=== PATIENT | male | born 1940 | race Caucasian/White ===

== ENCOUNTER → 2018-02-28 10:24 | Outpatient (CLI) | payer OTHER, SELFPAY ==
[2018-02-28 10:46] LABS: Hematocrit 47.1 % (41-53); Hemoglobin 16.2 g/dL (13.5-17.5); Mean Corpuscular HGB Conc 34.5 % (30-36); Mean Corpuscular Hemoglobin 32.3 PG (26-34); Mean Corpuscular Volume 93.7 fL (80-100); Platelet Count 173 X10^3/uL (150-400); Red Blood Cell Count 5.03 X10^6/uL (4.5-5.9); Red Cell Distribution Width 13.3 % (11.6-14.8); White Blood Cell Count 19.8 X10^3/uL (4.5-11.0)
[2018-02-28 10:47] LABS: Add Manual Diff / Slide Review YES
[2018-02-28 11:16] LABS: Alanine Aminotransferase 38 IU/L (21-72); Albumin 4.2 g/dL (3.5-5.0); Albumin Globulin Ratio 1.6 (1.0-2.8); Alkaline Phosphatase 82 U/L (38-126); Aspartate Aminotransferase 54 IU/L (17-59); Bilirubin Total 1.3 mg/dL (0.2-1.3); Blood Urea Nitrogen 16 mg/dL (9-20); Calcium 10.9 mg/dL (8.4-10.2); Carbon Dioxide 24 mmol/L (22-32); Chloride 107 mmol/L (98-107); Estimated Glomerular Filt Rate > 60.0 mL/min (>60); Globulin 2.6 g/dL (1.7-4.1); Glucose 91 mg/dL (80-110); HEMOLYSIS 22 (0-50); Lactate Dehydrogenase 577 U/L (313-618); Neutrophils Absolute Manual 5940 /uL (3000-5900); Potassium 4.3 mmol/L (3.4-5.1); RBC Morphology Normal Morphology; Smudge Cells 2+; Sodium 142 mmol/L (137-145); Total Cells Counted 100; Total Protein 6.8 g/dL (6.3-8.2)
[2018-02-28 11:17] LABS: Reactive Lymphocytes 3+
[2018-03-02 12:05] LABS: Immunoglobulin G, Quantitative 866 mg/dL (694-1618)
== END ==
PROVIDERS: Internal Medicine Hematology & Oncology; Family Provider Family Medicine; PCP Family Medicine
DX: C91.90 Lymphoid leukemia, unspecified not having achieved remission (principal)
CPT/HCPCS: 36415; 80053; 82784; 83615; 85025

== ENCOUNTER 2018-03-21 11:50 | Day surgery (SDC) | payer OTHER, SELFPAY ==
[2018-03-21] VITALS (11 sets, daily range): BP systolic 90–138; BP diastolic 62–85; PULSE 57–76; RESP 16; TEMP 36.3; O2SAT 93–99; BMI 27.2
[2018-03-21] MEDS: PROPARACAINE 0.5% OPHTH SOL 2 DROPS EYE-OP (12:18)
[2018-03-21] MEDS: CATARACT EYE COMPOUND (10 DROPS/SYRINGE) 3 DROPS EYE-OP (12:23)
--- NOTE | 2018-03-21 12:40 | PM.PREOP ---
Pre-operative Note Interval Note Pre-op Check: Yes History & Physical Reviewed by Physician Changes: No
[2018-03-21] MEDS: TETRACAINE 0.5% OPHTH DROPS 15 ML 2 DROPS EYE-LEFT (13:11)
[2018-03-21] MEDS: LIDOCAINE JELLY 2% 5 ML 1 APPLIC TOP (13:12)
[2018-03-21] MEDS: MOXIFLOXACIN OPHTH DROPS 3 ML BOTTLE 2 DROPS INJ (13:13)
[2018-03-21] MEDS: BALANCED SALT IRRIG SOLN NO.2 500 ML, EPINEPHrine 1 MG IRR (13:14)
--- NOTE | 2018-03-21 13:37 | PM.OP.1 ---
Procedure & Clinicians Procedure: Cataract extraction with intraocular lens implant, left eye Same procedure as scheduled: Yes Indications: Visually significant cataract Surgeon: Rolando Templeton Anesthesia Type: MAC +/- Operative Notes Findings: The patient was brought to the operating suite. Tetracaine drops were placed in the left eye. The patient was prepped and draped in the typical sterile manner. A lid speculum was placed in the eye. A paracentesis port was created with a side-port blade. 0.1 mL of 1% preservative free lidocaine was injected into the anterior chamber. Viscoelastic was injected into the anterior chamber. A 2.6mm keratome was used to create a clear corneal temporal incision. Cystotome and Utrata forceps were used to create a continuous curvilinear capsulorrhexis. Balanced salt solution was used to hydrodissect the nucleus. Phacoemulsification was used to remove the lens. The capsular bag was inflated with viscoelastic. A Johns ZCBOO 18.0D lens was inserted into the bag. Viscoelastic was removed and the wound hydrated. The wound was found to be leak free and the eye was assessed to be at normal physiologic pressure. 0.1mL Vigamox was injected into the anterior chamber. The lid speculum was removed and the patient left the operating room in excellent condition. Complications: none Condition: stable Disposition: same day surgery
[2018-03-21] MEDS: LACTATED RINGERS 1,000 ML 1000 ML IV (14:40)
--- NOTE | 2018-03-21 17:55 | SUR.PHASEII ---
1330 Pt found sitting up in wheelchair, spouse at bedside. Pt's head slowly fell back and pt did not open eyes to voice. Skin diaphoretic. Face pale, purple. Pt weakly intermittently responded to voice commands. Radial pulse unpalpable and respirations very shallow. Help and an MD was called for, crash cart requested. Multiple doctors and nurses arrived, crash cart arrived. Pt connected to monitor, hr in the 30s at 1333. 6lNC applied, O2 sat 100%. BP 76/57, Dr. Shahid gave 20mg Ephedrine. Pt was assisted to a stretcher. BP increased to 100/65, HR increased slowly to the 60s. 500ml LR bolus given, then LR slowed. EKG done, Dr. Shahid reviewed EKG, no new orders. RN at bedside, pt continued to be monitored by qc manager. 1000ml IV bag infused per Dr. Shahid. VS Stable. Pt ambulated to the bathroom and back, sba, gait steady.
== END 2018-03-21 14:58 | disposition home or self-care (01) ==
LOC: OR 11:51
PROVIDERS: Family Provider Family Medicine; PCP Family Medicine; Visit Provider Ophthalmology
DX: H25.22 Age-related cataract, morgagnian type, left eye (principal); F41.9 Anxiety disorder, unspecified; I10 Essential (primary) hypertension
CPT/HCPCS: 93005; J0171; J2250; J3010

== ENCOUNTER 2018-10-10 11:28 | Day surgery (SDC) | payer OTHER, SELFPAY ==
[2018-10-10] VITALS (10 sets, daily range): BP systolic 73–108; BP diastolic 53–72; PULSE 65–96; RESP 12–16; TEMP 36.4–36.8; O2SAT 94–98; BMI 26.5
[2018-10-10] MEDS: PROPARACAINE 0.5% OPHTH SOL 2 DROPS EYE-OP (12:08)
[2018-10-10] MEDS: CATARACT EYE COMPOUND (10 DROPS/SYRINGE) 3 DROPS EYE-OP (12:10)
--- NOTE | 2018-10-10 12:35 | PM.PREOP ---
Pre-operative Note Interval Note History & Physical reviewed/Exam performed by Physician: Yes Changes to H&P: No
[2018-10-10] MEDS: MOXIFLOXACIN OPHTH DROPS 3 ML BOTTLE 2 DROPS INJ (13:04)
[2018-10-10] MEDS: CHONDROIDTIN/SOD HYALURONATE 1.05 ML SYRINGE INTRAOCULA (13:04)
[2018-10-10] MEDS: PHENYLEPHRINE/LIDOCAINE VIAL (OR) 0.2 ML EYE-OP (13:05)
[2018-10-10] MEDS: BALANCED SALT IRRIG SOLN NO.2 500 ML, EPINEPHrine 1 MG IRR (13:06)
[2018-10-10] MEDS: LIDOCAINE 2% INJ SDV 0.5 ML TOP (13:08)
[2018-10-10] MEDS: TETRACAINE 0.5% OPHTH DROPS 4 ML 2 DROPS EYE-RIGHT (13:09)
--- NOTE | 2018-10-10 13:30 | PM.OP.1 ---
Procedure & Clinicians Procedure: Cataract extraction with intraocular lens implant, right Same procedure as scheduled: Yes Indications: Visually significant nuclear sclerosis cataract, right Surgeon: Rolando Templeton Anesthesia Type: MAC +/- Operative Notes Procedure in detail: The patient was brought to the operating suite. The correct patient, surgical site and lens were confirmed. 0.5 % tetracaine drops were placed in the right eye. The patient was prepped and draped in the typical sterile manner. A lid speculum was placed in the eye. 2% lidocaine was placed on the eye. A paracentesis port was created with a side-port blade. 0.1 mL of 1% preservative free lidocaine was injected into the anterior chamber. Viscoelastic was injected into the anterior chamber. A 2.6mm keratome was used to create a clear corneal temporal incision. Cystotome and Utrata forceps were used to create a continuous curvilinear capsulorrhexis. Balanced salt solution was used to hydrodissect the nucleus. Phacoemulsification was used to remove the lens. The capsular bag was inflated with viscoelastic. A Johns ZBOO +17.5D lens was inserted into the capsule. Viscoelastic was removed and the wound hydrated. The wound was found to be leak free and the eye was assessed to be at normal physiologic pressure. 0.1mL Vigamox was injected into the anterior chamber. The lid speculum was removed and the patient left the operating room in excellent condition. Complications: none Condition: stable Disposition: same day surgery
--- NOTE | 2018-10-10 14:04 | SUR.PHASEII ---
pt's blood pressure dropped to the 80systolically pt states she feels fine . Gave pt lots of fluids po and gave him a sandwich to eat will recheck blood pressure encourage fluids and pt is eating a sandwich. States he feels fine.
--- NOTE | 2018-10-10 14:55 | SUR.PHASEII ---
informed Dr. Cardenas of patients blood pressure at 1430 and gave report to Tiffanie Rush RN . pt remains awake and alert. Denies any complaints but is sitting wth drinking fluids and talking. Denies dizziness or any funny feeling.
--- NOTE | 2018-10-10 15:59 | SUR.PHASEII ---
1430: Assumed care of pt. Pt's blood pressure remains low (89/61), aware. Gave pt cup of black coffee and sat pt up on the edge of his bed. Re-checked pt's BP at 1515 and it was 86/57. Gave pt apple juice x3 and cranberry juice x2 and reevaluated BP at 1530, it was 73/53. I contacted Dr. Cardenas who said to place IV and give 1L NS blus. I had the pt sit back in bed, placed IV and started bolus. Will re-evaluate once bolus is in.
[2018-10-10] MEDS: SODIUM CHLORIDE 0.9% 1,000 ML 100 ML IV (16:16)
== END 2018-10-10 16:25 | disposition home or self-care (01) ==
LOC: OR 11:31
PROVIDERS: Family Provider Family Medicine; PCP Family Medicine; Visit Provider Ophthalmology
PROC: (CPT 66984; principal; 2018-10-10 12:30)
DX: H25.11 Age-related nuclear cataract, right eye (principal); F41.9 Anxiety disorder, unspecified; I10 Essential (primary) hypertension
CPT/HCPCS: 66984; J0171; J2250; J3010

== ENCOUNTER → 2018-10-11 10:20 | Outpatient (CLI) | payer OTHER, SELFPAY ==
--- NOTE | 2018-10-11 10:21 | DI.US.S_ITS ---
PROCEDURE: US THYROID INDICATIONS: HYPERPARATHYROIDISM TECHNIQUE: Real-time scanning was performed of the thyroid gland, with image documentation. COMPARISON: None. FINDINGS: Right: Thyroid lobe measures 4.3 x 1.9 x 1.4 cm, and is homogeneous in echotexture. There are 3 cystic nodules in the right thyroid lobe and isthmus, the largest in the right lobe measures 1.3 cm. It is immediately adjacent to a cystic nodule measuring 1.2 cm with a single coarse internal calcification. Left: Thyroid lobe measures 4.5 x 1.3 x 1.3 cm, and is homogenous in echotexture. There 2 hypoechoic small nodules in the left thyroid lobe, one measuring 6 mm and the other measuring 5 mm. Isthmus: 9 mm thick secondary to a cystic ovoid nodule measuring 2.4 x 0.9 x 2.0 cm. The immediately caudal to the left thyroid lobe there is an ovoid nodule measuring 1.1 cm with increased vascularity. Additionally, there are multiple hypoechoic, rounded and ovoid nodules in the cervical chains bilaterally. IMPRESSION: Multiple bilateral extrathyroidal nodules, lymph nodes and/ or parathyroid adenoma. Correlation with contrast enhanced CT scan and nuclear medicine sestamibi scan is recommended. Cystic and subcentimeter bilateral and isthmus thyroid nodules with only mildly suspicious features. Dictated by: Lorelei Knight M.D. on 10/11/2018 at 12:46 Approved by: Lorelei Knight M.D. on 10/11/2018 at 12:55
== END ==
PROVIDERS: Family Provider Family Medicine; PCP Family Medicine; Visit Provider Internal Medicine Hematology & Oncology
DX: E21.3 Hyperparathyroidism, unspecified (principal); C91.90 Lymphoid leukemia, unspecified not having achieved remission; E04.2 Nontoxic multinodular goiter
CPT/HCPCS: 76536

== ENCOUNTER → 2018-11-06 11:04 | Outpatient (CLI) | payer OTHER, SELFPAY ==
[2018-11-06 12:43] LABS: Alanine Aminotransferase 46 IU/L (21-72); Albumin 4.2 g/dL (3.5-5.0); Albumin Globulin Ratio 1.6 (1.0-2.8); Alkaline Phosphatase 69 U/L (38-126); Aspartate Aminotransferase 40 IU/L (17-59); Bilirubin Total 0.9 mg/dL (0.2-1.3); Blood Urea Nitrogen 24 mg/dL (9-20); Calcium 11.1 mg/dL (8.4-10.2); Carbon Dioxide 29 mmol/L (22-32); Chloride 101 mmol/L (98-107); Estimated Glomerular Filt Rate > 60.0 mL/min (>60); Globulin 2.7 g/dL (1.7-4.1); Glucose 94 mg/dL (80-110); HEMOLYSIS 23 (0-50); Potassium 4.3 mmol/L (3.4-5.1); Sodium 136 mmol/L (137-145); Total Protein 6.9 g/dL (6.3-8.2)
--- NOTE | 2018-11-06 12:52 | DI.CT.S_ITS ---
PROCEDURE: CT SOFT TISSUE NECK W CON INDICATIONS: POSSIBLE PARTHYROIDISM? TECHNIQUE: After the administration of intravenous contrast, 3.0 mm axial sections acquired from the sella to the aortic arch. Additional oblique axial 3.0 mm sections acquired through the pharynx. 3 mm thick coronal and sagittal reformats were generated. For radiation dose reduction, the following was used: automated exposure control. COMPARISON: [facility], , US THYROID, 10/11/2018, 10:49. FINDINGS: Image quality: Excellent. Lymph nodes: No enlarged lymph nodes seen throughout the neck. Numerous subcentimeter lymph nodes can be seen throughout the neck, including adjacent to the thyroid. Vessels: Visualized vasculature appears patent. Neck spaces: The oropharynx, nasopharynx, and pharynx demonstrate no mucosal lesions. The vocal cords, false vocal cords, pyriform sinuses, epiglottis, vallecula, and tongue base all appear normal. Extramucosal spaces appear unremarkable. Glands: The parotid and submandibular glands appear normal. The thyroid gland demonstrates several internal nodules, with the largest seen within the left isthmus measuring 2 cm. Surrounding the thyroid, there are numerous ovoid subcentimeter lesions seen, which are attributed to lymph nodes. Miscellaneous: Visualized brain and orbits appear normal. Lung apices appear clear. Superficial soft tissues appear normal. Bones: No suspicious bony lesions. Visualized sinuses and mastoids appear unremarkable. Age-appropriate bony degenerative changes are seen. IMPRESSION: The previously seen nodules adjacent to the thyroid are most consistent with benign ovoid lymph nodes. Numerous simple appearing lymph nodes can be seen elsewhere within the neck. Thyroid nodules are again seen, as previously demonstrated by ultrasound. Dictated by: Julio Cesar Mohr M.D. on 11/06/2018 at 14:41 Approved by: Julio Cesar Mohr M.D. on 11/06/2018 at 14:43
== END ==
PROVIDERS: Family Provider Family Medicine; PCP Family Medicine; Visit Provider Internal Medicine Hematology & Oncology
DX: C91.90 Lymphoid leukemia, unspecified not having achieved remission (principal); E83.52 Hypercalcemia
CPT/HCPCS: 36415; 70491; 80053; Q9967

== ENCOUNTER 2018-12-20 14:18 | Emergency (ER) | payer OTHER, SELFPAY ==
[2018-12-20 14:17] VITALS: BP 132/83; PULSE 72; RESP 12; TEMP 36.8; O2SAT 97
--- NOTE | 2018-12-20 14:25 | DI.RAD.S_ITS ---
PROCEDURE: XR CHEST 1V INDICATIONS: Possible stroke TECHNIQUE: One view of the chest was acquired. COMPARISON: [facility], , CHEST 2 VIEW, 12/28/2009, 12:49. FINDINGS: Surgical changes and devices: None. Lungs and pleura: Lungs are clear. No pleural effusions or pneumothorax. Mediastinum: Mediastinal contours appear normal. Heart size is normal. There is mild aortic atherosclerosis. Bones and chest wall: No suspicious bony lesions. Overlying soft tissues appear unremarkable. IMPRESSION: No acute cardiopulmonary process is evident. Dictated by: Bob Robledo M.D. on 12/20/2018 at 13:49 Approved by: Bob Robledo M.D. on 12/20/2018 at 13:50
--- NOTE | 2018-12-20 14:29 | DI.CT.S_ITS ---
PROCEDURE: CT HEAD/BRAIN WO CON INDICATIONS: transient left facial droop, slurred speech and hallucinatio TECHNIQUE: Noncontrast 4.5 mm thick angled axial sections acquired from the foramen magnum to the vertex, with coronal and sagittal reformats. For radiation dose reduction, the following was used: automated exposure control, adjustment of mA and/or kV according to patient size. COMPARISON: [facility], , MRI HEAD W/O CONTRAST, 10/13/2005, 10:48. FINDINGS: Image quality: Diagnostic. CSF spaces: Basal cisterns are patent. No extra-axial fluid collections. Ventricles are only prominent with corresponding parenchymal volume loss. Brain: No midline shift. No intracranial masses or hemorrhage. [place]-white matter interface is normal. Skull and face: Calvarium and visualized facial bones are intact, without suspicious lesions. Sinuses: Visualized sinuses and mastoids are clear. IMPRESSION: 1. No acute intracranial hemorrhage. 2. Mild parenchymal volume loss. Dictated by: Bob Robledo M.D. on 12/20/2018 at 13:48 Approved by: Bob Robledo M.D. on 12/20/2018 at 13:49
--- NOTE | 2018-12-20 14:40 | ED.NEUROSD ---
HPI - Neuro Symptoms/Deficit General Chief Complaint: Neuro Symptoms/Deficit Stated Complaint: auditory hallucinations Time Seen by Provider: 12/20/18 14:38 Source: patient and EMS Mode of arrival: EMS Limitations: no limitations History of Present Illness HPI Narrative: 78-year-old male comes to the emergency department with complaint of auditory hallucinations while swimming and possibly some facial droop reported by a bystander. Patient states he was swimming at full dog a pool he heard grunting sounds and what sounded like people talking which he states he should be able to here under the water. He states that he swims regularly. He swam to the edge of the pool was able to get out on his own without he states that he was able to walk to the locker room without issue. There was a slow instructor present who stated that he had some left facial droop. Patient did not appreciate this. He did not appreciate any speech issues. No headache, no vision changes, no weakness or numbness, does have shortness of breath no other GI or urinary said he does. Does have a history significant for CLL, he takes medications for hypertension takes a daily baby aspirin. States he has had cataract surgery on 1 eye, he does drink 1 alcoholic drinks daily. He sees Dr. Jacobson for his primary care in lives 6 months in [place]. On Anticoagulants: Yes (ASA 81mg) Related Data Home Medications Medication Instructions Recorded Confirmed aspirin 81 mg PO DAILY 10/18/17 12/20/18 acetaminophen [Tylenol Extra 500 mg PO Q4H PRN 03/21/18 12/20/18 Strength] lutein-zeaxanthin [Ocuvite Lutein 1 cap PO DAILY 10/29/18 12/20/18 25] lisinopril-hydrochlorothiazide 1 tab PO DAILY 12/20/18 12/20/18 Previous Rx's Medication Instructions Recorded bupropion HCl SR 150 mg tablet,12 150 mg PO BID #180 tab 10/07/18 hr sustained-release Allergies Allergy/AdvReac Type Severity Reaction Status Date / Time No Known Drug Allergies Allergy Verified 10/07/18 11:01 Review of Systems Review of Systems ROS Unobtainable: All systems reviewed & are unremarkable except as noted in HPI and below Constitutional Denies chills, Denies fever(s), Denies lethargy and Denies weakness ENT Ears, Nose, Mouth, and Throat: Denies disequilibrium and Denies other (facial droop.) Cardiovascular Denies chest pain, Denies chest pain at rest, Denies chest pain with activity, Denies syncope, Denies edema, Denies lightheadedness, Denies radiating jaw, neck or arm pain, Denies dyspnea and Denies dyspnea on exertion Respiratory Denies cough, Denies dyspnea, Denies dyspnea on exertion and Denies wheezing Gastrointestinal Gastrointestinal: Denies abdominal pain, Denies change in bowel habits, Denies diarrhea, Denies nausea and Denies vomiting Musculoskeletal Denies abnormal gait Neurologic Reports as per HPI, Denies abnormal movements, Denies abnormal speech, Denies abnormal gait, Denies syncope, Denies focal weakness, Denies sensory deficit, Denies disequilibrium and Denies weakness Psychiatric Reports hallucinations (heard people talking while in water, grunting sounds that were unnatural.) Allergic/Immunologic Denies wheezing [facility] Medical History Depressive disorder, atypical (Chronic) Anxiety disorder (Chronic) Hyperlipidemia (Chronic 12/07/10) Benign prostatic hyperplasia (Chronic 02/16/15) Essential hypertension (Chronic 11/10/15) 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 Sister No problems noted. Father No problems noted. Mother Pancreatic cancer Social History household members: spouse Smoking Status: Never smoker Family History Brother No problems noted. Sister No problems noted. Father No problems noted. Mother Pancreatic cancer Social History (Updated 12/20/18 @ 14:57 by Martita Salazar DO) household members: spouse Smoking Status: Never smoker alcohol intake: current substance use type: does not use Exam Narrative Exam Narrative: GEN: well nourished, thin, well appearing elderly male, alert and oriented x 3, patient appears to be in no acute distress. HEENT: Atraumatic, pupils are equal round reactive to light, extraocular movements are intact, nares are clear, TMs are clear with no fluid, there is no conjunctival pallor. Throat is clear without any exudates, erythema, tonsillar enlargement or uvular deviation HEART: Regular rate and rhythm without murmur, clicks, rubs. No carotid bruits, pulses are equal in upper and lower extremities LUNGS:Lungs clear to auscultation, no wheezes, rales, crackles, chest moves symmetrically ABD:bowel sounds normal, soft, non-tender, no guarding, rebound, rigidity, no masses noted, no hepatosplenomegaly :No CVA tenderness. MSCL: Non-tender, no muscle atrophy, muscles strength 5/5 upper and lower extremities, full range of motion, gait not tested. NEURO:CN 2-12 intact, sensation normal, reflexes 2/4 upper and lower extremities. finger nose finger test normal, heel mares test normal PSYCH: History of depression, no suicidal ideation or intent. Initial Vital Signs Initial Vital Signs: Vital Signs Temperature 98.2 F 12/20/18 14:17 Pulse Rate 72 12/20/18 14:17 Respiratory Rate 12 12/20/18 14:17 Blood Pressure 132/83 12/20/18 14:17 Pulse Oximetry 97 12/20/18 14:17 Scores NIH Stroke Scale Level of Conciousness: Alert, keenly responsive Ask month/age: Answers both questions correctly. Open/close eyes, close hand: Performs both tasks correctly Best gaze horizontal: Normal Visual ybarra: No visual loss Facial palsy: Normal symetrical movement Left arm drift: No drift for full 10 sec Right arm drift: No drift for full 10 sec Left leg drift: No drift for full 10 sec Right leg drift: No drift for full 10 sec Limb ataxia: Absent Sensory on face/arms/legs: Normal, no sensory loss Best language: No aphasia, normal Dysarthria: Normal Extinction or inattention: No abnormality Total NIH Stroke scale score: 0 Course Orders Ordered: ED Orders 12/20/18 14:25 XR chest 1V Stat Complete Blood Count AUTO DIFF Stat Comprehensive Metabolic Panel Stat Partial Thromboplastin Time Stat Prothrombin Time INR Stat Troponin & CK Cardiac Panel Stat EKG-12 Lead Stat 12/20/18 14:29 CT head/brain wo con Stat 12/20/18 16:10 Urine Microscopic Stat Discontinued Medications Aspirin (Aspirin Chew) 324 mg PO NOW ONE Stop: 12/20/18 16:35 Last Admin: 12/20/18 16:50 Dose: 324 mg Vital Signs - 8 hr 12/20/18 14:17 12/20/18 16:51 Temperature 98.2 F Pulse Rate 72 64 Respiratory Rate 12 18 Blood Pressure 132/83 102/85 Pulse Oximetry 97 100 MDM - Neuro Symptoms/Deficit Lab Data Attestation: I reviewed the patient's lab results. Result diagrams: 12/20/18 14:25 12/20/18 14:25 Lab Results 12/20/18 12/20/18 12/20/18 Range/Units 14:25 14:25 14:25 WBC 18.5 H (4.5-11.0) X10^3/uL RBC 5.00 (4.5-5.9) X10^6/uL Hgb 16.1 (13.5-17.5) g/dL Hct 47.6 (41-53) % MCV 95.1 (80-100) fL MCH 32.3 (26-34) PG MCHC 33.9 (30-36) % RDW 13.2 (11.6-14.8) % Plt Count 202 (150-400) X10^3/uL Neut % (Auto) Not Reportable Lymph % (Auto) Not Reportable [place] % (Auto) Not Reportable Eos % (Auto) Not Reportable Baso % (Auto) Not Reportable Lymph # (Auto) Not Reportable [place] # (Auto) Not Reportable Baso # (Auto) Not Reportable Total Counted 100 Seg Neutrophils % 24.0 L (38-70) % Lymphocytes % (Manual) 43.0 (25-45) % Atypical Lymphs % 28.0 H ( - 0) % Monocytes % (Manual) 2.0 (2-11) % Eosinophils % (Manual) 3.0 (2-4) % Neutrophils # (Manual) 4440 (7526-7076) /uL RBC Morphology Normal morphology PT 10.7 (10.1-12.7) SECONDS INR 0.9 (0.9-1.3) APTT 40 H (26.4-36.2) SECONDS Sodium 138 (137-145) mmol/L Potassium 4.2 (3.4-5.1) mmol/L Chloride 102 (98-107) mmol/L Carbon Dioxide 29 (22-32) mmol/L BUN 22 H (9-20) mg/dL Creatinine 1.20 (0.66-1.25) mg/dL Estimated GFR 58.3 L (>60) mL/min BUN/Creatinine Ratio 18.3 (6-22) Glucose 104 (80-110) mg/dL Calcium 11.1 H (8.4-10.2) mg/dL Total Bilirubin 1.1 (0.2-1.3) mg/dL AST 51 (17-59) IU/L ALT 35 (21-72) IU/L Alkaline Phosphatase 72 (38-126) U/L Total Creatine Kinase 235 H (55-170) U/L CK-MB (CK-2) 5.42 H (<2.37) ng/mL CK-MB (CK-2) Rel Index 2.3 (1.5-5.0) % Troponin I < 0.012 (0.01-0.034) ng/mL Total Protein 7.2 (6.3-8.2) g/dL Albumin 4.3 (3.5-5.0) g/dL Globulin 2.9 (1.7-4.1) g/dL Albumin/Globulin Ratio 1.5 (1.0-2.8) Urine RBC (0-5/HPF) Urine WBC (0-5/HPF) Urine Bacteria (None) Ur Culture Indicated? 12/20/18 Range/Units 16:10 WBC (4.5-11.0) X10^3/uL RBC (4.5-5.9) X10^6/uL Hgb (13.5-17.5) g/dL Hct (41-53) % MCV (80-100) fL MCH (26-34) PG MCHC (30-36) % RDW (11.6-14.8) % Plt Count (150-400) X10^3/uL Neut % (Auto) Lymph % (Auto) [place] % (Auto) Eos % (Auto) Baso % (Auto) Lymph # (Auto) [place] # (Auto) Baso # (Auto) Total Counted Seg Neutrophils % (38-70) % Lymphocytes % (Manual) (25-45) % Atypical Lymphs % ( - 0) % Monocytes % (Manual) (2-11) % Eosinophils % (Manual) (2-4) % Neutrophils # (Manual) (0809-4304) /uL RBC Morphology PT (10.1-12.7) SECONDS INR (0.9-1.3) APTT (26.4-36.2) SECONDS Sodium (137-145) mmol/L Potassium (3.4-5.1) mmol/L Chloride (98-107) mmol/L Carbon Dioxide (22-32) mmol/L BUN (9-20) mg/dL Creatinine (0.66-1.25) mg/dL Estimated GFR (>60) mL/min BUN/Creatinine Ratio (6-22) Glucose (80-110) mg/dL Calcium (8.4-10.2) mg/dL Total Bilirubin (0.2-1.3) mg/dL AST (17-59) IU/L ALT (21-72) IU/L Alkaline Phosphatase (38-126) U/L Total Creatine Kinase (55-170) U/L CK-MB (CK-2) (<2.37) ng/mL CK-MB (CK-2) Rel Index (1.5-5.0) % Troponin I (0.01-0.034) ng/mL Total Protein (6.3-8.2) g/dL Albumin (3.5-5.0) g/dL Globulin (1.7-4.1) g/dL Albumin/Globulin Ratio (1.0-2.8) Urine RBC 0-1/hpf (0-5/HPF) Urine WBC None seen (0-5/HPF) Urine Bacteria None seen (None) Ur Culture Indicated? Cult not indicated Urine Dip Bedside Urine Glucose Negative Bedside Urine Bilirubin - Negative Bedside Urine Ketone - Negative Urine Specific [place] 1.015 Bedside Urine Occult Blood +/- Bedside Urine pH 7.0 Bedside Urine Protein - Negative Bedside Urine Urobilinogen +/- 1mg Bedside Urine Nitrite - Negative Bedside Urine Leukocytes - Negative Esterase Imaging Data CT scan - head: Radiologist's impression: [address] [address] [address] Scan Report Signed Patient: Artis Veloz EMR#: [id number] : 9Acct:[id number] Age/Sex: 78 / MDate of Service: 12/20/18 Loc: ED Accession Number: [id number] Procedure: CT head/brain wo con Ordering Provider: Martita Salazar D.O. PROCEDURE: CT HEAD/BRAIN WO CON INDICATIONS: transient left facial droop, slurred speech and hallucinatio TECHNIQUE: Noncontrast 4.5 mm thick angled axial sections acquired from the foramen magnum to the vertex, with coronal and sagittal reformats. For radiation dose reduction, the following was used: automated exposure control, adjustment of mA and/or kV according to patient size. COMPARISON: [facility] , MRI HEAD W/O CONTRAST, 10/13/2005, 10:48. FINDINGS: Image quality: Diagnostic. CSF spaces: Basal cisterns are patent. No extra-axial fluid collections. Ventricles are only prominent with corresponding parenchymal volume loss. Brain: No midline shift. No intracranial masses or hemorrhage. [place]-white matter interface is normal. Skull and face: Calvarium and visualized facial bones are intact, without suspicious lesions. Sinuses: Visualized sinuses and mastoids are clear. IMPRESSION: 1. No acute intracranial hemorrhage. 2. Mild parenchymal volume loss. Dictated by: Bob Robledo M.D. on 12/20/2018 at 13:48 Approved by: Bob Robledo M.D. on 12/20/2018 at 13:49 Chest x-ray: Radiologist's impression: [address] [address] XRay Report Signed Patient: Artis Veloz EMR#: [id number] : 9Acct:[id number] Age/Sex: 78 / MDate of Service: 12/20/18 Loc: ED Accession Number: [id number] Procedure: XR chest 1V Ordering Provider: Martita Salazar D.O. PROCEDURE: XR CHEST 1V INDICATIONS: Possible stroke TECHNIQUE: One view of the chest was acquired. [facility] 12[facility]. FINDINGS: Surgical changes and devices: None. Lungs and pleura: Lungs are clear. No pleural effusions or pneumothorax. Mediastinum: Mediastinal contours appear normal. Heart size is normal. There is mild aortic atherosclerosis. Bones and chest wall: No suspicious bony lesions. Overlying soft tissues appear unremarkable. IMPRESSION: No acute cardiopulmonary process is evident. Dictated by: Bob Robledo M.D. on 12/20/2018 at 13:49 Approved by: Bob Robledo M.D. on 12/20/2018 at 13:50 ECG Data Attestation: I personally reviewed and interpreted this ECG as follows: Interpretation: Sinus rhythm rate of 68 LA is 184 QRS of 93 QTC of 384. No ST elevation or depression. MDM Narrative Medical decision making narrative: Patient's history is suggestive of possible TIA all with the auditory hallucinations that he describes perhaps less likely. We discussed that there could be other causes involved. NIH is 0. Patient's head CT is negative, his lab work does not show any major abnormalities other than his elevated white count which is typical with CLL EKG does not show any acute findings. Patient would like to return home he was offered observation. I spoke with Dr. Desai who is covering for his primary care, we discussed that I had him increase his aspirin although he will not be fully anticoagulated any should discussed with Dr. Jacobson about being put on no wax or warfarin if he has an appropriate candidate. Patient did not wish to make that decision today. We also discussed that if any recurrent symptoms he needs to return. Risks vs. benefits have been discussed with patient and family at bedside. Discharge Plan Departure Patient Disposition: Home Clinical Impression: TIA (transient ischemic attack) Discharge Date/Time: 12/20/18 16:52 Interventions: ED Discharge Assessment Last Done: 12/20/18 16:51 Instructions: DI for Transient Ischemic Attack Activity Restrictions/Additional Instructions: You may have had a TIA, it is unclear if this is case. Call Sunday morning to set up an appointment for follow-up with Dr. Jacobson for the rest of your evaluation and workup as you have elected not to spend the night in the hospital. Continue home medications as prescribed. Take an aspirin 324 mg daily discussed with Dr. Jacobson regarding taking stronger anticoagulant to protect to from possible strokes. Return to the emergency department for fevers greater than 100.4, new headaches, vision changes, difficulties with speech is, weakness with your extremities, numbness, new chest pain shortness of breath or syncope or other new or concerning symptoms. Prescriptions: No Action bupropion HCl [Wellbutrin SR] 150 mg tablet sustained-release 12 hr 150 mg PO BID Qty: 180 RF: 3 aspirin 81 mg Tablet,Delayed Release (Dr/Ec) 81 mg PO DAILY RF: 0 acetaminophen [Tylenol Extra Strength] 500 mg Tablet 500 mg PO Q4H PRN (Reason: Pain (Scale Score 1-3)) RF: 0 lisinopril-hydrochlorothiazide 20-25 mg tablet 1 tab PO DAILY RF: 0 lutein-zeaxanthin [Ocuvite Lutein 25] 25-5 mg Capsule 1 cap PO DAILY RF: 0 Referrals: Johnny Jacobson MD [Primary Care Provider] -
[2018-12-20 14:42] LABS: Hematocrit 47.6 % (41-53); Hemoglobin 16.1 g/dL (13.5-17.5); INR 0.9 (0.9-1.3); Mean Corpuscular HGB Conc 33.9 % (30-36); Mean Corpuscular Hemoglobin 32.3 PG (26-34); Mean Corpuscular Volume 95.1 fL (80-100); Platelet Count 202 X10^3/uL (150-400); Prothrombin Time 10.7 SECONDS (10.1-12.7); Red Cell Distribution Width 13.2 % (11.6-14.8); White Blood Cell Count 18.5 X10^3/uL (4.5-11.0)
[2018-12-20 14:43] LABS: Add Manual Diff / Slide Review YES
[2018-12-20 14:45] LABS: PTT Partial Thromboplastin Tim 40 SECONDS (26.4-36.2)
[2018-12-20 14:53] LABS: Alanine Aminotransferase 35 IU/L (21-72); Albumin 4.3 g/dL (3.5-5.0); Albumin Globulin Ratio 1.5 (1.0-2.8); Alkaline Phosphatase 72 U/L (38-126); Aspartate Aminotransferase 51 IU/L (17-59); BUN Creatinine Ratio 18.3 (6-22); Bilirubin Total 1.1 mg/dL (0.2-1.3); Blood Urea Nitrogen 22 mg/dL (9-20); Calcium 11.1 mg/dL (8.4-10.2); Carbon Dioxide 29 mmol/L (22-32); Chloride 102 mmol/L (98-107); Creatine Kinase 235 U/L (55-170); Estimated Glomerular Filt Rate 58.3 mL/min (>60); Globulin 2.9 g/dL (1.7-4.1); Glucose 104 mg/dL (80-110); HEMOLYSIS 31 (0-50); Potassium 4.2 mmol/L (3.4-5.1); Sodium 138 mmol/L (137-145); Total Protein 7.2 g/dL (6.3-8.2)
[2018-12-20 14:59] LABS: Neutrophils Absolute Manual 4440 /uL (3000-5900); Total Cells Counted 100
[2018-12-20 15:00] LABS: RBC Morphology Normal Morphology
--- NOTE | 2018-12-20 15:00 | ED_ITS ---
HPI - Neuro Symptoms/Deficit General Chief Complaint: Neuro Symptoms/Deficit Stated Complaint: auditory hallucinations Time Seen by Provider: 12/20/18 14:38 Source: patient and EMS Mode of arrival: EMS Limitations: no limitations History of Present Illness HPI Narrative: 78-year-old male comes to the emergency department with complaint of auditory hallucinations while swimming and possibly some facial droop report ed by a bystander. Patient states he was swimming at full dog a pool he heard grunting sounds and what sounded like people talking which he states he should be able to here under the water. He states that he swims regularly. He swam to the edge of the pool was able to get out on his own without he states that he was able to walk to the locker room without issue. There was a slow instructor present who stated that he had some left facial droop. Patient did not appreciate this. He did not appreciate any speech issues. No headache, no vision changes, no weakness or numbness, does have shortness of breath no other GI or urinary said he does. Does have a history significant for CLL, he takes medications for hypertension takes a daily baby aspirin. States he has had cataract surgery on 1 eye, he does drink 1 alcoholic drinks daily. He sees Dr. Jacobson for his primary care in lives 6 months in [place]. On Anticoagulants: Yes (ASA 81mg) Related Data Home Medications Medication Instructions Recorded Confirmed aspirin 81 mg PO DAILY 10/18/17 12/20/18 acetaminophen [Tylenol Extra 500 mg PO Q4H PRN 03/21/18 12/20/18 Strength] lutein-zeaxanthin [Ocuvite Lutein 1 cap PO DAILY 10/29/18 12/20/18 25] lisinopril-hydrochlorothiazide 1 tab PO DAILY 12/20/18 12/20/18 Previous Rx's Medication Instructions Recorded bupropion HCl SR 150 mg tablet,12 150 mg PO BID #180 tab 10/07/18 hr sustained-release Allergies Allergy/AdvReac Type Severity Reaction Status Date / Time No Known Drug Allergies Allergy Verified 10/07/18 11:01 Review of Systems Review of Systems ROS Unobtainable: All systems reviewed & are unremarkable except as noted in HPI and below Constitutional Denies chills, Denies fever(s), Denies lethargy and Denies weakness ENT Ears, Nose, Mouth, and Throat: Denies disequilibrium and Denies other (facial droop.) Cardiovascular Denies chest pain, Denies chest pain at rest, Denies chest pain with activity, Denies syncope, Denies edema, Denies lightheadedness, Denies radiating jaw, neck or arm pain, Denies dyspnea and Denies dyspnea on exertion Respiratory Denies cough, Denies dyspnea, Denies dyspnea on exertion and Denies wheezing Gastrointestinal Gastrointestinal: Denies abdominal pain, Denies change in bowel habits, Denies diarrhea, Denies nausea and Denies vomiting Musculoskeletal Denies abnormal gait Neurologic Reports as per HPI, Denies abnormal movements, Denies abnormal speech, Denies abnormal gait, Denies syncope, Denies focal weakness, Denies sensory deficit, Denies disequilibrium and Denies weakness Psychiatric Reports hallucinations (heard people talking while in water, grunting sounds that were unnatural.) Allergic/Immunologic Denies wheezing [facility] Medical History Depressive disorder, atypical (Chronic) Anxiety disorder (Chronic) Hyperlipidemia (Chronic 12/07/10) Benign prostatic hyperplasia (Chronic 02/16/15) Essential hypertension (Chronic 11/10/15) 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 Sister No problems noted. Father No problems noted. Mother Pancreatic cancer Social History household members: spouse Smoking Status: Never smoker Family History Brother No problems noted. Sister No problems noted. Father No problems noted. Mother Pancreatic cancer Social History (Updated 12/20/18 @ 14:57 by Martita Salazar DO) household members: spouse Smoking Status: Never smoker alcohol intake: current substance use type: does not use Exam Narrative Exam Narrative: GEN: well nourished, thin, well appearing elderly male, alert and oriented x 3, patient appears to be in no acute distress. HEENT: Atraumatic, pupils are equal round reactive to light, extraocular movements are intact, nares are clear, TMs are clear with no fluid, there is no conjunctival pallor. Throat is clear without any exudates, erythema, tonsillar enlargement or uvular deviation HEART: Regular rate and rhythm without murmur, clicks, rubs. No carotid bruits, pulses are equal in upper and lower extremities LUNGS:Lungs clear to auscultation, no wheezes, rales, crackles, chest moves symmetrically ABD:bowel sounds normal, soft, non-tender, no guarding, rebound, rigidity, no masses noted, no hepatosplenomegaly :No CVA tenderness. MSCL: Non-tender, no muscle atrophy, muscles strength 5/5 upper and lower extremities, full range of motion, gait not tested. NEURO:CN 2-12 intact, sensation normal, reflexes 2/4 upper and lower extremities. finger nose finger test normal, heel mares test normal PSYCH: History of depression, no suicidal ideation or intent. Initial Vital Signs Initial Vital Signs: Vital Signs Temperature 98.2 F 12/20/18 14:17 Pulse Rate 72 12/20/18 14:17 Respiratory Rate 12 12/20/18 14:17 Blood Pressure 132/83 12/20/18 14:17 Pulse Oximetry 97 12/20/18 14:17 Scores NIH Stroke Scale Level of Conciousness: Alert, keenly responsive Ask month/age: Answers both questions correctly. Open/close eyes, close hand: Performs both tasks correctly Best gaze horizontal: Normal Visual ybarra: No visual loss Facial palsy: Normal symetrical movement Left arm drift: No drift for full 10 sec Right arm drift: No drift for full 10 sec Left leg drift: No drift for full 10 sec Right leg drift: No drift for full 10 sec Limb ataxia: Absent Sensory on face/arms/legs: Normal, no sensory loss Best language: No aphasia, normal Dysarthria: Normal Extinction or inattention: No abnormality Total NIH Stroke scale score: 0 Course Orders Ordered: ED Orders 12/20/18 14:25 XR chest 1V Stat Complete Blood Count AUTO DIFF Stat Comprehensive Metabolic Panel Stat Partial Thromboplastin Time Stat Prothrombin Time INR Stat Troponin & CK Cardiac Panel Stat EKG-12 Lead Stat 12/20/18 14:29 CT head/brain wo con Stat 12/20/18 16:10 Urine Microscopic Stat Discontinued Medications Aspirin (Aspirin Chew) 324 mg PO NOW ONE Stop: 12/20/18 16:35 Last Admin: 12/20/18 16:50 Dose: 324 mg Vital Signs - 8 hr 12/20/18 14:17 12/20/18 16:51 Temperature 98.2 F Pulse Rate 72 64 Respiratory Rate 12 18 Blood Pressure 132/83 102/85 Pulse Oximetry 97 100 MDM - Neuro Symptoms/Deficit Lab Data Attestation: I reviewed the patient's lab results. Result diagrams: 12/20/18 14:25 12/20/18 14:25 Lab Results 12/20/18 12/20/18 12/20/18 Range/Units 14:25 14:25 14:25 WBC 18.5 H (4.5-11.0) X10^3/uL RBC 5.00 (4.5-5.9) X10^6/uL Hgb 16.1 (13.5-17.5) g/dL Hct 47.6 (41-53) % MCV 95.1 (80-100) fL MCH 32.3 (26-34) PG MCHC 33.9 (30-36) % RDW 13.2 (11.6-14.8) % Plt Count 202 (150-400) X10^3/uL Neut % (Auto) Not Reportable Lymph % (Auto) Not Reportable [place] % (Auto) Not Reportable Eos % (Auto) Not Reportable Baso % (Auto) Not Reportable Lymph # (Auto) Not Reportable [place] # (Auto) Not Reportable Baso # (Auto) Not Reportable Total Counted 100 Seg Neutrophils % 24.0 L (38-70) % Lymphocytes % (Manual) 43.0 (25-45) % Atypical Lymphs % 28.0 H ( - 0) % Monocytes % (Manual) 2.0 (2-11) % Eosinophils % (Manual) 3.0 (2-4) % Neutrophils # (Manual) 4440 (1263-5797) /uL RBC Morphology Normal morphology PT 10.7 (10.1-12.7) SECONDS INR 0.9 (0.9-1.3) APTT 40 H (26.4-36.2) SECONDS Sodium 138 (137-145) mmol/L Potassium 4.2 (3.4-5.1) mmol/L Chloride 102 (98-107) mmol/L Carbon Dioxide 29 (22-32) mmol/L BUN 22 H (9-20) mg/dL Creatinine 1.20 (0.66-1.25) mg/dL Estimated GFR 58.3 L (>60) mL/min BUN/Creatinine Ratio 18.3 (6-22) Glucose 104 (80-110) mg/dL Calcium 11.1 H (8.4-10.2) mg/dL Total Bilirubin 1.1 (0.2-1.3) mg/dL AST 51 (17-59) IU/L ALT 35 (21-72) IU/L Alkaline Phosphatase 72 (38-126) U/L Total Creatine Kinase 235 H (55-170) U/L CK-MB (CK-2) 5.42 H (<2.37) ng/mL CK-MB (CK-2) Rel Index 2.3 (1.5-5.0) % Troponin I < 0.012 (0.01-0.034) ng/mL Total Protein 7.2 (6.3-8.2) g/dL Albumin 4.3 (3.5-5.0) g/dL Globulin 2.9 (1.7-4.1) g/dL Albumin/Globulin Ratio 1.5 (1.0-2.8) Urine RBC (0-5/HPF) Urine WBC (0-5/HPF) Urine Bacteria (None) Ur Culture Indicated? 12/20/18 Range/Units 16:10 WBC (4.5-11.0) X10^3/uL RBC (4.5-5.9) X10^6/uL Hgb (13.5-17.5) g/dL Hct (41-53) % MCV (80-100) fL MCH (26-34) PG MCHC (30-36) % RDW (11.6-14.8) % Plt Count (150-400) X10^3/uL Neut % (Auto) Lymph % (Auto) [place] % (Auto) Eos % (Auto) Baso % (Auto) Lymph # (Auto) [place] # (Auto) Baso # (Auto) Total Counted Seg Neutrophils % (38-70) % Lymphocytes % (Manual) (25-45) % Atypical Lymphs % ( - 0) % Monocytes % (Manual) (2-11) % Eosinophils % (Manual) (2-4) % Neutrophils # (Manual) (3048-5297) /uL RBC Morphology PT (10.1-12.7) SECONDS INR (0.9-1.3) APTT (26.4-36.2) SECONDS Sodium (137-145) mmol/L Potassium (3.4-5.1) mmol/L Chloride (98-107) mmol/L Carbon Dioxide (22-32) mmol/L BUN (9-20) mg/dL Creatinine (0.66-1.25) mg/dL Estimated GFR (>60) mL/min BUN/Creatinine Ratio (6-22) Glucose (80-110) mg/dL Calcium (8.4-10.2) mg/dL Total Bilirubin (0.2-1.3) mg/dL AST (17-59) IU/L ALT (21-72) IU/L Alkaline Phosphatase (38-126) U/L Total Creatine Kinase (55-170) U/L CK-MB (CK-2) (<2.37) ng/mL CK-MB (CK-2) Rel Index (1.5-5.0) % Troponin I (0.01-0.034) ng/mL Total Protein (6.3-8.2) g/dL Albumin (3.5-5.0) g/dL Globulin (1.7-4.1) g/dL Albumin/Globulin Ratio (1.0-2.8) Urine RBC 0-1/hpf (0-5/HPF) Urine WBC None seen (0-5/HPF) Urine Bacteria None seen (None) Ur Culture Indicated? Cult not indicated Urine Dip Bedside Urine Glucose Negative Bedside Urine Bilirubin - Negative Bedside Urine Ketone - Negative Urine Specific [place] 1.015 Bedside Urine Occult Blood +/- Bedside Urine pH 7.0 Bedside Urine Protein - Negative Bedside Urine Urobilinogen +/- 1mg Bedside Urine Nitrite - Negative Bedside Urine Leukocytes - Negative Esterase Imaging Data CT scan - head: Radiologist's impression: [address] [address] [address] Scan Report Signed Patient: Artis Veloz EMR#: [id number] : 1941Acct:[id number] Age/Sex: 78 / MDate of Service: 12/20/18 Loc: ED Accession Number: [id number] Procedure: CT head/brain wo con Ordering Provider: Martita Salazar D.O. PROCEDURE: CT HEAD/BRAIN WO CON INDICATIONS: transient left facial droop, slurred speech and hallucinatio TECHNIQUE: Noncontrast 4.5 mm thick angled axial sections acquired from the foramen magnum to the vertex, with coronal and sagittal reformats. For radiation dose reduction, the following was used: automated exposure control, adjustment of mA and/or kV according to patient size. COMPARISON: [facility] , MRI HEAD W/O CONTRAST, 10/13/2005, 10:48. FINDINGS: Image quality: Diagnostic. CSF spaces: Basal cisterns are patent. No extra-axial fluid collections. Ventricles are only prominent with corresponding parenchymal volume loss. Brain: No midline shift. No intracranial masses or hemorrhage. [place]-white matter interface is normal. Skull and face: Calvarium and visualized facial bones are intact, without suspicious lesions. Sinuses: Visualized sinuses and mastoids are clear. IMPRESSION: 1. No acute intracranial hemorrhage. 2. Mild parenchymal volume loss. Dictated by: Bob Robledo M.D. on 12/20/2018 at 13:48 Approved by: Bob Robledo M.D. on 12/20/2018 at 13:49 Chest x-ray: Radiologist's impression: [address] [address] XRay Report Signed Patient: Artis Veloz EMR#: [id number] : 9Acct:[id number] Age/Sex: 78 / MDate of Service: 12/20/18 Loc: ED Accession Number: [id number] Procedure: XR chest 1V Ordering Provider: Martita Salazar D.O. PROCEDURE: XR CHEST 1V INDICATIONS: Possible stroke TECHNIQUE: One view of the chest was acquired. COMPARISON: [facility] , CHEST 2 VIEW, 12/28/2009, 12:49. FINDINGS: Surgical changes and devices: None. Lungs and pleura: Lungs are clear. No pleural effusions or pneumothorax. Mediastinum: Mediastinal contours appear normal. Heart size is normal. There is mild aortic atherosclerosis. Bones and chest wall: No suspicious bony lesions. Overlying soft tissues appear unremarkable. IMPRESSION: No acute cardiopulmonary process is evident. Dictated by: Bob Robledo M.D. on 12/20/2018 at 13:49 Approved by: Bob Robledo M.D. on 12/20/2018 at 13:50 ECG Data Attestation: I personally reviewed and interpreted this ECG as follows: Interpretation: Sinus rhythm rate of 68 AK is 184 QRS of 93 QTC of 384. No ST elevation or depression. MDM Narrative Medical decision making narrative: Patient's history is suggestive of possible TIA all with the auditory hallucinations that he describes perhaps less likely. We discussed that there could be other causes involved. NIH is 0. Patient's head CT is negative, his lab work does not show any major abnormalities other than his elevated white count which is typical with CLL EKG does not show any acute findings. Patient would like to return home he was offered observation. I spoke with Dr. Desai who is covering for his primary care, we discussed that I had him increase his aspirin although he will not be fully anticoagulated any should discussed with Dr. Jacobson about being put on no wax or warfarin if he has an appropriate candidate. Patient did not wish to make that decision today. We also discussed that if any recurrent symptoms he needs to return. Risks vs. benefits have been discussed with patient and family at bedside. Discharge Plan Departure Patient Disposition: Home Clinical Impression: TIA (transient ischemic attack) Discharge Date/Time: 12/20/18 16:52 Interventions: ED Discharge Assessment Last Done: 12/20/18 16:51 Instructions: DI for Transient Ischemic Attack Activity Restrictions/Additional Instructions: You may have had a TIA, it is unclear if this is case. Call Sunday morning to set up an appointment for follow-up with Dr. Jacobson for the rest of your evaluation and workup as you have elected not to spend the night in the hospital. Continue home medications as prescribed. Take an aspirin 324 mg daily discussed with Dr. Jacobson regarding taking stronger anticoagulant to protect to from possible strokes. Return to the emergency department for fevers greater than 100.4, new headaches, vision changes, difficulties with speech is, weakness with your extremities, numbness, new chest pain shortness of breath or syncope or other new or concerning symptoms. Prescriptions: No Action bupropion HCl [Wellbutrin SR] 150 mg tablet sustained-release 12 hr 150 mg PO BID Qty: 180 RF: 3 aspirin 81 mg Tablet,Delayed Release (Dr/Ec) 81 mg PO DAILY RF: 0 acetaminophen [Tylenol Extra Strength] 500 mg Tablet 500 mg PO Q4H PRN (Reason: Pain (Scale Score 1-3)) RF: 0 lisinopril-hydrochlorothiazide 20-25 mg tablet 1 tab PO DAILY RF: 0 lutein-zeaxanthin [Ocuvite Lutein 25] 25-5 mg Capsule 1 cap PO DAILY RF: 0 Referrals: Johnny Jacobson MD [Primary Care Provider] -
[2018-12-20 15:05] LABS: Troponin I < 0.012 ng/mL (0.01-0.034)
[2018-12-20 15:08] LABS: CKMB % Relative Index 2.3 % (1.5-5.0); Creatine Kinase MB 5.42 ng/mL (<2.37)
[2018-12-20 16:13] LABS: Bacteria Urine None Seen; WBC Urine None Seen (0-5/HPF)
[2018-12-20 16:32] LABS: Culture Indicated Urine Cult Not Indicated; RBC Urine 0-1/HPF (0-5/HPF)
[2018-12-20] MEDS: ASPIRIN 81 MG TAB 324 MG PO (16:50)
[2018-12-20 16:51] VITALS: BP 102/85; PULSE 64; RESP 18; O2SAT 100
== END 2018-12-20 16:52 | disposition home or self-care (01) ==
PROVIDERS: Emergency Provider Emergency Medicine; Family Provider Family Medicine; PCP Family Medicine
DX: G45.9 Transient cerebral ischemic attack, unspecified (principal); Z79.82 Long term (current) use of aspirin
CPT/HCPCS: 70450; 71045; 80053; 81003; 81015; 82550; 82553; 84484; 85025; 85610; 85730; 93005; 99283; 99285

== ENCOUNTER → 2019-01-02 09:17 | Outpatient (CLI) | payer OTHER, SELFPAY ==
--- NOTE | 2019-01-24 16:19 | PM.CARDMON.1 ---
Photovoltaic Panel Installer Report Referral & Results Date Patient Seen: 01/02/19 Requesting provider: Johnny Jacobson Indication: TIA Duration of monitoring (days): 14 Diary information: There were no patient diary events or patient triggered events Data: Minimum heart rate identified was 44 beats per minute at 03:27 on 01/04/2019 Maximum sinus heart rate was 126 beats per minute at 09:40 on 01/13/2019 Maximum overall heart rate was 200 beats per minute at 14:50 on 01/04/2019 during a 4 beat run of ventricular tachycardia Occasional PACs are identified approximately 1.4% of identified beats were PACs Rare PVCs were identified Patient did have 2 runs of what appeared to be ventricular tachycardia the longest and fastest being 4 beats as above. There were 120 supraventricular source runs of tachycardia. The fastest was 4 beats at a rate of 180 for the longest lasted 14.2 seconds at 104 beats per minute the suggesting more likely an atrial tachycardia versus other. Impression: This 14 day environmental field technician shows rare ventricular tachycardia as above and somewhat less frequent supraventricular tachycardic events. There were modestly frequent PACs as well. No etiology for neurologic vascular event identified on this study
--- NOTE | 2019-01-24 16:22 | P.HOLT.S_ITS ---
Ornament Setter Report Referral & Results Date Patient Seen: 01/02/19 Requesting provider: Johnny Jacobson Indication: TIA Duration of monitoring (days): 14 Diary information: There were no patient diary events or patient triggered events Data: Minimum heart rate identified was 44 beats per minute at 03:27 on 01/04/2019 Maximum sinus heart rate was 126 beats per minute at 09:40 on 01/13/2019 Maximum overall heart rate was 200 beats per minute at 14:50 on 01/04/2019 during a 4 beat run of ventricular tachycardia Occasional PACs are identified approximately 1.4% of identified beats were PACs Rare PVCs were identified Patient did have 2 runs of what appeared to be ventricular tachycardia the longest and fastest being 4 beats as above. There were 120 supraventricular source runs of tachycardia. The fastest was 4 beats at a rate of 180 for the longest lasted 14.2 seconds at 104 beats per minute the suggesting more likely an atrial tachycardia versus other. Impression: This 14 day director market research shows rare ventricular tachycardia as above and somewhat less frequent supraventricular tachycardic events. There were modestly frequent PACs as well. No etiology for neurologic vascular event identified on this study
== END ==
PROVIDERS: Family Provider Family Medicine; PCP Family Medicine; Visit Provider Family Medicine
DX: G45.9 Transient cerebral ischemic attack, unspecified (principal)
CPT/HCPCS: 0296T; 0298T

== ENCOUNTER → 2020-03-18 07:28 | Outpatient (CLI) | payer OTHER, SELFPAY ==
[2020-03-18 08:07] LABS: Hemoglobin 15.3 g/dL (13.5-17.5); Mean Corpuscular HGB Conc 33.3 % (30-36); Mean Corpuscular Hemoglobin 32.1 PG (26-34); Mean Corpuscular Volume 96.6 fL (80-100); Platelet Count 218 X10^3/uL (150-400); Red Blood Cell Count 4.76 X10^6/uL (4.5-5.9); Red Cell Distribution Width 13.1 % (11.6-14.8); White Blood Cell Count 18.6 X10^3/uL (4.5-11.0)
[2020-03-18 08:10] LABS: Add Manual Diff / Slide Review YES
[2020-03-18 08:25] LABS: BUN Creatinine Ratio 22.3 (6-22); Blood Urea Nitrogen 27 mg/dL (9-20); Calcium 11.3 mg/dL (8.4-10.2); Carbon Dioxide 33 mmol/L (22-32); Chloride 103 mmol/L (98-107); Estimated Glomerular Filt Rate 57.6 mL/min (>60); Glucose 97 mg/dL (80-110); HEMOLYSIS < 15 (0-50); Potassium 4.1 mmol/L (3.4-5.1); Sodium 139 mmol/L (137-145)
[2020-03-18 08:47] LABS: Neutrophils Absolute Manual 3162 /uL (3000-5900); RBC Morphology Normal Morphology; Smudge Cells 2+; Total Cells Counted 100
[2020-03-18 08:55] LABS: TSH w/ Reflex to FT4 1.39 uIU/mL (0.47-4.68)
[2020-03-19 15:46] LABS: Calcium 11.5 mg/dL (8.6-10.2); Parathyroid Hormone, Intact 74 pg/mL (15-65)
== END ==
PROVIDERS: Family Provider Family Medicine; Referring Provider Family Medicine; Visit Provider Family Medicine
DX: C91.90 Lymphoid leukemia, unspecified not having achieved remission (principal); E21.0 Primary hyperparathyroidism
CPT/HCPCS: 80048; 82310; 83970; 84443; 85025

== ENCOUNTER 2020-04-18 10:52 | Emergency (ER) | payer OTHER, SELFPAY ==
[2020-04-18 11:20] VITALS: BP 160/84; PULSE 78; RESP 18; TEMP 36.5; O2SAT 97
[2020-04-18 11:23] VITALS: O2SAT 91
[2020-04-18 11:24] VITALS: BP 160/84; PULSE 71; O2SAT 99
[2020-04-18 11:30] VITALS: PULSE 70; O2SAT 99
[2020-04-18 11:31] VITALS: BP 118/78; PULSE 70; O2SAT 99
[2020-04-18 12:00] VITALS: BP 137/95; PULSE 70; O2SAT 98
--- NOTE | 2020-04-18 12:01 | DI.RAD.S_ITS ---
PROCEDURE: XR HIP W PEL IF DONE LT 2V INDICATIONS: pain no injury TECHNIQUE: AP pelvis with lateral view(s) of the left hip(s). COMPARISON: None. FINDINGS: Bones: No fractures or dislocations. Pelvic ring appears intact. No suspicious bony lesions. Soft tissues: The visualized bowel gas pattern is normal. No suspicious soft tissue calcifications. IMPRESSION: No acute fracture. No osseous lesion. If symptoms and/or clinical suspicion for pathology persist, further assessment with repeat, or advanced imaging (e.g., CT, MRI, or bone scan) may be helpful for further assessment. Dictated by: Warren Gray M.D. on 04/18/2020 at 11:38 Approved by: Warren Gray M.D. on 04/18/2020 at 11:39
--- NOTE | 2020-04-18 12:04 | ED.EXTPRO ---
HPI - Extremity Problem General Chief complaint: Extremity Problem,Nontraumatic Stated complaint: diff walking/standing/ pain lt hip/leg 5xdays Time Seen by Provider: 04/18/20 11:40 Source: patient Mode of arrival: Wheelchair Limitations: no limitations History of Present Illness HPI Narrative: Patient is an 79-year-old male who presents with left hip and leg pain ongoing for the last 5 days. He states that he leaves a very active lifestyle walking head daily. She is unsure what happened but he is having medial thigh pain. He is afraid of falling every time he ambulates. He has been taking Aleve which does seem to help with his pain. He denies numbness tingling or back pain. He denies any lower extremity swelling no fevers or chills. He has no changes in bowel or bladder habits MD Complaint: extremity pain Onset (ago): day(s) (5) Pain Consistency: constant Related Data Home Medications Medication Instructions Recorded Confirmed aspirin 325 mg tablet 325 mg PO DAILY 03/23/20 03/23/20 Previous Rx's Medication Instructions Recorded bupropion HCl 150 mg tablet,12 hr 150 mg PO BID #180 tab 01/09/20 sustained-release lisinopril 20 1 tab PO DAILY #90 tab 01/09/20 mg-hydrochlorothiazide 25 mg tablet Allergies Allergy/AdvReac Type Severity Reaction Status Date / Time No Known Drug Allergies Allergy Verified 03/23/20 10:20 Review of Systems Review of Systems Narrative: GENERAL: Denies chills,fever HEENT: Denies throat pain RESPIRATORY: Denies dyspnea, cough, wheezing CARDIOVASCULAR: Denies chest pain, palpitations GASTROINTESTINAL: Denies nausea, vomiting MUSCULOSKELETAL: See HPI SKIN: No rash, no laceration, no pruritus NEUROLOGIC: Denies weakness, dizziness, headache, numbness 8 point review of systems is negative except for those stated above and HPI Patient History Medical History Anxiety (Chronic) Anxiety disorder (Chronic) Benign prostatic hyperplasia (Chronic 02/16/15) BPH (benign prostatic hyperplasia) (Chronic) Chronic lymphocytic leukemia (Chronic 10/12/16) Depression (Chronic) Essential hypertension (Chronic 11/10/15) Hearing loss (Chronic) Hematuria (Chronic) Hyperlipidemia (Chronic 12/07/10) Primary hyperparathyroidism (Acute) Sleep apnea (Chronic) Supraventricular tachycardia (Acute) Surgical History Anesthesia (Resolved) Status post transurethral resection of prostate (Resolved 09/2014) Family History Brother No problems noted. Sister No problems noted. Father No problems noted. Mother Pancreatic cancer Social History household members: spouse Smoking Status: Never smoker alcohol intake: current substance use type: does not use Smoking Status: Never smoker Substance Use Type: does not use Exam Initial Vital Signs Initial Vital Signs: Vital Signs Temperature 97.7 F 04/18/20 11:20 Pulse Rate 78 04/18/20 11:20 Respiratory Rate 18 04/18/20 11:20 Blood Pressure 160/84 H 04/18/20 11:20 Pulse Oximetry 97 04/18/20 11:20 GENERAL: Well-appearing, well-nourished and in no acute distress. CARDIOVASCULAR: peripheral pulses in tact, cap refill <2 sec RESPIRATORY: No respiratory distress, speaks in full sentences without difficulty EXTREMITIES: Normal range of motion, no clubbing or edema. Neurovascularly intact. Pelvis stable good hip flexion extension and internal external rotation. No erythema neurovascularly intact NEUROLOGICAL: Cranial nerves II through XII grossly intact. Normal gait and speech. SKIN: Warm, dry, no petechiae, no rashes or lesions. Course Orders Ordered: ED Orders 04/18/20 12:01 XR hip w pel if done LT 2V Stat Discontinued Medications Ketorolac Tromethamine (Toradol) 30 mg IM NOW ONE Stop: 04/18/20 12:02 Last Admin: 04/18/20 12:49 Dose: 30 mg Documented by: CLOTILDE Vital Signs Vital signs: Vital Signs - 8 hr 04/18/20 11:20 04/18/20 11:23 04/18/20 11:24 Temperature 97.7 F Pulse Rate 78 71 Respiratory Rate 18 Blood Pressure 160/84 H 160/84 H Pulse Oximetry 97 91 99 04/18/20 11:30 04/18/20 11:31 04/18/20 12:00 Temperature Pulse Rate 70 70 70 Respiratory Rate Blood Pressure 118/78 137/95 H Pulse Oximetry 99 99 98 MDM - Extremity (Nontraumatic) Imaging Data Extremity x-ray #1: Radiologist's Impression: PROCEDURE: XR HIP W PEL IF DONE LT 2V INDICATIONS: pain no injury TECHNIQUE: AP pelvis with lateral view(s) of the left hip(s). COMPARISON: None. FINDINGS: Bones: No fractures or dislocations. Pelvic ring appears intact. No suspicious bony lesions. Soft tissues: The visualized bowel gas pattern is normal. No suspicious soft tissue calcifications. IMPRESSION: No acute fracture. No osseous lesion. If symptoms and/or clinical suspicion for pathology persist, further assessment with repeat, or advanced imaging (e.g., CT, MRI, or bone scan) may be helpful for further assessment. Dictated by: Warren Gray M.D. on 04/18/2020 at 11:38 MDM Narrative Medical decision making narrative: Patient is feeling better after Toradol. He is ambulatory in the ED without any assistance. I do recommend that he use a cane or a walker if needed. The pain seems to be musculoskeletal possibly sciatic. Although he does not have a back pain. He has no signs of cauda equina and no injury or red flank symptoms Discharge Plan Departure Patient Disposition: Home Clinical Impression: Sciatic pain Qualifiers: Laterality: left Qualified Code(s): M54.32 - Sciatica, left side Discharge Date/Time: 04/18/20 13:34 Instructions: DI for Sciatica Activity Restrictions/Additional Instructions: *You have been diagnosed with sciatic pain *What to do: Your pain seems to be musculoskeletal. Increase activity as tolerated. Please use walking assistance device such as a cane, walking pole or walker fill that you do not *Continue to take medications as directed Aleve 500 mg every 12 hours *Follow up with your primary care provider in 2-3 days *Return to ER if you should have increasing pain numbness tingling or weakness or any new, worsening or concerning symptoms Prescriptions: No Action aspirin 325 mg tablet 325 mg PO DAILY RF: 0 bupropion HCl [Wellbutrin SR] 150 mg tablet sustained-release 12 hr 150 mg PO BID Qty: 180 RF: 1 lisinopril-hydrochlorothiazide 20-25 mg tablet 1 tab PO DAILY Qty: 90 RF: 1 Referrals: Johnny Jacobson MD [Primary Care Provider] -
[2020-04-18] MEDS: KETOROLAC 60 MG/2 ML VIAL 30 MG IM (12:49)
== END 2020-04-18 13:34 | disposition home or self-care (01) ==
PROVIDERS: Emergency Provider Emergency Medicine; Family Provider Family Medicine; PCP Family Medicine
DX: M54.32 Sciatica, left side (principal)
CPT/HCPCS: 73502; 96372; 99283; J1885

== ENCOUNTER → 2020-05-17 15:34 | Outpatient (CLI) | payer OTHER, SELFPAY ==
[2020-05-17 16:21] LABS: COVID19 -Nasal RAPID Negative (Negative)
== END ==
PROVIDERS: Family Provider Family Medicine; PCP Family Medicine; Visit Provider Physician Assistant
DX: Z11.59 Encounter for screening for other viral diseases (principal)
CPT/HCPCS: 87635; C9803

== ENCOUNTER → 2020-10-05 08:00 | Outpatient (CLI) | payer OTHER, SELFPAY ==
[2020-10-05 09:12] LABS: Estimated Glomerular Filt Rate 59.1 mL/min (>60)
[2020-10-05 09:55] LABS: Calcium 24 Hour Urine 212 mg/day (100-300); Collection Time Urine 24 Hours; Creatinine 24 Hour Urine 1502 mg/day (1000-2000); Creatinine Urine Random 63.9 mg/dL; Total Volume Urine 2350 mL
[2020-10-06 08:41] LABS: Parathyroid Hormone Int 97 pg/mL (15-65)
== END ==
PROVIDERS: Family Provider Family Medicine; PCP Family Medicine; Referring Provider Internal Medicine; Visit Provider Internal Medicine
DX: E21.3 Hyperparathyroidism, unspecified (principal)
CPT/HCPCS: 82310; 82340; 82565; 82570; 83970

== ENCOUNTER → 2020-10-12 09:46 | Outpatient (CLI) | payer OTHER, SELFPAY ==
[2020-10-12 10:19] LABS: Hematocrit 46.9 % (41-53); Mean Corpuscular HGB Conc 34.1 % (30-36); Mean Corpuscular Hemoglobin 32.4 PG (26-34); Platelet Count 165 X10^3/uL (150-400); Red Blood Cell Count 4.93 X10^6/uL (4.5-5.9); Red Cell Distribution Width 13.8 % (11.6-14.8); White Blood Cell Count 17.2 X10^3/uL (4.5-11.0)
[2020-10-12 10:45] LABS: Neutrophils Absolute Manual 3784 /uL (3000-5900); RBC Morphology Normal Morphology; Total Cells Counted 100
== END ==
PROVIDERS: Family Provider Family Medicine; PCP Family Medicine; Referring Provider Family Medicine; Visit Provider Family Medicine
DX: C91.90 Lymphoid leukemia, unspecified not having achieved remission (principal)
CPT/HCPCS: 36415; 85025

== ENCOUNTER → 2020-10-28 10:56 | Outpatient (CLI) | payer OTHER, SELFPAY ==
[2020-10-28 12:58] LABS: Phosphorous 2.6 mg/dL (2.3-3.7)
[2020-10-28 15:48] LABS: Vitamin D 25 Hydroxy (D3) 41.4 ng/mL (30.0-100.0)
== END ==
PROVIDERS: Family Provider Family Medicine; PCP Family Medicine; Referring Provider Internal Medicine; Visit Provider Internal Medicine
DX: E21.0 Primary hyperparathyroidism (principal); M81.8 Other osteoporosis without current pathological fracture
CPT/HCPCS: 36415; 82306; 84100

== ENCOUNTER 2021-01-10 10:52 | Observation (INO) | payer OTHER, SELFPAY ==
[2021-01-10] VITALS (14 sets, daily range): BP systolic 113–158; BP diastolic 68–98; PULSE 48–63; RESP 14–18; TEMP 36.4–36.9; O2SAT 95–99; BMI 24.3
--- NOTE | 2021-01-10 11:27 | DI.CT.S_ITS ---
PROCEDURE: CT HEAD/BRAIN WO CON INDICATIONS: Confusion TECHNIQUE: Noncontrast 4.5 mm thick angled axial sections acquired from the foramen magnum to the vertex, with coronal and sagittal reformats. For radiation dose reduction, the following was used: automated exposure control, adjustment of mA and/or kV according to patient size. COMPARISON: [facility], CT, CT HEAD/BRAIN WO CON, 12/20/2018, 13:57. FINDINGS: Cerebrum, Cerebellum and Brainstem: Moderate cerebral and cerebellar volume loss as well as minimal multifocal hypoattenuation in the deep and subcortical white matter present. No acute hemorrhage or mass effect. Worthington-white distinction is preserved throughout the exam. Basal cisterns and foramen magnum are clear. Ventricles: Appropriate in size and position given the amount of cerebral atrophy. No evidence of hydrocephalus. Skull Base: The bony sella, pituitary gland and infundibulum are unremarkable. Clivus and craniovertebral relationships are appropriate. Visualized portions of external auditory canals and tympanic cavities are within normal limits. Calvarium and Scalp: No scalp soft tissue swelling. The underlying calvarium is intact without skull fracture or lytic lesion. Paranasal Sinuses: Unremarkable as visualized. No mucosal thickening or retention cyst noted. Mastoids: Unremarkable as visualized. No mastoid effusion present. Other: Atherosclerotic calcification in the cavernous portions of the distal internal carotid arteries are noted. IMPRESSION: Atrophy and chronic ischemic change without acute intracranial hemorrhage or mass effect. Approved by: Douglas Rivera M.D. on 01/10/2021 at 10:55
--- NOTE | 2021-01-10 11:48 | ED_ITS ---
HPI - Neuro Symptoms/Deficit General Chief Complaint: Neuro Symptoms/Deficit Stated Complaint: CONFUSED, LOW BP, NOT FEELING RIGHT Time Seen by Provider: 01/10/21 11:26 Source: patient Mode of arrival: Wheelchair Limitations: no limitations History of Present Illness HPI Narrative: Patient is an 80-year-old male who is here for evaluation of confusion in vision changes. He states that he had a very exhausting day yesterday and did not sleep very well overnight because of muscle aches. When he woke up this morning at 7 he has had what he describes as ?confusion? he states he was having problems defecating through his e-mail. He also has had some vision changes. No headache. No chest pain. No shortness of breath. No belly pain. No nausea vomiting. His symptoms have been somewhat consistent since 7. He did have some difficulty driving this morning because he did not know where he should return to get to where he was going. He has never had symptoms like this in the past. On Anticoagulants: No Related Data Home Medications Medication Instructions Recorded Confirmed aspirin 81 mg tablet 81 mg PO DAILY 10/25/20 10/25/20 Previous Rx's Medication Instructions Recorded lisinopril 20 mg tablet 20 mg PO DAILY #90 tab 04/20/20 bupropion HCl 150 mg tablet,12 hr 150 mg PO BID #180 tab 07/12/20 sustained-release (Wellbutrin SR) Allergies Allergy/AdvReac Type Severity Reaction Status Date / Time No Known Drug Allergies Allergy Verified 10/12/20 09:12 Review of Systems Constitutional Constitutional: Denies fever(s) and Denies headache(s) Eyes Eyes: Reports as per HPI ENT Ears, Nose, Mouth, and Throat: Reports system reviewed and no additional com plaints, except as documented and Denies headache(s) Cardiovascular Cardiovascular: Reports as per HPI and Reports system reviewed and no additional complaints, except as documented Respiratory Respiratory: Reports as per HPI and Reports system reviewed and no additional complaints, except as documented Gastrointestinal Gastrointestinal: Reports as per HPI and Denies abdominal pain Musculoskeletal Musculoskeletal: Reports system reviewed and no additional complaints, except as documented Integumentary/Breasts Skin/Breast: Reports system reviewed and no additional complaints, except as documented Neurologic Neurologic: Denies headache(s) Psychiatric Psychiatric: Reports system reviewed and no additional complaints, except as documented Hematologic/Lymphatic On Anticoagulants: No Allergic/Immunologic Allergic/Immunologic: Reports system reviewed and no additional complaints, except as documented Patient History Medical History Anxiety Anxiety disorder Benign prostatic hyperplasia (02/16/15) BPH (benign prostatic hyperplasia) Chronic lymphocytic leukemia (10/12/16) Depression Essential hypertension (11/10/15) Hearing loss Hematuria Hyperlipidemia (12/07/10) Primary hyperparathyroidism Sleep apnea Supraventricular tachycardia Surgical History Anesthesia Status post transurethral resection of prostate (09/2014) Family History Brother No problems noted. Sister No problems noted. Father No problems noted. Mother Pancreatic cancer Social History household members: spouse Smoking Status: Never smoker alcohol intake: current substance use type: does not use Smoking Status: Never smoker Substance Use Type: does not use Exam Initial Vital Signs Initial Vital Signs: Vital Signs Temperature 98.2 F 01/10/21 11:09 Pulse Rate 63 01/10/21 11:09 Respiratory Rate 16 01/10/21 11:09 Blood Pressure 151/82 H 01/10/21 11:09 Pulse Oximetry 98 01/10/21 11:09 Const General: cooperative and healthy appearing HENMT Head: normal to inspection and normocephalic Eyes General: appearance normal, both eyes and all related structures Pupils: PERRL EOM: EOM intact bilaterally Chest Chest: No tenderness Resp Effort & Inspection: normal respiratory effort Auscultation: clear to auscultation bilaterally Cardio Rate: regular rate Rhythm: regular rhythm GI Inspection: normal to inspection Palpation: soft and No tender Back/Spine/Pelvis Back: normal to inspection Skin General: no rashes or lesions noted Neuro General: patient alert, patient awake, patient oriented x3 and moves all extremities Extrem General: normal to inspection and capillary refill normal Psych Appearance: grossly normal and well kempt Scores GCS Susana coma scale eye opening: Spontaneous Susana coma scale verbal response: Orientated [place] coma scale motor response: Obey commands Susana coma scale total score: 15 NIH Stroke Scale Level of Conciousness: Alert, keenly responsive Ask month/age: Answers both questions correctly. Open/close eyes, close hand: Performs both tasks correctly Best gaze horizontal: Normal Visual ybarra: Partial hemianopia Facial palsy: Normal symetrical movement Left arm drift: No drift for full 10 sec Right arm drift: No drift for full 10 sec Left leg drift: No drift for full 5 sec Right leg drift: No drift for full 5 sec Limb ataxia: Absent Sensory on face/arms/legs: Normal, no sensory loss Best language: No aphasia, normal Dysarthria: Normal Extinction or inattention: No abnormality Total NIH Stroke scale score: 1 Course Orders Ordered: ED Orders 01/10/21 11:27 CT head/brain wo con Stat 01/10/21 11:28 EKG-12 Lead Stat 01/10/21 12:00 Complete Blood Count AUTO DIFF Stat Comprehensive Metabolic Panel Stat Ethanol (ETOH) Stat Lipase Stat Troponin & CK Cardiac Panel Stat 01/10/21 12:06 CT angio head and neck Stat 01/10/21 12:48 COVID19 - 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) Stat Acetaminophen (Acetaminophen 325 Mg Tablet) 650 mg PO Q6HR PRN PRN Reason: Fever/Mild Pain (1-3) Aspirin (Aspirin Ec 325 Mg Tablet) 325 mg PO DAILY SKYLAR Bupropion HCl (Bupropion Sr 150 Mg Tab) 150 mg PO BID SKYLAR Enoxaparin Sodium (Enoxaparin 40 Mg/0.4 Ml Syringe) 40 mg SUBCUT DAILY SKYLAR Lisinopril (Lisinopril 20 Mg Tablet) 20 mg PO DAILY SKYLAR Naloxone HCl (Naloxone 0.4 Mg/Ml Vial) 0.2 mg IV Q2MIN PRN PRN Reason: Opiate Reversal Discontinued Medications Aspirin (Aspirin 81 Mg Chew Tab) 324 mg PO NOW ONE Stop: 01/10/21 11:57 Last Admin: 01/10/21 12:23 Dose: 324 mg Documented by: JANNA Vital Signs Vital signs: Vital Signs - 8 hr 01/10/21 11:09 01/10/21 11:30 01/10/21 12:00 Temperature 98.2 F Pulse Rate 63 56 L 54 L Respiratory Rate 16 16 18 Blood Pressure 151/82 H 142/81 H 158/98 H Pulse Oximetry 98 98 97 01/10/21 12:30 01/10/21 13:00 01/10/21 13:27 Temperature Pulse Rate 54 L 50 L 49 L Respiratory Rate 16 16 17 Blood Pressure 140/86 113/98 H Pulse Oximetry 98 98 98 01/10/21 13:30 01/10/21 14:00 01/10/21 14:01 Temperature Pulse Rate 52 L 48 L 49 L Respiratory Rate 14 Blood Pressure 148/82 H 127/68 Pulse Oximetry 99 99 98 MDM - Neuro Symptoms/Deficit Lab Data Attestation: I reviewed the patient's lab results. Result diagrams: 01/10/21 12:00 01/10/21 12:00 Labs: Lab Results 01/10/21 01/10/21 01/10/21 Range/Units 12:00 12:00 12:48 WBC 17.0 H (4.5-11.0) X10^3/uL RBC 4.81 (4.5-5.9) X10^6/uL Hgb 15.5 (13.5-17.5) g/dL Hct 45.9 (41-53) % MCV 95.6 (80-100) fL MCH 32.2 (26-34) PG MCHC 33.7 (30-36) % RDW 13.4 (11.6-14.8) % Plt Count 154 (150-400) X10^3/uL Neut % (Auto) 19.3 L (50-75) % Lymph % (Auto) 76.8 H (25-40) % [place] % (Auto) 2.6 L (3-14) % Eos % (Auto) 0.7 L (2-4) % Baso % (Auto) 0.6 (0-2) % Neut # (Auto) 3300 (1753-5498) /uL Lymph # (Auto) 25587 H (0762-9133) /uL [place] # (Auto) 400 (0-900) /uL Eos # (Auto) 100 (0-450) /uL Baso # (Auto) 100 (0-100) /uL Sodium 138 (137-145) mmol/L Potassium 4.5 (3.4-5.1) mmol/L Chloride 109 H (98-107) mmol/L Carbon Dioxide 24 (22-32) mmol/L BUN 17 (9-20) mg/dL Creatinine 1.04 (0.66-1.25) mg/dL Estimated GFR > 60.0 (>60) mL/min BUN/Creatinine Ratio 16.3 (6-22) Glucose 87 (80-110) mg/dL Calcium 11.0 H (8.4-10.2) mg/dL Total Bilirubin 0.9 (0.2-1.3) mg/dL AST 31 (17-59) IU/L ALT 23 (<50) IU/L Alkaline Phosphatase 67 (38-126) U/L Total Creatine Kinase 107 (55-170) U/L CK-MB (CK-2) 2.26 (<2.37) ng/mL CK-MB (CK-2) Rel Index 2.1 (1.5-5.0) % Troponin I < 0.012 (0.01-0.034) ng/mL Total Protein 6.5 (6.3-8.2) g/dL Albumin 3.8 (3.5-5.0) g/dL Globulin 2.7 (1.7-4.1) g/dL Albumin/Globulin Ratio 1.4 (1.0-2.8) Lipase 181 (23-300) U/L Ethyl Alcohol < 10 ( - 10) mg/dL SARS-CoV-2 (PCR) Negative (Negative) Imaging Data CT scan - head: Radiologist's Impression: [address] [id number] Scan ReportSigned Patient: Artis Veloz EMR#: [id number]: [id number]:[id number]/Sex: 80 / MDate of Service: 01/10/21Loc: EDAccession Number: [id number] Procedure: CT head/brain wo con Ordering Provider: Devin Forrester D.O. PROCEDURE: CT HEAD/BRAIN WO CON INDICATIONS: Confusion TECHNIQUE: Noncontrast 4.5 mm thick angled axial sections acquired from the foramen magnum to the vertex, with coronal and sagittal reformats. For radiation dose reduction, the following was used: automated exposure control, adjustment of mA and/or kV according to patient size. COMPARISON: [facility], CT, CT HEAD/BRAIN WO CON, 12/20/2018, 13:57. FINDINGS: Cerebrum, Cerebellum and Brainstem: Moderate cerebral and cerebellar volume loss as well as minimal multifocal hypoattenuation in the deep and subcortical white matter present. No acute hemorrhage or mass effect. Worthington-white distinction is preserved throughout the exam. Basal cisterns and foramen magnum are clear. Ventricles: Appropriate in size and position given the amount of cerebral atrophy. No evidence of hydrocephalus. Skull Base: The bony sella, pituitary gland and infundibulum are unremarkable. Clivus and craniovertebral relationships are appropriate. Visualized portions of external auditory canals and tympanic cavities are within normal limits. Calvarium and Scalp: No scalp soft tissue swelling. The underlying calvarium is intact without skull fracture or lytic lesion. Paranasal Sinuses: Unremarkable as visualized. No mucosal thickening or retention cyst noted. Mastoids: Unremarkable as visualized. No mastoid effusion present. Other: Atherosclerotic calcification in the cavernous portions of the distal internal carotid arteries are noted. IMPRESSION: Atrophy and chronic ischemic change without acute intracranial hemorrhage or mass effect. Approved by: Douglas Rivera M.D. on 01/10/2021 at 10:55 CTA - brain/neck: Radiologist's Impression: [address] [id number] Scan ReportSigned Patient: Artis Veloz EMR#: [id number]: [id number]:[id number]/Sex: 80 / MDate of Service: 01/10/21Loc: EDAccession Number: [id number] Procedure: CT angio head and neck Ordering Provider: Devin Forrester D.O. PROCEDURE: CT ANGIO HEAD AND NECK INDICATIONS: eval for stroke TECHNIQUE: After the administration of intravenous contrast, 1 mm thick sections acquired from the aortic arch through the [place]. Post-contrast 4.5 mm thick sections then re-acquired from the foramen magnum to the vertex. 3-dimensional vkptkhr-yvqggwatb-jpwjskplwb (MIP) and/or volume rendering reformats were acquired of the central intracranial vasculature and neck separately. COMPARISON: [facility], US, US THYROID, 10/11/2018, 10:49. [facility], CT, CT HEAD/BRAIN WO CON, 01/10/2021, 11:36. FINDINGS: Image quality: Excellent. BRAIN: CSF spaces: Ventricles are normal in size and shape. Basal cisterns are patent. No extra-axial fluid collections. Brain: No midline shift. No intracranial bleeds or masses. Worthington-white matter interface appears intact. Age-related volume loss and small vessel ischemic change. Skull and face: Calvarium and facial bones appear intact, without suspicious lesions. Orbits appear normal. Sinuses: Sinuses and mastoids are clear. HEAD CT ANGIOGRAPHY: Anterior circulation: Intracranial internal carotid arteries are normal in size and flow. The flow within the paired anterior cerebral arteries is normal and symmetric. The flow within the middle cerebral arteries is normal and symmetric. The anterior communicating artery is seen. No aneurysms are seen. Posterior circulation: Visualized portions of the vertebral arteries demonstrate normal caliber, and join to form a normal appearing basilar artery. Flow within the posterior cerebral arteries is normal and symmetric. No aneurysms are seen. NECK CT ANGIOGRAPHY: Carotid system: The great vessels demonstrate a conventional anatomy as they arise from the aortic arch. The origins of the common carotid arteries appear patent. The common carotid arteries demonstrate normal caliber and courses. Carotid bifurcation atherosclerotic calcifications bilaterally. Bilateral mild, less than 50% proximal internal carotid artery stenoses. Posterior circulation: The origins of the vertebral arteries both appear widely patent. The more superior extracranial portions of both vertebral arteries also demonstrate normal courses and calibers. They join to form a normal appearing basilar artery. Soft tissues: Visualized neck soft tissues demonstrate no suspicious abnormalities. Again noted is a cystic nodule of the isthmus, unchanged in size compared to the ultrasound. Bones: No suspicious bony lesions. Visualized cervical spine appears normally aligned. IMPRESSION: 1. No evidence acute stroke, hemorrhage, or mass. 2. Unremarkable CTA head. No stenosis, aneurysm, occlusion, or focal filling defect. 3. Mild bilateral proximal internal carotid artery stenosis, less than 50%. Comment: Findings were discussed with Dr. Forrester at the time of study dictation on 01/10/2021 at 1325 hours. Any quantitative measurements of stenosis were performed using NASCET criteria. Dictated by: Leonid Cifuentes M.D. on 01/10/2021 at 13:21 Approved by: Leonid Cifuentes M.D. on 01/10/2021 at 13:29 ECG Data Attestation: I personally reviewed and interpreted this ECG as follows: Interpretation: Sinus bradycardia Ventricular rate of 53 Occasional PAC Normal axis Normal QRS Normal QTC No ST T wave changes MDM Narrative Medical decision making narrative: Patient's symptoms started with waking up this morning at 0700 hours. He is greater than 4.5 hours since the onset of his symptoms. There is also some indication that his symptoms may be waxing and waning. He describes his ?confusion ?as difficulty with navigating the computer and his e-mail but then also states that he was having some confusion about where he was to turn when he was driving earlier today. He was also describing some vision changes. This does appear to be in his right visual field. His NIH score [address] and CTA of the head neck are all unremarkable for acute pathology. He was given an aspirin. Discussed the case with Dr. Jacobson who is the patient's primary doctor. Will admit for further evaluation and treatment for concern of TIA versus CVA. I did discuss this with the patient. He expressed understanding and agreement. Stroke Core Measures Exclusion Criteria TPA in CVA: Symptom Onset >3 or 4.5 Hours Discharge Plan Departure Patient Disposition: Admitted as Observation Clinical Impression: CVA (cerebral vascular accident) Admit Date/Time: 01/10/21 14:01 Admit Provider: Johnny Jacobson
--- NOTE | 2021-01-10 12:06 | DI.CT.S_ITS ---
PROCEDURE: CT ANGIO HEAD AND NECK INDICATIONS: eval for stroke TECHNIQUE: After the administration of intravenous contrast, 1 mm thick sections acquired from the aortic arch through the [place]. Post-contrast 4.5 mm thick sections then re-acquired from the foramen magnum to the vertex. 3-dimensional coaokjh-rjfhrlfrh-xmjfjlfehi (MIP) and/or volume rendering reformats were acquired of the central intracranial vasculature and neck separately. COMPARISON: [facility], US, US THYROID, 10/11/2018, 10:49. [facility], CT, CT HEAD/BRAIN WO CON, 01/10/2021, 11:36. FINDINGS: Image quality: Excellent. BRAIN: CSF spaces: Ventricles are normal in size and shape. Basal cisterns are patent. No extra-axial fluid collections. Brain: No midline shift. No intracranial bleeds or masses. [place]-white matter interface appears intact. Age-related volume loss and small vessel ischemic change. Skull and face: Calvarium and facial bones appear intact, without suspicious lesions. Orbits appear normal. Sinuses: Sinuses and mastoids are clear. HEAD CT ANGIOGRAPHY: Anterior circulation: Intracranial internal carotid arteries are normal in size and flow. The flow within the paired anterior cerebral arteries is normal and symmetric. The flow within the middle cerebral arteries is normal and symmetric. The anterior communicating artery is seen. No aneurysms are seen. Posterior circulation: Visualized portions of the vertebral arteries demonstrate normal caliber, and join to form a normal appearing basilar artery. Flow within the posterior cerebral arteries is normal and symmetric. No aneurysms are seen. NECK CT ANGIOGRAPHY: Carotid system: The great vessels demonstrate a conventional anatomy as they arise from the aortic arch. The origins of the common carotid arteries appear patent. The common carotid arteries demonstrate normal caliber and courses. Carotid bifurcation atherosclerotic calcifications bilaterally. Bilateral mild, less than 50% proximal internal carotid artery stenoses. Posterior circulation: The origins of the vertebral arteries both appear widely patent. The more superior extracranial portions of both vertebral arteries also demonstrate normal courses and calibers. They join to form a normal appearing basilar artery. Soft tissues: Visualized neck soft tissues demonstrate no suspicious abnormalities. Again noted is a cystic nodule of the isthmus, unchanged in size compared to the ultrasound. Bones: No suspicious bony lesions. Visualized cervical spine appears normally aligned. IMPRESSION: 1. No evidence acute stroke, hemorrhage, or mass. 2. Unremarkable CTA head. No stenosis, aneurysm, occlusion, or focal filling defect. 3. Mild bilateral proximal internal carotid artery stenosis, less than 50%. Comment: Findings were discussed with Dr. Forrester at the time of study dictation on 01/10/2021 at 1325 hours. Any quantitative measurements of stenosis were performed using NASCET criteria. Dictated by: Leonid Cifuentes M.D. on 01/10/2021 at 13:21 Approved by: Leonid Cifuentes M.D. on 01/10/2021 at 13:29
[2021-01-10 12:14] LABS: Add Manual Diff / Slide Review NO; Basophils Absolute Auto 100 /uL (0-100); Basophils Percent Auto 0.6 % (0-2); Eosinophils Absolute Auto 100 /uL (0-450); Eosinophils Percent Auto 0.7 % (2-4); Hematocrit 45.9 % (41-53); Hemoglobin 15.5 g/dL (13.5-17.5); Lymphocytes Absolute Auto 13100 /uL (1100-4500); Lymphocytes Percent Auto 76.8 % (25-40); Mean Corpuscular HGB Conc 33.7 % (30-36); Mean Corpuscular Hemoglobin 32.2 PG (26-34); Mean Corpuscular Volume 95.6 fL (80-100); Monocytes Absolute Auto 400 /uL (0-900); Monocytes Percent Auto 2.6 % (3-14); Neutrophils Absolute Auto 3300 /uL (1500-7000); Neutrophils Percent Auto 19.3 % (50-75); Platelet Count 154 X10^3/uL (150-400); Red Blood Cell Count 4.81 X10^6/uL (4.5-5.9); Red Cell Distribution Width 13.4 % (11.6-14.8)
[2021-01-10 12:21] LABS: Alanine Aminotransferase 23 IU/L (<50); Albumin 3.8 g/dL (3.5-5.0); Albumin Globulin Ratio 1.4 (1.0-2.8); Alkaline Phosphatase 67 U/L (38-126); Aspartate Aminotransferase 31 IU/L (17-59); BUN Creatinine Ratio 16.3 (6-22); Bilirubin Total 0.9 mg/dL (0.2-1.3); Blood Urea Nitrogen 17 mg/dL (9-20); Carbon Dioxide 24 mmol/L (22-32); Chloride 109 mmol/L (98-107); Creatine Kinase 107 U/L (55-170); Estimated Glomerular Filt Rate > 60.0 mL/min (>60); Ethanol (ETOH) < 10 mg/dL; Globulin 2.7 g/dL (1.7-4.1); Glucose 87 mg/dL (80-110); HEMOLYSIS 19 (0-50); Lipase 181 U/L (23-300); Potassium 4.5 mmol/L (3.4-5.1); Sodium 138 mmol/L (137-145); Total Protein 6.5 g/dL (6.3-8.2)
[2021-01-10] MEDS: ASPIRIN 81 MG CHEW TAB 324 MG PO (12:23)
[2021-01-10 12:31] LABS: Troponin I < 0.012 ng/mL (0.01-0.034)
[2021-01-10 12:36] LABS: CKMB % Relative Index 2.1 % (1.5-5.0); Creatine Kinase MB 2.26 ng/mL (<2.37)
[2021-01-10 13:43] LABS: COVID19 - ADMIT (NP swab/PCR) Negative (Negative)
--- NOTE | 2021-01-10 14:27 | DI.MRI.S_ITS ---
PROCEDURE: MR STROKE Pre- and post-contrast brain MRI, non-contrast brain MR angiogram, pre- and postcontrast neck MR angiogram INDICATIONS: confusion visual changes TECHNIQUE: Brain: Noncontrast axial T1 spin echo, axial T2 fast spin echo, sagittal and axial FLAIR, coronal T2 fast spin echo, axial gradient echo, axial diffusion and ADC through the brain. After the administration of contrast, axial 3D VIBE of the cranial vasculature and brain. Brain MRA: Non-contrast 3-D time of flight MR angiogram, with multiple zuzwjae-scplqqpsl-vjhbflaiwk (MIP) reformats performed. Neck MRA: Axial and sagittal TruFISP through the neck. Coronal dynamic MR angiogram during administration of contrast in the arterial and venous phases, with 3-dimenstional fitjkut-ddyvkvyzm-bzawlyojvr (MIP) reformats constructed from subtraction images. COMPARISON: [facility], CT, CT ANGIO HEAD AND NECK, 01/10/2021, 13:00. FINDINGS: Image quality: Excellent. BRAIN: CSF spaces: Ventricles are normal in size and shape. Basal cisterns are patent. No extra-axial fluid collections. Brain: No intracranial bleeds or mass effects. [place]-white matter interface is normal. 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 No mass effect. No hemorrhage. No other areas of acute infarction.. Brainstem appears normal. Normal intravascular flow voids are present. No abnormal intracranial enhancement. Skull and face: Calvarial marrow signal is normal. Orbits appear normal. Sinuses: Sinuses and mastoids are clear. BRAIN MR ANGIOGRAM: Anterior circulation: Intracranial internal carotid arteries are normal in size and enhancement. The flow within the paired anterior cerebral arteries is normal and symmetric. The flow within the middle cerebral arteries is normal and symmetric. The anterior communicating artery is seen. No stenoses, occlusions, or aneurysms. Posterior circulation: The visualized portions of the vertebral arteries demonstrate normal caliber, and join to form a normal appearing basilar artery. There is a peripheral right posterior cerebral artery occlusion. The left posterior cerebral artery is unremarkable. No aneurysms. NECK MR ANGIOGRAM: Carotids: Great vessels demonstrate a conventional anatomy as they arise from the aortic arch. The origins of the common carotid arteries appear patent. The calibers and courses of both common carotid arteries are normal. Bilateral mild, less than 50% proximal internal carotid artery stenosis. Posterior circulation: The origins of the vertebral arteries appear patent. More superior portions of both vertebral arteries demonstrate normal course and caliber, and join to form a normal appearing basilar artery. Miscellaneous: Subclavian arteries appear patent. Pre-contrast images through the neck show no soft tissue abnormalities. 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 BRAIN MR ANGIOGRAM: There is occlusion of the peripheral aspect of the right posterior cerebral artery. No more proximal stenosis or occlusions or filling defects in other vessels. NECK MR ANGIOGRAM: Bilateral less than 50% proximal internal carotid artery stenosis. Dictated by: Leonid Cifuentes M.D. on 01/10/2021 at 16:12 Approved by: Leonid Cifuentes M.D. on 01/10/2021 at 16:21
--- NOTE | 2021-01-10 15:37 | PM.HP.1 ---
History of Present Illness History of Present Illness Date Patient Seen: 01/10/21 Time Patient Seen: 17:03 Chief complaint: CONFUSED, LOW BP, NOT FEELING RIGHT Narrative: 80-year-old male who was out working on [employer]. Very busy day yesterday with walking heavy lifting. [place] a little bit worn out in woozy. Slept longer than he does add normally this morning. He woke up in he was a little bit confused his described him as spacey. He had breakfast he walked the dog. But he felt like he just was not right he was not thinking properly. She noticed this as well. He also noticed in addition to the spacey or confusion he maybe had some difficulty with his vision. Although not enough to prevent him from driving his into the hospital this morning for mammogram he elected to be evaluated in the emergency department at the same time. In the emergency department he is alert oriented. He is a good historian with me today. He says he does not feel spacey any more confused. Although he does admit this morning he had a hard time moving his mouse on his computer he also had a difficult time with typing and was a little bit confused by that. He also noticed when he was in the emergency room and they were having him do the stroke scale that he had a hard time with the seen maybe out of his right eye. He says he feels like that is all resolved he has been doing crossword puzzles since he got up on the floor of the hospital he says he is doing that fine. He does not feel spacey any more. His says he is back to his baseline but 3 hours ago she would not of said that. He has not had problems with his balance her gait he has not fallen over he has no weakness or clumsiness in his hands or feet he has had no difficulty with his speech. He has had no difficulty with movement of the muscles of his face. He has a history of TIA. He does not have a known history of atrial fibrillation or valvular heart disease. Patient History Medical History Anxiety Anxiety disorder Benign prostatic hyperplasia (02/16/15) BPH (benign prostatic hyperplasia) Chronic lymphocytic leukemia (10/12/16) Depression Essential hypertension (11/10/15) Hearing loss Hematuria Hyperlipidemia (12/07/10) Primary hyperparathyroidism Sleep apnea Supraventricular tachycardia Surgical History Anesthesia Status post transurethral resection of prostate (09/2014) Family & Social History Family History Brother No problems noted. Sister No problems noted. Father No problems noted. Mother Pancreatic cancer Social History: household members spouse Safety & Behavioral: Feels Safe in Current Yes Environment Been Physically Hurt or No Threatened By a Person Tobacco & Substance use: Smoking Status Never smoker alcohol intake current Substance Use Type does not use Meds Home Medications and Allergies Home Medications Medication Instructions Recorded Confirmed Type lisinopril 20 mg tablet 20 mg PO DAILY #90 tab 04/20/20 10/25/20 Rx bupropion HCl 150 mg tablet,12 hr 150 mg PO BID #180 tab 07/12/20 10/25/20 Rx sustained-release (Wellbutrin SR) aspirin 81 mg tablet 81 mg PO DAILY 10/25/20 10/25/20 History Allergies Allergy/AdvReac Type Severity Reaction Status Date / Time No Known Drug Allergies Allergy Verified 10/12/20 09:12 Exam Vital Signs (past 8 hours): - 01/10/21 11:09 01/10/21 11:30 01/10/21 12:00 Temperature 98.2 F Pulse Rate 63 56 L 54 L Respiratory Rate 16 16 18 Blood Pressure 151/82 H 142/81 H 158/98 H Pulse Oximetry 98 98 97 01/10/21 12:30 01/10/21 13:00 01/10/21 13:27 Temperature Pulse Rate 54 L 50 L 49 L Respiratory Rate 16 16 17 Blood Pressure 140/86 113/98 H Pulse Oximetry 98 98 98 01/10/21 13:30 01/10/21 14:00 01/10/21 14:01 Temperature Pulse Rate 52 L 48 L 49 L Respiratory Rate 14 Blood Pressure 148/82 H 127/68 Pulse Oximetry 99 99 98 01/10/21 14:30 Temperature Pulse Rate Respiratory Rate Blood Pressure Pulse Oximetry 97 Oxygen Delivery Method Room Air Narrative Exam Narrative: Gen.: Alert good historian HEENT: Pupils equal round and reactive ocular muscles are intact oral mucosa is moist Cardio: Regular rate and rhythm no murmurs Respiratory: Lungs are clear no wheezes or crackles Abdomen: Soft nontender Extremities: Full range of motion reflexes are normal good strength gait and station [id number] is normal. Speech is clear. Strength is equal bilateral in upper and lower extremities. Neurologic: Cranial nerves are intact visual ybarra are done with the patient and appeared to be normal Objective Labs Result Diagrams: 01/10/21 12:00 01/10/21 12:00 Labs: Laboratory Results - last 24 hr 01/10/21 01/10/21 01/10/21 12:00 12:00 12:48 WBC 17.0 H RBC 4.81 Hgb 15.5 Hct 45.9 MCV 95.6 MCH 32.2 MCHC 33.7 RDW 13.4 Plt Count 154 Neut % (Auto) 19.3 L Lymph % (Auto) 76.8 H [place] % (Auto) 2.6 L Eos % (Auto) 0.7 L Baso % (Auto) 0.6 Neut # (Auto) 3300 Lymph # (Auto) 22496 H [place] # (Auto) 400 Eos # (Auto) 100 Baso # (Auto) 100 Sodium 138 Potassium 4.5 Chloride 109 H Carbon Dioxide 24 BUN 17 Creatinine 1.04 Estimated GFR > 60.0 BUN/Creatinine Ratio 16.3 Glucose 87 Calcium 11.0 H Total Bilirubin 0.9 AST 31 ALT 23 Alkaline Phosphatase 67 Total Creatine Kinase 107 CK-MB (CK-2) 2.26 CK-MB (CK-2) Rel Index 2.1 Troponin I < 0.012 Total Protein 6.5 Albumin 3.8 Globulin 2.7 Albumin/Globulin Ratio 1.4 Lipase 181 Ethyl Alcohol < 10 SARS-CoV-2 (PCR) Negative Assessment & Plan Assessment & Plan narrative: Confusion with visual field defects 80-year-old male with a confusion and visual field defects is he has been to the hospital for further evaluation and workup. Has a history of TIA and bradycardia. No history of atrial fibrillation valvular heart disease. He had a CT and CT angiogram in the emergency department which was normal. Patient had an MRI this afternoon and results are pending. He will be placed on telemetry monitoring and have an echocardiogram for further workup and evaluation. Patient was given aspirin. Of note he is a little bit bradycardic he says that is is normal. Patient has a normal neurological exam at this point and him having a difficult time evaluating visual field defects but they appear to be normal. Will continue with an aspirin blood pressure management obtain a lipid profile for the morning. Will have telemetry monitoring will monitor for further evolution of potential stroke. Current essential hypertension. Patient is on lisinopril this will be continued. Chronic lymphocytic leukemia white blood cell counts elevated this is normal for him Hyperlipidemia patient has no history of high cholesterol. Past he has refused statin will recheck his cholesterol DVT prophylaxis with Lovenox and SCDs Disposition and plan he will be admitted as an observation anticipate discharge within 24 hours unless an acute stroke is visualized.
[2021-01-10] MEDS: lisinopriL 20 MG TABLET PO (18:57)
[2021-01-10] MEDS: buPROPion SR 150 MG TAB PO (20:46)
--- NOTE | 2021-01-10 22:41 | PC.ADMIT ---
[id number] Admission Note: Patient admitted to floor at 16:00 from ER. He is alert and oriented x 4, able to make his needs known. 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 Patient agrees to consult with PCP regarding his depression. Bed alarm on, call light within reach/ resident shown how to use call light, and brakes on bed are locked. The patient,Artis Veloz,80 y/o, was given written information regarding hospital policies, unit procedures and contact persons. Patient's smoking status: Never smoker. Vital Signs - 8 hr 01/10/21 16:00 01/10/21 18:57 01/10/21 19:33 Temperature 98.4 F Pulse Rate 52 L 62 Respiratory Rate 17 Blood Pressure 116/76 146/74 H Pulse Oximetry 97 98
[2021-01-11] VITALS: O2SAT 95
[2021-01-11 04:40] VITALS: BP 97/60; PULSE 51; RESP 18; TEMP 37; O2SAT 98
[2021-01-11 05:37] LABS: Hematocrit 46.4 % (41-53); Hemoglobin 15.2 g/dL (13.5-17.5); Mean Corpuscular HGB Conc 32.8 % (30-36); Mean Corpuscular Hemoglobin 31.5 PG (26-34); Mean Corpuscular Volume 96.2 fL (80-100); Platelet Count 151 X10^3/uL (150-400); Red Blood Cell Count 4.82 X10^6/uL (4.5-5.9); Red Cell Distribution Width 13.2 % (11.6-14.8); White Blood Cell Count 14.7 X10^3/uL (4.5-11.0)
[2021-01-11 05:39] LABS: Alanine Aminotransferase 22 IU/L (<50); Albumin 3.4 g/dL (3.5-5.0); Albumin Globulin Ratio 1.3 (1.0-2.8); Alkaline Phosphatase 64 U/L (38-126); Aspartate Aminotransferase 29 IU/L (17-59); BUN Creatinine Ratio 13.4 (6-22); Bilirubin Total 0.8 mg/dL (0.2-1.3); Blood Urea Nitrogen 15 mg/dL (9-20); Carbon Dioxide 27 mmol/L (22-32); Chloride 108 mmol/L (98-107); Cholesterol 160 mg/dL (140-199); Estimated Glomerular Filt Rate > 60.0 mL/min (>60); Globulin 2.6 g/dL (1.7-4.1); Glucose 89 mg/dL (80-110); HDL Cholesterol 45 mg/dL (40-60); HEMOLYSIS 19 (0-50); LDL Cholesterol Calculated 86 mg/dL (<100); Potassium 4.5 mmol/L (3.4-5.1); Sodium 139 mmol/L (137-145); Triglycerides 147 mg/dL (35-150)
[2021-01-11 05:42] LABS: Add Manual Diff / Slide Review YES
[2021-01-11 06:05] LABS: Neutrophils Absolute Manual 3969 /uL (3000-5900); Total Cells Counted 100
[2021-01-11 06:06] LABS: RBC Morphology Normal Morphology
[2021-01-11 06:07] LABS: Smudge Cells 1+
--- NOTE | 2021-01-11 07:23 | DI.ECHO.S_ITS ---
[facility]---------+ [facility] +---------+ : : [address] [place] : : : : [id number] : : : : Phone: [phone]+ Echocardiogram Report + + :Name: GREG MADRID Study Date: 01/11/2021 Height: 70 in : :[facility] ReadingLocation: Weight: 169 lb : : Gender: Male BSA: 1.9 m2 : :: 1940 Age: 80 yrs BP: 146/74 mmHg: :Reason For Study: CEREBROVASCULAR ACCIDENT : :Ordering Physician: RONALD, : :YAO Performed By: Tiny Shah : :Referring: YAO CARDENAS : + + Interpretation Summary The left ventricle is normal in size and wall thickness. The ejection fraction is estimated to be 50-55%. There is a severe hypokinesis of mid to distal anterior wall extending into the mid to distal anterolateral wall. LV dyssynchrony also seen during PACs and PVCs. There is no obvious LV thrombus. The right ventricle is normal in size and function. There is mild mitral valve prolapse. There is prolapse of the posterior mitral valve leaflet(s). There is moderate mitral regurgitation. There is mild to moderate pulmonic regurgitation. The IVC is of normal diameter and collapses greater than 50% with a sniff. This suggests a low right atrial pressure of 3 mm Hg. Procedure: A two-dimensional transthoracic echocardiogram with color flow and Doppler was performed. The study quality was technically adequate. There is no prior echocardiogram noted for this patient. The patient was in normal sinus rhythm during the exam. The patient had frequent PACs during the exam. The patient had occasional PVCs during the exam. Left Ventricle: The left ventricle is normal in size and wall thickness. There is no thrombus. The ejection fraction is estimated to be 50-55%. There is a severe hypokinesis of mid to distal anterior wall extending into the mid to distal anterolateral wall. LV dyssynchrony also seen during PACs and PVCs. Diastolic parameters suggest a relaxation abnormality of the left ventricle, consistent with probable normal filling pressures. Right Ventricle: The right ventricle is normal in size and function. Atria: The left atrium is moderately dilated. Right atrial size is normal. There is no Doppler evidence for an interatrial shunt. Mitral Valve: The mitral valve leaflets appear mildly thickened, but open well. There is mild mitral annular calcification. There is mild mitral valve prolapse. There is prolapse of the posterior mitral valve leaflet(s). There is moderate mitral regurgitation. Aortic Valve: The aortic valve is trileaflet. There is mild aortic valve sclerosis. There is no aortic valve stenosis. There is mild aortic regurgitation. Tricuspid Valve: The tricuspid valve is normal. The right ventricular systolic pressure is estimated to be at least 23 mmHg based on an estimated right atrial pressure of 3 mm Hg. There is trace tricuspid regurgitation. Pulmonic Valve: The pulmonic valve is not well visualized. There is mild to moderate pulmonic regurgitation. Great Vessels: The aortic root is normal size. The aortic arch could not be visualized. The IVC is of normal diameter and collapses greater than 50% with a sniff. This suggests a low right atrial pressure of 3 mm Hg. Pericardium/ Pleura There is no pericardial effusion. There is no pleural effusion. MMode/2D Measurements & Calculations LVIDd: 4.8 cm LVOT diam: 2.2 cm LVIDs: 3.1 cm Ao root diam: 3.9 cm FS: 34.7 % Ao Arch Diam (Prox Trans): 3.5 cm IVSd: 0.89 cm LVPWd: 1.0 cm LV devine. diameter/BSA (cm/m^2): 2.5 LV sys. diameter/BSA (cm/m^2): 1.6 LA A2 area: 27.3 cm2 RA long axis: 6.4 cm LA A4 area: 21.7 cm2 RA area: 20.5 cm2 LA length (vol): 5.8 cm RA vol: 56.2 ml LA vol: 87.8 ml RA : 28.9 ml/m2 LA vol index: 45.2 ml/m2 IVC diam: 1.6 cm RVD1 (basal): 3.7 cm TAPSE: 2.5 cm Doppler Measurements & Calculations Ao V2 max: 170.9 cm/sec LVOT Max Jose: 118.7 cm/sec Ao V2 mean: 126.2 cm/sec LV V1 max P.6 mmHg Ao max P.7 mmHg LV V1 VTI: 20.8 cm Ao mean P.9 mmHg JACKY(I,D): 2.5 cm2 Ao V2 VTI: 32.7 cm JACKY(V,D): 2.7 cm2 sev ratio: 0.64 JACKY indexed to BSA (cm^2/m^2): 1.3 MV E max jose: 56.0 cm/sec TR max jose: 224.8 cm/sec MV A max jose: 91.4 cm/sec TR max P.2 mmHg MV E/A: 0.61 PA pr(Accel): 34.5 mmHg Med Peak E' Jose: 4.6 cm/sec E/E' med: 12.2 Lat Peak E' Jose: 5.7 cm/sec E/E' lat: 9.8 E/e' average: 11.0 MV dec time: 0.36 sec SV(LVOT): 82.3 ml Reading Physician:01:38 PM
--- NOTE | 2021-01-11 07:24 | PM.DS.1 ---
History of Present Illness History of Present Illness Chief complaint: CONFUSED, LOW BP, NOT FEELING RIGHT Narrative: 80-year-old male who was out working on [employer]. Very busy day yesterday with walking heavy lifting. [place] a little bit worn out in woozy. Slept longer than he does add normally this morning. He woke up in he was a little bit confused his described him as spacey. He had breakfast he walked the dog. But he felt like he just was not right he was not thinking properly. She noticed this as well. He also noticed in addition to the spacey or confusion he maybe had some difficulty with his vision. Although not enough to prevent him from driving his into the hospital this morning for mammogram he elected to be evaluated in the emergency department at the same time. In the emergency department he is alert oriented. He is a good historian with me today. He says he does not feel spacey any more confused. Although he does admit this morning he had a hard time moving his mouse on his computer he also had a difficult time with typing and was a little bit confused by that. He also noticed when he was in the emergency room and they were having him do the stroke scale that he had a hard time with the seen maybe out of his right eye. He says he feels like that is all resolved he has been doing crossword puzzles since he got up on the floor of the hospital he says he is doing that fine. He does not feel spacey any more. His says he is back to his baseline but 3 hours ago she would not of said that. He has not had problems with his balance her gait he has not fallen over he has no weakness or clumsiness in his hands or feet he has had no difficulty with his speech. He has had no difficulty with movement of the muscles of his face. He has a history of TIA. He does not have a known history of atrial fibrillation or valvular heart disease. Discharge Providers Provider Date of admission: 01/10/21 14:01 Discharge Date: 01/17/21 Primary care physician: Johnny Shay MD Consults: 01/10/21 14:26 Consult to Discharge Planning Routine Comment: Consult to Occupational Therapy Evaluate & Treat Comment: Physician Instructions: Evaluate and treat Consult to Physical Therapy Evaluate & Treat Comment: Physician Instructions: Evaluate and Treat 01/10/21 14:27 Consult to Discharge Planning Routine Comment: Consult to Occupational Therapy Evaluate & Treat Comment: Physician Instructions: Evaluate and treat Consult to Physical Therapy Evaluate & Treat Comment: Physician Instructions: Evaluate and Treat Consult to Speech Therapy Evaluate & Treat Comment: Physician Instructions: Evaluate and treat Discharge provider: Johnny Shay MD Summary Hospital Course Discharge Diagnosis: 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 Patient during the hospital stay was started on an at aspirin 325 mg a day. Patient had telemetry monitoring which showed bradycardia without significant pauses or significant irregular heart rhythms. Patient had a CT of the head and CT angiogram which was reportedly normal. Patient had an MRI stroke protocol which showed acute left posterior cerebral artery distribution occipital infarct. During the hospital stay patient was ambulating. His mental status has returned back to baseline. He has been eating well. Independent with toileting getting dressed. His laboratory tests showed his chronic white blood cell elevation due to his CLL. His blood pressure was well controlled and at times mildly hypotensive his cholesterol levels were drawn and his LDL cholesterol was 86 and total cholesterol was 160. Time of discharge was feeling well. We have asked him to proceed with an ophthalmology early eye evaluation for further delineation of his vision and visual field did effects. Will proceed with an echocardiogram and an outpatient neurology referral. Patient will be discharged home on aspirin and a low-dose statin Exam Vital Signs (past 8 hours): - 01/10/21 23:55 01/11/21 00:00 01/11/21 04:40 Temperature 97.5 F L 98.6 F Pulse Rate 51 L 51 L Respiratory Rate 18 18 Blood Pressure 120/70 97/60 Pulse Oximetry 95 95 98 Oxygen Delivery Method Room Air Oxygen Flow Rate 0 Objective Labs Result Diagrams: 01/11/21 05:11 01/11/21 05:11 Labs: Laboratory Results - last 24 hr 01/10/21 01/10/21 01/10/21 12:00 12:00 12:48 WBC 17.0 H RBC 4.81 Hgb 15.5 Hct 45.9 MCV 95.6 MCH 32.2 MCHC 33.7 RDW 13.4 Plt Count 154 Neut % (Auto) 19.3 L Lymph % (Auto) 76.8 H Hinds % (Auto) 2.6 L Eos % (Auto) 0.7 L Baso % (Auto) 0.6 Neut # (Auto) 3300 Lymph # (Auto) 81488 H Hinds # (Auto) 400 Eos # (Auto) 100 Baso # (Auto) 100 Total Counted Seg Neutrophils % Lymphocytes % (Manual) Atypical Lymphs % Monocytes % (Manual) Neutrophils # (Manual) Smudge Cells RBC Morphology Sodium 138 Potassium 4.5 Chloride 109 H Carbon Dioxide 24 BUN 17 Creatinine 1.04 Estimated GFR > 60.0 BUN/Creatinine Ratio 16.3 Glucose 87 Calcium 11.0 H Total Bilirubin 0.9 AST 31 ALT 23 Alkaline Phosphatase 67 Total Creatine Kinase 107 CK-MB (CK-2) 2.26 CK-MB (CK-2) Rel Index 2.1 Troponin I < 0.012 Total Protein 6.5 Albumin 3.8 Globulin 2.7 Albumin/Globulin Ratio 1.4 Triglycerides Cholesterol LDL Cholesterol, Calc HDL Cholesterol Lipase 181 Ethyl Alcohol < 10 SARS-CoV-2 (PCR) Negative 01/11/21 01/11/21 05:11 05:11 WBC 14.7 H RBC 4.82 Hgb 15.2 Hct 46.4 MCV 96.2 MCH 31.5 MCHC 32.8 RDW 13.2 Plt Count 151 Neut % (Auto) Not Reportable Lymph % (Auto) Not Reportable Hinds % (Auto) Not Reportable Eos % (Auto) Not Reportable Baso % (Auto) Not Reportable Neut # (Auto) Lymph # (Auto) Not Reportable Hinds # (Auto) Not Reportable Eos # (Auto) Baso # (Auto) Not Reportable Total Counted 100 Seg Neutrophils % 27.0 L Lymphocytes % (Manual) 41.0 Atypical Lymphs % 30.0 H Monocytes % (Manual) 2.0 Neutrophils # (Manual) 3969 Smudge Cells 1+ H RBC Morphology Normal morphology Sodium 139 Potassium 4.5 Chloride 108 H Carbon Dioxide 27 BUN 15 Creatinine 1.12 Estimated GFR > 60.0 BUN/Creatinine Ratio 13.4 Glucose 89 Calcium 11.0 H Total Bilirubin 0.8 AST 29 ALT 22 Alkaline Phosphatase 64 Total Creatine Kinase CK-MB (CK-2) CK-MB (CK-2) Rel Index Troponin I Total Protein 6.0 L Albumin 3.4 L Globulin 2.6 Albumin/Globulin Ratio 1.3 Triglycerides 147 Cholesterol 160 LDL Cholesterol, Calc 86 HDL Cholesterol 45 Lipase Ethyl Alcohol SARS-CoV-2 (PCR) [facility] Medical History Anxiety Anxiety disorder Benign prostatic hyperplasia (02/16/15) BPH (benign prostatic hyperplasia) Chronic lymphocytic leukemia (10/12/16) Depression Essential hypertension (11/10/15) Hearing loss Hematuria Hyperlipidemia (12/07/10) Primary hyperparathyroidism Sleep apnea Supraventricular tachycardia Surgical History Anesthesia Status post transurethral resection of prostate (09/2014) Family History Brother No problems noted. Sister No problems noted. Father No problems noted. Mother Pancreatic cancer Social History household members: spouse Smoking Status: Never smoker alcohol intake: current substance use type: does not use Discharge Plan Discharge Plan Patient Disposition: Home Provider Discharge Comment: Follow-up with Dr. Shay in 7-10 days. I will arrange for neurology follow-up and evaluation Discharge orders & Medications Prescriptions: New aspirin 325 mg Tablet,Delayed Release (Dr/Ec) 325 mg PO DAILY Qty: 90 RF: 0 Continued lisinopril 20 mg tablet 20 mg PO DAILY Qty: 90 RF: 3 bupropion HCl [Wellbutrin SR] 150 mg tablet sustained-release 12 hr 150 mg PO BID Qty: 180 RF: 3 Discontinued aspirin 81 mg Tablet 81 mg PO DAILY RF: 0 No Action atorvastatin [Lipitor] 10 mg tablet 10 mg PO BEDTIME Qty: 30 RF: 0 clopidogrel [Plavix] 75 mg tablet 75 mg PO DAILY Qty: 30 RF: 0 clopidogrel [Plavix] 75 mg tablet 75 mg PO DAILY Qty: 90 RF: 3 aspirin [Adult Low Dose Aspirin] 81 mg tablet,delayed release (DR/EC) 81 mg PO DAILY Qty: 90 RF: 3 Medication counseling provided by Pharmacist: Yes Follow up/Referrals: Johnny Shay MD [Primary Care Provider] - 01/18/21 11:15 am (appt:01/18 @ 11:[address] shay please arrive 15 minutes prior to scheduled appointment time) Visit Report/Discharge Packet Instructions: Transient Ischemic Attack, DI for Transient Ischemic Attack, How to Prevent Falls Visit Report Forms: Patient Portal/API, Stroke Signs & Symptoms Discharge Data Primary Care Provider: Johnny Shay Attending Provider: Johnny Shay Admit Date/Time: 01/10/21 14:01 Discharges patient from system. Discharge Date/Time: 01/11/21 13:37 Quality VTE Deep Vein Thrombosis/Pulmonary Embolism Present on Admission: No
[2021-01-11 07:30] VITALS: BP 123/74; PULSE 57; RESP 18; TEMP 36.9; O2SAT 97
[2021-01-11 08:18] VITALS: O2SAT 95
[2021-01-11] MEDS: ASPIRIN EC 325 MG TABLET PO (08:57)
[2021-01-11] MEDS: lisinopriL 20 MG TABLET PO (08:57)
[2021-01-11] MEDS: ENOXAPARIN 40 MG/0.4 ML SYRINGE SUBCUT (08:58)
[2021-01-11] MEDS: buPROPion SR 150 MG TAB PO (09:01)
[2021-01-11] MEDS: SODIUM CHLORIDE 0.9% FLUSH 10 ML IV (09:01)
--- NOTE | 2021-01-11 09:24 | CM.DANOTE ---
DCP: Case received, EMR reviewed and met with patient. , Chloé, was also present in room. Introduced self and role. Was able to obtain some information regarding patient's baseline activity status prior to hospitalization. DCP assessment completed with information currently available. Patient is an 80 year old male who admitted yesterday afternoon to the care of the hospitalist team. PCP: Dr. Jacobson. Payer: confirmed: [facility]. Patient came to the hospital via private vehicle secondary to weakness, as well as some confusion with memory. He is here for CVA work up. He has history of TIA. MRI noted some chronic ischemia. He is to be working with the therapy team today. Met with patient and . He is pleasant, it took him some time to answer certain questions, such as using DME supplies. He uses a cane at times, does drive. Him and his both reside here in [place]. He is independent at his baseline. P: Patient does have discharge orders for today, he will be working with the therapy team prior to discharge. Kaya Dubois RN/Toe Closing Machine Tender
--- NOTE | 2021-01-11 10:18 | OT.IP.EVAL ---
Past Medical History (Last Reviewed 01/10/21 @ 15:37 by Johnny Jacobson MD) Anxiety Anxiety disorder Benign prostatic hyperplasia (02/16/15) BPH (benign prostatic hyperplasia) Chronic lymphocytic leukemia (10/12/16) Depression Essential hypertension (11/10/15) Hearing loss Hematuria Hyperlipidemia (12/07/10) Primary hyperparathyroidism Sleep apnea Supraventricular tachycardia Surgical History (Last Reviewed 04/18/20 @ 12:05 by Shayla Steel DO) Anesthesia Status post transurethral resection of prostate (09/2014) Occupational Therapy Inpatient Evaluation/Re-Eval M1 PT/OT-IP Prior Functional Status Start: 01/11/21 12:19 Freq: NEEDED Status: Active Protocol: Document 01/11/21 12:19 [facility] (Rec: 01/11/21 12:47 [facility] [id number]) Medical Review Prior Functional Status Communication Independent. Mobility and Gait Pt states does not use any devices to walk with. Activities of Daily Living and IADL's Pt states was completely independent with all ADl's, IADl's, and driving. Social History Household Members spouse Living Arrangements House Number of Floors (Floors) Two Floors Number of Stairs To Enter/Railing? 15 wide steps to the front door, 5-6 steps with right railing going to the main living area-including the bedroom. Home Environment Standard Height Toilet,Walk in Shower,Tub/Shower M2 OT-IP Current Condition Start: 01/11/21 12:19 Freq: Status: Active Protocol: Document 01/11/21 12:19 [facility] (Rec: 01/11/21 12:47 [facility] [id number]) Occupational Therapy Current Condition Current Condition Evaluation Date 01/11/21 Treatment Diagnosis CVA-acute left posterior cerebral artery distribution on occipital infarct Diagnosis Onset Date 01/10/21 M3 OT- IP Subjective and Pain Start: 01/11/21 12:19 Freq: Status: Active Protocol: Document 01/11/21 12:19 [facility] (Rec: 01/11/21 12:47 [facility] [id number]) OT- Subjective Occupational Therapy Visit Type Type Initial Evaluation Visit Start Time 09:36 Visit Stop Time 10:18 Total Visit Minutes 42 Occupational Therapy Visit Comments Patient Comments Pt's in the room during Ot eval. Patient/Caregiver Goals TO go home. OT Pain Assessment Pain When Pain Assessed At Rest Pain Present Pain Present Pain Reported Location Head Intensity 2 Scale Used Numeric (0 - 10) M4 OT- IP ADL's Start: 01/11/21 12:19 Freq: Status: Active Protocol: Document 01/11/21 12:19 [facility] (Rec: 01/11/21 12:47 [facility] [id number]) OT [id number] Comments OT Self-Feeding Comments NOt at meal time. OT ADL-Grooming General Evaluation Grooming Ability Standby Assistance Comments OT Grooming Comments SBA at the sink and able to do grooming needs with increased time. OT ADL-Oral Care General Eval Oral Care Ability Standby Assistance OT ADL-Dressing General Eval Lower Body Dressing Ability Standby Assistance Areas Needing Assistance Socks OT ADL-Toileting General Evaluation Toileting Ability Independent OT ADL-Bathing Comments OT Bathing Comments Pt did not wanting to shower. Suggested at this time would be best to have a shower chair due to his decreased dynamic balance at this time. M5 OT- IP IADL's Start: 01/11/21 12:19 Freq: Status: Active Protocol: Document 01/11/21 12:19 [facility] (Rec: 01/11/21 12:47 [facility] [id number]) OT-Instrumental Activities of Daily Living Home Safety Awareness Awareness of Need for Assistance at Home Good Awareness Ability to Problem Solve Emergency Able to Problem Solve Situations Medication Management Medication Management No Deficits Identified Money Management Money Management No Deficits Identified Meal Preparation Meal Preparation Comments Pt's to assist as needed. Manager Coding Manager Coding Comments Pt's to assist as needed. Driving Driving Concerns Identified Regarding Safety Driving Comments Due to pt's difficulty with right peripheral vision, best to see rigging supervisor as suggested by physician here. M6 OT- IP Functional Cognition Start: 01/11/21 12:19 Freq: Status: Active Protocol: Document 01/11/21 12:19 [facility] (Rec: 01/11/21 12:47 [facility] [id number]) Cognitive Factors Limiting Selfcare Function Cognitive Ability Level of Alertness Alert Patient Orientation Name,Age,Birthday,Month,Date, Year,Day of Week,Place, Situation Attention Span Ability Capable of Focused Attention, Capable of Sustained Attention Ability to Follow Commands Able to Follow Multi-Step Commands Memory Description No Deficits Noted Safety Awareness No Deficits Noted Problem Solving Ability No deficits Noted Cognitive Tests SLUMS Pt scored 29/30 which implies normal cognition. Pt only missed recalling one object after time passed. Cognitive Comments Cognitive Assessment Comments Pt scored 96 seconds on [place] making Part B which is 80% for pt's age but implies mild impairments for pt's visual attention, speed of processing , executive functioning, mental flexibility, and task switching needs. OT- Vision and Hearing OT- Hearing Assessment OT- Hearing Assessment WFL OT- Vision Assessment Visual Acuity Glasses All The Time Visual Attentiveness WFL Occular Pursuits WFL Visual Spacial Neglect Right Vision Assessment Comments Pt mild decrease in peripheral vision to the right for right eye/also neglect Educated to have pt slightly turn his head to the right and be sure to look all the way over to his right when reading, walking, and moving around. M7 OT- IP Mobility and Balance Start: 01/11/21 12:19 Freq: Status: Active Protocol: Document 01/11/21 12:19 [facility] (Rec: 01/11/21 12:47 [facility] [id number]) OT- Bed Mobility Assessment Rolling Level of Assistance Standby Assistance Supine to Sit Supine to Sit Assist Standby Assistance Sit to Supine Sit to Supine Assist Standby Assistance Scooting Scooting to Edge of Bed Standby Assistance OT-Transfer Assessment Sit to and From Stand Sit to and from Stand Standby Assistance Transfers Transfer Ability Standby Assistance Technique Transfer Destination Bed Transfer Technique Stand Step Pivot Devices Transfer Assistive Devices None Comments Mobility Comments SBA while in the room. OT- Balance Assessment Sitting Balance and Reactions Static Sitting Balance Ability Normal Dynamic Sitting Balance Ability Normal Standing Balance and Reactions Static Standing Balance Ability Good Dynamic Standing Balance Ability Fair M8 OT- IP Objective Assessments Start: 01/11/21 12:19 Freq: Status: Active Protocol: Document 01/11/21 12:19 [facility] (Rec: 01/11/21 12:47 [facility] [id number]) OT Gross Range of Motion Upper Extremity Range of Motion Assessment Within Functional Limits OT Strength Comments Strength Comments RUE 4-/5 and LUE 4/5 OT- Coordination Assessment Upper Extremity Finger to Nose Test Within Functional Limits Finger Tapping Test Within Functional Limits Comments Coordination Comments Right hand for 9 hole peg test at 75th percentile for age and left hand 90th percentile. OT Sensation Assessment Comments Summary Comments Intact for light touch. Edema Edema Absent M9 OT- IP Assessment and Plan Start: 01/11/21 12:19 Freq: Status: Active Protocol: Document 01/11/21 12:19 [facility] (Rec: 01/11/21 12:47 [facility] [id number]) OT Summary Assessment and Plan Potential Rehabilitation Potential Excellent Analytic Complexity at Evaluation Moderate Summary OT Impairments Balance,Coordination, Functional Mobility,Bathing, Activity Tolerance Progress Towards Goals Progressing Toward Goals Assessment Summary Pt MOD complexity and here due to CVA with noted right neglect and decreased for right peripheral field for right eye. Pt also noted slight decrease in speed for coordination of right hand versus left. Pt to look into seeing an rigging supervisor and states will not be driving at this time. Pt looking to go home when medically stable. Goals Grooming Goal Independent Dressing Goal Independent Toileting Goal Independent Bathing Goal Independent Toilet Transfer Goal Independent Shower Transfer Goal Independent Days to Meet Goals 1 Frequency of Treatment Frequency Of Treatment Once a Day Treatment Plan OT Treatment Plan ADL Training,Functional Mobility,Vision Retraining, Patient/Family Education, Discharge Planning Other Treatment Recommendations and Next Pt to incorporate vision Treatment Focus strategies for safety when moving around in his environment for ADl's and functional mobility needs. Discharge Recommendations OT Discharge Recommendations Home with Assistance Home Equipment Needs Shower chair Transportation Needs at Discharge Private Vehicle
--- NOTE | 2021-01-11 10:30 | PT.IIE ---
Surgical History (Last Reviewed 04/18/20 @ 12:05 by Shayla Steel DO) Anesthesia Status post transurethral resection of prostate (09/2014) Medical History (Last Reviewed 01/10/21 @ 15:37 by Johnny Jacobson MD) Anxiety Anxiety disorder Benign prostatic hyperplasia (02/16/15) BPH (benign prostatic hyperplasia) Chronic lymphocytic leukemia (10/12/16) Depression Essential hypertension (11/10/15) Hearing loss Hematuria Hyperlipidemia (12/07/10) Primary hyperparathyroidism Sleep apnea Supraventricular tachycardia Physical Therapy Inpatient Evaluation/Re-Eval M1 PT/OT-IP Prior Functional Status Start: 01/11/21 12:19 Freq: NEEDED Status: Active Protocol: Document 01/11/21 12:19 [facility] (Rec: 01/11/21 12:47 [facility] [id number]) Medical Review Prior Functional Status Communication Independent. Mobility and Gait Pt states does not use any devices to walk with. Activities of Daily Living and IADL's Pt states was completely independent with all ADl's, IADl's, and driving. Social History Household Members spouse Living Arrangements House Number of Floors (Floors) Two Floors Number of Stairs To Enter/Railing? 15 wide steps to the front door, 5-6 steps with right railing going to the main living area-including the bedrooom. Home Environment Standard Height Toilet,Walk in Shower,Tub/Shower M2 PT-IP Current Condition Start: 01/11/21 12:37 Freq: NEEDED Status: Active Protocol: Document 01/11/21 10:30 AB (Rec: 01/11/21 12:53 AB [email or web address]) Physical Therapy Current Condition Current Condition Evaluation Date 01/11/21 Treatment Diagnosis CVA; L occipital infarct; difficulty in walking Onset Date 01/10/21 Precautions Other Precautions falls M3 PT-IP Subjective Start: 01/11/21 12:37 Freq: NEEDED Status: Active Protocol: Document 01/11/21 10:30 AB (Rec: 01/11/21 12:53 AB [email or web address]) Subjective Physical Therapy Visit Type Type Initial Evaluation Visit Start Time 10:30 Visit Stop Time 11:00 Total Visit Minutes 30 Number of PRECISION ASSEMBLY INSPECTOR Visits 0 Physical Therapy Visit Comments Patient Comments pt is agreeable to do PT Therapy Pain Assessment Pain Present Pain Present Denied Pain M4 PT-IP Mobility and Gait Start: 01/11/21 12:37 Freq: NEEDED Status: Active Protocol: Document 01/11/21 10:30 AB (Rec: 01/11/21 12:53 AB [email or web address]) PT-Bed Mobility Assessment Supine to Sit Supine to Sit Independent Sit to Supine Sit to Supine Independent PT-Transfer Assessment Sit to and From Stand Sit to and from Stand Independent Equipment Transfer Assistive Device None,Gait Belt Orthotic/Prosthetic Devices or Brace: No Comments Mobility Comments pt completed supine to sit independent. BP supine: 117/ 73. completed sit to stand independent. ambulated out in the hallway without AD SBA to occasional CGA ~250 ft. presents with antalgic gait. increase lateral trunk lean to the R . has (+) LOB with RLE crossing over midline requiring CGA for recovery. pt stated that he has that problem from before and has LOB but no falls. pt stated that R eye vision is decrease and he tends to just move his head over to the R to see. pt completed up/down steps using R rail SBA step through pattern. completed up/down platform step without AD CGA for safety. pt ambulated back to his room without AD SBA to CGA. went back to bed sit to supine independent. call light and table placed within reach. informed pt regarding mobility, decrease balance with LOB with ambulation and recommendation of outpt PT for balance and ambulation training. pt and spouse understand. Gait Assessment Gait Gait Assistance Required: Standby Assistance,Contact Guard Assist Distance (Feet) 250 Able to Maintain Weight Bearing Status Yes During Gait Assistive Devices Assistive Device None,Gait Belt Orthotic/Prosthetic Devices or Brace: No Gait Deviations General Gait Pattern Antalgic,Decreased Stride Length,Decreased Feet Clearance Factors Limiting Gait Function Factors Limiting Gait Function Decreased Activity Tolerance, Decreased Strength,Poor Balance Comments Gait Comments pls refer to mobility section for details Stair Climbing Assessment Evaluation Level of Assist On Stairs Standby Assistance,Contact Guard Assistance Devices Stair Climbing Assistive Devices None,Right Railing Technique/Endurance Stair Climbing Direction Ascend and Descend Stair Climbing Technique Step Over Step,Step to Step Number of Steps Climbed 3 Query Text: Stair Climbing Set # Repetitions (reps) 1 Comments Stair Climbing Comments pls refer to mobility section for details PT-Balance Assessment Sitting Balance and Reactions Static Sitting Balance Ability Good Dynamic Sitting Balance Ability Good Standing Balance and Reactions Static Standing Balance Ability Good Dynamic Standing Balance Ability Fair Device Used without AD M5 PT-IP Objective Assessments Start: 01/11/21 12:37 Freq: NEEDED Status: Active Protocol: Document 01/11/21 10:30 AB (Rec: 01/11/21 12:53 AB [email or web address]) Orientation Orientation/Cognition Level of Alertness Alert Orientation Name,Age,Birthday,Month,Date, Year,Day of Week,Place, Situation Language Function Ability No Deficits Noted Safety Awareness Decreased Safety Awareness Memory Description No Deficits Noted Gross Range of Motion Lower Extremity ROM Assessment Within Functional Limits Strength Lower Extremity Strength Assessment Within Functional Limits Coordination Assessment Gross Coordination Gross Coordination WNL Sensation Assessment Sensation Gross Sensation WNL Muscle Tone Muscle Tone WNL Yes M6 PT-IP Treatment Start: 01/11/21 12:37 Freq: NEEDED Status: Active Protocol: Document 01/11/21 10:30 AB (Rec: 01/11/21 12:53 AB [email or web address]) Physical Therapy Treatment Education Education Provided Safety M7 PT-IP Assessment and Plan Start: 01/11/21 12:37 Freq: NEEDED Status: Active Protocol: Document 01/11/21 10:30 AB (Rec: 01/11/21 12:53 AB [email or web address]) PT Summary Assessment and Plan Potential Rehabilitation Potential Good Status of Condition at Evaluation Stable Summary Impairments Pain,ROM,Strength,Balance,Bed Mobility,Transfers,Gait, Activity Tolerance Assessment Summary pt requiring SBA to CGA with ambulation without AD with (+) LOB requiring CGA for steadiness. pt plans to go home with spouse to assist him . pt will benefit from outpt PT for balance and ambulation training. Goals Transfer Goal Independent Gait Goal Independent Gait Distance 300 Other Goals up/down 8 steps R rail independent up/down 6 steps without AD independent Days to Meet Goals 5 Frequency of Treatment Frequency Of Treatment Once a Day Treatment Plan Physical Therapy Treatment Plan Bed Mobility Training,Transfer Training,Gait Training, Therapeutic Exercise,Balance Retraining,Discharge Planning, Neuromuscular Re-ed, Coordination Retraining Recommendations To Nursing Amount of Assist Needed 1 Person Assist Discharge Recommendations PT Discharge Recommendations Home with Assistance, Outpatient PT Transportation Needs at Discharge Private Vehicle
[2021-01-11 11:15] VITALS: BP 116/72; PULSE 63; RESP 18; TEMP 36.7; O2SAT 97
--- NOTE | 2021-01-11 13:35 | PC.NURSE ---
Day shift: Pt left unit at approx 1335. Paperwork signed and all questions answered. Pt has all personal belongings. MD scripts sent to Pt's on-line pharmacy by electronically. Taken to car in by SRINIVASA Hendricks. Pt's spouse is driving him home.
== END 2021-01-11 13:37 | disposition home or self-care (01) ==
LOC: ED 13:34 → AC 14:02
PROVIDERS: Admitting Provider Family Medicine; Emergency Provider Emergency Medicine; Family Provider Family Medicine; PCP Family Medicine; Referring Provider Emergency Medicine; Visit Provider Family Medicine
DX: I63.532 Cerebral infarction due to unspecified occlusion or stenosis of left posterior cerebral artery (principal); R29.701 NIHSS score 1; H53.9 Unspecified visual disturbance; R41.0 Disorientation, unspecified; C91.10 Chronic lymphocytic leukemia of B-cell type not having achieved remission; I10 Essential (primary) hypertension; G47.30 Sleep apnea, unspecified; E78.5 Hyperlipidemia, unspecified; F32.9 Major depressive disorder, single episode, unspecified; F41.9 Anxiety disorder, unspecified; E21.3 Hyperparathyroidism, unspecified; Z20.822 Contact with and (suspected) exposure to COVID-19
CPT/HCPCS: 36415; 70450; 70496; 70498; 70548; 70553; 80053; 80061; 80320; 81003; 82550; 82553; 83690; 84484; 85007; 85025; 87635; 93005; 93306; 96372; 97161; 97166; 97530; 99284; C9803; G0378; J1650; Q9967

== ENCOUNTER → 2021-02-28 09:59 | Outpatient (CLI) | payer OTHER, SELFPAY ==
[2021-01-10 14:20] VITALS: BMI 24.3
[2021-02-28 11:29] LABS: COVID19 -Nasal RAPID Negative (Negative)
== END ==
PROVIDERS: Family Provider Family Medicine; PCP Family Medicine; Visit Provider Nurse Practitioner Family
DX: Z20.822 Contact with and (suspected) exposure to COVID-19 (principal); Z01.812 Encounter for preprocedural laboratory examination
CPT/HCPCS: 87635

== ENCOUNTER → 2021-03-02 11:11 | Outpatient (CLI) | payer OTHER, SELFPAY ==
[2021-01-10 14:20] VITALS: BMI 24.3
--- NOTE | 2021-03-02 | DI.NM.S_ITS ---
PROCEDURE: NM LILLIAN PERF SPECT REST & STR Rest and exercise myocardial perfusion SPECT with gated imaging and ejection fraction RADIOPHARMACEUTICAL: 24.1 mCi Tc-99m sestamibi IV at rest and 25.3 mCi Tc-99m sestamibi IV at peak exercise. A [id number] was performed. INDICATIONS: Abnormal findings on diagnostic imaging of heart TECHNIQUE: Radiopharmaceutical was injected at peak stress test, and also at rest. SPECT images were obtained. SPECT myocardial perfusion images were displayed in short axis, horizontal long axis, and vertical long axis views. Gated images were reviewed using Blueleaf software. COMPARISON: None. CARDIAC STRESS: A standard Kapil treadmill exercise tolerance test was performed by the patient under the supervision of an attending staff. The patient exercised for 6 minutes and 0 seconds; functional aerobic impairment (SVETA) is -23%; 7.0 METS. Hemodynamic data: There is normal blood pressure and heart rate response to exercise stress. Patient achieved 94% of maximum predicted heart rate at peak exercise. Symptoms: Patient denied chest pain during exercise. EKG: No diagnostic EKG changes of ischemia; occasional PACs, rare PVCs. FINDINGS: Raw data: There is good myocardial labeling by radiotracer. No significant motion artifacts. Rgmw-iy-vmxxz ratio is 0.19 (normal is less than 0.38 for sestamibi tracer, and less than 0.50 for thallium tracer). Left ventricle function: Gated images demonstrate normal left ventricle wall thickening. No segmental wall motion abnormality. No transient ischemic dilation; TID is 0.9 (normal less than 1.3). The left ventricle resting end-diastolic volume is 108 mL. Left ventricle stress ejection fraction is 62%; normal values are above 45%. Myocardial perfusion: There is normal distribution of activity in the left and right ventricular myocardium. No fixed or reversible perfusion defects. IMPRESSION: 1. No evidence of exercise-induced ischemia on ECG or perfusion imaging. 2. Fair exercise capacity. 3. Normal blood pressure response to exercise. Dictated by: Tierra Perez D.O. on 03/03/2021 at 17:36 Approved by: Tierra Perez M.D. on 03/03/2021 at 17:44
== END ==
PROVIDERS: Family Provider Family Medicine; PCP Family Medicine; Referring Provider Hospitalist; Visit Provider Hospitalist
DX: R93.1 Abnormal findings on diagnostic imaging of heart and coronary circulation (principal)
CPT/HCPCS: 78452; 93017; A9502

== ENCOUNTER → 2021-03-03 12:09 | Outpatient (CLI) | payer OTHER, SELFPAY ==
[2021-01-10 14:20] VITALS: BMI 24.3
[2021-03-03 13:13] LABS: Calcium 11.4 mg/dL (8.4-10.2); Estimated Glomerular Filt Rate > 60.0 mL/min (>60)
== END ==
PROVIDERS: Family Provider Family Medicine; PCP Family Medicine; Referring Provider Internal Medicine; Visit Provider Internal Medicine
DX: E21.0 Primary hyperparathyroidism (principal)
CPT/HCPCS: 36415; 82310; 82565

== ENCOUNTER → 2021-03-25 09:16 | Outpatient (CLI) | payer OTHER, SELFPAY ==
[2021-01-10 14:20] VITALS: BMI 24.3
[2021-03-27 11:17] LABS: COVID19 Sendout Positive (Not Detect)
== END ==
PROVIDERS: Family Provider Family Medicine; PCP Family Medicine; Visit Provider Nurse Practitioner
DX: U07.1 COVID-19 (principal); Z20.822 Contact with and (suspected) exposure to COVID-19
CPT/HCPCS: 87635

== ENCOUNTER → 2021-03-26 09:51 | Outpatient (CLI) | payer OTHER, SELFPAY ==
[2021-01-10 14:20] VITALS: BMI 24.3
[2021-03-26 11:17] LABS: Estimated Glomerular Filt Rate > 60.0 mL/min (>60)
[2021-03-26 11:34] LABS: Vitamin D 25 Hydroxy (D3) 56.7 ng/mL (30.0-100.0)
[2021-03-27 09:36] LABS: Calcium 10.5 mg/dL (8.6-10.2); Parathyroid Hormone, Intact 74 pg/mL (15-65)
== END ==
PROVIDERS: Family Provider Family Medicine; PCP Family Medicine; Referring Provider Internal Medicine; Visit Provider Internal Medicine
DX: E21.0 Primary hyperparathyroidism (principal)
CPT/HCPCS: 36415; 82306; 82310; 82565; 83970

== ENCOUNTER → 2021-10-14 08:08 | Outpatient (CLI) | payer OTHER, SELFPAY ==
[2021-01-10 14:20] VITALS: BMI 24.3
--- NOTE | 2021-10-14 08:11 | DI.RAD.S_ITS ---
PROCEDURE: XR SHOULDER RT MIN 2V INDICATIONS: shoulder pain, right TECHNIQUE: 3views of the shoulder were acquired. COMPARISON: None. FINDINGS: Bones: No fractures or dislocations. No suspicious bony lesions. Visualized ribs appear intact. Moderate acromioclavicular joint osteoarthritis. Mild glenohumeral joint osteoarthritis. Soft tissues: No suspicious soft tissue calcifications. IMPRESSION: No fracture. No acute osseous lesion. If symptoms and/or clinical suspicion for pathology persists, further assessment with repeat radiographs (7-10 days) or advanced imaging (e.g. CT, MRI or bone scan) should be considered. Moderate acromioclavicular joint and mild glenohumeral joint osteoarthritis. Dictated by: Bonnie Arndt MD, PhD on 10/14/2021 at 14:24 Approved by: Bonnie Arndt MD, PhD on 10/14/2021 at 14:25
== END ==
PROVIDERS: Family Provider Family Medicine; PCP Family Medicine; Referring Provider Family Medicine; Visit Provider Family Medicine
DX: M25.511 Pain in right shoulder (principal); M19.011 Primary osteoarthritis, right shoulder
CPT/HCPCS: 73030

== ENCOUNTER → 2021-12-23 11:41 | Outpatient (CLI) | payer OTHER, SELFPAY ==
[2021-01-10 14:20] VITALS: BMI 24.3
[2021-12-23 14:45] LABS: COVID19 -Nasal RAPID Negative (Negative)
== END ==
PROVIDERS: Family Provider Family Medicine; PCP Family Medicine; Visit Provider Student in an Organized Health Care Education/Training Program
DX: Z20.822 Contact with and (suspected) exposure to COVID-19 (principal)
CPT/HCPCS: 87635

== ENCOUNTER → 2022-09-26 06:43 | Outpatient (CLI) | payer OTHER, SELFPAY ==
[2021-01-10 14:20] VITALS: BMI 24.3
--- NOTE | 2022-09-26 | DI.US.S_ITS ---
PROCEDURE: US ABDOMEN LIMITED INDICATIONS: RIGHT UPPER QUADRANT PAIN TECHNIQUE: Real-time scanning was performed of the abdominal and retroperitoneal organs, with image documentation. COMPARISON: None. FINDINGS: Liver: Liver is normal in size and homogeneous in echotexture. Gallbladder: There is a 2.3 x 1.5 cm mobile gallstone. A 1.8 x 1.0 x 0.8 cm masslike structure is seen in the posterior wall of the gallbladder fundus. Gallbladder wall measures 1 mm. No pericholecystic fluid collection or sonographic Fay sign. Biliary ducts: Intrahepatic bile ducts are non-dilated. Extrahepatic bile duct caliber measures 2.7 mm. Normal is 6-7 mm or less in diameter, or 10 mm or less post-cholecystectomy. Pancreas: Visualized portions of the pancreas demonstrate normal echotexture. Pancreatic duct is dilated measuring 3.2 mm. Pancreatic tail is obscured by overlying bowel gas. Right Kidneys: There are multiple right renal cysts the largest cyst measures 4.0 x 3.2 x 2.7 cm with internal septa. No solid masses. Miscellaneous: No free abdominal fluid. IMPRESSION: 1. Cholelithiasis. 2. There is a 1.8 x 1.0 x 0.8 cm nonmobile masslike structure in the posterior wall of the gallbladder fundus. Differential diagnoses are a nonmobile stone versus a mass. Recommend contrast-enhanced CT or MRI for follow-up evaluation. 3. Mildly dilated pancreatic duct. MRCP suggested for further evaluation. 4. No common bile duct dilation. 5. Multiple right renal cysts. The largest cyst measures 4.0 x 3.2 x 2.7 cm and demonstrates internal septa. Dictated by: José Miguel Romero M.D. on 09/26/2022 at 8:55 Approved by: José Miguel Romero M.D. on 09/26/2022 at 9:01
== END ==
PROVIDERS: Family Provider Family Medicine; PCP Family Medicine; Referring Provider Student in an Organized Health Care Education/Training Program; Visit Provider Student in an Organized Health Care Education/Training Program
DX: N28.1 Cyst of kidney, acquired (principal); K80.20 Calculus of gallbladder without cholecystitis without obstruction; K82.9 Disease of gallbladder, unspecified; K83.8 Other specified diseases of biliary tract; R10.11 Right upper quadrant pain
CPT/HCPCS: 76705

== ENCOUNTER → 2022-10-02 11:07 | Outpatient (CLI) | payer OTHER, SELFPAY ==
[2021-01-10 14:20] VITALS: BMI 24.3
[2022-10-02 12:26] LABS: Prothrombin Time 11.4 SECONDS (10.1-12.7)
[2022-10-02 12:38] LABS: Hemoglobin 15.8 g/dL (13.5-17.5); Mean Corpuscular HGB Conc 33.6 % (30-36); Mean Corpuscular Hemoglobin 32.2 PG (26-34); Mean Corpuscular Volume 95.7 fL (80-100); Platelet Count 165 X10^3/uL (150-400); Red Blood Cell Count 4.91 X10^6/uL (4.5-5.9); Red Cell Distribution Width 13.6 % (11.6-14.8); White Blood Cell Count 19.9 X10^3/uL (4.5-11.0)
[2022-10-02 12:41] LABS: Alanine Aminotransferase 30 IU/L (<50); Albumin 4.2 g/dL (3.5-5.0); Albumin Globulin Ratio 1.6 (1.0-2.8); Alkaline Phosphatase 76 U/L (38-126); Aspartate Aminotransferase 32 IU/L (17-59); Bilirubin Total 1.3 mg/dL (0.2-1.3); Blood Urea Nitrogen 18 mg/dL (9-20); Calcium 10.7 mg/dL (8.4-10.2); Carbon Dioxide 23 mmol/L (22-32); Chloride 106 mmol/L (98-107); Cholesterol 156 mg/dL (140-199); Estimated Glomerular Filt Rate > 60 mL/min (>60); Globulin 2.7 g/dL (1.7-4.1); Glucose 73 mg/dL (80-110); HDL Cholesterol 55 mg/dL (40-60); HEMOLYSIS 17 (0-50); LDL Cholesterol Calculated 77 mg/dL (<100); Potassium 4.5 mmol/L (3.4-5.1); Sodium 137 mmol/L (137-145); Total Protein 6.9 g/dL (6.3-8.2); Triglycerides 120 mg/dL (35-150)
[2022-10-02 12:42] LABS: Add Manual Diff / Slide Review YES
[2022-10-02 13:20] LABS: Neutrophils Absolute Manual 4776 /uL (3000-5900); Total Cells Counted 100
[2022-10-02 13:21] LABS: Smudge Cells 2+
[2022-10-02 13:22] LABS: RBC Morphology Normal Morphology
[2022-10-02 13:57] LABS: TSH w/ Reflex to FT4 1.45 uIU/mL (0.47-4.68)
== END ==
PROVIDERS: Family Provider Family Medicine; PCP Family Medicine; Referring Provider Family Medicine; Visit Provider Family Medicine
DX: C91.90 Lymphoid leukemia, unspecified not having achieved remission (principal); I47.1 Supraventricular tachycardia; I10 Essential (primary) hypertension; E21.0 Primary hyperparathyroidism; E78.2 Mixed hyperlipidemia; I63.9 Cerebral infarction, unspecified; Z79.01 Long term (current) use of anticoagulants
CPT/HCPCS: 36415; 80053; 80061; 84443; 85007; 85025; 85610

== ENCOUNTER → 2022-10-09 10:36 | Outpatient (CLI) | payer OTHER, SELFPAY ==
[2021-01-10 14:20] VITALS: BMI 24.3
--- NOTE | 2022-10-09 | DI.MRI.S_ITS ---
PROCEDURE: MR ABDOMEN WO/W CON INDICATIONS: Pancreatic duct dilation; gallbladder mass TECHNIQUE: Coronal HASTE, axial 2D FLASH in- and [id number]-cf-qpfyj; axial breath-hold T2 FSE with fat saturation from the hepatic dome to the iliac crests. Oblique coronal thin-slice and radial thick slab HASTE through the biliary system. Dynamic axial VIBE during administration of contrast. Post-contrast coronal VIBE or 2D FLASH with fat saturation from the hepatic dome to the iliac crests. Optional diffusion weighted imaging and ADC may be performed. COMPARISON: None. FINDINGS: Image quality: Suboptimal due to motion artifact. Pancreas and biliary system: There is a nonenhancing gallstone present. The previously described gallbladder mass is not visualized on this exam. No pancreatic or biliary dilation. No pancreatic divisum. Solid organs: Liver is normal in size and enhancement. Spleen is normal in size and enhancement. No adrenal nodules. Kidneys are normal in size and enhancement, without hydronephrosis. No complex renal cystic lesions which require follow-up. Nodes and vessels: No retroperitoneal or mesenteric adenopathy by size criteria. Aorta and inferior vena cava are normal in size. Bowel and peritoneum: Unenhanced bowel loops are normal in caliber throughout. No free fluid. Colonic diverticulosis without evidence of diverticulitis. Lung bases: No basal pleural effusions. Heart size is normal. Bones and soft tissues: No ventral hernias. Bone marrow is normal in overall signal. Convex right scoliosis centered at L2. IMPRESSION: Suboptimal evaluation due to motion artifact. No enhancing gallbladder mass. Differential includes lack of visualization due to motion artifact versus pseudomass from bile sludge. Recommend follow-up with ultrasound in 6 months for re-evaluation. Dictated by: Sohail Nielson M.D. on 10/09/2022 at 12:49 Approved by: Sohail Nielson M.D. on 10/09/2022 at 12:54
--- NOTE | 2022-10-09 11:34 | DI.RAD.S_ITS ---
PROCEDURE: XR LUMBAR SPINE MIN 4V INDICATIONS: rt leg weekness TECHNIQUE: 5 views of the lumbar spine were acquired, including bilateral oblique views. COMPARISON: None. FINDINGS: Bones: There are 5 lcv-ofp-ibictkb lumbar vertebral bodies. There is 40? right convex scoliosis. Severe degenerative changes are present throughout the lumbar spine including intervertebral disc space narrowing, endplate sclerosis, osteophytosis and facet sclerosis. Soft tissues: Overlying bowel gas pattern is normal. No suspicious soft tissue calcifications. Oblique images: Given the extensive degenerative change and scoliosis, the pars interarticularis are difficult to characterize. IMPRESSION: 1. Severe right convex scoliosis and degenerative change as above. 2. Poor characterization of the pars interarticularis bilaterally given limited visualization. If further characterization is warranted, CT or MRI of the lumbar spine is recommended. Dictated by: Rose Corey M.D. on 10/09/2022 at 16:06 Approved by: Rose Corey M.D. on 10/09/2022 at 16:07
== END ==
PROVIDERS: Family Provider Family Medicine; PCP Family Medicine; Referring Provider Family Medicine; Visit Provider Family Medicine
DX: K86.89 Other specified diseases of pancreas (principal); R10.11 Right upper quadrant pain; K82.8 Other specified diseases of gallbladder; M47.816 Spondylosis without myelopathy or radiculopathy, lumbar region; M41.9 Scoliosis, unspecified; R29.898 Other symptoms and signs involving the musculoskeletal system
CPT/HCPCS: 72110; 74183; A9579

== ENCOUNTER 2022-11-14 08:29 | Day surgery (SDC) | payer OTHER, SELFPAY ==
[2021-01-10 14:20] VITALS: BMI 24.3
[2022-11-01 15:09] VITALS: BMI 25.8
[2022-11-14] VITALS (10 sets, daily range): BP systolic 101–136; BP diastolic 60–83; PULSE 60–70; RESP 12–20; TEMP 36.1–36.6; O2SAT 91–98; BMI 25.8
--- NOTE | 2022-11-14 | DI.RAD.S_ITS ---
PROCEDURE: XR CHOLANGIOGRAM OPERATIVE INDICATIONS: INTRAOPERATIVE CHOLANGIOGRAM COMPARISON: None. FINDINGS: Biliary ducts: The surgeon injected contrast into the biliary ducts after cannulation of the cystic duct stump. Visualized intra- and extrahepatic bile ducts are normal in caliber, without strictures. No intraluminal filling defects to suggest retained ductal stones or sludge. No evidence for iatrogenic ductal injury. Duodenum: Contrast flows promptly through the sphincter of Oddi into the duodenum, which appears normal in caliber. IMPRESSION: Normal intraoperative cholangiogram. Dictated by: Bonnie Arndt MD, PhD on 11/14/2022 at 14:28 Approved by: Bonnie Arndt MD, PhD on 11/14/2022 at 14:28
--- NOTE | 2022-11-14 | PATH_ITS ---
[facility] Accession Number: [id number] No. of containers..01 Tissue . 01 Material submitted: . gallbladder - GALLBLADDER . 01 Diagnosis: Gallbladder, Cholecystectomy: Chronic cholecystitis and cholelithiasis. Negative for dysplasia and neoplasia. MRV 11/17/2022 1354 Local . 01 Electronically signed: . Peace Sánchez MD, Pathologist NPI- [id number] . 01 Gross description: . The specimen is received in formalin labeled with the patient's name, , and gallbladder, and consists of a disrupted gallbladder measuring 7.3 x 2.5 x 1.4 cm. A full thickness defect measuring 0.2 cm in greatest dimension is identified. The cystic duct is received closed with a clamp, is inked blue, and no pericystic lymph node is identified. The lumen contains green-brown, thickened bile and a brown roughened calculus measuring 1.9 cm in greatest dimension is grossly obstructing the cystic duct. The mucosa is green and velvety with a denuded area adjacent to the calculus and no discoloration, polyps, or lesions identified. The little average 0.2 cm thick and wine sales representative sections to include the cystic duct margin and full thickness sections are submitted in cassette A1. ([id number]) /LESLIE 11/15/2022 1034 Local . 01 Pathologist provided ICD-10: K81.1 . 01 CPT . 197133 Performed at: 01 [facility] [address] [place] [address] [id number] MD Abner Hoskins MD Phone: [phone]
[2022-11-14] MEDS: LACTATED RINGERS 1,000 ML 42 ML IV (09:22)
--- NOTE | 2022-11-14 09:25 | PM.PREOP ---
Pre-operative Note COVID-19 COVID-19 status: Not tested Interval Note History & Physical reviewed/Exam performed by Physician: Yes Changes to H&P: No ASA Class (for procedural sedation): III
[2022-11-14] MEDS: CEFAZOLIN 2 GM/100 ML PREMIX 100 ML IV (10:20)
--- NOTE | 2022-11-14 10:51 | SUR.OPER ---
Supine on padded OR bed, head on pillow, arms secured on padded arm boards at <90 degrees abduction, legs uncrossed, safety belt at thigh, tape over blanket over lower legs.
[2022-11-14] MEDS: BUPIVACAINE 0.5% (PF) 30 ML, EPINEPHrine 0.15 MG INJ (10:58)
[2022-11-14] MEDS: IOPAMIDOL 30 ML VIAL INJ (10:59)
--- NOTE | 2022-11-14 11:41 | PM.OP.1 ---
Operative Date/Time/Diagnoses Date of procedure: 11/14/22 Time of procedure: 11:41 Pre-op diagnosis: Cholelithiasis Post-op diagnosis: same Procedure & Clinicians Procedure: Laparoscopic cholecystectomy with intraoperative cholangiogram Same procedure as scheduled: Yes Surgeon: Donis Magdaleno Professional Security Officer: Fransico Alamo Anesthesia Type: General Operative Notes Procedure in detail: The patient was given preoperative antibiotic. The patient was brought to the operating room, placed on the table in the supine position. General endotracheal anesthesia was induced. The abdomen was prepped and draped. A time-out was performed. We made a 1 cm infraumbilical incision. We dissected down to the base of the umbilical stalk using cautery. We grasped the umbilical stalk with a Kenna clamp to elevate the abdominal wall. We scored the fascia in the midline with cautery 1 cm. We pierced the peritoneum with a Peon clamp. The Luz port was placed and the abdomen was insufflated to 15 mmHg. A 5 mm 30 degree laparoscopic was inserted. There was no evidence of any injury from the entry. Next, we placed 5 mm ports in the subxiphoid position and right upper quadrant at the midclavicular line and anterior axillary line. The patient was then positioned in reverse Trendelenburg and the table was tilted to the left. The gallbladder was grasped at the dome and retracted cephalad. There were some adhesions of mesenteric tissue to gallbladder which were carefully dissected with cautery to allow full retraction of the gallbladder. We then dissected the cystic structures with a combination of hook cautery and blunt dissection. We obtained a critical view. Next, a cholangiogram was performed using the 6 Yi ureteral catheter. There was good flow of contrast into the duodenum and liver with no obvious filling defects. The cystic duct-common duct junction was well visualized. We then placed hemoclips on the cystic duct and artery and divided the cystic duct and artery sharply between the clips. The gallbladder was then dissected off the liver and placed in a specimen retrieval bag. We irrigated the right upper quadrant and all the aspirate returned clear. We then removed the 5 mm ports under direct vision we removed the Luz port. We then injected some local into the fascia and closed the fascia with 2 interrupted 0 Vicryl sutures. The skin incisions were closed with 4 Monocryl and Steri-Strips were applied. Band-Aids were applied over the Steri-Strips. EBL: 30 mL Specimen: Gallbladder Post-operative Condition: stable Disposition: PACU
[2022-11-14] MEDS: HYDROMORPHONE 2 MG INJ IV ×3 (12:08→12:22)
[2022-11-14] MEDS: KETOROLAC 30 MG/ML VIAL 15 MG IV (12:32)
[2022-11-14] MEDS: ACETAMINOPHEN IV 1,000 MG/100 ML VIAL 400 MG IV (12:34)
== END 2022-11-14 14:14 | disposition home or self-care (01) ==
PROVIDERS: Family Provider Family Medicine; PCP Family Medicine; Referring Provider Surgery; Visit Provider Surgery
PROC: 0FT44ZZ Resection of Gallbladder, Percutaneous Endoscopic Approach (ICD-10-PCS; CPT 47562; principal; 2022-11-14 09:45)
DX: K80.10 Calculus of gallbladder with chronic cholecystitis without obstruction (principal); C91.10 Chronic lymphocytic leukemia of B-cell type not having achieved remission; I10 Essential (primary) hypertension
CPT/HCPCS: 47563; 74300; 76000; J0131; J0171; J0690; J1100; J1170; J1885; J2405; J2704; J3010; J3490; Q9967

== ENCOUNTER 2022-11-15 19:28 | Emergency (ER) | payer OTHER, SELFPAY ==
[2021-01-10 14:20] VITALS: BMI 24.3
[2022-11-15 19:33] VITALS: BP 105/55; PULSE 81; RESP 18; TEMP 37.1; O2SAT 96; BMI 25.8
[2022-11-15 20:09] LABS: Hematocrit 41.3 % (41-53); Hemoglobin 13.9 g/dL (13.5-17.5); Mean Corpuscular HGB Conc 33.7 % (30-36); Mean Corpuscular Hemoglobin 32.1 PG (26-34); Mean Corpuscular Volume 95.2 fL (80-100); Platelet Count 149 X10^3/uL (150-400); Red Blood Cell Count 4.34 X10^6/uL (4.5-5.9); Red Cell Distribution Width 13.3 % (11.6-14.8); White Blood Cell Count 22.9 X10^3/uL (4.5-11.0)
[2022-11-15 20:11] LABS: Add Manual Diff / Slide Review YES
[2022-11-15 20:14] VITALS: PULSE 69; O2SAT 94
[2022-11-15 20:18] VITALS: BP 103/55; PULSE 68; RESP 21; O2SAT 93
[2022-11-15 20:28] LABS: Alanine Aminotransferase 164 IU/L (<50); Albumin 3.5 g/dL (3.5-5.0); Albumin Globulin Ratio 1.3 (1.0-2.8); Alkaline Phosphatase 112 U/L (38-126); Aspartate Aminotransferase 104 IU/L (17-59); BUN Creatinine Ratio 16.5 (6-22); Bilirubin Total 2.2 mg/dL (0.2-1.3); Blood Urea Nitrogen 21 mg/dL (9-20); Calcium 10.2 mg/dL (8.4-10.2); Carbon Dioxide 25 mmol/L (22-32); Chloride 102 mmol/L (98-107); Estimated Glomerular Filt Rate 56 mL/min (>60); Globulin 2.8 g/dL (1.7-4.1); Glucose 110 mg/dL (80-110); HEMOLYSIS 18 (0-50); Lipase 135 U/L (23-300); Potassium 4.2 mmol/L (3.4-5.1); Sodium 132 mmol/L (137-145); Total Protein 6.3 g/dL (6.3-8.2)
[2022-11-15 20:30] VITALS: BP 101/55; PULSE 68; RESP 23; O2SAT 93
--- NOTE | 2022-11-15 20:40 | ED.GENADULT ---
HPI - General Adult General Chief complaint: Fever Stated complaint: POST SURGERY T-1/TEMP/FALLING/DISCOMFORT Time Seen by Provider: 11/15/22 19:41 Source: patient Mode of arrival: Ambulatory History of Present Illness HPI narrative: Patient is an 82-year-old male. He is 1 day status post elective laparoscopic cholecystectomy. He is brought into the emergency department by his for evaluation of an episode that occurred this afternoon. He states that he was feeling pretty well. His pain was controlled. He took a pain pill and then shortly afterwards got lightheaded. He states he was not having any chest pain or shortness of breath for palpitations or lightheadedness prior to the event. At the time my evaluation he states he feels completely back to normal except for what he describes as expected abdominal discomfort. Does have a history of CLL. Related Data Previous Rx's Medication Instructions Recorded clopidogrel 75 mg tablet (Plavix) 75 mg PO DAILY #90 tabs 04/05/22 bupropion HCl 150 mg tablet,12 hr See Rx Instructions .Route 04/11/22 sustained-release .COMPLEX #180 tabs atorvastatin 10 mg tablet See Rx Instructions .Route 04/12/22 .COMPLEX #90 tabs lisinopril 20 mg tablet See Rx Instructions .Route 10/26/22 .COMPLEX #90 tabs hydrocodone 5 mg-acetaminophen 325 1 tab PO Q8H PRN pain #7 tabs 11/14/22 mg tablet Allergies Allergy/AdvReac Type Severity Reaction Status Date / Time No Known Drug Allergies Allergy Verified 11/15/22 19:38 Review of Systems Review of Systems ROS Unobtainable: All systems reviewed & are unremarkable except as noted in HPI and below Patient History Medical History Anesthesia complication Anxiety Anxiety disorder BPH (benign prostatic hyperplasia) Chronic lymphocytic 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 Sister No problems noted. Father No problems noted. Mother Pancreatic cancer Social History household members: spouse Smoking Status: Never smoker alcohol intake: current substance use type: does not use Smoking Status: Never smoker alcohol intake frequency: 0-2 drinks per day Substance Use Type: does not use Exam Initial Vital Signs Initial Vital Signs: Vital Signs Temperature 98.8 F 11/15/22 19:33 Pulse Rate 81 11/15/22 19:33 Respiratory Rate 18 11/15/22 19:33 Blood Pressure 105/55 L 11/15/22 19:33 Pulse Oximetry 96 11/15/22 19:33 Oxygen Delivery Method Room Air 11/15/22 19:33 HENMT Head: normal to inspection and normocephalic Resp Effort & Inspection: normal respiratory effort Auscultation: clear to auscultation bilaterally Cardio Rate: regular rate Rhythm: regular rhythm GI Palpation: soft and tender (Slightly tender) Skin Other: Surgical bandage is in place Neuro General: patient alert, patient awake and moves all extremities Extrem General: capillary refill normal Course Orders Ordered: ED Orders 11/15/22 19:42 EKG-12 Lead Stat 11/15/22 19:45 Complete Blood Count AUTO DIFF Stat Comprehensive Metabolic Panel Stat Lipase Stat Vital Signs Vital signs: Vital Signs - 8 hr 11/15/22 19:33 Temperature 98.8 F Pulse Rate 81 Respiratory Rate 18 Blood Pressure 105/55 L Pulse Oximetry 96 Oxygen Delivery Method Room Air Medical Decision Making Medical Records Medical records reviewed: Yes I reviewed the patient's medical records. Lab Data Lab results reviewed: Yes I reviewed the patient's lab results. 11/15/22 19:45 11/15/22 19:45 Labs: Lab Results 11/15/22 11/15/22 Range/Units 19:45 19:45 WBC 22.9 H (4.5-11.0) X10^3/uL RBC 4.34 L (4.5-5.9) X10^6/uL Hgb 13.9 (13.5-17.5) g/dL Hct 41.3 (41-53) % MCV 95.2 (80-100) fL MCH 32.1 (26-34) PG MCHC 33.7 (30-36) % RDW 13.3 (11.6-14.8) % Plt Count 149 L (150-400) X10^3/uL Neut % (Auto) Not Reportable Lymph % (Auto) Not Reportable [place] % (Auto) Not Reportable Eos % (Auto) Not Reportable Baso % (Auto) Not Reportable Lymph # (Auto) Not Reportable [place] # (Auto) Not Reportable Baso # (Auto) Not Reportable Total Counted 100 Seg Neutrophils % 48.0 (38-70) % Lymphocytes % (Manual) 25.0 (25-45) % Atypical Lymphs % 25.0 H ( - 0) % Monocytes % (Manual) 2.0 (2-11) % Neutrophils # (Manual) 77919 H (8380-5780) /uL Smudge Cells 4+ H RBC Morphology Normal morphology Sodium 132 L (137-145) mmol/L Potassium 4.2 (3.4-5.1) mmol/L Chloride 102 (98-107) mmol/L Carbon Dioxide 25 (22-32) mmol/L BUN 21 H (9-20) mg/dL Creatinine 1.27 H (0.66-1.25) mg/dL Estimated GFR 56 L (>60) mL/min BUN/Creatinine Ratio 16.5 (6-22) Glucose 110 (80-110) mg/dL Calcium 10.2 (8.4-10.2) mg/dL Total Bilirubin 2.2 H (0.2-1.3) mg/dL AST 104 H (17-59) IU/L ALT 164 H (<50) IU/L Alkaline Phosphatase 112 (38-126) U/L Total Protein 6.3 (6.3-8.2) g/dL Albumin 3.5 (3.5-5.0) g/dL Globulin 2.8 (1.7-4.1) g/dL Albumin/Globulin Ratio 1.3 (1.0-2.8) Lipase 135 (23-300) U/L ECG Data Attestation: I personally reviewed and interpreted this ECG as follows: Interpretation: Sinus rhythm Ventricular rate is 70 Normal axis Normal QRS Normal QTC No ST T wave changes MDM Narrative Medical decision making narrative: Patient states he is feeling back to normal again. He admits that he became very anxious about the event that happened earlier today but he suspects it was because he took the pain medication that is what made him lightheaded. There is no signs of any infection. His labs are unremarkable. EKG is unremarkable. Patient feels comfortable going home. Will discharge home with instructions to continue all of his postoperative instructions. Discharge Plan Departure Patient Disposition: Home Clinical Impression: Pre-syncope, Chronic lymphocytic leukemia Instructions: Fainting Activity Restrictions/Additional Instructions: Recommend that you continue to take all of your medications as directed and follow all of the postoperative instructions given to you by the general surgeon. Return to the emergency department for new or worsening symptoms. Prescriptions: No Action clopidogrel [Plavix] 75 mg tablet 75 mg PO DAILY Qty: 90 3RF bupropion HCl 150 mg tablet sustained-release 12 hr See Rx Instructions .ROUTE .COMPLEX Qty: 180 3RF Dose Instruction: Take 1 tablet (150 mg) by mouth 2 times daily Rx Instructions: Take 1 tablet (150 mg) by mouth 2 times daily atorvastatin 10 mg tablet See Rx Instructions .ROUTE .COMPLEX Qty: 90 3RF Dose Instruction: Take 1 tablet (10 mg) by mouth at bedtime Rx Instructions: Take 1 tablet (10 mg) by mouth at bedtime lisinopril 20 mg tablet See Rx Instructions .ROUTE .COMPLEX Qty: 90 3RF Dose Instruction: Take 1 tablet (20 mg) by mouth daily Rx Instructions: Take 1 tablet (20 mg) by mouth daily hydrocodone-acetaminophen 5-325 mg tablet 1 tab PO Q8H PRN (Reason: pain) Qty: 7 0RF Referrals: Johnny Jacobson MD [Primary Care Provider] - Stand Alone Forms: Patient Portal/API
[2022-11-15 20:41] LABS: Neutrophils Absolute Manual 10992 /uL (3000-5900); Total Cells Counted 100
[2022-11-15 20:43] LABS: RBC Morphology Normal Morphology; Smudge Cells 4+
[2022-11-15 20:50] VITALS: TEMP 36.9
== END 2022-11-15 20:55 | disposition home or self-care (01) ==
PROVIDERS: Emergency Provider Emergency Medicine; Family Provider Family Medicine; PCP Family Medicine
DX: R55 Syncope and collapse (principal); C91.10 Chronic lymphocytic leukemia of B-cell type not having achieved remission
CPT/HCPCS: 36415; 80053; 83690; 85007; 85025; 93005; 99283

== ENCOUNTER → 2023-01-17 12:51 | Outpatient (CLI) | payer OTHER, SELFPAY ==
[2022-12-28 08:23] VITALS: BMI 24.3
--- NOTE | 2023-01-17 12:53 | DI.RAD.S_ITS ---
PROCEDURE: XR CHEST 2V INDICATIONS: short of breath TECHNIQUE: 2 views of the chest were acquired. COMPARISON: [facility], CR, XR CHEST 1V, 12/20/2018, 14:30. FINDINGS: Surgical changes and devices: None. Lungs and pleura: Bibasilar platelike atelectasis. Atherosclerotic vascular calcification noted in the aortic arch. Mediastinum: Mediastinal contours are normal. Heart size is normal. Bones and chest wall: No suspicious bony abnormalities. Soft tissues appear unremarkable. IMPRESSION: Bibasilar platelike atelectasis Approved by: Douglas Rivera M.D. on 01/17/2023 at 19:07
[2023-01-17 14:43] LABS: Hematocrit 45.9 % (41-53); Hemoglobin 15.5 g/dL (13.5-17.5); Mean Corpuscular HGB Conc 33.9 % (30-36); Mean Corpuscular Hemoglobin 32.3 PG (26-34); Mean Corpuscular Volume 95.4 fL (80-100); Platelet Count 170 X10^3/uL (150-400); Red Blood Cell Count 4.81 X10^6/uL (4.5-5.9); Red Cell Distribution Width 13.6 % (11.6-14.8); White Blood Cell Count 18.8 X10^3/uL (4.5-11.0)
[2023-01-17 14:45] LABS: Add Manual Diff / Slide Review YES
[2023-01-17 14:52] LABS: Alanine Aminotransferase 26 IU/L (<50); Albumin 4.1 g/dL (3.5-5.0); Albumin Globulin Ratio 1.8 (1.0-2.8); Alkaline Phosphatase 104 U/L (38-126); Aspartate Aminotransferase 29 IU/L (17-59); BUN Creatinine Ratio 18.6 (6-22); Bilirubin Total 1.1 mg/dL (0.2-1.3); Blood Urea Nitrogen 21 mg/dL (9-20); Calcium 11.2 mg/dL (8.4-10.2); Carbon Dioxide 26 mmol/L (22-32); Chloride 103 mmol/L (98-107); Estimated Glomerular Filt Rate > 60 mL/min (>60); Globulin 2.3 g/dL (1.7-4.1); Glucose 114 mg/dL (80-110); HEMOLYSIS < 15 (0-50); Potassium 4.1 mmol/L (3.4-5.1); Sodium 136 mmol/L (137-145); Total Protein 6.4 g/dL (6.3-8.2)
[2023-01-17 14:59] LABS: NT-proBNP (BNP-Adult 18+) 82 pg/mL (<450)
[2023-01-17 15:29] LABS: Neutrophils Absolute Manual 5076 /uL (3000-5900); Total Cells Counted 100
[2023-01-17 15:30] LABS: RBC Morphology Normal Morphology; Smudge Cells 3+
== END ==
PROVIDERS: Family Provider Family Medicine; PCP Family Medicine; Referring Provider Family Medicine; Visit Provider Family Medicine
DX: C91.90 Lymphoid leukemia, unspecified not having achieved remission (principal); J98.11 Atelectasis; R06.02 Shortness of breath; I42.9 Cardiomyopathy, unspecified; I63.9 Cerebral infarction, unspecified
CPT/HCPCS: 36415; 71046; 80053; 83880; 85007; 85025

== ENCOUNTER 2023-02-23 12:30 | Outpatient (RCR) | payer OTHER, SELFPAY ==
[2021-01-10 14:20] VITALS: BMI 24.3
[2022-12-28 08:23] VITALS: BMI 24.3
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
--- NOTE | 2023-01-22 12:23 | PT.OPPOC ---
Physical, Occupational & Speech Therapy At [facility] Current Diagnoses Scoliosis, unspecified (01/22/23) Dorsalgia, unspecified (01/22/23) Other symptoms and signs involving the musculoskeletal system (01/22/23) Visit Care Team Role Provider Type Johnny Jacobson MD Attending Provider Physician Family Provider Primary Care Provider Referring Provider Specialty: Family Practice Address: [address] [place] [address], [address] Email: [email or web address] Plan Of Care PT-OP-T Assessment and Plan Start: 01/16/23 17:50 Freq: Status: Active Protocol: Document 01/22/23 10:33 LRN (Rec: 01/22/23 12:20 LRN [id number]) Physical Therapy Assessment Rehab Potential Rehabilitation Potential Good Evaluation Complexity Number of Personal Factors/Comorbidities 1-2 Number of Body Systems Impaired 4 or More Clinical Presentation at Evaluation Evolving Impairments Impairments Activity Tolerance,Pain, Posture,ROM,Sensation,Soft Tissue Mobility,Strength, Transfers Goals Three Impairment Decreased function Impairment Pt is sometimes not able to stand or stand for any length of time. Short Term Goal (STG) Pt will be educated in proper sitting/standing posture. STG Duration 01/25/23 Architecture Internship Goal (LTG) Pt will be able to stand 1 hour w/tolerable pain or no pain. LTG Duration 04/02/23 Two Impairment Decreased activity tolerance Impairment Sometimes is able to walk daily. Short Term Goal (STG) Pt will be able to tolerate amb on TM x 10 at comfortable walking pace with use of hand rails. STG Duration 02/23/23 Architecture Internship Goal (LTG) Pt will be able to walk 1 mile on level w/tolerable discomfort or w/o pain. LTG Duration 04/02/23 One Impairment Pt lacks appropriate self care HEP. Short Term Goal (STG) Pt will be educated in log roll transfers, proper body mechanics for ADLs. STG Duration 02/02/23 Half-Way Goal (LTG) Pt will be independent in an effective self care HEP for core/hip strengthening and mobility ex's. LTG Duration 04/02/23 Assessment Summary Assessment Pt is an 82 yo male with unclear history of whether his problem is of pain in the R back/hip/lateral thigh or weakness. He rates is pain as 4-6/10 but then states it is more weakness than pain. He presents with some trunk weakness with rotation and hip weakness. Assessment is needed for LE strength in general, as he kept indicating he had weakness in his legs. Further assessment is also needed for possible neuro changes in his LE's as the pt was unclear where he feels he has decreased sensation in his R LE. He does present with weakness of trunk rotators and hips generally as well as very poor posturing and mechanical dysfunction of severe scoliosis of the lumbar spine. The pt would benefit from skilled physical therapy before he leaves the area for the winter, to help reduce his discomfort/weakness, improve his posture, educate and place on a self care HEP to achieve the above stated goals. Physical Therapy Plan Frequency and Duration Frequency of Treatment 2x/Week Duration of treatment (weeks) 10 Plan of Care Start Date 01/22/23 Plan of Care End Date 02/23/23 Therapeutic Interventions Therapeutic Interventions Gait Training,Home Exercise Program,Joint Mobilizations, Manual Therapy,Neuromuscular Re-education,Patient/Caregiver Education,Self-Care/Home Management,Soft Tissue Mobilization,Therapeutic Activities,Therapeutic Exercises Modalities Cold Pack/Ice Massage,Electric Stimulation,Hot Packs Next Visit Focus/Plan Next Note Type Treatment Note Next Visit Plan POC: 2x/week to get pt on HEP /Self care; then 1-2x/week for : ther ex, ther act (transfers ), manual, pt education, modalities (ES/cryotherapy/hot packs). Next: Assess DTR's and assess sensation (sharp/dull, hot/ cold, dermatomes), trunk strength (MMT), hip IR/ER strength and ROM; general knee /ankle strength, L/S special testing for SIJ vs disc involvement. Pt education: Log roll and hip hinge transfers, proper body mechanics. Ex/HEP for scoliosis of lumbar spine (strengthen R parapinals, lumbar L rot; stretch L paraspinals), Strengthen: Generally hips and LE's, core stab. Stretch: lower abdomen to improve lumbar extension and sacral flexion. Manual: lumbar traction, STM to lengthen L paraspinals. Modalities: MH, Estim. Plan of Care Dates Plan of Care Start Date 01/22/23 Plan of Care End Date 02/23/23 Electronically Signed by: Rose Arita PT 01/22/23 1223 If you are in agreement with this Plan of Care, please return a signed and dated copy. I have reviewed this Plan of Care and certify that the skilled therapy services above are required to meet the patient?s needs. Physician Signature Date Printed Name and Credentials Clinical Instructor Signature Printed Name and Credentials
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
== END 2023-02-26 11:20 | disposition home or self-care (01) ==
LOC: PHYS 12:30
PROVIDERS: Family Provider Family Medicine; PCP Family Medicine; Referring Provider Family Medicine; Visit Provider Family Medicine
DX: R29.898 Other symptoms and signs involving the musculoskeletal system (principal); M54.9 Dorsalgia, unspecified; M41.9 Scoliosis, unspecified
CPT/HCPCS: 97110; 97116; 97162; 97535

== ENCOUNTER → 2023-09-29 13:11 | Outpatient (CLI) | payer OTHER, SELFPAY ==
[2022-12-28 08:23] VITALS: BMI 24.3
== END ==
PROVIDERS: Family Provider Family Medicine; PCP Family Medicine; Visit Provider Physician Assistant
DX: H60.90 Unspecified otitis externa, unspecified ear (principal)
CPT/HCPCS: 87070; 87075; 87077; 87205

== ENCOUNTER → 2023-10-04 10:20 | Outpatient (CLI) | payer OTHER, SELFPAY ==
[2022-12-28 08:23] VITALS: BMI 24.3
== END ==
PROVIDERS: Family Provider Family Medicine; PCP Family Medicine; Visit Provider Physician Assistant
DX: R30.0 Dysuria (principal)
CPT/HCPCS: 87086

== ENCOUNTER → 2023-10-08 07:18 | Outpatient (CLI) | payer OTHER, SELFPAY ==
[2022-12-28 08:23] VITALS: BMI 24.3
[2023-10-08 08:14] LABS: Add Manual Diff / Slide Review YES; Hematocrit 43.9 % (41-53); Hemoglobin 14.7 g/dL (13.5-17.5); Mean Corpuscular HGB Conc 33.4 % (30-36); Mean Corpuscular Hemoglobin 32.3 PG (26-34); Mean Corpuscular Volume 96.5 fL (80-100); Platelet Count 172 X10^3/uL (150-400); Red Blood Cell Count 4.55 X10^6/uL (4.5-5.9); Red Cell Distribution Width 13.7 % (11.6-14.8); White Blood Cell Count 18.4 X10^3/uL (4.5-11.0)
[2023-10-08 08:49] LABS: Alanine Aminotransferase 37 IU/L (<50); Albumin 3.9 g/dL (3.5-5.0); Albumin Globulin Ratio 1.7 (1.0-2.8); Alkaline Phosphatase 93 U/L (38-126); Aspartate Aminotransferase 33 IU/L (17-59); BUN Creatinine Ratio 20.2 (6-22); Bilirubin Total 0.9 mg/dL (0.2-1.3); Blood Urea Nitrogen 21 mg/dL (9-20); Calcium 10.8 mg/dL (8.4-10.2); Carbon Dioxide 28 mmol/L (22-32); Chloride 109 mmol/L (98-107); Cholesterol 144 mg/dL (140-199); Estimated Glomerular Filt Rate > 60 mL/min (>60); Globulin 2.3 g/dL (1.7-4.1); Glucose 86 mg/dL (80-110); HDL Cholesterol 60 mg/dL (40-60); HEMOLYSIS < 15 (0-50); LDL Cholesterol Calculated 66 mg/dL (<100); Potassium 4.5 mmol/L (3.4-5.1); Sodium 139 mmol/L (137-145); Total Protein 6.2 g/dL (6.3-8.2); Triglycerides 90 mg/dL (35-150)
[2023-10-08 08:57] LABS: Neutrophils Absolute Manual 4784 /uL (3000-5900); Total Cells Counted 100
[2023-10-08 08:58] LABS: RBC Morphology Normal Morphology
[2023-10-08 09:11] LABS: TSH w/ Reflex to FT4 1.87 uIU/mL (0.47-4.68)
== END ==
LOC: LAB 07:19
PROVIDERS: Family Provider Family Medicine; PCP Family Medicine; Referring Provider Physician Assistant; Visit Provider Physician Assistant
DX: I10 Essential (primary) hypertension (principal); E78.5 Hyperlipidemia, unspecified; C91.90 Lymphoid leukemia, unspecified not having achieved remission; I42.9 Cardiomyopathy, unspecified; N40.1 Benign prostatic hyperplasia with lower urinary tract symptoms; N13.8 Other obstructive and reflux uropathy
CPT/HCPCS: 36415; 80053; 80061; 84443; 85007; 85025

== ENCOUNTER → 2023-10-25 13:49 | Outpatient (CLI) | payer OTHER, SELFPAY ==
[2022-12-28 08:23] VITALS: BMI 24.3
== END ==
PROVIDERS: Family Provider Family Medicine; PCP Family Medicine; Visit Provider Urology
DX: N40.1 Benign prostatic hyperplasia with lower urinary tract symptoms (principal); N13.8 Other obstructive and reflux uropathy
CPT/HCPCS: 87077; 87086

== ENCOUNTER → 2023-10-31 10:55 | Outpatient (CLI) | payer OTHER, SELFPAY ==
[2022-12-28 08:23] VITALS: BMI 24.3
[2023-10-31 12:45] LABS: Blood Urea Nitrogen 29 mg/dL (9-20); Calcium 10.4 mg/dL (8.4-10.2); Carbon Dioxide 27 mmol/L (22-32); Chloride 106 mmol/L (98-107); Estimated Glomerular Filt Rate 39 mL/min (>60); Glucose 74 mg/dL (80-110); HEMOLYSIS < 15 (0-50); Sodium 137 mmol/L (137-145)
[2023-10-31 13:16] LABS: Prostate Specific Antigen 11.5 ng/mL (0.10-4.00)
== END ==
PROVIDERS: Family Provider Family Medicine; PCP Family Medicine; Referring Provider Urology; Visit Provider Urology
DX: R31.29 Other microscopic hematuria (principal); N39.44 Nocturnal enuresis; N42.89 Other specified disorders of prostate; N32.89 Other specified disorders of bladder
CPT/HCPCS: 36415; 51798; 52000; 80048; 81002; 84153

== ENCOUNTER → 2023-11-02 09:58 | Outpatient (CLI) | payer OTHER, SELFPAY ==
[2022-12-28 08:23] VITALS: BMI 24.3
--- NOTE | 2023-11-02 09:59 | DI.CT.S_ITS ---
PROCEDURE: CT IVP A/P W/WO INDICATIONS: Microscopic hematuria Mass of urinary bladder Pros TECHNIQUE: Optional 5 mm thick noncontrast images acquired from the diaphragm to the symphysis pubis. After the administration of intravenous contrast, 5 mm thick images acquired from the diaphragm to the symphysis pubis after a 10-minute delay. 2 mm thick coronal and sagittal reformats were then performed of the kidneys and ureters. For radiation dose reduction, the following was used: automated exposure control, adjustment of mA and/or kV according to patient size. COMPARISON: None. FINDINGS: Image quality: Diagnostic. Kidneys and Ureters: There is moderate right-sided hydronephrosis and hydroureter. Mild left-sided hydroureter and moderate hydronephrosis. No filling defects within the opacified renal collecting system. Bladder: Asymmetric right-sided bladder wall thickening, extending into the left UVJ (series 4, image 176). Mild perivesicular fat stranding. OTHER: Lower chest: Cardiomegaly Liver: No solid mass. Gallbladder: Absent. Biliary ducts: No biliary dilation. Pancreas: No ductal dilation. Spleen: Size is within normal limits. Adrenal Glands: No adrenal nodules. Stomach and Bowel: Normal colonic caliber, without significant wall thickening. Colonic diverticulosis without evidence of diverticulitis. Normal appendix. Peritoneum: No abnormal intraperitoneal fluid. No free air. Ventral Wall: No hernia. Abdominal Nodes: Prominent retroperitoneal lymph nodes. Largest measures 0.8 cm short axis in the lower periaortic station (series 4, image 106). Vessels: Aorta and inferior vena cava are normal in size. PELVIS: Pelvic Organs: Prior TURP. Pelvic Nodes: Enlarged pelvic chain nodes. Examples include: -1.3 cm right obturator chain node (series 4, image 173). -1.2 cm left external iliac chain node (series 4, image 158). -0.9 cm right iliac chain node (series 4, image 138). Miscellaneous: No inguinal hernias are seen. Bones: No aggressive osseous abnormality. Osteoporosis by Hounsfield units criteria. Convex right scoliosis of the lumbar spine. Degenerative disc disease of the lumbar spine. IMPRESSION: Asymmetric right-sided bladder wall thickening involving the right UVJ. Findings are highly concerning for malignancy. Perivesicular fat stranding and broad-based contact with the bladder wall is concerning for extension beyond the bladder wall. Bilateral pelvic chain lymphadenopathy and borderline enlarged retroperitoneal lymph nodes. Findings could represent gissel disease versus manifestation of lymphoma. Moderate right-sided hydronephrosis and hydroureter, with a delayed nephrogram. Correlate with renal function and consider intervention. Moderate left hydronephrosis and mild left-sided ureterectasis. Dictated by: Sohail Nielson M.D. on 11/02/2023 at 11:44 Approved by: Sohail Nielson M.D. on 11/02/2023 at 11:50
== END ==
PROVIDERS: Family Provider Family Medicine; PCP Family Medicine; Referring Provider Urology; Visit Provider Urology
DX: C91.90 Lymphoid leukemia, unspecified not having achieved remission (principal); R31.29 Other microscopic hematuria; N13.30 Unspecified hydronephrosis; N32.89 Other specified disorders of bladder; N42.89 Other specified disorders of prostate; R59.0 Localized enlarged lymph nodes
CPT/HCPCS: 74178; Q9967

== ENCOUNTER 2023-11-03 19:54 | Emergency (ER) | payer OTHER, SELFPAY ==
[2022-12-28 08:23] VITALS: BMI 24.3
[2023-11-03 19:57] VITALS: BP 172/97; PULSE 80; RESP 18; TEMP 37.1; O2SAT 97; BMI 24.3
[2023-11-03 20:14] VITALS: PULSE 68; O2SAT 99
[2023-11-03 20:16] VITALS: BP 147/82; PULSE 69; O2SAT 98
[2023-11-03 20:30] VITALS: BP 139/73; PULSE 65; O2SAT 97
--- NOTE | 2023-11-03 20:35 | ED.GENADULT ---
HPI - General Adult General Chief complaint: Abdominal Pain Stated complaint: Chills, Constipation, Pain in both sides Time Seen by Provider: 11/03/23 20:07 Source: patient and family Mode of arrival: Family Vehicle History of Present Illness HPI narrative: Patient is an 83-year-old male. He is currently being treated with antibiotics for urinary tract infection. He had a CT scan performed yesterday after following up with Urology. He had a flexible scope performed which was concerning about a bladder mass. He states that earlier today he started to have an episode where he was having chills. He was also having some lower abdominal discomfort. He occasionally feels like he does not empty his bladder all the way but when he urinated here in the emergency department he felt like he did empty it. No chest pain. No shortness of breath. No skin rashes. He feels like that he did eat normal today however his thinks that he did not have as much to drink today is normal. He was also very anxious about the CT scan yesterday with the results were. Related Data Previous Rx's Medication Instructions Recorded atorvastatin 10 mg tablet See Rx Instructions .Route 04/16/23 .COMPLEX #90 tabs bupropion HCl 150 mg tablet,12 hr See Rx Instructions .Route 04/16/23 sustained-release .COMPLEX #180 tabs clopidogrel 75 mg tablet 75 mg PO DAILY #90 tabs 04/23/23 lisinopril 20 mg tablet See Rx Instructions .Route 04/23/23 .COMPLEX #90 tabs tamsulosin 0.4 mg capsule 0.4 mg PO DAILY #30 caps 10/08/23 cephalexin 500 mg capsule 500 mg PO TID #20 caps 10/25/23 nitrofurantoin 100 mg PO BID #20 caps 10/30/23 monohydrate/macrocrystals 100 mg capsule Allergies Allergy/AdvReac Type Severity Reaction Status Date / Time No Known Drug Allergies Allergy Verified 11/03/23 20:04 Review of Systems Review of Systems Narrative: See HPI Patient History Medical History Prostate mass Bladder mass Microscopic hematuria Nocturnal enuresis Shortness of breath Right leg weakness RUQ abdominal pain Finger pain, right Right shoulder pain Anesthesia complication Easy bruisability COPD (chronic obstructive pulmonary disease) Supraventricular tachycardia Sleep apnea Depression Anxiety Hearing loss Hematuria BPH (benign prostatic hyperplasia) Hypercalcemia Chronic lymphocytic leukemia (10/12/16) Essential hypertension (11/10/15) Hyperlipidemia (12/07/10) Anxiety disorder Surgical History (Updated 10/31/23 @ 10:10 by Yonathan Lejia MD) Hx of bilateral cataract extraction (~2019) Hx of hernia repair Anesthesia Status post transurethral resection of prostate (09/2014) Family History Brother No problems noted. Sister No problems noted. Father No problems noted. Mother Pancreatic cancer Social History household members: spouse Smoking Status: Never smoker alcohol intake: current substance use type: does not use Smoking Status: Never smoker alcohol intake frequency: 0-2 drinks per day Substance Use Type: does not use Exam Initial Vital Signs Initial Vital Signs: Vital Signs Temperature 98.7 F 11/03/23 19:57 Pulse Rate 80 11/03/23 19:57 Respiratory Rate 18 11/03/23 19:57 Blood Pressure 172/97 H 11/03/23 19:57 Pulse Oximetry 97 11/03/23 19:57 Oxygen Delivery Method Room Air 11/03/23 19:57 Const General: cooperative and No ill appearing HENMT Head: normocephalic Resp Effort & Inspection: normal respiratory effort Auscultation: clear to auscultation bilaterally Cardio Rate: regular rate Rhythm: regular rhythm GI Inspection: normal to inspection and non-distended Palpation: soft, No firm and No tender Skin General: no rashes or lesions noted Neuro General: patient alert, patient awake and moves all extremities Course Orders Ordered: ED Orders 11/03/23 20:28 Complete Blood Count AUTO DIFF Stat Comprehensive Metabolic Panel Stat Lactate (Lactic Acid) Stat Lipase Stat Vital Signs Vital signs: Vital Signs - 8 hr 11/03/23 19:57 11/03/23 20:14 11/03/23 20:16 Temperature 98.7 F Pulse Rate 80 68 69 Respiratory Rate 18 Blood Pressure 172/97 H Pulse Oximetry 97 99 98 Oxygen Delivery Method Room Air 11/03/23 20:16 11/03/23 20:30 11/03/23 20:30 Temperature Pulse Rate 65 Respiratory Rate Blood Pressure 147/82 H 139/73 Pulse Oximetry 97 Oxygen Delivery Method 11/03/23 21:00 06/01/24 21:00 11/03/23 21:32 Temperature 98.5 F Pulse Rate 64 66 Respiratory Rate 16 Blood Pressure 125/64 125/64 Pulse Oximetry 96 98 Oxygen Delivery Method Room Air Medical Decision Making Medical Records Medical records reviewed: Yes I reviewed the patient's medical records. Lab Data Lab results reviewed: Yes I reviewed the patient's lab results. 11/03/23 20:28 11/03/23 20:28 Labs: Lab Results 11/03/23 Range/Units 20:28 WBC 26.9 H (4.5-11.0) X10^3/uL RBC 4.30 L (4.5-5.9) X10^6/uL Hgb 13.5 (13.5-17.5) g/dL Hct 41.0 (41-53) % MCV 95.4 (80-100) fL MCH 31.5 (26-34) PG MCHC 33.0 (30-36) % RDW 13.1 (11.6-14.8) % Plt Count 261 (150-400) X10^3/uL Neut % (Auto) Not Reportable Lymph % (Auto) Not Reportable [place] % (Auto) Not Reportable Eos % (Auto) Not Reportable Baso % (Auto) Not Reportable Lymph # (Auto) Not Reportable [place] # (Auto) Not Reportable Baso # (Auto) Not Reportable Total Counted 100 Seg Neutrophils % 43.0 (38-70) % Band Neutrophils % 3.0 (3-7) % Lymphocytes % (Manual) 52.0 H (25-45) % Monocytes % (Manual) 2.0 (2-11) % Neutrophils # (Manual) 16726 H (7529-5069) /uL Platelet Estimate Adequate on smear RBC Morphology Normal morphology Sodium 136 L (137-145) mmol/L Potassium 5.3 H (3.4-5.1) mmol/L Chloride 108 H (98-107) mmol/L Carbon Dioxide 25 (22-32) mmol/L BUN 34 H (9-20) mg/dL Creatinine 2.21 H (0.66-1.25) mg/dL Estimated GFR 28 L (>60) mL/min BUN/Creatinine Ratio 15.4 (6-22) Glucose 93 (80-110) mg/dL Lactate 1.0 (0.7-2.1) mmol/L Calcium 11.0 H (8.4-10.2) mg/dL Total Bilirubin 0.7 (0.2-1.3) mg/dL AST 31 (17-59) IU/L ALT 27 (<50) IU/L Alkaline Phosphatase 117 (38-126) U/L Total Protein 6.4 (6.3-8.2) g/dL Albumin 3.9 (3.5-5.0) g/dL Globulin 2.5 (1.7-4.1) g/dL Albumin/Globulin Ratio 1.6 (1.0-2.8) Lipase 172 (23-300) U/L MDM Narrative Medical decision making narrative: Patient is currently on antibiotics for urinary tract infection. Based on his physical exam today low suspicion for pyelonephritis. He was also not retaining urine. Has a leukocytosis but this is likely related to his CLL and also his urinary tract infection. Has a slight increase in his creatinine today in his thinks that he did not drink as much fluids today is what he normally does. No indication to switch in the antibiotics that he was on. No indication for admission to the hospital. I did tell him that there were abnormal findings on the CT scan that was performed yesterday but he will need to talk with his urologist about the final results of the scan. Will discharge patient home with return precautions. He expressed understanding and agreement. Discharge Plan Departure Patient Disposition: Home Clinical Impression: Chills, Urinary frequency Instructions: DI for Abdominal Pain-Adult Activity Restrictions/Additional Instructions: Continue to take all of your medications as directed and keep all of your scheduled medical appointments. Contact your primary doctor for follow-up. Return to the emergency department for new or worsening symptoms Prescriptions: No Action atorvastatin 10 mg tablet See Rx Instructions .ROUTE .COMPLEX Qty: 90 3RF Dose Instruction: Take 1 tablet (10 mg) by mouth at bedtime Rx Instructions: Take 1 tablet (10 mg) by mouth at bedtime bupropion HCl 150 mg tablet sustained-release 12 hr See Rx Instructions .ROUTE .COMPLEX Qty: 180 3RF Dose Instruction: Take 1 tablet (150 mg) by mouth 2 times daily Rx Instructions: Take 1 tablet (150 mg) by mouth 2 times daily clopidogrel 75 mg tablet 75 mg PO DAILY Qty: 90 3RF lisinopril 20 mg tablet See Rx Instructions .ROUTE .COMPLEX Qty: 90 3RF Dose Instruction: Take 1 tablet (20 mg) by mouth daily Rx Instructions: Take 1 tablet (20 mg) by mouth daily nitrofurantoin monohyd/m-cryst 100 mg capsule 100 mg PO BID Qty: 20 0RF Rx Instructions: must administer with a meal/food tamsulosin 0.4 mg capsule 0.4 mg PO DAILY Qty: 30 1RF cephalexin 500 mg capsule 500 mg PO TID Qty: 20 0RF Referrals: Johnny Jacobson MD [Primary Care Provider] - Stand Alone Forms: Patient Portal/API
[2023-11-03 20:49] LABS: Alanine Aminotransferase 27 IU/L (<50); Albumin 3.9 g/dL (3.5-5.0); Albumin Globulin Ratio 1.6 (1.0-2.8); Alkaline Phosphatase 117 U/L (38-126); Aspartate Aminotransferase 31 IU/L (17-59); BUN Creatinine Ratio 15.4 (6-22); Bilirubin Total 0.7 mg/dL (0.2-1.3); Blood Urea Nitrogen 34 mg/dL (9-20); Carbon Dioxide 25 mmol/L (22-32); Chloride 108 mmol/L (98-107); Estimated Glomerular Filt Rate 28 mL/min (>60); Globulin 2.5 g/dL (1.7-4.1); Glucose 93 mg/dL (80-110); HEMOLYSIS < 15 (0-50); Lipase 172 U/L (23-300); Potassium 5.3 mmol/L (3.4-5.1); Sodium 136 mmol/L (137-145); Total Protein 6.4 g/dL (6.3-8.2)
[2023-11-03 20:55] LABS: Hemoglobin 13.5 g/dL (13.5-17.5); Mean Corpuscular Hemoglobin 31.5 PG (26-34); Mean Corpuscular Volume 95.4 fL (80-100); Platelet Count 261 X10^3/uL (150-400); Red Cell Distribution Width 13.1 % (11.6-14.8); White Blood Cell Count 26.9 X10^3/uL (4.5-11.0)
[2023-11-03 20:57] LABS: Add Manual Diff / Slide Review YES
[2023-11-03 21:00] VITALS: BP 125/64; PULSE 64; O2SAT 96
[2023-11-03 21:25] LABS: Neutrophils Absolute Manual 12374 /uL (3000-5900); Platelet Estimate Adequate on smear; RBC Morphology Normal Morphology; Total Cells Counted 100
[2023-11-03 21:32] VITALS: BP 125/64; PULSE 66; RESP 16; TEMP 36.9; O2SAT 98
== END 2023-11-03 21:34 | disposition home or self-care (01) ==
PROVIDERS: Emergency Provider Emergency Medicine; Family Provider Family Medicine; PCP Family Medicine
DX: R10.30 Lower abdominal pain, unspecified (principal); R68.83 Chills (without fever); R35.0 Frequency of micturition
CPT/HCPCS: 80053; 83605; 83690; 85007; 85025; 99281

== ENCOUNTER 2023-11-04 12:06 | Inpatient (IN) | payer OTHER, SELFPAY ==
[2022-12-28 08:23] VITALS: BMI 24.3
[2023-11-04] VITALS (27 sets, daily range): BP systolic 95–121; BP diastolic 47–83; PULSE 66–89; RESP 14–37; TEMP 37.2–38.5; O2SAT 92–98; BMI 24.3
[2023-11-04 12:54] LABS: Bacteria Urine Moderate (10-30); Culture Indicated Urine Specimen Cultured; RBC Urine 5-10/HPF (0-5/HPF); Squamous Epithelial Cell Urine None Seen (0-5/HPF); Urine Volume 10mL (spun); WBC Urine >100/HPF (0-5/HPF)
[2023-11-04 13:27] LABS: Add Manual Diff / Slide Review NO; Basophils Absolute Auto 100 /uL (0-100); Basophils Percent Auto 0.3 % (0-2); Eosinophils Absolute Auto 0 /uL (0-450); Hematocrit 39.6 % (41-53); Hemoglobin 13.2 g/dL (13.5-17.5); Lymphocytes Absolute Auto 16900 /uL (1100-4500); Mean Corpuscular HGB Conc 33.2 % (30-36); Mean Corpuscular Hemoglobin 31.6 PG (26-34); Monocytes Absolute Auto 1000 /uL (0-900); Monocytes Percent Auto 3.1 % (3-14); Neutrophils Absolute Auto 14500 /uL (1500-7000); Neutrophils Percent Auto 44.6 % (50-75); Platelet Count 238 X10^3/uL (150-400); Red Blood Cell Count 4.17 X10^6/uL (4.5-5.9)
[2023-11-04 13:30] LABS: White Blood Cell Count 32.5 X10^3/uL (4.5-11.0)
[2023-11-04 13:33] LABS: Alanine Aminotransferase 21 IU/L (<50); Albumin 3.6 g/dL (3.5-5.0); Albumin Globulin Ratio 1.5 (1.0-2.8); Alkaline Phosphatase 109 U/L (38-126); Aspartate Aminotransferase 24 IU/L (17-59); BUN Creatinine Ratio 14.6 (6-22); Bilirubin Total 1.5 mg/dL (0.2-1.3); Blood Urea Nitrogen 33 mg/dL (9-20); Calcium 10.3 mg/dL (8.4-10.2); Carbon Dioxide 24 mmol/L (22-32); Chloride 107 mmol/L (98-107); Estimated Glomerular Filt Rate 28 mL/min (>60); Globulin 2.4 g/dL (1.7-4.1); Glucose 124 mg/dL (80-110); HEMOLYSIS < 15 (0-50); Lactate (Lactic Acid) 1.5 mmol/L (0.7-2.1); Potassium 4.8 mmol/L (3.4-5.1); Sodium 135 mmol/L (137-145)
[2023-11-04 13:45] LABS: Troponin I 0.019 ng/mL (0.01-0.034)
[2023-11-04 13:50] LABS: Procalcitonin 0.427 ng/mL (<0.5)
--- NOTE | 2023-11-04 14:54 | ED.GENADULT ---
HPI - General Adult General Chief complaint: Weakness Stated complaint: Return visit; Abd Pain, Vomiting Time Seen by Provider: 11/04/23 14:51 Source: patient, RN notes reviewed and old records reviewed Limitations: no limitations History of Present Illness HPI narrative: 83-year-old male with history of chronic lymphocytic leukemia, prior CVA, SVT and cardiomyopathy patient was seen here yesterday by Dr. Forrester. Patient had recent diagnosis of bladder wall thickening on cystoscopy on 10/31/2023 suspicious for cancer, had a urine culture positive for E faecalis. Patient has been on Macrobid. Patient denies any fevers but had chills, denies any abdominal back or flank pain. Did have have nausea and vomiting starting last night was not able to keep things down. He has been increasingly weak and difficulty with ambulation. He describes some chronic low back pain and hip pain on both sides but denies any back or flank pain that is new or different. Denies any chest pain or shortness of breath. He denies any difficulty with urination. States he had been constipated but had a bowel movement and no black or bloody stools. Patient does not have any known drug allergies. He does have a history of CLL has not seen oncology per patient and . They do not believe he is on anything for it. Patient does not have any tobacco use, half glass of wine nightly, no recreational drugs. Dr. Jacobson is his primary care physician. Dr. Leija is his urologist who he saw on the 30 of October. Patient notes he has had 8 doses of his Macrobid he stopped it today because he thought it might be causing his nausea and vomiting. He is accompanied by his who states no new mental changes, no new confusion. Related Data Previous Rx's Medication Instructions Recorded atorvastatin 10 mg tablet See Rx Instructions .Route 04/16/23 .COMPLEX #90 tabs bupropion HCl 150 mg tablet,12 hr See Rx Instructions .Route 04/16/23 sustained-release .COMPLEX #180 tabs clopidogrel 75 mg tablet 75 mg PO DAILY #90 tabs 04/23/23 lisinopril 20 mg tablet See Rx Instructions .Route 04/23/23 .COMPLEX #90 tabs tamsulosin 0.4 mg capsule 0.4 mg PO DAILY #30 caps 10/08/23 nitrofurantoin 100 mg PO BID #20 caps 10/30/23 monohydrate/macrocrystals 100 mg capsule Allergies Allergy/AdvReac Type Severity Reaction Status Date / Time No Known Drug Allergies Allergy Verified 11/04/23 12:13 Review of Systems Review of Systems ROS Unobtainable: All systems reviewed & are unremarkable except as noted in HPI and below Patient History Medical History Prostate mass Bladder mass Microscopic hematuria Nocturnal enuresis Shortness of breath Right leg weakness RUQ abdominal pain Finger pain, right Right shoulder pain Anesthesia complication Easy bruisability COPD (chronic obstructive pulmonary disease) Supraventricular tachycardia Sleep apnea Depression Anxiety Hearing loss Hematuria BPH (benign prostatic hyperplasia) Hypercalcemia Chronic lymphocytic leukemia (10/12/16) Essential hypertension (11/10/15) Hyperlipidemia (12/07/10) Anxiety disorder Surgical History Hx of bilateral cataract extraction (~2019) Hx of hernia repair Anesthesia Status post transurethral resection of prostate (09/2014) Family History Brother No problems noted. Sister No problems noted. Father No problems noted. Mother Pancreatic cancer Social History household members: spouse Smoking Status: Never smoker alcohol intake: current substance use type: does not use Smoking Status: Never smoker alcohol intake frequency: 0-2 drinks per day Substance Use Type: does not use Exam Narrative Exam Narrative: GENERAL: Alert and oriented x three, elderly male mild distress. HEENT: Head normocephalic, atraumatic, EOMI, pupils reactive, face symmetric, moist mucous membranes NECK: Supple, full range of motion CARDIOVASCULAR: Regular rate and rhythm without murmurs, rubs or gallops. RESPIRATORY: Breath sounds equal bilaterally, no wheezes rales or rhonchi. ABDOMEN: Soft, nontender. Normoactive bowel sounds all 4 quadrants. No guarding or rebound, rigidity, no mass : No CVA tenderness bilaterally. EXTREMITIES: Normal range of motion, no clubbing or edema. Neurovascularly intact NEUROLOGICAL: Cranial nerves II through XII grossly intact. Moving all extremities SKIN: Warm, dry, no petechiae, no rashes or lesions. Initial Vital Signs Initial Vital Signs: Vital Signs Pulse Rate 89 11/04/23 12:09 Respiratory Rate 20 11/04/23 12:09 Blood Pressure 100/56 L 11/04/23 12:09 Pulse Oximetry 97 11/04/23 12:09 Oxygen Delivery Method Room Air 11/04/23 12:09 Course Orders Ordered: ED Orders 11/04/23 12:44 EKG-12 Lead Stat 11/04/23 12:45 Urine Culture Stat Urine Microscopic Stat 11/04/23 13:09 Complete Blood Count AUTO DIFF Stat Comprehensive Metabolic Panel Stat Lactate (Lactic Acid) Stat Lipase Stat Procalcitonin Stat Troponin I Stat 11/04/23 15:12 CT abdomen pelvis wo con Stat 11/04/23 15:38 Blood Culture Stat Discontinued Medications Sodium Chloride (Normal Saline 0.9%) 1,000 mls @ 1,000 mls/hr IV BOLUS ONE Stop: 11/04/23 16:11 Last Infusion: 11/04/23 16:59 Dose: Infused Documented By: Admin: 11/04/23 15:40 Dose: 1,000 mls/hr Documented By: Ceftriaxone Sodium 1,000 mg/ (Sodium Chloride) 100 mls @ 200 mls/hr IV NOW ONE Stop: 11/04/23 15:13 Last Infusion: 11/04/23 16:15 Dose: Infused Documented By: Admin: 11/04/23 15:40 Dose: 200 mls/hr Documented By: Levofloxacin (Levaquin) 750 mg in 150 mls @ 100 mls/hr IV NOW ONE Stop: 11/04/23 17:58 Last Admin: 11/04/23 17:08 Dose: 100 mls/hr Documented By: DELILAH Ondansetron HCl (Ondansetron 4 Mg/2 Ml Inj) 4 mg IV NOW ONE Stop: 11/04/23 15:14 Last Admin: 11/04/23 15:39 Dose: 4 mg Documented By: Vital Signs Vital signs: Vital Signs - 8 hr 11/04/23 12:09 11/04/23 12:41 11/04/23 12:42 Pulse Rate 89 82 Respiratory Rate 20 14 Blood Pressure 100/56 L 116/83 116/83 Pulse Oximetry 97 Oxygen Delivery Method Room Air 11/04/23 12:42 11/04/23 13:00 11/04/23 13:00 Pulse Rate 82 74 Respiratory Rate 18 24 Blood Pressure 97/61 Pulse Oximetry 97 95 Oxygen Delivery Method 11/04/23 13:19 11/04/23 13:19 11/04/23 13:30 Pulse Rate 71 72 Respiratory Rate 26 H 26 H Blood Pressure 101/61 Pulse Oximetry 96 93 Oxygen Delivery Method 11/04/23 13:30 11/04/23 13:45 11/04/23 13:45 Pulse Rate 73 Respiratory Rate 26 H Blood Pressure 106/59 L 110/59 L Pulse Oximetry 93 Oxygen Delivery Method 11/04/23 14:00 11/04/23 14:00 11/04/23 14:15 Pulse Rate 73 73 Respiratory Rate 27 H 27 H Blood Pressure 109/59 L Pulse Oximetry 93 93 Oxygen Delivery Method 11/04/23 14:15 11/04/23 14:30 11/04/23 14:30 Pulse Rate 74 Respiratory Rate 27 H Blood Pressure 107/59 L 105/56 L Pulse Oximetry 93 Oxygen Delivery Method 11/04/23 14:45 11/04/23 14:45 11/04/23 15:00 Pulse Rate 73 72 Respiratory Rate 25 H 16 Blood Pressure 107/56 L Pulse Oximetry 93 Oxygen Delivery Method 11/04/23 15:00 11/04/23 15:03 11/04/23 15:03 Pulse Rate 71 Respiratory Rate 27 H Blood Pressure 99/58 L 111/56 L Pulse Oximetry 96 Oxygen Delivery Method 11/04/23 15:15 11/04/23 15:15 11/04/23 15:30 Pulse Rate 69 69 Respiratory Rate 32 H Blood Pressure 95/54 L Pulse Oximetry 94 92 Oxygen Delivery Method 11/04/23 15:32 11/04/23 15:32 11/04/23 15:45 Pulse Rate 68 67 Respiratory Rate 31 H Blood Pressure 109/51 L Pulse Oximetry 97 96 Oxygen Delivery Method 11/04/23 15:45 11/04/23 16:00 11/04/23 16:00 Pulse Rate 67 Respiratory Rate Blood Pressure 107/55 L 107/55 L Pulse Oximetry 96 Oxygen Delivery Method 11/04/23 16:15 11/04/23 16:15 Pulse Rate 69 Respiratory Rate Blood Pressure 106/55 L Pulse Oximetry 95 Oxygen Delivery Method Medical Decision Making Lab Data 11/04/23 13:09 11/04/23 13:09 Labs: Lab Results 11/04/23 11/04/23 Range/Units 12:45 13:09 WBC 32.5 H* (4.5-11.0) X10^3/uL RBC 4.17 L (4.5-5.9) X10^6/uL Hgb 13.2 L (13.5-17.5) g/dL Hct 39.6 L (41-53) % MCV 95.0 (80-100) fL MCH 31.6 (26-34) PG MCHC 33.2 (30-36) % RDW 13.0 (11.6-14.8) % Plt Count 238 (150-400) X10^3/uL Neut % (Auto) 44.6 L (50-75) % Lymph % (Auto) 52.0 H (25-40) % Lee % (Auto) 3.1 (3-14) % Eos % (Auto) 0.0 L (2-4) % Baso % (Auto) 0.3 (0-2) % Neut # (Auto) 35428 H (9378-1823) /uL Lymph # (Auto) 64018 H (2271-0297) /uL Lee # (Auto) 1000 H (0-900) /uL Eos # (Auto) 0 (0-450) /uL Baso # (Auto) 100 (0-100) /uL Sodium 135 L (137-145) mmol/L Potassium 4.8 (3.4-5.1) mmol/L Chloride 107 (98-107) mmol/L Carbon Dioxide 24 (22-32) mmol/L BUN 33 H (9-20) mg/dL Creatinine 2.26 H (0.66-1.25) mg/dL Estimated GFR 28 L (>60) mL/min BUN/Creatinine Ratio 14.6 (6-22) Glucose 124 H (80-110) mg/dL Lactate 1.5 (0.7-2.1) mmol/L Calcium 10.3 H (8.4-10.2) mg/dL Total Bilirubin 1.5 H (0.2-1.3) mg/dL AST 24 (17-59) IU/L ALT 21 (<50) IU/L Alkaline Phosphatase 109 (38-126) U/L Troponin I 0.019 (0.01-0.034) ng/mL Total Protein 6.0 L (6.3-8.2) g/dL Albumin 3.6 (3.5-5.0) g/dL Globulin 2.4 (1.7-4.1) g/dL Albumin/Globulin Ratio 1.5 (1.0-2.8) Lipase 80 D (23-300) U/L Procalcitonin 0.427 (<0.5) ng/mL Urine RBC 5-10/hpf H (0-5/HPF) Urine WBC >100/hpf H (0-5/HPF) Ur Squamous Epith Cells None seen (0-5/HPF) Urine Bacteria Moderate (10-30) H (None) Ur Culture Indicated? Specimen cultured Vol Urine Centrifuged 10ml (spun) Imaging Data CT scan - abdomen/pelvis: Radiologist's Impression: Close Abdomen/Pelvis CT (Signed) Yonathan Alex - 11/04/23 Abdomen/Pelvis CT (Signed) Sohail Nielson - 11/02/23 Chest X-Ray (Signed) Douglas Rivera - 01/17/23 Cholangiogram,Operative (Signed) Bonnie Arndt - 11/14/22 Lumbar Spine X-Ray (Signed) Rose Corey - 10/09/22 Abdomen MRI (Signed) Sohail Nielson - 10/09/22 Abdomen Ultrasound (Signed) José Miguel Roemro - 09/26/22 DI Result 09/21/22 Shoulder X-Ray (Signed) Bonnie Arndt - 10/14/21 Myocardial Perfusion Scan Nuc Med (Signed) Tierra Perez - 03/02/21 Echocardiogram Ultrasound (Signed) Alfredo Merino - 01/11/21 Brain MRI (Signed) Leonid Cifuentes - 01/10/21 Telemetry Strips 01/10/21 Head/Neck CTA (Signed) Leonid Cifuentes - 01/10/[address] (Signed) Douglas Rivera - 01/10/21 Hip X-Ray (Signed) Warren Gray - 04/18/[address] (Signed) Bob Robledo - 12/20/18 Chest X-Ray (Signed) Bob Robledo - 12/20/18 Telemetry Strips 12/20/[address] (Signed) Julio Cesar Mohr - 11/06/18 Thyroid Ultrasound (Signed) Lorelei Knight - 10/11/18 Telemetry Strips 03/21/18 Launch?Image [address] [address] [address] Scan Report Signed Patient: Artis Veloz MR#: [id number] : 1940 Acct:[id number] Age/Sex: 83 / M Date of Service: 11/04/23 Loc: ED Accession Number: [id number] Procedure: CT abdomen pelvis wo con Ordering Provider: Martita Salazar D.O. PROCEDURE: CT ABDOMEN PELVIS WO CON INDICATIONS: hydro, likely bladder ca, vomiting, uti TECHNIQUE: Axial sections were acquired from the lung bases to the pubic symphysis. Coronal and sagittal reformats were performed. For radiation dose reduction, the following was used: automated exposure control, adjustment of mA and/or kV according to patient size. COMPARISON: [facility], CT, CT IVP A/P W/WO, 11/02/2023, 10:15. FINDINGS: Image quality: Diagnostic. Lower Chest: No significant findings. URINARY: Right Kidney: The right kidney is diffusely heterogeneous in appearance with a slightly striated appearance with excreted contrast in the collecting system extending down through the mid ureter. Cystic changes of the lower pole. No stones identified. Perinephric fat stranding. Right Ureter: Mild hydronephrosis. Left Kidney: No stones or hydronephrosis. Perinephric fat stranding. Left Ureter: Mild hydronephrosis. Bladder: Bladder wall is nearly circumferentially thickened with a slightly nodular contour. ABDOMEN: Liver: No contour-deforming solid mass. Gallbladder: Gallbladder is not identified. Biliary ducts: No biliary dilation. Pancreas: No ductal dilation. Spleen: Size is within normal limits. Adrenal Glands: No adrenal nodules. Stomach and Bowel: Normal colonic caliber, without significant wall thickening. Normal appendix Peritoneum: No abnormal intraperitoneal fluid. No free air. Ventral Wall: No hernia. Abdominal Nodes: No enlarged retroperitoneal or mesenteric lymph nodes. Vessels: Aorta and inferior vena cava are normal in size. PELVIS: Pelvic Organs: Unremarkable. Pelvic Nodes: Bilateral iliac and pelvic lymphadenopathy with mildly prominent periaortic lymph nodes at the level of the renal veins. Miscellaneous: No inguinal hernias are seen. Bones: No concerning osseous lesions. [place] right curvature of the thoracolumbar spine. IMPRESSION: 1. Asymmetric enhancement of the kidneys suggest high-grade obstruction with contrast retention in the right kidney and right greater than left hydronephrosis. 2. A striated appearance can also be seen with renal ischemia secondary to outlet obstruction, consider Page kidney. 3. Diffusely thickened bladder wall concerning for malignancy. 4. Fat stranding of the bilateral kidneys may be senescent however obstruction or infection could have a similar appearance. 5. Pelvic lymphadenopathy is concerning for metastatic disease. Dictated by: Yonathan Alex M.D. on 11/04/2023 at 14:44 Approved by: Yonathan Alex M.D. on 11/04/2023 at 14:59 ECG Data Attestation: I personally reviewed and interpreted this ECG as follows: Interpretation: Sinus rhythm rate of 77 MS 178 QRS 82 QTC 384, no acute ST changes appreciated. [facility] Narrative Medical decision making narrative: 83-year-old male seen here recently has known bladder wall changes consistent with likely cancer on cystoscopy. He was also started on antibiotic and had a positive urine culture for E faecalis that appears to be sensitive to Macrobid. Patient presents with complaint of rigors nausea and vomiting difficulty keeping anything down. Patient has a white count trending upwards, he does have known CLL but increased from the mid 20s to 30 to within less than 24 hours, has been trending upwards over the past month. Platelets are 238, hemoglobin is 13. Creatinine is also increasing to 2.26 today, patient had normal creatinine of 1.04 on 10/08/2023 trending upwards to 1.7 then upwards today to 2.26 with a GFR 28 today. Sodium is 135 otherwise appropriate electrolytes BUN 33 fairly consistent with priors calcium 10.3 bilirubin is 1.5 with otherwise normal LFTs. Lipase is normal at 80, procalcitonin is 0.4-7 with a lactate of 1.5 UA to stay shows 5-10 RBCs greater than 100 white cells with moderate bacteria. Based on patient's culture and sensitivity we will start him on Levaquin here today with presumptive failure on Macrobid. CT does show asymmetric enhancement could suggest high-grade obstruction of right kidney greater than left with mild hydro on right but also noted mild hydro on the left diffusely thickened bladder wall cancer for malignancy fat stranding bilaterally could be senescent however obstruction or thin section could have similar appearance pelvic lymphadenopathy with metastatic disease. Patient could potentially have obstructive portion of his symptoms but he has mild hydro bilaterally with perinephric stranding bilaterally some right change compared to left but suspect more likely this is infection in the setting. Spoke with Dr. Helton who accepts for admission reviewed patient's CT findings, labs plan to continue antibiotics. Dr. Helton was in the department to see patient. Discharge Plan Departure Patient Disposition: Admitted as Observation Clinical Impression: Pyelonephritis, Bladder cancer, Vomiting Admit Date/Time: 11/04/23 16:24 Admit Provider: Mu Helton
[2023-11-04 15:08] LABS: Lipase 80 U/L (23-300)
--- NOTE | 2023-11-04 15:12 | DI.CT.S_ITS ---
PROCEDURE: CT ABDOMEN PELVIS WO CON INDICATIONS: hydro, likely bladder ca, vomiting, uti TECHNIQUE: Axial sections were acquired from the lung bases to the pubic symphysis. Coronal and sagittal reformats were performed. For radiation dose reduction, the following was used: automated exposure control, adjustment of mA and/or kV according to patient size. COMPARISON: [facility], CT, CT IVP A/P W/WO, 11/02/2023, 10:15. FINDINGS: Image quality: Diagnostic. Lower Chest: No significant findings. URINARY: Right Kidney: The right kidney is diffusely heterogeneous in appearance with a slightly striated appearance with excreted contrast in the collecting system extending down through the mid ureter. Cystic changes of the lower pole. No stones identified. Perinephric fat stranding. Right Ureter: Mild hydronephrosis. Left Kidney: No stones or hydronephrosis. Perinephric fat stranding. Left Ureter: Mild hydronephrosis. Bladder: Bladder wall is nearly circumferentially thickened with a slightly nodular contour. ABDOMEN: Liver: No contour-deforming solid mass. Gallbladder: Gallbladder is not identified. Biliary ducts: No biliary dilation. Pancreas: No ductal dilation. Spleen: Size is within normal limits. Adrenal Glands: No adrenal nodules. Stomach and Bowel: Normal colonic caliber, without significant wall thickening. Normal appendix Peritoneum: No abnormal intraperitoneal fluid. No free air. Ventral Wall: No hernia. Abdominal Nodes: No enlarged retroperitoneal or mesenteric lymph nodes. Vessels: Aorta and inferior vena cava are normal in size. PELVIS: Pelvic Organs: Unremarkable. Pelvic Nodes: Bilateral iliac and pelvic lymphadenopathy with mildly prominent periaortic lymph nodes at the level of the renal veins. Miscellaneous: No inguinal hernias are seen. Bones: No concerning osseous lesions. [place] right curvature of the thoracolumbar spine. IMPRESSION: 1. Asymmetric enhancement of the kidneys suggest high-grade obstruction with contrast retention in the right kidney and right greater than left hydronephrosis. 2. A striated appearance can also be seen with renal ischemia secondary to outlet obstruction, consider Page kidney. 3. Diffusely thickened bladder wall concerning for malignancy. 4. Fat stranding of the bilateral kidneys may be senescent however obstruction or infection could have a similar appearance. 5. Pelvic lymphadenopathy is concerning for metastatic disease. Dictated by: Yonathan Alex M.D. on 11/04/2023 at 14:44 Approved by: Yonathan Alex M.D. on 11/04/2023 at 14:59
[2023-11-04] MEDS: ONDANSETRON 4 MG/2 ML INJ IV (15:39)
[2023-11-04] MEDS: cefTRIAXone 1,000 MG in SODIUM CHLORIDE 0.9% 100 ML 200 MG IV (15:40)
[2023-11-04] MEDS: SODIUM CHLORIDE 0.9% 1,000 ML 1000 ML IV (15:40)
[2023-11-04] MEDS: levoFLOXacin 750 MG/150 ML PIGGYBACK 100 MG IV (17:08)
--- NOTE | 2023-11-04 19:10 | PM.HP.1 ---
History of Present Illness History of Present Illness Date Patient Seen: 11/04/23 Time Patient Seen: 19:10 Date of Onset of Symptoms: 11/09/23 Chief complaint: Return visit; Abd Pain, Vomiting Narrative: Patient is a 83-year-old patient of Dr. Jacobson so I am cross covering for who presents with nausea vomiting weakness fevers although not sure how high. Chills.. Patient apparently was in his usual state of health until Sunday when he started feeling weak and somewhat febrile. Was getting weaker and weaker so he went to the emergency room and was felt not to have pyelonephritis. Patient went home and began vomiting. The next morning. Just weak. Could hardly get him up and moving. Usual not having this much trouble. No other changes. Patient recently had cystoscopy and was placed on Macrodantin. He apparently had possible bladder cancer. But no other changes. He has been incontinent for the last 5 weeks at night. Doing okay during the day. Otherwise no change. Has not had pathology back yet. CT scan previously showed possibility of obstruction. No other change. CT scan today shows possibility also with no hydro nephrosis PFSH Medical History Prostate mass Bladder mass Microscopic hematuria Nocturnal enuresis Shortness of breath Right leg weakness RUQ abdominal pain Finger pain, right Right shoulder pain Anesthesia complication Easy bruisability COPD (chronic obstructive pulmonary disease) Supraventricular tachycardia Sleep apnea Depression Anxiety Hearing loss Hematuria BPH (benign prostatic hyperplasia) Hypercalcemia Chronic lymphocytic leukemia (10/12/16) Essential hypertension (11/10/15) Hyperlipidemia (12/07/10) Anxiety disorder Surgical History Hx of bilateral cataract extraction (~2019) Hx of hernia repair Anesthesia Status post transurethral resection of prostate (09/2014) Family History Brother No problems noted. Sister No problems noted. Father No problems noted. Mother Pancreatic cancer Social History household members: spouse Smoking Status: Never smoker alcohol intake: current substance use type: does not use Meds Home Medications and Allergies Home Medications Medication Instructions Recorded Confirmed Type atorvastatin 10 mg tablet See Rx Instructions .Route 04/16/23 11/04/23 Rx .COMPLEX #90 tabs bupropion HCl 150 mg tablet,12 hr See Rx Instructions .Route 04/16/23 11/04/23 Rx sustained-release .COMPLEX #180 tabs clopidogrel 75 mg tablet 75 mg PO DAILY #90 tabs 04/23/23 11/04/23 Rx lisinopril 20 mg tablet See Rx Instructions .Route 04/23/23 11/04/23 Rx .COMPLEX #90 tabs tamsulosin 0.4 mg capsule 0.4 mg PO DAILY #30 caps 10/08/23 11/04/23 Rx nitrofurantoin 100 mg PO BID #20 caps 10/30/23 11/04/23 Rx monohydrate/macrocrystals 100 mg capsule Allergies Allergy/AdvReac Type Severity Reaction Status Date / Time No Known Drug Allergies Allergy Verified 11/04/23 12:13 Review of Systems Review of Systems Narrative: Negative except for above Exam Vital Signs (past 8 hours): - 11/04/23 12:09 11/04/23 12:41 11/04/23 12:42 Pulse Rate 89 82 Respiratory Rate 20 14 Blood Pressure 100/56 L 116/83 116/83 Pulse Oximetry 97 Oxygen Delivery Method Room Air 11/04/23 12:42 11/04/23 13:00 11/04/23 13:00 Pulse Rate 82 74 Respiratory Rate 18 24 Blood Pressure 97/61 Pulse Oximetry 97 95 Oxygen Delivery Method 11/04/23 13:19 11/04/23 13:19 11/04/23 13:30 Pulse Rate 71 72 Respiratory Rate 26 H 26 H Blood Pressure 101/61 Pulse Oximetry 96 93 Oxygen Delivery Method 11/04/23 13:30 11/04/23 13:45 11/04/23 13:45 Pulse Rate 73 Respiratory Rate 26 H Blood Pressure 106/59 L 110/59 L Pulse Oximetry 93 Oxygen Delivery Method 11/04/23 14:00 11/04/23 14:00 11/04/23 14:15 Pulse Rate 73 73 Respiratory Rate 27 H 27 H Blood Pressure 109/59 L Pulse Oximetry 93 93 Oxygen Delivery Method 11/04/23 14:15 11/04/23 14:30 11/04/23 14:30 Pulse Rate 74 Respiratory Rate 27 H Blood Pressure 107/59 L 105/56 L Pulse Oximetry 93 Oxygen Delivery Method 11/04/23 14:45 11/04/23 14:45 11/04/23 15:00 Pulse Rate 73 72 Respiratory Rate 25 H 16 Blood Pressure 107/56 L Pulse Oximetry 93 Oxygen Delivery Method 11/04/23 15:00 11/04/23 15:03 11/04/23 15:03 Pulse Rate 71 Respiratory Rate 27 H Blood Pressure 99/58 L 111/56 L Pulse Oximetry 96 Oxygen Delivery Method 11/04/23 15:15 11/04/23 15:15 11/04/23 15:30 Pulse Rate 69 69 Respiratory Rate 32 H Blood Pressure 95/54 L Pulse Oximetry 94 92 Oxygen Delivery Method 11/04/23 15:32 11/04/23 15:32 11/04/23 15:45 Pulse Rate 68 67 Respiratory Rate 31 H Blood Pressure 109/51 L Pulse Oximetry 97 96 Oxygen Delivery Method 11/04/23 15:45 11/04/23 16:00 11/04/23 16:00 Pulse Rate 67 Respiratory Rate Blood Pressure 107/55 L 107/55 L Pulse Oximetry 96 Oxygen Delivery Method 11/04/23 16:15 11/04/23 16:15 11/04/23 16:30 Pulse Rate 69 72 Respiratory Rate 31 H Blood Pressure 106/55 L Pulse Oximetry 95 97 Oxygen Delivery Method 11/04/23 16:30 11/04/23 16:45 11/04/23 16:45 Pulse Rate 72 Respiratory Rate 37 H Blood Pressure 112/59 L 116/58 L Pulse Oximetry 94 Oxygen Delivery Method 11/04/23 17:00 11/04/23 17:00 Pulse Rate 72 Respiratory Rate 28 H Blood Pressure 121/58 L Pulse Oximetry 94 Oxygen Delivery Method Oxygen Delivery Method Room Air Narrative Exam Narrative: Alert fatigued male lying in bed no acute distress. Skin warm but not diaphoretic. Neck supple without adenopathy JVD or bruits. Lungs are clear. Heart is regular rate and rhythm. Abdomen is soft positive bowel sounds mild lower quadrant tenderness no rebound guarding masses. No flank tenderness. Extremities without edema. Neurologic exam is nonfocal Objective Labs 11/04/23 13:09 11/04/23 13:09 Labs: Laboratory Results - last 24 hr 11/04/23 11/04/23 12:45 13:09 WBC 32.5 H* RBC 4.17 L Hgb 13.2 L Hct 39.6 L MCV 95.0 MCH 31.6 MCHC 33.2 RDW 13.0 Plt Count 238 Neut % (Auto) 44.6 L Lymph % (Auto) 52.0 H [place] % (Auto) 3.1 Eos % (Auto) 0.0 L Baso % (Auto) 0.3 Neut # (Auto) 92348 H Lymph # (Auto) 59622 H [place] # (Auto) 1000 H Eos # (Auto) 0 Baso # (Auto) 100 Sodium 135 L Potassium 4.8 Chloride 107 Carbon Dioxide 24 BUN 33 H Creatinine 2.26 H Estimated GFR 28 L BUN/Creatinine Ratio 14.6 Glucose 124 H Lactate 1.5 Calcium 10.3 H Total Bilirubin 1.5 H AST 24 ALT 21 Alkaline Phosphatase 109 Troponin I 0.019 Total Protein 6.0 L Albumin 3.6 Globulin 2.4 Albumin/Globulin Ratio 1.5 Lipase 80 D Procalcitonin 0.427 Urine RBC 5-10/hpf H Urine WBC >100/hpf H Ur Squamous Epith Cells None seen Urine Bacteria Moderate (10-30) H Ur Culture Indicated? Specimen cultured Vol Urine Centrifuged 10ml (spun) Assessment & Plan Assessment & Plan narrative: Urosepsis with fever chills nausea vomiting. CT scan shows possibility of stranding from infection. Unclear whether it is definitively instructed. Patient was given Rocephin in the emergency room started on levofloxacin. Should be adequate coverage. Culture done. Will gently hydrate and follow. Acute on chronic renal failure. Possibly from infection. CT scan does show some question of obstruction but it is unclear the degree. Could be from dehydration. Prerenal. Gentle hydration and see how things go. No hydronephrosis. Will consult Dr. Leija tomorrow. Discussed with him by phone call. History of BPH Redman placed. Will allow urology to address. Elevated white count. Question whether this is secondary to infection or whether or not it is from his CLL. He has not received any treatment for CLL in his followed by Oncology. Would think more likely some of this is related to his infection will see what happens as we treat. If continues to elevate will need Oncology consult. Hypertension. Will hold medication. Will see how things go. Gentle hydration today and then may need to restart blood pressure medicine as time goes on. History of depression. Stable. DVT prophylaxis low-dose Lovenox. GI prophylaxis I do not think we needed at this time. Will follow. Code status. Full. Discussed extensively. Disposition. I suspect he will be here at least 48 hours if not longer. Will depend on how his kidneys do what the results of Dr. Leija's consult. 75 minutes spent with the patient chart review ER consult dictation orders discussion with nursing Quality VTE Deep Vein Thrombosis/Pulmonary Embolism Present on Admission: No
[2023-11-04] MEDS: SODIUM CHLORIDE 0.9% 1,000 ML 100 ML IV (20:14)
--- NOTE | 2023-11-04 23:39 | PC.NURSE ---
Patient is alert and oriented. [place] w/bilateral hearing aids out for the night. Breath sounds CTA with RA sat of 95%. HRR but was SA on telemetry. BP trending low at 98/54 but is asymptomatic. Denied nausea. BT present and abdomen is soft. Indwelling catheter placed earlier by RADHA Mckinley. Patient reports incontinence and frequency/urgency prior to catheter placement. Is able to move himself in bed. Up at bedside with SBA and reports he does not use a walker at home. Bilateral calf SCD's applied at time of assessment. He had an elevated temp earlier at 101.3 but on recheck was 99. Currently temperature is 100.3 so now medicated with Tylenol and will reassess in 1 hour. Fall risk score is high and bed alarm is activated.
[2023-11-04] MEDS: ACETAMINOPHEN 325 MG TABLET 650 MG PO (23:55)
[2023-11-05] VITALS (10 sets, daily range): BP systolic 86–123; BP diastolic 41–60; PULSE 55–64; RESP 16–18; TEMP 36.3–37.3; O2SAT 95–99
[2023-11-05 05:22] LABS: Hematocrit 36.5 % (41-53); Hemoglobin 12.1 g/dL (13.5-17.5); Mean Corpuscular HGB Conc 33.1 % (30-36); Mean Corpuscular Hemoglobin 31.9 PG (26-34); Mean Corpuscular Volume 96.2 fL (80-100); Platelet Count 187 X10^3/uL (150-400); Red Cell Distribution Width 13.4 % (11.6-14.8); White Blood Cell Count 27.2 X10^3/uL (4.5-11.0)
[2023-11-05 05:23] LABS: Add Manual Diff / Slide Review YES
[2023-11-05 05:34] LABS: Alanine Aminotransferase 18 IU/L (<50); Albumin Globulin Ratio 1.3 (1.0-2.8); Alkaline Phosphatase 89 U/L (38-126); Aspartate Aminotransferase 22 IU/L (17-59); BUN Creatinine Ratio 14.9 (6-22); Blood Urea Nitrogen 33 mg/dL (9-20); Calcium 9.5 mg/dL (8.4-10.2); Carbon Dioxide 22 mmol/L (22-32); Chloride 110 mmol/L (98-107); Estimated Glomerular Filt Rate 28 mL/min (>60); Globulin 2.3 g/dL (1.7-4.1); Glucose 91 mg/dL (80-110); HEMOLYSIS < 15 (0-50); Potassium 4.3 mmol/L (3.4-5.1); Sodium 136 mmol/L (137-145); Total Protein 5.3 g/dL (6.3-8.2)
[2023-11-05 05:48] LABS: Neutrophils Absolute Manual 13872 /uL (3000-5900); Total Cells Counted 100
[2023-11-05 05:50] LABS: Platelet Estimate Adequate on smear; RBC Morphology Normal Morphology; Smudge Cells 1+
[2023-11-05] MEDS: SODIUM CHLORIDE 0.9% 1,000 ML 100 ML IV ×2 (05:54→16:50)
--- NOTE | 2023-11-05 08:27 | P.PN_ITS ---
Subjective Subjective Date Patient Seen: 11/05/23 Time Patient Seen: 08:27 Interval history: Patient seen and evaluated. at bedside. Patient has no complaints of pain. Redman catheter has been a big improvement he says he generally was up all night urinating. Weakness is still present. He is still hypotensive a little bit. Although he feels like his strength is better he has a little bit hungry. No respiratory distress. Mental status appears to be clear. He would like me to talk to 1 of his sons about his current health condition. Patient has no complaints of pain. Has not been out of bed yet. Exam Vital Signs (past 8 hours): - 11/05/23 00:55 11/05/23 01:05 11/05/23 03:02 Temperature 98.3 F 98.3 F 97.3 F L Pulse Rate 58 L Respiratory Rate 18 Blood Pressure 91/51 L Pulse Oximetry 96 Oxygen Delivery Method Oxygen Flow Rate 11/05/23 03:02 Temperature Pulse Rate Respiratory Rate Blood Pressure Pulse Oximetry 96 Oxygen Delivery Method Room Air Oxygen Flow Rate 0 Oxygen Delivery Method Room Air Oxygen Flow Rate 0 Narrative Exam Narrative: Gen.: Alert good historian HEENT: Pupils equal round and reactive or mucosa is moist neck is supple Cardio: Regular rate and rhythm systolic murmur present Respiratory: Normal respiratory effort Abdomen: Soft nontender no rebound or guarding Extremities: Full range of motion no edema some mild lower extremity weakness Neurologic: No focal deficits Objective Labs 11/05/23 04:43 11/05/23 04:43 Labs: Laboratory Results - last 24 hr 11/04/23 11/04/23 11/05/23 12:45 13:09 04:43 WBC 32.5 H* 27.2 H RBC 4.17 L 3.80 L Hgb 13.2 L 12.1 L Hct 39.6 L 36.5 L MCV 95.0 96.2 MCH 31.6 31.9 MCHC 33.2 33.1 RDW 13.0 13.4 Plt Count 238 187 Neut % (Auto) 44.6 L Not Reportable Lymph % (Auto) 52.0 H Not Reportable [place] % (Auto) 3.1 Not Reportable Eos % (Auto) 0.0 L Not Reportable Baso % (Auto) 0.3 Not Reportable Neut # (Auto) 56088 H Lymph # (Auto) 51908 H Not Reportable [place] # (Auto) 1000 H Not Reportable Eos # (Auto) 0 Baso # (Auto) 100 Not Reportable Total Counted 100 Seg Neutrophils % 49.0 Band Neutrophils % 2.0 L Lymphocytes % (Manual) 42.0 Monocytes % (Manual) 7.0 Neutrophils # (Manual) 43135 H Smudge Cells 1+ H Platelet Estimate Adequate on smear RBC Morphology Normal morphology Sodium 135 L 136 L Potassium 4.8 4.3 Chloride 107 110 H Carbon Dioxide 24 22 BUN 33 H 33 H Creatinine 2.26 H 2.21 H Estimated GFR 28 L 28 L BUN/Creatinine Ratio 14.6 14.9 Glucose 124 H 91 Lactate 1.5 Calcium 10.3 H 9.5 Total Bilirubin 1.5 H 1.0 AST 24 22 ALT 21 18 Alkaline Phosphatase 109 89 Troponin I 0.019 Total Protein 6.0 L 5.3 L Albumin 3.6 3.0 L Globulin 2.4 2.3 Albumin/Globulin Ratio 1.5 1.3 Lipase 80 D Procalcitonin 0.427 Urine RBC 5-10/hpf H Urine WBC >100/hpf H Ur Squamous Epith Cells None seen Urine Bacteria Moderate (10-30) H Ur Culture Indicated? Specimen cultured Vol Urine Centrifuged 10ml (spun) [facility] Medical History Prostate mass Bladder mass Microscopic hematuria Nocturnal enuresis Shortness of breath Right leg weakness RUQ abdominal pain Finger pain, right Right shoulder pain Anesthesia complication Easy bruisability COPD (chronic obstructive pulmonary disease) Supraventricular tachycardia Sleep apnea Depression Anxiety Hearing loss Hematuria BPH (benign prostatic hyperplasia) Hypercalcemia Chronic lymphocytic leukemia (10/12/16) Essential hypertension (11/10/15) Hyperlipidemia (12/07/10) Anxiety disorder Surgical History Hx of bilateral cataract extraction (~2019) Hx of hernia repair Anesthesia Status post transurethral resection of prostate (09/2014) Family History Brother No problems noted. Sister No problems noted. Father No problems noted. Mother Pancreatic cancer Social History household members: spouse Smoking Status: Never smoker alcohol intake: current substance use type: does not use Assessment & Plan Assessment and plan (1) Urinary tract infection: Qualifiers: Urinary tract infection type: acute pyelonephritis Qualified Code(s): N 10 - Acute pyelonephritis Status: Acute Plan Sepsis due to urinary tract infection. Patient was admitted the hospital with low blood pressure elevated white blood cell count and acute kidney disease. He has been suffering with ongoing urinary tract infection for the past 3 or 4 days. Has seen the urologist. His urine culture previously grown Enterococcus. His current urine culture shows Gram-positive cocci also has positive blood cultures. In the emergency department he was given ceftriaxone and Levaquin. Will go ahead and continue with ceftriaxone based on review of his antibiotic g. He has had fluid resuscitation. His blood pressure still little bit low she will we will continue with IV fluids throughout the day today. He will be continued with his IV antibiotics. Acute kidney injury. Patient has acute kidney failure. On top of some mild chronic renal failure. His BUN and creatinine is quite elevated. Will monitor closely his electrolytes continue with fluid hydration. There is some component of urinary obstruction as well due to underlying bladder outlet obstruction and or kidney obstruction. Bladder tumor. Patient with a CT scan and recent cystic ask P by Dr. Solano showing a bladder tumor. On CT scanning shows some bladder obstruction bilaterally. His CT scan shows worrisome findings of lymphadenopathy as well. Will have Dr. Solano come by and evaluate the patient in the hospital for further evaluation of next steps for plan. Concerning for bladder cancer. Discussed this with the patient today. Patient has significant irritative voiding symptoms. Redman catheter will remain in place. Chronic lymphocytic leukemia. With chronically elevated white blood cell count is white blood cell count significantly higher. I am presuming this is due to infection and positive blood cultures. It is trending down a little bit. Will continue to monitor this to make sure that he isn't going into acute blast crisis. History of hypertension. Patient is hypotensive due to infection. Will hold his antihypertensive medication at this point. Hyperlipidemia. Patient will be continued on his statin medication. Depression patient will be continued on his Wellbutrin. Disposition plan IV fluids IV antibiotics urological consultation today. Quality VTE Deep Vein Thrombosis/Pulmonary Embolism Present on Admission: No PROFEE Charge codes Subsequent inpatient/observation care: [id number]
[2023-11-05] MEDS: cefTRIAXone 1,000 MG in SODIUM CHLORIDE 0.9% 100 ML 200 MG IV (09:16)
[2023-11-05] MEDS: CLOPIDOGREL 75 MG TABLET PO (09:16)
[2023-11-05] MEDS: ENOXAPARIN 30 MG/0.3 ML SYRINGE SUBCUT (09:18)
[2023-11-05] MEDS: ACETAMINOPHEN 325 MG TABLET 650 MG PO (09:19)
[2023-11-05 09:28] LABS: Acinetobacter calcoa-baumannii Not Detected (Not Detect); Bacteroides fragilis Not Detected (Not Detect); Candida albicans Not Detected (Not Detect); Candida auris Not Detected (Not Detect); Candida glabrata Not Detected (Not Detect); Candida krusei Not Detected (Not Detect); Candida parapsilosis Not Detected (Not Detect); Candida tropicalis Not Detected (Not Detect); Cryptococcus neoformans/gatti Not Detected (Not Detect); Enterobacter cloacae complex Not Detected (Not Detect); Enterobacterales Not Detected (Not Detect); Enterococcus faecalis Detected (Not Detect); Enterococcus faecium Not Detected (Not Detect); Haemophilus influenzae Not Detected (Not Detect); Klebsiella aerogenes Not Detected (Not Detect); Listeria monocytogenes Not Detected (Not Detect); Neisseria meningitidis Not Detected (Not Detect); Proteus species Not Detected (Not Detect); Pseudomonas aeruginosa Not Detected (Not Detect); Salmonella species Not Detected (Not Detect); Serratia marcescens Not Detected (Not Detect); Staphylococcus epidermidis Not Detected (Not Detect); Staphylococcus lugdunensis Not Detected (Not Detect); Staphylococcus species Not Detected (Not Detect); Stenotrophomonas maltophilia Not Detected (Not Detect); Streptococcus agalactiae (Gr B Not Detected (Not Detect); Streptococcus pneumonia Not Detected (Not Detect); Streptococcus pyogenes (Gr A) Not Detected (Not Detect); Streptococcus species Not Detected (Not Detect); Vancomycin-rest genes A/B Not Detected (Not Detect)
[2023-11-05] MEDS: LINEZOLID 600 MG/300 ML IV.SOLN IV ×2 (12:03→23:35)
--- NOTE | 2023-11-05 15:47 | CM.DANOTE ---
Patient is an 83 yo male who was admitted on 11/04/23 for Abd Pain. Pt has [facility] for insurance and his PCP is Dr. Johnny Jacobson. EMR was reviewed. Per MD, pt with possible bladder CA and being worked up by Dr. Solano and now admitted for urosepsis, renal failure, and pyelonephritis and improving with gan cath and Abx and awaiting cultures and labs and not stable for discharge today. Per RN, pt has been SBA in room and independent for bed mobility and do not feel PT eval needed at this time. SW met briefly bedside with pt and spouse and they confirm they live in [place] and both are quite active and independent at baseline and deny any recent HH or SNF. Pt does not typically use DME at home and is somewhat [place]AMP[place] with hearing aides. Both have been driving and hopeful to get more information from Oncologist. Preference is home at discharge and currently do not anticipate any needs. Plan: SW to follow closely for culture results to confirm no IV-Abx needed at discharge and safe plan of home with spouse and outpt f/u. SW to follow for any further identified discharge planning needs. KYAW Quiros Discharge Planning/Care Management CM Discharge Assessment Start: 11/05/23 15:46 Freq: Status: Active Protocol: Document 11/05/23 15:46 BF (Rec: 11/05/23 15:47 BF [id number]) Discharge Planning Assessment Assigned Compliance Review Officer KYAW Otero DPOA/Assigned Designee Name spouse Chloé Advance Directives? Yes: POLST Advance Directives on File Yes History Provided By Patient,Significant Other, Medical Record Has Patient been admitted in last 30 No days? Prior Living Arrangements House Household Members spouse Type of transporation used prior to Drives own vehicle admit Independent with ADL's Yes Is patient alert and oriented? Yes Caregiver for Another No Barriers to Discharge No Discharge Plan Home Transportation Arrangement Spouse Referrals Initiated None needed Additional Comment currently no PT needs, SBA in room Whiteboard Updated in Patient Room with Yes name and ext. # of Compliance Review Officer Review Status In Process Please Provide Date Initial DC 11/05/23 Assessment Was Performed Next Review Type Continued Stay Review
--- NOTE | 2023-11-06 | PC.NURSE ---
Patient is alert and oriented. Breath sounds CTA with RA sat of 95%. HRR w/telemetry reading of SR but does intermittently drop down into 50's. BP remains soft but improved at 105/55. Denied nausea. BT present and is passing flatus; had stool on previous shift. Indwelling catheter is patent; urine is clear but with blood tinge. Is able to turn himself in bed. Receives SBA when out of bed for safety. Is wearing bilateral calf SCD's. Denied pain. On contact isolation as both urine and blood cultures are growing gm + cocci on gram stain. Fall risk score is moderate and bed alarm is activated.
[2023-11-06 00:30] VITALS: BP 108/60; PULSE 60; RESP 18; TEMP 37.1; O2SAT 95
[2023-11-06] MEDS: SODIUM CHLORIDE 0.9% 1,000 ML 100 ML IV (03:13)
[2023-11-06 05:50] VITALS: BP 121/58; PULSE 58; RESP 18; TEMP 36.1; O2SAT 96
[2023-11-06 05:57] LABS: Add Manual Diff / Slide Review NO; Basophils Absolute Auto 0 /uL (0-100); Basophils Percent Auto 0.1 % (0-2); Eosinophils Absolute Auto 100 /uL (0-450); Eosinophils Percent Auto 0.3 % (2-4); Hematocrit 34.9 % (41-53); Hemoglobin 11.8 g/dL (13.5-17.5); Lymphocytes Absolute Auto 13500 /uL (1100-4500); Lymphocytes Percent Auto 59.5 % (25-40); Mean Corpuscular HGB Conc 33.7 % (30-36); Mean Corpuscular Hemoglobin 32.2 PG (26-34); Mean Corpuscular Volume 95.5 fL (80-100); Monocytes Absolute Auto 900 /uL (0-900); Neutrophils Absolute Auto 8200 /uL (1500-7000); Neutrophils Percent Auto 36.1 % (50-75); Platelet Count 173 X10^3/uL (150-400); Red Blood Cell Count 3.66 X10^6/uL (4.5-5.9); Red Cell Distribution Width 13.4 % (11.6-14.8); White Blood Cell Count 22.7 X10^3/uL (4.5-11.0)
[2023-11-06 06:30] LABS: Alanine Aminotransferase 33 IU/L (<50); Albumin 2.7 g/dL (3.5-5.0); Albumin Globulin Ratio 1.2 (1.0-2.8); Alkaline Phosphatase 104 U/L (38-126); Aspartate Aminotransferase 39 IU/L (17-59); BUN Creatinine Ratio 14.5 (6-22); Bilirubin Total 0.8 mg/dL (0.2-1.3); Blood Urea Nitrogen 27 mg/dL (9-20); Calcium 9.3 mg/dL (8.4-10.2); Carbon Dioxide 21 mmol/L (22-32); Chloride 111 mmol/L (98-107); Estimated Glomerular Filt Rate 35 mL/min (>60); Globulin 2.3 g/dL (1.7-4.1); Glucose 94 mg/dL (80-110); HEMOLYSIS < 15 (0-50); Potassium 4.3 mmol/L (3.4-5.1); Sodium 134 mmol/L (137-145)
[2023-11-06 07:00] VITALS: O2SAT 96
--- NOTE | 2023-11-06 07:45 | P.PN_ITS ---
Subjective Subjective Date Patient Seen: 11/06/23 Time Patient Seen: 07:45 Interval history: Patient seen and evaluated this morning at bedside. Patient stated he had a good night last night. Was up to the bathroom with a walker and assistance. Ate well yesterday. Blood pressure much better. Patient is a little bit hard of hearing. Mental status is stable. Talk with family yesterday about his diagnosis. Patient has no complaints of pain headache dizziness lightheadedness. Says he has a little bit tired. Exam Vital Signs (past 8 hours): - 11/06/23 00:30 11/06/23 05:50 Temperature 98.8 F 96.9 F L Pulse Rate 60 58 L Respiratory Rate 18 18 Blood Pressure 108/60 121/58 L Pulse Oximetry 95 96 Oxygen Flow Rate 0 0 Oxygen Delivery Method Room Air Oxygen Flow Rate 0 Narrative Exam Narrative: Gen.: Alert good historian HEENT: Pupils equal round and reactive or mucosa is moist neck is supple Cardio: S1-S2 regular rate and rhythm slight systolic murmur Respiratory: Normal respiratory effort and lungs are clear Abdomen: Soft nontender no rebound or guarding no liver spleen enlargement no appreciable hernias Extremities: Full range of motion no edema Objective Labs 11/06/23 05:27 11/06/23 05:27 Labs: Laboratory Results - last 24 hr 11/04/23 11/06/23 15:38 05:27 WBC 22.7 H RBC 3.66 L Hgb 11.8 L Hct 34.9 L MCV 95.5 MCH 32.2 MCHC 33.7 RDW 13.4 Plt Count 173 Neut % (Auto) 36.1 L Lymph % (Auto) 59.5 H [place] % (Auto) 4.0 Eos % (Auto) 0.3 L Baso % (Auto) 0.1 Neut # (Auto) 8200 H Lymph # (Auto) 76895 H [place] # (Auto) 900 Eos # (Auto) 100 Baso # (Auto) 0 Sodium 134 L Potassium 4.3 Chloride 111 H Carbon Dioxide 21 L BUN 27 H Creatinine 1.86 H Estimated GFR 35 L BUN/Creatinine Ratio 14.5 Glucose 94 Calcium 9.3 Total Bilirubin 0.8 AST 39 ALT 33 Alkaline Phosphatase 104 Total Protein 5.0 L Albumin 2.7 L Globulin 2.3 Albumin/Globulin Ratio 1.2 A.calcoaceticus-baumannii cmplx PCR Not detected Bacteroides fragilis Not detected Itzel albicans (PCR) Not detected Itzel auris (PCR) Not detected C. glabrata (PCR) Not detected C. krusei (PCR) Not detected C. parapsilosis (PCR) Not detected C. tropicalis (PCR) Not detected C. neoform/gattii (PCR) Not detected Enterobacterales (PCR) Not detected E. cloacae complex PCR Not detected Enterococc faecalis PCR Detected Enterococc faecium PCR Not detected E. coli (PCR) Not detected H. influenzae (PCR) Not detected Klebsiella aerogenes (PCR) Not detected Klebsiella oxytoca PCR Not detected Klebsiella pneumoniae Not detected List. monocytogenes PCR Not detected N. meningitidis (PCR) Not detected Proteus species (PCR) Not detected Salmonella spp. (PCR) Not detected Serratia marcescens PCR Not detected Staphylococcus sp PCR Not detected Staph aureus (PCR) Not detected mecA/C & MREJ Resist Gene Not applicable mecA/C-Methicil Resis Gene Not applicable mcr-1 Colistin Res Gene PCR Not applicable Staph epidermidis (PCR) Not detected Staph lugdunensis PCR Not detected S. maltophilia (PCR) Not detected Streptococcus sp PCR Not detected Group A Strep (PCR) Not detected Strep agalactiae (PCR) Not detected Strep pneumoniae (PCR) Not detected P. aeruginosa (PCR) Not detected Harini/B-Vanco Res Genes Not detected blaIMP Car res Gene PCR Not applicable KPC-Carbap Res Gene PCR Not applicable blaNDM Car Res Gene PCR Not applicable OXA-48 Carbapenem Resis Gene (PCR) Not applicable blaVIM Car Res Gene PCR Not applicable CTX-M Gene Resistance (PCR) Not applicable PFSH Medical History Prostate mass Bladder mass Microscopic hematuria Nocturnal enuresis Shortness of breath Right leg weakness RUQ abdominal pain Finger pain, right Right shoulder pain Anesthesia complication Easy bruisability COPD (chronic obstructive pulmonary disease) Supraventricular tachycardia Sleep apnea Depression Anxiety Hearing loss Hematuria BPH (benign prostatic hyperplasia) Hypercalcemia Chronic lymphocytic leukemia (10/12/16) Essential hypertension (11/10/15) Hyperlipidemia (12/07/10) Anxiety disorder Surgical History Hx of bilateral cataract extraction (~2019) Hx of hernia repair Anesthesia Status post transurethral resection of prostate (09/2014) Family History Brother No problems noted. Sister No problems noted. Father No problems noted. Mother Pancreatic cancer Social History household members: spouse Smoking Status: Never smoker alcohol intake: current substance use type: does not use Assessment & Plan Assessment and plan (1) Sepsis: Qualifiers: Sepsis acute organ dysfunction status: with acute organ dysfunction S evere sepsis acute organ dysfunction type: acute renal failure Severe sepsis shock status: without septic shock Sepsis type: sepsis due to unspecified organism Acute renal failure type: unspecified Qualified Code(s): A41.9 - Sepsis, unspecified organism; R65.20 - Severe sepsis without septic shock; N17.9 - Acute kidney failure, unspecified Status: Acute Plan Sepsis due to urinary tract infection. Patient admitted with sepsis due to urinary tract source with hypotension acute kidney injury tachycardia and hypotension. Patient is improved. He is on IV antibiotics appropriately treated for his urinary tract infection and bacteremia due to his urinary tract infection. Will continue IV linezolid and will be converted to oral on discharge. His blood pressure is much better today as compared to yesterday. Will decrease his IV fluids. Still awaiting for sensitivities in regards to blood in urine. The previous urine culture showed it to be pansensitive.. Acute kidney injury. Patient has acute kidney failure. Patient's kidney function has improved. An obstructive component as well as injury due to hypotension. Kidney function is returning back towards baseline. His electrolytes are normal this morning. He is making good urine. Redman catheter is in place we will keep it in place until urology has a chance to visit with him it may need to be continued at home. Bladder tumor. Patient with a bladder tumor recently seen on cystoscopy. Dr. Leija to come evaluate patient today to talk about next steps. Patient has elevated PSA pelvic lymphadenopathy and mass seen on CT scan. Concerning for bladder cancer. Will need evaluation. Not sure if biopsies were done recently and further workup of this. Chronic lymphocytic leukemia. With chronically elevated white blood cell count. White blood cell was count was significantly elevated due to infection on arrival to the emergency department his blood counts are trending back towards baseline. History of hypertension. Patient is hypotensive due to infection. Blood pressures are improving today we will restart antihypertensives medication as needed. Hyperlipidemia. Patient will be continued on his statin medication. Depression patient will be continued on his Wellbutrin. Disposition plan continue with IV antibiotics for 24 hour hours ambulate advance diet as tolerated urology consult with Dr. Leija today as he was not available yesterday. Anticipate discharge tomorrow with home health. Quality VTE Deep Vein Thrombosis/Pulmonary Embolism Present on Admission: No
[2023-11-06 08:00] VITALS: BP 101/50; PULSE 53; RESP 14; TEMP 36.6; O2SAT 93
[2023-11-06] MEDS: CLOPIDOGREL 75 MG TABLET PO (09:07)
[2023-11-06] MEDS: ENOXAPARIN 30 MG/0.3 ML SYRINGE SUBCUT (09:08)
[2023-11-06] MEDS: buPROPion XL 150 MG TAB PO (09:08)
--- NOTE | 2023-11-06 10:30 | CM.DPC ---
DCP Cont. Reviewed EMR and team rounds for status updates. Pt is scheduled to have a Urology consult today. D/C plan continues to be for him to d/c home, [facility] has clinicals and will open at home OP.
[2023-11-06] MEDS: LINEZOLID 600 MG/300 ML IV.SOLN IV (12:11)
[2023-11-06 15:15] VITALS: BP 106/63; PULSE 55; RESP 16; TEMP 36.7; O2SAT 98
[2023-11-06 20:20] VITALS: BP 112/59; PULSE 57; RESP 16; TEMP 36.7; O2SAT 95
[2023-11-06] MEDS: ATORVASTATIN 20 MG TABLET 10 MG PO (21:08)
[2023-11-06] MEDS: ACETAMINOPHEN 325 MG TABLET 650 MG PO (21:09)
[2023-11-07] MEDS: LINEZOLID 600 MG/300 ML IV.SOLN IV ×2 (00:50→11:52)
[2023-11-07 04:15] VITALS: BP 105/56; PULSE 50; RESP 16; TEMP 36.3; O2SAT 97
[2023-11-07 05:59] LABS: Add Manual Diff / Slide Review NO; Basophils Absolute Auto 100 /uL (0-100); Basophils Percent Auto 0.4 % (0-2); Eosinophils Absolute Auto 100 /uL (0-450); Eosinophils Percent Auto 0.7 % (2-4); Hematocrit 36.5 % (41-53); Hemoglobin 12.2 g/dL (13.5-17.5); Lymphocytes Absolute Auto 13600 /uL (1100-4500); Lymphocytes Percent Auto 62.6 % (25-40); Mean Corpuscular HGB Conc 33.3 % (30-36); Monocytes Absolute Auto 800 /uL (0-900); Monocytes Percent Auto 3.5 % (3-14); Neutrophils Absolute Auto 7100 /uL (1500-7000); Neutrophils Percent Auto 32.8 % (50-75); Platelet Count 175 X10^3/uL (150-400); Red Cell Distribution Width 13.2 % (11.6-14.8); White Blood Cell Count 21.8 X10^3/uL (4.5-11.0)
[2023-11-07 06:08] LABS: Alanine Aminotransferase 72 IU/L (<50); Albumin 2.8 g/dL (3.5-5.0); Albumin Globulin Ratio 1.3 (1.0-2.8); Alkaline Phosphatase 129 U/L (38-126); Aspartate Aminotransferase 72 IU/L (17-59); BUN Creatinine Ratio 17.5 (6-22); Bilirubin Total 0.6 mg/dL (0.2-1.3); Blood Urea Nitrogen 31 mg/dL (9-20); Calcium 9.4 mg/dL (8.4-10.2); Carbon Dioxide 22 mmol/L (22-32); Chloride 111 mmol/L (98-107); Estimated Glomerular Filt Rate 37 mL/min (>60); Globulin 2.2 g/dL (1.7-4.1); Glucose 103 mg/dL (80-110); HEMOLYSIS < 15 (0-50); Potassium 4.1 mmol/L (3.4-5.1); Sodium 135 mmol/L (137-145)
[2023-11-07 08:00] VITALS: BP 99/66; PULSE 50; RESP 16; TEMP 36.2; O2SAT 98
[2023-11-07] MEDS: CLOPIDOGREL 75 MG TABLET PO (08:55)
[2023-11-07] MEDS: buPROPion XL 150 MG TAB PO (08:55)
[2023-11-07] MEDS: ENOXAPARIN 30 MG/0.3 ML SYRINGE SUBCUT (08:55)
--- NOTE | 2023-11-07 10:11 | P.DS_ITS ---
History of Present Illness History of Present Illness Date Patient Seen: 11/07/23 Chief complaint: Return visit; Abd Pain, Vomiting Narrative: Patient is a 83-year-old patient of Dr. Jacobson so I am cross covering for who presents with nausea vomiting weakness fevers although not sure how high. Chills.. Patient apparently was in his usual state of health until Sunday when he started feeling weak and somewhat febrile. Was getting weaker and weaker so he went to the emergency room and was felt not to have pyelonephritis. Patient went home and began vomiting. The next morning. Just weak. Could hardly get him up and moving. Usual not having this much trouble. No other changes. Patient recently had cystoscopy and was placed on Macrodantin. He apparently had possible bladder cancer. But no other changes. He has been incontinent for the last 5 weeks at night. Doing okay during the day. Otherwise no change. Has not had pathology back yet. CT scan previously showed possibility of obstruction. No other change. CT scan today shows possibility also with no hydro nephrosis Discharge Providers Provider Date of admission: 11/04/23 16:24 Discharge Date: 11/07/23 Primary care physician: Johnny Jacobson MD Consults: 11/04/23 19:37 Consult to Physician Routine Comment: Consulting Provider: Yonathan Leija Reason for consultation: bladder infecton, kidney changes on ct Has provider been notified: No Discharge provider: Gail Bui MD Summary Hospital Course Discharge Diagnosis: Sepsis UTI VALENCIA Bladder tumor CLL HTN Hyperlipidemia Depression Hospital Course: The pt presented with nausea, vomiting and chills. He was diagnosed with urosepsis and VALENCIA. His initial hypotension improved with IV hydration. He was initially given Ceftriaxone in the ED, then Levofloxacin at admission. Urine grew Enterococcus, and the pt was transitioned to Linezolid. He will continue this PO as an outpatient. He had a gan placed while in the hospital. The pt had significantly improved sleep with this in place. His kidney function was gradually improving with gan and IVF. Dr Leija consulted while in the hospital and recommended d/c with gan in place, and felt the pt may require a nephrostomy tube in the future. Dr Leija will be consulting with Rogelio Cardoso regarding the pts likely bladder cancer, and will f/u with the pt regarding this. The pt will f/u with Dr Jacobson in 1 week. Status at Discharge Cognitive/behavioral status at discharge: oriented Functional status at discharge: uses cane/walker Overall status at discharge: patient is progressing back to baseline Exam Vital Signs (past 8 hours): - 11/07/23 04:15 11/07/23 08:00 Temperature 97.4 F L 97.1 F L Pulse Rate 50 L 50 L Respiratory Rate 16 16 Blood Pressure 105/56 L 99/66 Pulse Oximetry 97 98 Oxygen Flow Rate 0 Oxygen Delivery Method Room Air Oxygen Flow Rate 0 Narrative Exam Narrative: Gen: NAD, sitting comfortably in chair, appears well CV: RRR Resp: clear to auscultation bilaterally Abd: soft, nontender, nondistended, no CVA tenderness Ext: no edema Objective Labs 11/07/23 05:24 11/07/23 05:24 Labs: Laboratory Results - last 24 hr 11/07/23 05:24 WBC 21.8 H RBC 3.80 L Hgb 12.2 L Hct 36.5 L MCV 96.0 MCH 32.0 MCHC 33.3 RDW 13.2 Plt Count 175 Neut % (Auto) 32.8 L Lymph % (Auto) 62.6 H [place] % (Auto) 3.5 Eos % (Auto) 0.7 L Baso % (Auto) 0.4 Neut # (Auto) 7100 H Lymph # (Auto) 40671 H [place] # (Auto) 800 Eos # (Auto) 100 Baso # (Auto) 100 Sodium 135 L Potassium 4.1 Chloride 111 H Carbon Dioxide 22 BUN 31 H Creatinine 1.77 H Estimated GFR 37 L BUN/Creatinine Ratio 17.5 Glucose 103 Calcium 9.4 Total Bilirubin 0.6 AST 72 H ALT 72 H Alkaline Phosphatase 129 H Total Protein 5.0 L Albumin 2.8 L Globulin 2.2 Albumin/Globulin Ratio 1.3 PFSH Medical History Prostate mass Bladder mass Microscopic hematuria Nocturnal enuresis Shortness of breath Right leg weakness RUQ abdominal pain Finger pain, right Right shoulder pain Anesthesia complication Easy bruisability COPD (chronic obstructive pulmonary disease) Supraventricular tachycardia Sleep apnea Depression Anxiety Hearing loss Hematuria BPH (benign prostatic hyperplasia) Hypercalcemia Chronic lymphocytic leukemia (10/12/16) Essential hypertension (11/10/15) Hyperlipidemia (12/07/10) Anxiety disorder Surgical History Hx of bilateral cataract extraction (~2019) Hx of hernia repair Anesthesia Status post transurethral resection of prostate (09/2014) Family History Brother No problems noted. Sister No problems noted. Father No problems noted. Mother Pancreatic cancer Social History household members: spouse Smoking Status: Never smoker alcohol intake: current substance use type: does not use Discharge Plan Discharge Plan Patient Disposition: Home Health Service Discharge orders & Medications Prescriptions: New linezolid 600 mg tablet 600 mg PO BID Qty: 14 0RF Continued atorvastatin 10 mg tablet See Rx Instructions .ROUTE .COMPLEX Qty: 90 3RF Dose Instruction: Take 1 tablet (10 mg) by mouth at bedtime Rx Instructions: Take 1 tablet (10 mg) by mouth at bedtime bupropion HCl 150 mg tablet sustained-release 12 hr See Rx Instructions .ROUTE .COMPLEX Qty: 180 3RF Dose Instruction: Take 1 tablet (150 mg) by mouth 2 times daily Rx Instructions: Take 1 tablet (150 mg) by mouth 2 times daily clopidogrel 75 mg tablet 75 mg PO DAILY Qty: 90 3RF lisinopril 20 mg tablet See Rx Instructions .ROUTE .COMPLEX Qty: 90 3RF Dose Instruction: Take 1 tablet (20 mg) by mouth daily Rx Instructions: Take 1 tablet (20 mg) by mouth daily tamsulosin 0.4 mg capsule 0.4 mg PO DAILY Qty: 30 1RF Discontinued nitrofurantoin monohyd/m-cryst 100 mg capsule 100 mg PO BID Qty: 20 0RF Rx Instructions: must administer with a meal/food was told to stop as thought this may be causing symptoms Follow up/Referrals: Johnny Jacobson MD [Primary Care Provider] - 11/13/23 4:30 pm (Appt:11/12 @ 4:30 with Quang moreno check in 15 min prior to your scheduled appointment time) Diet/Activity/Treatments Diet: Diet as Tolerated and Regular Skin/Wound/Dressing Care Report to your healthcare provider any signs of infection, such as:: chills, fever, night sweats and increased pain Visit Report/Discharge Packet Instructions: How to Care for Your Gan Catheter -- Male, DI for Urinary Tract Infection (UTI), How to Prevent Falls Stand Alone Forms: Patient Portal/API, Stroke Signs & Symptoms Discharge Data Primary Care Provider: Johnny Jacobson Discharges patient from system. Discharge Date/Time: 11/07/23 15:15 Quality VTE Deep Vein Thrombosis/Pulmonary Embolism Present on Admission: No
--- NOTE | 2023-11-07 10:41 | CM.DPC ---
Addendum entered and electronically signed by KYAW Sahu 11/07/23 11:48: Per family's request, sent referral to [facility]: RN, PT. Explained what to expect with the process with both pt and spouse, they expressed understanding of plan. Original Note: DCP Cont. Reviewed EMR and team rounds for status updates. Pt has been medically cleared for home d/c. His family will transport him back home once d/c paperwork is completed. No further DCP needs identified at this time.
[2023-11-07 12:00] VITALS: BP 112/57; PULSE 51; RESP 16; TEMP 36.5; O2SAT 99
--- NOTE | 2023-11-07 15:22 | PC.NURSE ---
Dayshift: All belongings returned to patient. Pt and spouse provided with hands on extensive discharge education re: catheter and leg catheter use, fall prevention, and worsening signs of infection. Provided patient with leg bag. Pt spouse return demonstrated catheter care. Pt and spouse stated understanding and all questions answered. Pt escorted to exit via wheelchair by PCT Vasyl with .
--- NOTE | 2023-11-09 10:28 | PM.CN ---
History of Present Illness Consult details Date Patient Seen: 11/06/23 Time Patient Seen: 12:05 Chief complaint: Bladder mass/hydronephrosis Reason for consult: Follow-up bladder mass/prostate mass/right-sided hydronephrosis Requesting provider: Johnny Jacobson Narrative: This 83-year-old male who had presented originally to me with complaint of recurring urinary tract infections had flexible cystoscopy follow on culture specific antibiotics and was found to have an anterior prostate mass as well as a markedly abnormal right half of the bladder. He would undergone CT scan and in interim presented to the emergency department and was found to be septic and admitted to the hospital. He also had an elevated creatinine which now appears to be improving with Redman catheter placement. At the time of his cystoscopy the ureteral orifices were not identified. The CT scan is reviewed and reviewed with the patient. To further what had been started as an outpatient workup and this shows right-sided hydronephrosis which is moderate, markedly thickened right bladder wall with perivesical stranding and concern by the radiologist of extravesical extension. I discussed these findings in conjunction with the findings of cystoscopy with the patient in his and emphasize the worrisome nature of these findings. I also expressed to them that I would be contacting a urologic oncologist at [facility] to discuss the case further and determine a plan to move forward for them. With regard to his hospitalization he reports he is feeling better appears to have a positive blood culture. This is very interesting given that the patient was on and had been on culture specific antibiotics at the time of his flexible cystoscopy. It was about 48 hours after this that he began to feel ill. His creatinine does appear to be improving so I do not believe that we need to move forward with drainage of his right collecting system at this point though in the future that may need to happen and that will likely need to be done by percutaneous nephrostomy tube. Their questions were answered they were grateful to have the interaction today we will get him scheduled as noted below. Meds Home Medications and Allergies Home Medications Medication Instructions Recorded Confirmed Type atorvastatin 10 mg tablet See Rx Instructions .Route 04/16/23 11/04/23 Rx .COMPLEX #90 tabs bupropion HCl 150 mg tablet,12 hr See Rx Instructions .Route 04/16/23 11/04/23 Rx sustained-release .COMPLEX #180 tabs clopidogrel 75 mg tablet 75 mg PO DAILY #90 tabs 04/23/23 11/04/23 Rx lisinopril 20 mg tablet See Rx Instructions .Route 04/23/23 11/04/23 Rx .COMPLEX #90 tabs tamsulosin 0.4 mg capsule 0.4 mg PO DAILY #30 caps 10/08/23 11/04/23 Rx linezolid 600 mg tablet 600 mg PO BID #14 tabs 11/06/23 Rx Allergies Allergy/AdvReac Type Severity Reaction Status Date / Time No Known Drug Allergies Allergy Verified 11/04/23 12:13 Exam Vital Signs (past 8 hours): Oxygen Delivery Method Room Air Oxygen Flow Rate 0 Narrative Exam Narrative: General: This is an awake, alert, oriented male resting in his hospital bed and appearing comfortable. Genitourinary exam Redman catheter in place draining yellow perhaps slightly cloudy urine no other abnormality. Objective Labs 11/07/23 05:24 11/07/23 05:24 [facility] Medical History (Updated 11/09/23 @ 10:36 by Yonathan Leija MD) Hydronephrosis, right Elevated serum creatinine Prostate mass Bladder mass Microscopic hematuria Nocturnal enuresis Shortness of breath Right leg weakness RUQ abdominal pain Finger pain, right Right shoulder pain Anesthesia complication Easy bruisability COPD (chronic obstructive pulmonary disease) Supraventricular tachycardia Sleep apnea Depression Anxiety Hearing loss Hematuria BPH (benign prostatic hyperplasia) Hypercalcemia Chronic lymphocytic leukemia (10/12/16) Essential hypertension (11/10/15) Hyperlipidemia (12/07/10) Anxiety disorder Surgical History Hx of bilateral cataract extraction (~2019) Hx of hernia repair Anesthesia Status post transurethral resection of prostate (09/2014) Family History Brother No problems noted. Sister No problems noted. Father No problems noted. Mother Pancreatic cancer Social History household members: spouse Tobacco & Substance Use Smoking Status: Never smoker alcohol intake: current substance use type: does not use Assessment & Plan Assessment and plan (1) Bladder mass: Status: Acute (2) Prostate mass: Status: Acute (3) Elevated serum creatinine: Status: Acute (4) Status post transurethral resection of prostate: Problem details: x3; last one 09/2014 Status: Acute (5) Sepsis: Qualifiers: Sepsis type: sepsis due to unspecified organism Sepsis acute organ dysfunction status: with acute organ dysfunction Severe sepsis acute organ dysfunction type: acute renal failure Acute renal failure type: unspecified Severe sepsis shock status: without septic shock Qualified Code(s): A41.9 - Sepsis, unspecified organism; R65.20 - Severe sepsis without septic shock; N17.9 - Acute kidney failure, unspecified Status: Acute (6) Hydronephrosis, right: Status: Acute Plan Assessment and plan: 1. Sepsis likely urinary cause patient appears to be responding well and improving. Will leave this to his primary care team. We will see him on an outpatient basis in the very near future. 2. Bladder mass/prostate mass. Will discuss this case with Dr.Yaw Brannon urologic oncologist at [facility] in the [facility]. We will forward the discussion and impressions to the patient's primary care provider as well as the patient will get him scheduled. I am suspicious that this will involve needing a tissue diagnosis such as biopsy of the prostate mass and biopsy of the bladder wall. We do have urine cytologies which show atypical cells very suspicious for urothelial malignancy. I do believe that the patient will need care at a higher level once this is in hand and will likely send him to the [facility] as he may need a percutaneous nephrostomy tube and or interventions that we will only be available there. Their questions were answered and they will look forward to him getting better and we will arrive at a plan in the very near future. Time Spent With Patient Time with patient: 30 to 49 minutes with 50% spent counseling/coordinating care
== END 2023-11-07 15:15 | disposition home health service (06) | DRG 872 ==
LOC: ED 15:46 → AC 16:29
PROVIDERS: Admitting Provider Family Medicine; Emergency Provider Emergency Medicine; Family Provider Family Medicine; PCP Family Medicine; Referring Provider Emergency Medicine; Visit Provider Family Medicine
DX: A41.9 Sepsis, unspecified organism (principal); N17.9 Acute kidney failure, unspecified; N13.30 Unspecified hydronephrosis; N10 Acute pyelonephritis; N13.8 Other obstructive and reflux uropathy; C91.10 Chronic lymphocytic leukemia of B-cell type not having achieved remission; R10.30 Lower abdominal pain, unspecified; R68.83 Chills (without fever); R35.0 Frequency of micturition; R31.29 Other microscopic hematuria; N32.89 Other specified disorders of bladder; N42.89 Other specified disorders of prostate; R59.0 Localized enlarged lymph nodes; I12.9 Hypertensive chronic kidney disease with stage 1 through stage 4 chronic kidney disease, or unspecified chronic kidney disease; N18.9 Chronic kidney disease, unspecified; N40.1 Benign prostatic hyperplasia with lower urinary tract symptoms; E78.5 Hyperlipidemia, unspecified; F32.A Depression, unspecified; R65.20 Severe sepsis without septic shock; B95.2 Enterococcus as the cause of diseases classified elsewhere
CPT/HCPCS: 36415; 36592; 74176; 74178; 80053; 81015; 83605; 83690; 84145; 84484; 85007; 85025; 87040; 87077; 87086; 87154; 87186; 93005; 96365; 96375; 99281; 99282; 99284; J0696; J1650; J1956; J2020; J2405; Q9967

== ENCOUNTER → 2023-11-09 11:21 | Outpatient (CLI) | payer OTHER, SELFPAY ==
[2023-11-04 16:31] VITALS: BMI 24.3
[2023-11-09 12:49] LABS: BUN Creatinine Ratio 15.1 (6-22); Blood Urea Nitrogen 31 mg/dL (9-20); Calcium 10.1 mg/dL (8.4-10.2); Carbon Dioxide 24 mmol/L (22-32); Chloride 107 mmol/L (98-107); Estimated Glomerular Filt Rate 31 mL/min (>60); Glucose 80 mg/dL (80-110); HEMOLYSIS < 15 (0-50); Potassium 4.8 mmol/L (3.4-5.1); Sodium 136 mmol/L (137-145)
== END ==
PROVIDERS: Family Provider Family Medicine; PCP Family Medicine; Referring Provider Urology; Visit Provider Urology
DX: R79.89 Other specified abnormal findings of blood chemistry (principal)
CPT/HCPCS: 36415; 80048

== ENCOUNTER 2023-11-13 08:59 | Emergency (ER) | payer OTHER, SELFPAY ==
[2023-11-04 16:31] VITALS: BMI 24.3
[2023-11-13] VITALS (11 sets, daily range): BP systolic 128–153; BP diastolic 69–75; PULSE 53–62; RESP 12–21; TEMP 36.6; O2SAT 96–99; BMI 27.2
[2023-11-13 09:35] LABS: Add Manual Diff / Slide Review YES; Hematocrit 35.7 % (41-53); Hemoglobin 12.1 g/dL (13.5-17.5); Mean Corpuscular HGB Conc 33.9 % (30-36); Mean Corpuscular Hemoglobin 32.1 PG (26-34); Mean Corpuscular Volume 94.9 fL (80-100); Platelet Count 228 X10^3/uL (150-400); Red Blood Cell Count 3.76 X10^6/uL (4.5-5.9); White Blood Cell Count 25.1 X10^3/uL (4.5-11.0)
[2023-11-13] MEDS: ONDANSETRON 4 MG/2 ML INJ IV ×2 (09:40→13:56)
--- NOTE | 2023-11-13 09:45 | ED_ITS ---
HPI - Nausea/Vomiting/Diarrhea General Chief complaint: Nausea/Vomiting/Diarrhea Stated complaint: Vomiting Time Seen by Provider: 11/13/23 09:45 Source: patient and family Mode of arrival: Ambulatory Limitations: no limitations History of Present Illness HPI Narrative: 83-year-old history of prior strokes, hypertension, dyslipidemia, BPH on Plavix daily. Patient had recent hospitalization was discharged home on 11/07/2023 on cephalexin for UTI. For patient and family was doing well until Sunday evening. Patient then had a little bit of lower abdominal pain. He has not having any currently. No reported fevers but he has had nausea and vomiting for the past 36 hours. Was not able to keep anything down yesterday. Cap some oatmeal down but could not keep coffee down today. He denies any active abdominal back or flank pain currently. He has a Redman catheter in place he has been having a little bit of pinkish bloody urine drainage. They have not know appreciated any large clots or blockages. They state it has been draining regularly. He states he has not had a bowel movement about 2 days. He is passing flatus. Patient states he does have a prior history of strokes is on Plavix, takes an antidepressant, lisinopril, Lipitor in his currently on cephalexin and has 2 days left of his prescription. He states he has had a TURP x3 most recent was about 10 years ago. He has had prior cholecystectomy and hernia repair. No known drug allergies. No tobacco, occasional alcoholic drink. Last drink was on Sunday. No recreational drugs. Dr. Leija is his urologist. Dr. Jacobson is his primary care physician. Patient is accompanied by his . Related Data Previous Rx's Medication Instructions Recorded atorvastatin 10 mg tablet See Rx Instructions .Route 04/16/23 .COMPLEX #90 tabs bupropion HCl 150 mg tablet,12 hr See Rx Instructions .Route 04/16/23 sustained-release .COMPLEX #180 tabs clopidogrel 75 mg tablet 75 mg PO DAILY #90 tabs 04/23/23 lisinopril 20 mg tablet See Rx Instructions .Route 04/23/23 .COMPLEX #90 tabs tamsulosin 0.4 mg capsule 0.4 mg PO DAILY #30 caps 10/08/23 linezolid 600 mg tablet 600 mg PO BID #14 tabs 11/06/23 Allergies Allergy/AdvReac Type Severity Reaction Status Date / Time No Known Drug Allergies Allergy Verified 11/13/23 09:10 Review of Systems Review of Systems ROS Unobtainable: All systems reviewed & are unremarkable except as noted in HPI and below Patient History Medical History Hydronephrosis, right Elevated serum creatinine Prostate mass Bladder mass Microscopic hematuria Nocturnal enuresis Shortness of breath Right leg weakness RUQ abdominal pain Finger pain, right Right shoulder pain Anesthesia complication Easy bruisability COPD (chronic obstructive pulmonary disease) Supraventricular tachycardia Sleep apnea Depression Anxiety Hearing loss Hematuria BPH (benign prostatic hyperplasia) Hypercalcemia Chronic lymphocytic leukemia (10/12/16) Essential hypertension (11/10/15) Hyperlipidemia (12/07/10) Anxiety disorder Surgical History Hx of bilateral cataract extraction (~2019) Hx of hernia repair Anesthesia Status post transurethral resection of prostate (09/2014) Family History Brother No problems noted. Sister No problems noted. Father No problems noted. Mother Pancreatic cancer Social History household members: spouse Smoking Status: Never smoker alcohol intake: current substance use type: does not use Smoking Status: Never smoker alcohol intake frequency: 0-2 drinks per day Substance Use Type: does not use Exam Narrative Exam Narrative: GENERAL: Alert and oriented x three, well-appearing male in mild distress. HEENT: Head normocephalic, atraumatic, EOMI, pupils reactive, face symmetric, moist mucous membranes NECK: Supple, full range of motion CARDIOVASCULAR: Regular rate and rhythm without murmurs, rubs or gallops. RESPIRATORY: Breath sounds equal bilaterally, no wheezes rales or rhonchi. ABDOMEN: Soft, nontender. Normoactive bowel sounds all 4 quadrants. No guarding or rebound, rigidity, no mass : No CVA tenderness. Patient has Redman catheter in place draining pink tinged urine. EXTREMITIES: Normal range of motion, no clubbing or edema. Neurovascularly intact NEUROLOGICAL: Cranial nerves II through XII grossly intact. Moving all extremities SKIN: Warm, dry, no petechiae, no rashes or lesions. Initial Vital Signs Initial Vital Signs: Vital Signs Temperature 97.8 F 11/13/23 09:11 Pulse Rate 62 11/13/23 09:11 Respiratory Rate 16 11/13/23 09:11 Blood Pressure 128/74 11/13/23 09:11 Pulse Oximetry 97 11/13/23 09:11 Oxygen Delivery Method Room Air 11/13/23 09:11 Course Orders Ordered: ED Orders 11/13/23 09:13 EKG-12 Lead Stat 11/13/23 09:25 Complete Blood Count AUTO DIFF Stat Comprehensive Metabolic Panel Stat Lactate (Lactic Acid) Stat Lipase Stat Procalcitonin Stat 11/13/23 09:56 CT kidney ureter bladder (KUB) Stat 11/13/23 10:25 Blood Culture Stat 11/13/23 10:45 UA Complete [Urinalysis and Microscopic] Stat Urine Culture Stat Sodium Chloride (Normal Saline 0.9%) 1,000 mls @ 100 mls/hr IV CONT SKYLAR Last Admin: 11/13/23 11:54 Dose: 100 mls/hr Documented By: ROSALINDA Ondansetron HCl (Ondansetron 4 Mg/2 Ml Inj) 4 mg IV NOW PRN PRN Reason: Nausea And Vomiting Last Admin: 11/13/23 09:40 Dose: 4 mg Documented By: ROSALINDA Ondansetron HCl (Ondansetron 4 Mg Odt) 4 mg PO NOW PRN PRN Reason: Nausea And Vomiting Discontinued Medications Sodium Chloride (Normal Saline 0.9%) 1,000 mls @ 1,000 mls/hr IV BOLUS ONE Stop: 11/13/23 10:55 Last Infusion: 11/13/23 11:51 Dose: Infused Documented By: Admin: 11/13/23 10:15 Dose: 1,000 mls/hr Documented By: ROSALINDA Levofloxacin (Levaquin) 750 mg in 150 mls @ 100 mls/hr IV NOW ONE Stop: 11/13/23 11:27 Last Infusion: 11/13/23 12:35 Dose: Infused Documented By: Infusion: 11/13/23 10:47 Dose: 100 mls/hr Documented By: Infusion: 11/13/23 10:27 Dose: 0 mls/hr Documented By: Admin: 11/13/23 10:27 Dose: 100 mls/hr Documented By: ROSALINDA Linezolid (Zyvox) 600 mg in 300 mls @ 600 mls/hr IV NOW ONE Stop: 11/13/23 13:27 Last Infusion: 11/13/23 14:20 Dose: Infused Documented By: Admin: 11/13/23 13:27 Dose: 600 mls/hr Documented By: GEOVANI Ondansetron HCl (Ondansetron 4 Mg/2 Ml Inj) 4 mg IV NOW ONE Stop: 11/13/23 12:56 Last Admin: 11/13/23 13:56 Dose: 4 mg Documented By: GEOVANI Vital Signs Vital signs: Vital Signs - 8 hr 11/13/23 09:11 11/13/23 10:30 11/13/23 10:53 Temperature 97.8 F Pulse Rate 62 55 L 56 L Respiratory Rate 16 14 14 Blood Pressure 128/74 137/75 Pulse Oximetry 97 99 96 Oxygen Delivery Method Room Air Room Air Room Air 11/13/23 11:00 11/13/23 12:00 11/13/23 12:33 Temperature Pulse Rate 57 L 56 L 54 L Respiratory Rate 16 19 14 Blood Pressure 145/72 H 132/69 Pulse Oximetry 98 97 97 Oxygen Delivery Method Room Air Room Air Room Air 11/13/23 13:00 11/13/23 13:30 11/13/23 14:00 Temperature 97.8 F Pulse Rate 54 L 53 L 58 L Respiratory Rate 12 21 18 Blood Pressure 153/74 H 139/71 141/71 H Pulse Oximetry 98 97 97 Oxygen Delivery Method Room Air Room Air Room Air 11/13/23 14:30 11/13/23 15:00 Temperature Pulse Rate 58 L 57 L Respiratory Rate 18 17 Blood Pressure 150/75 H 153/72 H Pulse Oximetry 98 99 Oxygen Delivery Method Room Air Room Air MDM - Nausea/Vomiting/Diarrhea Lab Data 11/13/23 09:25 11/13/23 09:25 Labs: Lab Results 11/13/23 11/13/23 Range/Units 09:25 10:45 WBC 25.1 H (4.5-11.0) X10^3/uL RBC 3.76 L (4.5-5.9) X10^6/uL Hgb 12.1 L (13.5-17.5) g/dL Hct 35.7 L (41-53) % MCV 94.9 (80-100) fL MCH 32.1 (26-34) PG MCHC 33.9 (30-36) % RDW 13.0 (11.6-14.8) % Plt Count 228 (150-400) X10^3/uL Neut % (Auto) Not Reportable Lymph % (Auto) Not Reportable [place] % (Auto) Not Reportable Eos % (Auto) Not Reportable Baso % (Auto) Not Reportable Lymph # (Auto) Not Reportable [place] # (Auto) Not Reportable Baso # (Auto) Not Reportable Total Counted 100 Seg Neutrophils % 53.0 (38-70) % Lymphocytes % (Manual) 5.0 L (25-45) % Atypical Lymphs % 41.0 H ( - 0) % Eosinophils % (Manual) 1.0 L (2-4) % Neutrophils # (Manual) 94976 H (4432-7640) /uL RBC Morphology Normal morphology Sodium 127 L (137-145) mmol/L Potassium 5.2 H (3.4-5.1) mmol/L Chloride 99 (98-107) mmol/L Carbon Dioxide 19 L (22-32) mmol/L BUN 49 H (9-20) mg/dL Creatinine 5.05 H (0.66-1.25) mg/dL Estimated GFR 11 L (>60) mL/min BUN/Creatinine Ratio 9.7 (6-22) Glucose 85 (80-110) mg/dL Lactate 1.2 (0.7-2.1) mmol/L Calcium 9.6 (8.4-10.2) mg/dL Total Bilirubin 1.4 H (0.2-1.3) mg/dL AST 25 (17-59) IU/L ALT 41 (<50) IU/L Alkaline Phosphatase 146 H (38-126) U/L Total Protein 5.8 L (6.3-8.2) g/dL Albumin 3.4 L (3.5-5.0) g/dL Globulin 2.4 (1.7-4.1) g/dL Albumin/Globulin Ratio 1.4 (1.0-2.8) Lipase 99 (23-300) U/L Procalcitonin 0.140 (<0.5) ng/mL Urine Color Red Urine Appearance Slightly cloudy Urine pH TNP Ur Specific [place] TNP Urine Protein TNP Urine Glucose (UA) TNP Urine Ketones TNP Urine Occult Blood TNP Urine Nitrate TNP Urine Bilirubin TNP Urine Urobilinogen TNP Ur Leukocyte Esterase TNP Urine RBC 30-100/hpf H (0-5/HPF) Urine WBC 5-10/hpf H (0-5/HPF) Ur Squamous Epith Cells None seen (0-5/HPF) Urine Bacteria Few (2-10) H (None) Ur Culture Indicated? Specimen cultured Vol Urine Centrifuged Low vol <10ml (spun) A Imaging Data CT scan - abdomen/pelvis: Radiologist's Impression: Close Abdomen/Pelvis CT (Signed) Arthur Anderson - 11/13/23 Telemetry Strips 11/04/23 Abdomen/Pelvis CT (Signed) Yonathan Alex - 11/04/23 Abdomen/Pelvis CT (Signed) Sohail Nielson - 11/02/23 Chest X-Ray (Signed) Douglas Rivera - 01/17/23 Cholangiogram,Operative (Signed) Bonnie Arndt - 11/14/22 Lumbar Spine X-Ray (Signed) Rose Corey - 10/09/22 Abdomen MRI (Signed) Sohail Nielson - 10/09/22 Abdomen Ultrasound (Signed) José Miguel Romero - 09/26/22 DI Result 09/21/22 Shoulder X-Ray (Signed) Bonnie Arndt - 10/14/21 Myocardial Perfusion Scan Nuc Med (Signed) Tierra Perez - 03/02/21 Echocardiogram Ultrasound (Signed) Alfredo Merino - 01/11/21 Brain MRI (Signed) Leonid Cifuentes - 01/10/21 Telemetry Strips 01/10/21 Head/Neck CTA (Signed) Leonid Cifuentes - 01/10/[address] (Signed) Douglas Rivera - 01/10/21 Hip X-Ray (Signed) Warren Gray - 04/18/[address] (Signed) Bob Robledo - 12/20/18 Chest X-Ray (Signed) Bob Robledo - 12/20/18 Telemetry Strips 12/20/[address] (Signed) Julio Cesar Mohr - 11/06/18 Thyroid Ultrasound (Signed) Lorelei Knight - 10/11/18 Telemetry Strips 03/21/18 Launch?Image [address] [address] [address] Scan Report Signed Patient: Artis Veloz MR#: [id number] : 1940 Acct:[id number] Age/Sex: 83 / M Date of Service: 11/13/23 Loc: ED Accession Number: [id number] Procedure: CT kidney ureter bladder (KUB) Ordering Provider: Martita Salazar D.O. PROCEDURE: CT KIDNEY URETER BLADDER (KUB) INDICATIONS: vomiting, no BM x 2 days, new VALENCIA, recent UTI TECHNIQUE: Axial sections were acquired from the lung bases to the pubic symphysis. Coronal and sagittal reformats were performed. For radiation dose reduction, the following was used: automated exposure control, adjustment of mA and/or kV according to patient size. COMPARISON: [facility], CT, CT IVP A/P W/WO, 11/02/2023, 10:15. [facility], CT, CT ABDOMEN PELVIS WO CON, 11/04/2023, 15:26. FINDINGS: Image quality: Diagnostic. Lower Chest: Small bilateral pleural effusions with adjacent atelectasis. URINARY: Kidneys and ureters: Moderate bilateral hydronephrosis, does not appear significantly changed on the right and appears mildly increased on the left when compared to the CT from 11/04/2023. Bilateral perinephric fat stranding again seen, which appears to have progressed in the left when compared to the prior exam. Unchanged simple cyst at the inferior pole of the right kidney. Bladder: Bladder is decompressed by a Redman catheter. There appears to be diffuse bladder wall thickening and mild pericystic inflammatory changes. ABDOMEN: Liver: No contour-deforming solid mass. Gallbladder: Status post cholecystectomy. Biliary ducts: No biliary dilation. Pancreas: No ductal dilation. Spleen: Size is within normal limits. Adrenal Glands: No adrenal nodules. Stomach and Bowel: Moderate right colonic stool. Small bowel loops and stomach are unremarkable. Peritoneum: Small amount of fluid is seen in the perisplenic region and along the bilateral pericolic gutters, new when compared to the prior CT. There is mild presacral edema. No pneumoperitoneum. Ventral Wall: No hernia. Abdominal Nodes: No enlarged retroperitoneal or mesenteric lymph nodes. Vessels: Aorta and inferior vena cava are normal in size. PELVIS: Pelvic Organs: Unremarkable. Pelvic Nodes: Bilateral pelvic lymphadenopathy does not appear significantly changed. Miscellaneous: No inguinal hernias are seen. Bones: Multilevel degenerative changes are seen in the spine with dextroconvex curvature. IMPRESSION: 1. Moderate bilateral hydronephrosis, mildly increased on the left and not significantly changed on the right when compared to the CT from 11/04/2023. There is increased left perinephric fat stranding. Findings may be related to mildly worsening obstruction or pyelonephritis. 2. Bladder is decompressed by Redman catheter and not well evaluated, although there appears to be bladder wall thickening as previously seen. 3. Bilateral pelvic lymphadenopathy does not appear significantly changed. 4. New small volume of abdominal ascites and small bilateral pleural effusions may be related to volume overload. Approved by: Arthur Anderson M.D. on 11/13/2023 at 10:36 ECG Data Attestation: I personally reviewed and interpreted this ECG as follows: Interpretation: Sinus bradycardia rate of 54 GA 170 QRS 84 QTC of 411, no acute ST changes appreciated. MDM Narrative Medical decision making narrative: 83-year-old male with recent hospitalization for reported UTI. Patient's urine culture was positive for Enterococcus faecalis, had 1 of 2 blood cultures positive for Enterococcus faecalis. Patient is discharged home on cephalexin. Culture shows sensitivity to ampicillin. Patient has nontender on examination. He has had Zofran and nausea and vomiting have stopped. He does note he took some Aleve earlier today for pain. Patient presents vitals are overall appropriate but patient's white count is 25, was as high as 32 on 11/04/2023 but had trended down to 21 on the and appears to be trending upwards again. White count is 12 platelets are 228. Patient has 41% atypical lymphs but 13,000 manual differential for neutrophils. Patient's had normal renal function in October but had creatinine of 1.7-2 throughout his hospital stay. But creatinine is increased to 5.05 today with a BUN of 49 maybe a component of dehydration but we will evaluate with imaging for obstruction. Patient's catheter appears to be draining. Sodium is 127 potassium is 5.2 chloride 99 with a CO2 of 19. Patient's bilirubin is 1.4 AST is 25 with an ALT of 41 alk-phos of 146. Lipase is normal at 99. Lactate 1.2 Procalcitonin is 0.140 Blood cultures were repeated UA today, 30-100 RBCs 5-10 white cells, no squamous, few bacteria was sent for culture. CT KUB was obtained, shows small bilateral pleural effusions with adjacent atelectasis. Moderate bilateral hydro mildly increased on left not significantly change on right when compared to CT from 11/04/2023 increased left perinephric fat stranding maybe related to worsening obstruction versus pyelonephritis. Bladder is decompressed by Redman but appears to have bladder wall thickening seen on prior imaging and bilateral pelvic lymphadenopathy not significantly changed. New small volume abdominal ascites with small bilateral pleural effusions. Patient has a white count of 25 but normal heart rate blood pressure normal respirations no other serious criteria so was not given a 30 cc/kilos bolus. Was covered with Levaquin which appears to be sensitive on his culture. Spoke with Dr. Kam from Urology. Pushing images, reviewed his labs and findings thus far his recent urine cultures his CT report from 11/04/2023. Patient has just come back from CT so do not have his images available yet. Spoke with Dr. Leija, he states patient's she would gone home on linezolid. Did go back and review patient medications he has the individual wrapped medication in his pillbox and has been taking linezolid he is 3 doses left. Patient was also supposed to follow up with Urology oncology at [facility] there was discussion about might be having a percutaneous drain placed. He notes if patient appears to be coming more obstructed and worsening this may be appropriate to try to get him down to you does faster. He notes patient has some form of cancer but needs to get tissue samples to get a more definitive diagnosis. On recheck patient has had 12 by mouth while in the last hour. He has received a L bolus he is at 100 mL/hour. Spoke with Dr. Marmolejo, on-call urology at [facility]. She does recommend bilateral nephrostomy tubes would be ideal to get it done more urgently. They do not have any active beds available currently but we will place him on the wait list. They asked that we keep patient NPO. You do have has a pretty significant weight less in his voiding significant number patient's so we will search at other facilities for placement. Discussed with patient about finding additional options he is open to transferred other larger facilities called back, accepted with bed assignment. They ask that patient not arrive before 1700. Dr. Childers is accepting with transport arranged for patient to arrive before [address] Khalif Ward at [facility] also accepts for patient insurance. Discharge Plan Departure Patient Disposition: [facility] Clinical Impression: Bacterial UTI, VALENCIA (acute kidney injury), Hyponatremia, Acute bilateral obstructive uropathy Prescriptions: No Action atorvastatin 10 mg tablet See Rx Instructions .ROUTE .COMPLEX Qty: 90 3RF Dose Instruction: Take 1 tablet (10 mg) by mouth at bedtime Rx Instructions: Take 1 tablet (10 mg) by mouth at bedtime bupropion HCl 150 mg tablet sustained-release 12 hr See Rx Instructions .ROUTE .COMPLEX Qty: 180 3RF Dose Instruction: Take 1 tablet (150 mg) by mouth 2 times daily Rx Instructions: Take 1 tablet (150 mg) by mouth 2 times daily clopidogrel 75 mg tablet 75 mg PO DAILY Qty: 90 3RF lisinopril 20 mg tablet See Rx Instructions .ROUTE .COMPLEX Qty: 90 3RF Dose Instruction: Take 1 tablet (20 mg) by mouth daily Rx Instructions: Take 1 tablet (20 mg) by mouth daily tamsulosin 0.4 mg capsule 0.4 mg PO DAILY Qty: 30 1RF linezolid 600 mg tablet 600 mg PO BID Qty: 14 0RF Referrals: Johnny Jacobson MD [Primary Care Provider] -
[2023-11-13 09:46] LABS: Neutrophils Absolute Manual 13303 /uL (3000-5900); RBC Morphology Normal Morphology; Total Cells Counted 100
[2023-11-13 09:48] LABS: Alanine Aminotransferase 41 IU/L (<50); Albumin 3.4 g/dL (3.5-5.0); Albumin Globulin Ratio 1.4 (1.0-2.8); Alkaline Phosphatase 146 U/L (38-126); Aspartate Aminotransferase 25 IU/L (17-59); BUN Creatinine Ratio 9.7 (6-22); Bilirubin Total 1.4 mg/dL (0.2-1.3); Blood Urea Nitrogen 49 mg/dL (9-20); Calcium 9.6 mg/dL (8.4-10.2); Carbon Dioxide 19 mmol/L (22-32); Chloride 99 mmol/L (98-107); Estimated Glomerular Filt Rate 11 mL/min (>60); Globulin 2.4 g/dL (1.7-4.1); Glucose 85 mg/dL (80-110); HEMOLYSIS < 15 (0-50); Lipase 99 U/L (23-300); Potassium 5.2 mmol/L (3.4-5.1); Sodium 127 mmol/L (137-145); Total Protein 5.8 g/dL (6.3-8.2)
--- NOTE | 2023-11-13 09:56 | DI.CT.S_ITS ---
PROCEDURE: CT KIDNEY URETER BLADDER (KUB) INDICATIONS: vomiting, no BM x 2 days, new VALENCIA, recent UTI TECHNIQUE: Axial sections were acquired from the lung bases to the pubic symphysis. Coronal and sagittal reformats were performed. For radiation dose reduction, the following was used: automated exposure control, adjustment of mA and/or kV according to patient size. COMPARISON: [facility], CT, CT IVP A/P W/WO, 11/02/2023, 10:15. [facility], CT, CT ABDOMEN PELVIS WO CON, 11/04/2023, 15:26. FINDINGS: Image quality: Diagnostic. Lower Chest: Small bilateral pleural effusions with adjacent atelectasis. URINARY: Kidneys and ureters: Moderate bilateral hydronephrosis, does not appear significantly changed on the right and appears mildly increased on the left when compared to the CT from 11/04/2023. Bilateral perinephric fat stranding again seen, which appears to have progressed in the left when compared to the prior exam. Unchanged simple cyst at the inferior pole of the right kidney. Bladder: Bladder is decompressed by a Redman catheter. There appears to be diffuse bladder wall thickening and mild pericystic inflammatory changes. ABDOMEN: Liver: No contour-deforming solid mass. Gallbladder: Status post cholecystectomy. Biliary ducts: No biliary dilation. Pancreas: No ductal dilation. Spleen: Size is within normal limits. Adrenal Glands: No adrenal nodules. Stomach and Bowel: Moderate right colonic stool. Small bowel loops and stomach are unremarkable. Peritoneum: Small amount of fluid is seen in the perisplenic region and along the bilateral pericolic gutters, new when compared to the prior CT. There is mild presacral edema. No pneumoperitoneum. Ventral Wall: No hernia. Abdominal Nodes: No enlarged retroperitoneal or mesenteric lymph nodes. Vessels: Aorta and inferior vena cava are normal in size. PELVIS: Pelvic Organs: Unremarkable. Pelvic Nodes: Bilateral pelvic lymphadenopathy does not appear significantly changed. Miscellaneous: No inguinal hernias are seen. Bones: Multilevel degenerative changes are seen in the spine with dextroconvex curvature. IMPRESSION: 1. Moderate bilateral hydronephrosis, mildly increased on the left and not significantly changed on the right when compared to the CT from 11/04/2023. There is increased left perinephric fat stranding. Findings may be related to mildly worsening obstruction or pyelonephritis. 2. Bladder is decompressed by Redman catheter and not well evaluated, although there appears to be bladder wall thickening as previously seen. 3. Bilateral pelvic lymphadenopathy does not appear significantly changed. 4. New small volume of abdominal ascites and small bilateral pleural effusions may be related to volume overload. Approved by: Arthur Anderson M.D. on 11/13/2023 at 10:36
[2023-11-13 10:11] LABS: Lactate (Lactic Acid) 1.2 mmol/L (0.7-2.1)
[2023-11-13] MEDS: SODIUM CHLORIDE 0.9% 1,000 ML 1000 ML IV (10:15)
[2023-11-13] MEDS: levoFLOXacin 750 MG/150 ML PIGGYBACK 100 MG IV (10:27)
[2023-11-13 11:18] LABS: Appearance Urine UA Slightly Cloudy; Bacteria Urine Few (2-10); RBC Urine 30-100/HPF (0-5/HPF); Squamous Epithelial Cell Urine None Seen (0-5/HPF); Urine Volume Low Vol <10mL (spun); WBC Urine 5-10/HPF (0-5/HPF)
[2023-11-13 11:19] LABS: Color Urine UA RED; Culture Indicated Urine Specimen Cultured
[2023-11-13] MEDS: SODIUM CHLORIDE 0.9% 1,000 ML 100 ML IV (11:54)
--- NOTE | 2023-11-13 12:38 | PC.NURSE ---
Replaced pt's catheter bag with urometer for strict I&O's. Stat lock replaced.
[2023-11-13] MEDS: LINEZOLID 600 MG/300 ML IV.SOLN IV (13:27)
== END 2023-11-13 15:25 | disposition short-term general hospital (02) ==
PROVIDERS: Emergency Provider Emergency Medicine; Family Provider Family Medicine; PCP Family Medicine
DX: N13.9 Obstructive and reflux uropathy, unspecified (principal); N39.0 Urinary tract infection, site not specified; E87.1 Hypo-osmolality and hyponatremia; N17.9 Acute kidney failure, unspecified; R10.30 Lower abdominal pain, unspecified; R00.1 Bradycardia, unspecified
CPT/HCPCS: 36415; 74176; 80053; 81001; 83605; 83690; 84145; 85007; 85025; 87040; 87086; 93005; 93010; 96365; 96366; 96367; 96375; 96376; 99284; J1956; J2020; J2405

== ENCOUNTER 2023-11-24 11:50 | Emergency (ER) | payer OTHER, SELFPAY ==
[2023-11-04 16:31] VITALS: BMI 24.3
[2023-11-24] VITALS (15 sets, daily range): BP systolic 114–147; BP diastolic 66–84; PULSE 57–71; RESP 18; TEMP 36.8; O2SAT 94–99; BMI 24.0
--- NOTE | 2023-11-24 12:38 | ED.MALEGU ---
HPI - Male Genitourinary General Chief complaint: Urogenital-Male Stated complaint: Hx Kidney issues Time Seen by Provider: 11/24/23 11:56 Source: patient and family Mode of arrival: Ambulatory History of Present Illness HPI Narrative: 83-year-old male presents for help with urology issues. Patient recently transferred to [facility] for nephrostomy tube placement. Patient states that during his hospitalization he also underwent cystoscopy which was ?indeterminate?. Patient states that he was told that he would need several tests including an MRI and a biopsy, however due to his insurance they could not do it at the [facility] as it would be too expensive. They discharged the patient yesterday with instructions to follow up with his urologist and to call his insurance company for further guidance. Patient states that he and his tried to call [facility] but did not get any answers. They did not know what else to do and since today is Sunday and no one else was open they came to the ER for evaluation. Patient has no specific complaints Per Consult note from Dr. Leija, patient's urologist - CT scan and cystoscopy show anterior prostate mass as well as a markedly abnormal right half of the bladder. Urine cytologies show atypical cells very suspicious for urothelial malignancy Related Data Previous Rx's Medication Instructions Recorded atorvastatin 10 mg tablet See Rx Instructions .Route 04/16/23 .COMPLEX #90 tabs bupropion HCl 150 mg tablet,12 hr See Rx Instructions .Route 04/16/23 sustained-release .COMPLEX #180 tabs clopidogrel 75 mg tablet 75 mg PO DAILY #90 tabs 04/23/23 lisinopril 20 mg tablet See Rx Instructions .Route 04/23/23 .COMPLEX #90 tabs tamsulosin 0.4 mg capsule 0.4 mg PO DAILY #30 caps 10/08/23 linezolid 600 mg tablet 600 mg PO BID #14 tabs 11/06/23 Allergies Allergy/AdvReac Type Severity Reaction Status Date / Time No Known Drug Allergies Allergy Verified 11/13/23 09:10 Patient History Medical History Hydronephrosis, right Elevated serum creatinine Prostate mass Bladder mass Microscopic hematuria Nocturnal enuresis Shortness of breath Anesthesia complication Easy bruisability COPD (chronic obstructive pulmonary disease) Right leg weakness RUQ abdominal pain Finger pain, right Right shoulder pain Supraventricular tachycardia Sleep apnea Depression Anxiety Hearing loss Hematuria BPH (benign prostatic hyperplasia) Hypercalcemia 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 Sister No problems noted. Father No problems noted. Mother Pancreatic cancer Social History household members: spouse Smoking Status: Never smoker alcohol intake: current substance use type: does not use Smoking Status: Never smoker alcohol intake frequency: 0-2 drinks per day Substance Use Type: does not use Exam Initial Vital Signs Initial Vital Signs: Vital Signs Pulse Rate 66 11/24/23 11:57 Pulse Oximetry 98 11/24/23 11:57 Const: Awake, alert, no acute distress, nontoxic appearing Cardiac: regular rate, regular rhythm RESP: unlabored, clear bilaterally, no wheezing GI: Soft, nontender, nondistended, no rebound, no guarding MSK: bilateral nephrostomy tubes in place with clear urine Skin: Warm, Dry, intact, no rashes Neuro: AO x3, CN II-XII grossly intact, moves all extremities Course Orders Ordered: ED Orders 11/24/23 12:49 BMP [Basic Metabolic Panel] Stat CBC Auto Diff [Complete Blood Count AUTO DIFF] Stat PSA [Prostate Specific Antigen] Stat Vital Signs Vital signs: Vital Signs - 8 hr 11/24/23 11:57 11/24/23 11:58 11/24/23 11:58 Temperature Pulse Rate 66 69 Respiratory Rate Blood Pressure 139/84 Pulse Oximetry 98 99 Oxygen Delivery Method 11/24/23 12:00 11/24/23 12:00 11/24/23 12:06 Temperature 98.2 F Pulse Rate 69 65 Respiratory Rate 18 Blood Pressure 140/84 140/84 Pulse Oximetry 99 98 Oxygen Delivery Method Room Air 11/24/23 12:30 11/24/23 12:31 11/24/23 12:31 Temperature Pulse Rate 68 67 Respiratory Rate Blood Pressure 123/72 Pulse Oximetry 97 97 Oxygen Delivery Method 11/24/23 13:00 11/24/23 13:00 11/24/23 13:30 Temperature Pulse Rate 65 58 L Respiratory Rate Blood Pressure 134/80 Pulse Oximetry 98 99 Oxygen Delivery Method 11/24/23 13:30 11/24/23 14:00 11/24/23 14:01 Temperature Pulse Rate 57 L Respiratory Rate Blood Pressure 114/66 147/77 H Pulse Oximetry 94 Oxygen Delivery Method 11/24/23 14:01 11/24/23 14:30 11/24/23 14:30 Temperature Pulse Rate 57 L 66 Respiratory Rate Blood Pressure 143/71 H Pulse Oximetry 95 96 Oxygen Delivery Method 11/24/23 15:00 11/24/23 15:30 11/24/23 15:30 Temperature Pulse Rate 71 69 Respiratory Rate Blood Pressure 136/78 Pulse Oximetry 98 98 Oxygen Delivery Method 11/24/23 16:00 11/24/23 16:01 11/24/23 16:01 Temperature Pulse Rate 63 65 Respiratory Rate Blood Pressure 132/67 Pulse Oximetry 97 96 Oxygen Delivery Method MDM - Male Genitourinary Lab Data 11/24/23 12:49 11/24/23 12:49 Labs: Lab Results 11/24/23 Range/Units 12:49 WBC 28.5 H (4.5-11.0) X10^3/uL RBC 3.73 L (4.5-5.9) X10^6/uL Hgb 11.7 L (13.5-17.5) g/dL Hct 35.6 L (41-53) % MCV 95.4 (80-100) fL MCH 31.2 (26-34) PG MCHC 32.7 (30-36) % RDW 13.8 (11.6-14.8) % Plt Count 248 (150-400) X10^3/uL Neut % (Auto) Not Reportable Lymph % (Auto) Not Reportable [place] % (Auto) Not Reportable Eos % (Auto) Not Reportable Baso % (Auto) Not Reportable Lymph # (Auto) Not Reportable [place] # (Auto) Not Reportable Baso # (Auto) Not Reportable Total Counted 100 Seg Neutrophils % 27.0 L (38-70) % Lymphocytes % (Manual) 65.0 H (25-45) % Atypical Lymphs % 6.0 H ( - 0) % Monocytes % (Manual) 1.0 L (2-11) % Eosinophils % (Manual) 1.0 L (2-4) % Neutrophils # (Manual) 7695 H (4985-3043) /uL Smudge Cells 2+ H RBC Morphology See below Anisocytosis 1+ H Sodium 137 (137-145) mmol/L Potassium 4.1 (3.4-5.1) mmol/L Chloride 108 H (98-107) mmol/L Carbon Dioxide 26 (22-32) mmol/L BUN 22 H (9-20) mg/dL Creatinine 1.47 H (0.66-1.25) mg/dL Estimated GFR 46 L (>60) mL/min BUN/Creatinine Ratio 15.0 (6-22) Glucose 82 (80-110) mg/dL Calcium 10.5 H (8.4-10.2) mg/dL Prostate Specific Ag 10.5 H (0.10-4.00) ng/mL MDM Narrative Medical decision making narrative: Patient coming in today for testing that he states could not be done at [facility] due to prohibitive cost. He has no acute complaints today. Patient states that he was told that he would need laboratory work, an MRI, and biopsy. He does have paperwork with laboratory orders on it, however no orders for MRI. We will attempt to get records from [facility]. We do have room in the MRI schedule if an MRI is indicated. Laboratory work is reviewed. WBC count 28.5, hemoglobin 11.7. Patient seems to have chronic leukocytosis, he has had elevated white blood cell count for over a month. He has no systemic symptoms to suggest sepsis or other acute infection. PSA elevated. Kidney function improved from when patient was here several weeks ago. Unfortunately despite reviewing records from [facility] there is no mention of an MRI and when the urology group from [facility] was attempted to be paged we were told they are not present on the weekend. In any rate there was no emergent indication for MRI at this time. Patient was counseled on his lab results, recommended close follow up with his existing urologist, Dr. Leija, and continued talk with his insurance company to get the necessary tests covered by insurance. Discharge Plan Departure Patient Disposition: Home Clinical Impression: Bladder mass Instructions: DI for Nephrostomy Activity Restrictions/Additional Instructions: Follow up with Dr. Leija and Jareth to see what kind of MRI you need. Your PSA today was 10.5, your kidney function has improved since you were last in our hospital. Creatinine today is 1.47, it was 5.05 on November 12. Prescriptions: No Action atorvastatin 10 mg tablet See Rx Instructions .ROUTE .COMPLEX Qty: 90 3RF Dose Instruction: Take 1 tablet (10 mg) by mouth at bedtime Rx Instructions: Take 1 tablet (10 mg) by mouth at bedtime bupropion HCl 150 mg tablet sustained-release 12 hr See Rx Instructions .ROUTE .COMPLEX Qty: 180 3RF Dose Instruction: Take 1 tablet (150 mg) by mouth 2 times daily Rx Instructions: Take 1 tablet (150 mg) by mouth 2 times daily clopidogrel 75 mg tablet 75 mg PO DAILY Qty: 90 3RF lisinopril 20 mg tablet See Rx Instructions .ROUTE .COMPLEX Qty: 90 3RF Dose Instruction: Take 1 tablet (20 mg) by mouth daily Rx Instructions: Take 1 tablet (20 mg) by mouth daily tamsulosin 0.4 mg capsule 0.4 mg PO DAILY Qty: 30 1RF linezolid 600 mg tablet 600 mg PO BID Qty: 14 0RF Referrals: Johnny Jacobson MD [Primary Care Provider] - Stand Alone Forms: Patient Portal/API
[2023-11-24 12:58] LABS: Hematocrit 35.6 % (41-53); Hemoglobin 11.7 g/dL (13.5-17.5); Mean Corpuscular HGB Conc 32.7 % (30-36); Mean Corpuscular Hemoglobin 31.2 PG (26-34); Mean Corpuscular Volume 95.4 fL (80-100); Platelet Count 248 X10^3/uL (150-400); Red Blood Cell Count 3.73 X10^6/uL (4.5-5.9); Red Cell Distribution Width 13.8 % (11.6-14.8); White Blood Cell Count 28.5 X10^3/uL (4.5-11.0)
[2023-11-24 13:07] LABS: Add Manual Diff / Slide Review YES
[2023-11-24 13:16] LABS: Blood Urea Nitrogen 22 mg/dL (9-20); Calcium 10.5 mg/dL (8.4-10.2); Carbon Dioxide 26 mmol/L (22-32); Chloride 108 mmol/L (98-107); Estimated Glomerular Filt Rate 46 mL/min (>60); Glucose 82 mg/dL (80-110); HEMOLYSIS < 15 (0-50); Potassium 4.1 mmol/L (3.4-5.1); Sodium 137 mmol/L (137-145)
[2023-11-24 13:47] LABS: Prostate Specific Antigen 10.5 ng/mL (0.10-4.00)
[2023-11-24 14:13] LABS: Neutrophils Absolute Manual 7695 /uL (3000-5900); Total Cells Counted 100
[2023-11-24 14:14] LABS: Anisocytosis 1+; Smudge Cells 2+
--- NOTE | 2023-11-24 14:57 | PC.NURSE ---
Called medical records after hours and faxed records request @[phone]. Called back @[phone] to check status of records request: still being processed.
== END 2023-11-24 16:20 | disposition home or self-care (01) ==
PROVIDERS: Emergency Provider Emergency Medicine; Family Provider Family Medicine; PCP Family Medicine
DX: N32.89 Other specified disorders of bladder (principal)
CPT/HCPCS: 36415; 80048; 84153; 85007; 85025; 99281; 99282

== ENCOUNTER 2023-11-29 14:32 | Emergency (ER) | payer OTHER, SELFPAY ==
[2023-11-04 16:31] VITALS: BMI 24.3
[2023-11-29] VITALS (8 sets, daily range): BP systolic 100–116; BP diastolic 53–63; PULSE 64–83; RESP 12–20; TEMP 37.3; O2SAT 95–98; BMI 22.9
--- NOTE | 2023-11-29 15:04 | ED_ITS ---
HPI - General Adult General Chief complaint: Fever Stated complaint: return, Fever Time Seen by Provider: 11/29/23 14:57 Source: patient and family Mode of arrival: Wheelchair History of Present Illness HPI narrative: Patient is an 83-year-old male. Has bilateral nephrostomy tubes. Is scheduled for a bladder MRI in a couple hours. He is here for evaluation of several days of fatigue and then reported fever at home. Patient reports that a home health nurse change the bandages on his nephrostomy tubes earlier today. He had a temperature 98.6? at home. No other reported fevers. He denies chest pain, shortness of breath, sore throat, abdominal pain. No change in bowel habits. No skin changes. Related Data Previous Rx's Medication Instructions Recorded atorvastatin 10 mg tablet See Rx Instructions .Route 04/16/23 .COMPLEX #90 tabs bupropion HCl 150 mg tablet,12 hr See Rx Instructions .Route 04/16/23 sustained-release .COMPLEX #180 tabs clopidogrel 75 mg tablet 75 mg PO DAILY #90 tabs 04/23/23 lisinopril 20 mg tablet See Rx Instructions .Route 04/23/23 .COMPLEX #90 tabs tamsulosin 0.4 mg capsule 0.4 mg PO DAILY #30 caps 10/08/23 linezolid 600 mg tablet 600 mg PO BID #14 tabs 11/06/23 Allergies Allergy/AdvReac Type Severity Reaction Status Date / Time No Known Drug Allergies Allergy Verified 11/29/23 14:43 Review of Systems Review of Systems ROS Unobtainable: All systems reviewed & are unremarkable except as noted in HPI and below Patient History Medical History Hydronephrosis, right Elevated serum creatinine Prostate mass Bladder mass Microscopic hematuria Nocturnal enuresis Shortness of breath Anesthesia complication Easy bruisability COPD (chronic obstructive pulmonary disease) Right leg weakness RUQ abdominal pain Finger pain, right Right shoulder pain Supraventricular tachycardia Sleep apnea Depression Anxiety Hearing loss Hematuria BPH (benign prostatic hyperplasia) Hypercalcemia 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 Sister No problems noted. Father No problems noted. Mother Pancreatic cancer Social History household members: spouse Smoking Status: Never smoker alcohol intake: current substance use type: does not use Smoking Status: Never smoker alcohol intake frequency: 0-2 drinks per day Substance Use Type: does not use Exam Initial Vital Signs Initial Vital Signs: Vital Signs Temperature 99.1 F 11/29/23 14:38 Pulse Rate 83 11/29/23 14:38 Respiratory Rate 12 11/29/23 14:38 Blood Pressure 106/53 L 11/29/23 14:38 Pulse Oximetry 96 11/29/23 14:38 Oxygen Delivery Method Room Air 11/29/23 14:38 Const General: cooperative, comfortable and No ill appearing HENMT Head: normal to inspection and normocephalic Resp Effort & Inspection: normal respiratory effort Auscultation: clear to auscultation bilaterally Cardio Rate: regular rate Rhythm: regular rhythm GI Inspection: normal to inspection and non-distended Back/Spine/Pelvis Other: Nephrostomy tubes in place with clean dry and intact bandages Skin General: no rashes or lesions noted Neuro General: patient alert and patient awake Extrem General: capillary refill normal Course Orders Ordered: ED Orders 11/29/23 14:55 Complete Blood Count AUTO DIFF Stat Comprehensive Metabolic Panel Stat Lipase Stat Vital Signs Vital signs: Vital Signs - 8 hr 11/29/23 14:38 11/29/23 15:00 11/29/23 15:01 Temperature 99.1 F Pulse Rate 83 70 Respiratory Rate 12 Blood Pressure 106/53 L 100/62 Pulse Oximetry 96 96 Oxygen Delivery Method Room Air 11/29/23 15:01 11/29/23 15:22 11/29/23 15:22 Temperature Pulse Rate 75 66 Respiratory Rate Blood Pressure 110/60 Pulse Oximetry 96 98 Oxygen Delivery Method 11/29/23 15:30 11/29/23 15:30 11/29/23 15:45 Temperature Pulse Rate 64 65 Respiratory Rate Blood Pressure 111/62 Pulse Oximetry 96 95 Oxygen Delivery Method 11/29/23 15:45 11/29/23 16:00 11/29/23 16:00 Temperature Pulse Rate 67 Respiratory Rate Blood Pressure 103/60 116/63 Pulse Oximetry 98 Oxygen Delivery Method 11/29/23 16:17 Temperature Pulse Rate 77 Respiratory Rate 20 Blood Pressure 116/63 Pulse Oximetry 98 Oxygen Delivery Method Medical Decision Making Lab Data Lab results reviewed: Yes I reviewed the patient's lab results. 11/29/23 14:55 11/29/23 14:55 Labs: Lab Results 11/29/23 Range/Units 14:55 WBC 29.1 H (4.5-11.0) X10^3/uL RBC 3.51 L (4.5-5.9) X10^6/uL Hgb 11.2 L (13.5-17.5) g/dL Hct 33.1 L (41-53) % MCV 94.5 (80-100) fL MCH 31.8 (26-34) PG MCHC 33.7 (30-36) % RDW 14.5 (11.6-14.8) % Plt Count 283 (150-400) X10^3/uL Neut % (Auto) Not Reportable Lymph % (Auto) Not Reportable [place] % (Auto) Not Reportable Eos % (Auto) Not Reportable Baso % (Auto) Not Reportable Lymph # (Auto) Not Reportable [place] # (Auto) Not Reportable Baso # (Auto) Not Reportable Total Counted 100 Seg Neutrophils % 37.0 L (38-70) % Lymphocytes % (Manual) 57.0 H (25-45) % Monocytes % (Manual) 5.0 (2-11) % Basophils % (Manual) 1.0 (0-1) % Neutrophils # (Manual) 53612 H (6685-9034) /uL Smudge Cells 2+ H RBC Morphology Normal morphology Sodium 132 L (137-145) mmol/L Potassium 4.3 (3.4-5.1) mmol/L Chloride 103 (98-107) mmol/L Carbon Dioxide 24 (22-32) mmol/L BUN 21 H (9-20) mg/dL Creatinine 1.54 H (0.66-1.25) mg/dL Estimated GFR 44 L (>60) mL/min BUN/Creatinine Ratio 13.6 (6-22) Glucose 109 (80-110) mg/dL Calcium 10.4 H (8.4-10.2) mg/dL Total Bilirubin 1.1 (0.2-1.3) mg/dL AST 21 (17-59) IU/L ALT 22 (<50) IU/L Alkaline Phosphatase 107 (38-126) U/L Total Protein 6.3 (6.3-8.2) g/dL Albumin 3.7 (3.5-5.0) g/dL Globulin 2.6 (1.7-4.1) g/dL Albumin/Globulin Ratio 1.4 (1.0-2.8) Lipase 137 (23-300) U/L MDM Narrative Medical decision making narrative: Patient is afebrile here in the ER. He does have a leukocytosis but this is baseline for him given his chronic leukemia. Kidney function is baseline as well. He did not have a fever at home. Was afebrile here. No specific source of infection felt. We will hold on further workup for now and make sure that he gets to the MRI that was scheduled for later today. Discharge Plan Departure Patient Disposition: Home Clinical Impression: Fatigue Activity Restrictions/Additional Instructions: Recommend that you continue to take all of your medications as directed. I do recommend that you follow-up for your MRI that is scheduled for later today. Contact your primary doctor for follow-up. Return to the emergency department for new or worsening symptoms. Prescriptions: No Action atorvastatin 10 mg tablet See Rx Instructions .ROUTE .COMPLEX Qty: 90 3RF Dose Instruction: Take 1 tablet (10 mg) by mouth at bedtime Rx Instructions: Take 1 tablet (10 mg) by mouth at bedtime bupropion HCl 150 mg tablet sustained-release 12 hr See Rx Instructions .ROUTE .COMPLEX Qty: 180 3RF Dose Instruction: Take 1 tablet (150 mg) by mouth 2 times daily Rx Instructions: Take 1 tablet (150 mg) by mouth 2 times daily clopidogrel 75 mg tablet 75 mg PO DAILY Qty: 90 3RF lisinopril 20 mg tablet See Rx Instructions .ROUTE .COMPLEX Qty: 90 3RF Dose Instruction: Take 1 tablet (20 mg) by mouth daily Rx Instructions: Take 1 tablet (20 mg) by mouth daily tamsulosin 0.4 mg capsule 0.4 mg PO DAILY Qty: 30 1RF linezolid 600 mg tablet 600 mg PO BID Qty: 14 0RF Referrals: Johnny Jacobson MD [Primary Care Provider] - Stand Alone Forms: Patient Portal/API
[2023-11-29 15:09] LABS: Hematocrit 33.1 % (41-53); Hemoglobin 11.2 g/dL (13.5-17.5); Mean Corpuscular HGB Conc 33.7 % (30-36); Mean Corpuscular Hemoglobin 31.8 PG (26-34); Mean Corpuscular Volume 94.5 fL (80-100); Platelet Count 283 X10^3/uL (150-400); Red Blood Cell Count 3.51 X10^6/uL (4.5-5.9); Red Cell Distribution Width 14.5 % (11.6-14.8); White Blood Cell Count 29.1 X10^3/uL (4.5-11.0)
[2023-11-29 15:10] LABS: Add Manual Diff / Slide Review YES
[2023-11-29 15:18] LABS: Alanine Aminotransferase 22 IU/L (<50); Albumin 3.7 g/dL (3.5-5.0); Albumin Globulin Ratio 1.4 (1.0-2.8); Alkaline Phosphatase 107 U/L (38-126); Aspartate Aminotransferase 21 IU/L (17-59); BUN Creatinine Ratio 13.6 (6-22); Bilirubin Total 1.1 mg/dL (0.2-1.3); Blood Urea Nitrogen 21 mg/dL (9-20); Calcium 10.4 mg/dL (8.4-10.2); Carbon Dioxide 24 mmol/L (22-32); Chloride 103 mmol/L (98-107); Estimated Glomerular Filt Rate 44 mL/min (>60); Globulin 2.6 g/dL (1.7-4.1); Glucose 109 mg/dL (80-110); HEMOLYSIS < 15 (0-50); Lipase 137 U/L (23-300); Potassium 4.3 mmol/L (3.4-5.1); Sodium 132 mmol/L (137-145); Total Protein 6.3 g/dL (6.3-8.2)
[2023-11-29 15:23] LABS: Neutrophils Absolute Manual 10767 /uL (3000-5900); RBC Morphology Normal Morphology; Smudge Cells 2+; Total Cells Counted 100
--- NOTE | 2023-11-29 15:24 | PC.NURSE ---
Pt has bilateral neph tubes. Dressing are clean dry and intact and surrounding areas are free of signs of infection. left tube is draining pink tinged urine and right side is draining dark straw colored urine. no odor noted. 300cc drained from each neph tube for a total of 600 cc. Pt states he feels weak and has a lack of energy. low grade temps at home per .
== END 2023-11-29 16:18 | disposition home or self-care (01) ==
PROVIDERS: Emergency Provider Emergency Medicine; Family Provider Family Medicine; PCP Family Medicine
DX: R53.83 Other fatigue (principal)
CPT/HCPCS: 36415; 80053; 83690; 85007; 85025; 99282; 99283

== ENCOUNTER → 2023-11-29 16:41 | Outpatient (CLI) | payer OTHER, SELFPAY ==
[2023-11-04 16:31] VITALS: BMI 24.3
--- NOTE | 2023-11-29 16:42 | DI.MRI.S_ITS ---
PROCEDURE: MR PELIS WO/W CON INDICATIONS: gross hematuria TECHNIQUE: Coronal HASTE, sagittal T2 FSE, axial T1 FSE, axial and coronal nonbreath-hold T2 FSE. Axial dynamic VIBE during administration of contrast. Post-contrast axial and coronal VIBE/2-D FLASH with fat saturation from the iliac crests to the symphysis. Optional diffusion weighted imaging and ADC may be performed. COMPARISON: None. FINDINGS: Image quality: Excellent. Bowel and peritoneum: No pathologic free pelvic fluid. Inferior colon and small bowel loops are normal in caliber. Genitourinary system: There is diffuse bladder wall thickening with wall stratification. Air within the urinary bladder. No measurable mass identified. Prior TURP. BPH nodules extend into the inferior bladder. There is a T2 hyperintense region with restricted diffusion in the medial peripheral zone of the prostate apex (series 5, image 28). Edema surrounding the bladder. Nodes and vessels: Enlarged bilateral pelvic chain lymph nodes and prominent perivesicular nodules. Examples include: -1.6 centimeter right external iliac chain node (series 20, image 70). -0.8 centimeter short axis right common iliac chain node (series 20, image 20). Soft tissues: No inguinal hernias. Bones: Marrow is normal in overall signal. IMPRESSION: Diffuse bladder wall thickening with wall stratification and gas within the urinary bladder. Findings suggest infection. No measurable bladder mass. Consider direct visualization to exclude diffuse malignancy. PI-RADS 5 lesion in the medial peripheral zone of the apex measuring 0.8 x 2.2 centimeter. Pelvic adenopathy, either reactive or malignant. Perivesicular edema, probably reactive. Dictated by: Sohail Nielson M.D. on 11/30/2023 at 8:33 Approved by: Sohail Nielson M.D. on 11/30/2023 at 8:42
== END ==
LOC: MRI 16:41
PROVIDERS: Family Provider Family Medicine; PCP Family Medicine; Referring Provider Urology; Visit Provider Urology
DX: C67.9 Malignant neoplasm of bladder, unspecified (principal); R31.0 Gross hematuria; N32.89 Other specified disorders of bladder; R59.0 Localized enlarged lymph nodes; N40.2 Nodular prostate without lower urinary tract symptoms
CPT/HCPCS: 72197; A9579

== ENCOUNTER 2023-11-30 19:25 | Inpatient (IN) | payer OTHER, SELFPAY ==
[2023-11-04 16:31] VITALS: BMI 24.3
[2023-11-30] VITALS (22 sets, daily range): BP systolic 82–143; BP diastolic 48–78; PULSE 63–92; RESP 24; TEMP 37.7–39.5; O2SAT 92–99; BMI 22.9
--- NOTE | 2023-11-30 19:44 | ED.FEVER ---
HPI - Fever General Chief Complaint: Fever Stated Complaint: fever, ill, here yesterday Time Seen by Provider: 11/30/23 19:44 Source: EMS Mode of arrival: EMS History of Present Illness HPI Narrative: 83-year-old male with history of bilateral nephrostomy tubes, followed by local urologist Dr. Leija, awaiting consultation with [facility] specialist early next week Dr. Henley, drains right and left nephrostomy tubes multiple times daily, seen here yesterday with subjective fever, was due to have scheduled bladder MRI which was performed, and sent home, no antibiotics. Feels feverish today, 100.5 fever measured at home, no Tylenol given, some chills, denies flank pain, denies abdominal pain. Denies chest pain, does admit to recent dry cough. Related Data Home Medications Medication Instructions Recorded Confirmed clopidogrel 75 mg tablet 75 mg PO QPM 12/01/23 12/01/23 Previous Rx's Medication Instructions Recorded atorvastatin 10 mg tablet See Rx Instructions .Route 04/16/23 .COMPLEX #90 tabs bupropion HCl 150 mg tablet,12 hr See Rx Instructions .Route 04/16/23 sustained-release .COMPLEX #180 tabs lisinopril 20 mg tablet See Rx Instructions .Route 04/23/23 .COMPLEX #90 tabs tamsulosin 0.4 mg capsule 0.4 mg PO DAILY #30 caps 10/08/23 linezolid 600 mg tablet 600 mg PO BID #14 tabs 11/06/23 Allergies Allergy/AdvReac Type Severity Reaction Status Date / Time No Known Drug Allergies Allergy Verified 11/30/23 19:35 Review of Systems Review of Systems Narrative: per HPI Patient History Medical History Hydronephrosis, right Elevated serum creatinine Prostate mass Bladder mass Microscopic hematuria Nocturnal enuresis Shortness of breath Anesthesia complication Easy bruisability COPD (chronic obstructive pulmonary disease) Right leg weakness RUQ abdominal pain Finger pain, right Right shoulder pain Supraventricular tachycardia Sleep apnea Depression Anxiety Hearing loss Hematuria BPH (benign prostatic hyperplasia) Hypercalcemia 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 Sister No problems noted. Father No problems noted. Mother Pancreatic cancer Social History household members: spouse Smoking Status: Never smoker alcohol intake: current substance use type: does not use Smoking Status: Never smoker alcohol intake frequency: 0-2 drinks per day Substance Use Type: does not use Exam Narrative Exam Narrative: GENERAL: Well-developed patient, in mild distress. HEAD: Atraumatic. Normocephalic. EYES: Pupils equal round and reactive. Extraocular motions intact. No scleral icterus. No injection or drainage. ENT: Nose without bleeding, purulent drainage. Throat without erythema, tonsillar hypertrophy or exudate. Airway patent. NECK: Trachea midline. Non tender CARDIOVASCULAR: Regular rate and rhythm without murmurs, gallops, or rubs. RESPIRATORY: Clear to auscultation. Breath sounds equal bilaterally. No wheezes, rales, or rhonchi. GASTROINTESTINAL: Abdomen soft, non-tender, nondistended. EXTREMITIES: No edema or joint tenderness. BACK: Nontender without deformity or crepitance. No flank tenderness. Right nephrostomy tube site appears clean, no drainage or erythema. Left nephrostomy tube site appears clean, no drainage or erythema. NEURO: AOx3. SKIN: No rash or erythema of visible areas Initial Vital Signs Initial Vital Signs: Vital Signs Temperature 101.6 F H 11/30/23 19:31 Pulse Rate 91 H 11/30/23 19:31 Respiratory Rate 24 11/30/23 19:31 Blood Pressure 143/78 H 11/30/23 19:31 Pulse Oximetry 96 11/30/23 19:31 Oxygen Delivery Method Room Air 11/30/23 19:31 Course Orders Ordered: Acetaminophen (Acetaminophen 325 Mg Tablet) 650 mg PO Q6H PRN PRN Reason: Fever/Mild Pain (1-3) Last Admin: 12/01/23 14:35 Dose: 650 mg Documented By: CÉSAR Enoxaparin Sodium (Enoxaparin 40 Mg/0.4 Ml Syringe) 40 mg SUBCUT DAILY SKYLAR Sodium Chloride (Normal Saline 0.45%) 1,000 mls @ 100 mls/hr IV CONT SKYLAR Last Admin: 12/01/23 14:40 Dose: 100 mls/hr Documented By: Infusion: 12/01/23 14:40 Dose: Infused Documented By: Admin: 12/01/23 05:19 Dose: 100 mls/hr Documented By: ISHA Cefepime HCl 2 gm/ Sodium (Chloride) 100 mls @ 200 mls/hr IV Q12H SKYLAR Last Admin: 12/01/23 14:34 Dose: 200 mls/hr Documented By: CÉSAR Vancomycin HCl (Vancomycin) 1,250 mg in 250 mls @ 250 mls/hr IV Q24H [facility] Naloxone HCl (Naloxone 0.4 Mg/Ml Vial) 0.2 mg IV Q2MIN PRN PRN Reason: Opiate Reversal Vancomycin HCl (Vancomycin Per Pharmacy) 1 request MISC PRN PRN PRN Reason: . Vancomycin HCl (Vancomycin Trough) 1 request MISC 2030 ONE Stop: 12/03/23 20:31 Discontinued Medications Acetaminophen (Acetaminophen 325 Mg Tablet) 975 mg PO NOW ONE Stop: 11/30/23 21:14 Last Admin: 11/30/23 21:21 Dose: 975 mg Documented By: MIKE Ceftriaxone Sodium 1,000 mg/ (Sodium Chloride) 100 mls @ 200 mls/hr IV NOW ONE Stop: 11/30/23 20:03 Last Infusion: 11/30/23 21:35 Dose: Infused Documented By: Admin: 11/30/23 20:53 Dose: 200 mls/hr Documented By: MIKE Sodium Chloride (Normal Saline 0.9%) 1,000 mls @ 150 mls/hr IV CONT [facility] Last Infusion: 12/01/23 05:19 Dose: Infused Documented By: Admin: 11/30/23 21:21 Dose: 150 mls/hr Documented By: MIKE Vancomycin HCl (Vancomycin) 1,000 mg in 200 mls @ 200 mls/hr IV NOW ONE Stop: 12/01/23 02:08 Last Infusion: 12/01/23 02:31 Dose: Infused Documented By: Admin: 12/01/23 01:20 Dose: 200 mls/hr Documented By: DEIRDRE Sodium Chloride (Normal Saline 0.9%) 1,000 mls @ 1,000 mls/hr IV BOLUS ONE Stop: 12/01/23 02:09 Last Infusion: 12/01/23 02:31 Dose: Infused Documented By: Admin: 12/01/23 01:19 Dose: 1,000 mls/hr Documented By: DEIRDRE Ceftriaxone Sodium 1,000 mg/ (Sodium Chloride) 100 mls @ 200 mls/hr IV Q24H [facility] Vital Signs Vital signs: Vital Signs - 8 hr 11/30/23 23:00 11/30/23 23:00 11/30/23 23:02 Temperature Pulse Rate 74 Blood Pressure 85/48 L 82/52 L Pulse Oximetry 95 11/30/23 23:02 11/30/23 23:04 11/30/23 23:07 Temperature 99.8 F H Pulse Rate 74 72 Blood Pressure 101/50 L Pulse Oximetry 97 96 11/30/23 23:07 11/30/23 23:10 11/30/23 23:10 Temperature Pulse Rate 72 67 Blood Pressure 90/51 L Pulse Oximetry 97 97 11/30/23 23:20 11/30/23 23:20 11/30/23 23:30 Temperature Pulse Rate 66 68 Blood Pressure 99/55 L Pulse Oximetry 94 95 11/30/23 23:30 11/30/23 23:40 11/30/23 23:40 Temperature Pulse Rate 70 Blood Pressure 101/59 L 102/58 L Pulse Oximetry 95 11/30/23 23:50 11/30/23 23:50 12/01/23 00:00 Temperature Pulse Rate 67 Blood Pressure 101/58 L 101/58 L Pulse Oximetry 95 12/01/23 00:00 12/01/23 00:10 12/01/23 00:10 Temperature Pulse Rate 65 66 Blood Pressure 99/54 L Pulse Oximetry 96 96 12/01/23 00:20 12/01/23 00:20 12/01/23 00:30 Temperature Pulse Rate 66 Blood Pressure 101/55 L 98/57 L Pulse Oximetry 97 12/01/23 00:30 12/01/23 00:40 12/01/23 00:40 Temperature Pulse Rate 66 62 Blood Pressure 102/57 L Pulse Oximetry 96 96 12/01/23 00:50 12/01/23 00:50 12/01/23 01:00 Temperature Pulse Rate 64 63 Blood Pressure 96/53 L Pulse Oximetry 97 96 12/01/23 01:00 Temperature Pulse Rate Blood Pressure 100/59 L Pulse Oximetry MDM - Fever Lab Data Attestation: I reviewed the patient's lab results. Lab results narrative: White blood cell count 15241, history of CLL noted, similar range in the past 12/01/23 08:30 12/01/23 08:30 Labs: Lab Results 11/30/23 11/30/23 11/30/23 Range/Units 20:30 20:35 20:35 WBC 32.1 H* (4.5-11.0) X10^3/uL RBC 3.53 L (4.5-5.9) X10^6/uL Hgb 11.2 L (13.5-17.5) g/dL Hct 33.3 L (41-53) % MCV 94.3 (80-100) fL MCH 31.7 (26-34) PG MCHC 33.6 (30-36) % RDW 14.4 (11.6-14.8) % Plt Count 250 (150-400) X10^3/uL Neut % (Auto) Not Reportable Lymph % (Auto) Not Reportable [place] % (Auto) Not Reportable Eos % (Auto) Not Reportable Baso % (Auto) Not Reportable Lymph # (Auto) Not Reportable [place] # (Auto) Not Reportable Baso # (Auto) Not Reportable Total Counted 100 Seg Neutrophils % 36.0 L (38-70) % Band Neutrophils % 2.0 L (3-7) % Lymphocytes % (Manual) 41.0 (25-45) % Atypical Lymphs % 16.0 H ( - 0) % Monocytes % (Manual) 3.0 (2-11) % Eosinophils % (Manual) 2.0 (2-4) % Neutrophils # (Manual) 11064 H (1778-5850) /uL Smudge Cells 4+ H D RBC Morphology Normal morphology Sodium 131 L (137-145) mmol/L Potassium 4.4 (3.4-5.1) mmol/L Chloride 102 (98-107) mmol/L Carbon Dioxide 25 (22-32) mmol/L BUN 25 H (9-20) mg/dL Creatinine 1.53 H (0.66-1.25) mg/dL Estimated GFR 44 L (>60) mL/min BUN/Creatinine Ratio 16.3 (6-22) Glucose 108 (80-110) mg/dL Lactate 1.1 (0.7-2.1) mmol/L Calcium 10.9 H (8.4-10.2) mg/dL Total Bilirubin 1.2 (0.2-1.3) mg/dL AST 36 (17-59) IU/L ALT 30 (<50) IU/L Alkaline Phosphatase 99 (38-126) U/L Total Protein 6.7 (6.3-8.2) g/dL Albumin 3.8 (3.5-5.0) g/dL Globulin 2.9 (1.7-4.1) g/dL Albumin/Globulin Ratio 1.3 (1.0-2.8) Lipase 110 (23-300) U/L Urine Color Brown Yellow Urine Appearance Cloudy Urine pH (4.5-8.0) Ur Specific [place] (1.000-1.035) Urine Protein (Negative) Urine Glucose (UA) (Negative) g/dL Urine Ketones (NEGATIVE) Urine Occult Blood (Negative) Urine Nitrate (Negative) Urine Bilirubin (NEGATIVE) Ur Bilirubin Confirm (Negative) Urine Urobilinogen (0.2) E.U./dL Ur Leukocyte Esterase (NEGATIVE) Urine RBC (0-5/HPF) Urine WBC (0-5/HPF) Ur Squamous Epith Cells (0-5/HPF) Urine Bacteria (None) Ur Culture Indicated? Vol Urine Centrifuged 11/30/23 11/30/23 11/30/23 Range/Units 20:35 20:35 20:35 WBC (4.5-11.0) X10^3/uL RBC (4.5-5.9) X10^6/uL Hgb (13.5-17.5) g/dL Hct (41-53) % MCV (80-100) fL MCH (26-34) PG MCHC (30-36) % RDW (11.6-14.8) % Plt Count (150-400) X10^3/uL Neut % (Auto) Lymph % (Auto) [place] % (Auto) Eos % (Auto) Baso % (Auto) Lymph # (Auto) [place] # (Auto) Baso # (Auto) Total Counted Seg Neutrophils % (38-70) % Band Neutrophils % (3-7) % Lymphocytes % (Manual) (25-45) % Atypical Lymphs % ( - 0) % Monocytes % (Manual) (2-11) % Eosinophils % (Manual) (2-4) % Neutrophils # (Manual) (3303-2906) /uL Smudge Cells RBC Morphology Sodium (137-145) mmol/L Potassium (3.4-5.1) mmol/L Chloride (98-107) mmol/L Carbon Dioxide (22-32) mmol/L BUN (9-20) mg/dL Creatinine (0.66-1.25) mg/dL Estimated GFR (>60) mL/min BUN/Creatinine Ratio (6-22) Glucose (80-110) mg/dL Lactate (0.7-2.1) mmol/L Calcium (8.4-10.2) mg/dL Total Bilirubin (0.2-1.3) mg/dL AST (17-59) IU/L ALT (<50) IU/L Alkaline Phosphatase (38-126) U/L Total Protein (6.3-8.2) g/dL Albumin (3.5-5.0) g/dL Globulin (1.7-4.1) g/dL Albumin/Globulin Ratio (1.0-2.8) Lipase (23-300) U/L Urine Color Urine Appearance Sl cloudy Urine pH 5.5 6.0 (4.5-8.0) Ur Specific [place] 1.025 1.010 (1.000-1.035) Urine Protein 2+ H (Negative) Urine Glucose (UA) (Negative) g/dL Urine Ketones (NEGATIVE) Urine Occult Blood (Negative) Urine Nitrate (Negative) Urine Bilirubin (NEGATIVE) Ur Bilirubin Confirm (Negative) Urine Urobilinogen (0.2) E.U./dL Ur Leukocyte Esterase (NEGATIVE) Urine RBC (0-5/HPF) Urine WBC (0-5/HPF) Ur Squamous Epith Cells (0-5/HPF) Urine Bacteria (None) Ur Culture Indicated? Vol Urine Centrifuged 11/30/23 11/30/23 11/30/23 Range/Units 20:35 20:35 20:35 WBC (4.5-11.0) X10^3/uL RBC (4.5-5.9) X10^6/uL Hgb (13.5-17.5) g/dL Hct (41-53) % MCV (80-100) fL MCH (26-34) PG MCHC (30-36) % RDW (11.6-14.8) % Plt Count (150-400) X10^3/uL Neut % (Auto) Lymph % (Auto) [place] % (Auto) Eos % (Auto) Baso % (Auto) Lymph # (Auto) [place] # (Auto) Baso # (Auto) Total Counted Seg Neutrophils % (38-70) % Band Neutrophils % (3-7) % Lymphocytes % (Manual) (25-45) % Atypical Lymphs % ( - 0) % Monocytes % (Manual) (2-11) % Eosinophils % (Manual) (2-4) % Neutrophils # (Manual) (1487-5271) /uL Smudge Cells RBC Morphology Sodium (137-145) mmol/L Potassium (3.4-5.1) mmol/L Chloride (98-107) mmol/L Carbon Dioxide (22-32) mmol/L BUN (9-20) mg/dL Creatinine (0.66-1.25) mg/dL Estimated GFR (>60) mL/min BUN/Creatinine Ratio (6-22) Glucose (80-110) mg/dL Lactate (0.7-2.1) mmol/L Calcium (8.4-10.2) mg/dL Total Bilirubin (0.2-1.3) mg/dL AST (17-59) IU/L ALT (<50) IU/L Alkaline Phosphatase (38-126) U/L Total Protein (6.3-8.2) g/dL Albumin (3.5-5.0) g/dL Globulin (1.7-4.1) g/dL Albumin/Globulin Ratio (1.0-2.8) Lipase (23-300) U/L Urine Color Urine Appearance Urine pH (4.5-8.0) Ur Specific [place] (1.000-1.035) Urine Protein 2+ H (Negative) Urine Glucose (UA) Negative Negative (Negative) g/dL Urine Ketones Negative Negative (NEGATIVE) Urine Occult Blood 3+ H (Negative) Urine Nitrate (Negative) Urine Bilirubin (NEGATIVE) Ur Bilirubin Confirm (Negative) Urine Urobilinogen (0.2) E.U./dL Ur Leukocyte Esterase (NEGATIVE) Urine RBC (0-5/HPF) Urine WBC (0-5/HPF) Ur Squamous Epith Cells (0-5/HPF) Urine Bacteria (None) Ur Culture Indicated? Vol Urine Centrifuged 11/30/23 11/30/23 11/30/23 Range/Units 20:35 20:35 20:35 WBC (4.5-11.0) X10^3/uL RBC (4.5-5.9) X10^6/uL Hgb (13.5-17.5) g/dL Hct (41-53) % MCV (80-100) fL MCH (26-34) PG MCHC (30-36) % RDW (11.6-14.8) % Plt Count (150-400) X10^3/uL Neut % (Auto) Lymph % (Auto) [place] % (Auto) Eos % (Auto) Baso % (Auto) Lymph # (Auto) [place] # (Auto) Baso # (Auto) Total Counted Seg Neutrophils % (38-70) % Band Neutrophils % (3-7) % Lymphocytes % (Manual) (25-45) % Atypical Lymphs % ( - 0) % Monocytes % (Manual) (2-11) % Eosinophils % (Manual) (2-4) % Neutrophils # (Manual) (2828-1072) /uL Smudge Cells RBC Morphology Sodium (137-145) mmol/L Potassium (3.4-5.1) mmol/L Chloride (98-107) mmol/L Carbon Dioxide (22-32) mmol/L BUN (9-20) mg/dL Creatinine (0.66-1.25) mg/dL Estimated GFR (>60) mL/min BUN/Creatinine Ratio (6-22) Glucose (80-110) mg/dL Lactate (0.7-2.1) mmol/L Calcium (8.4-10.2) mg/dL Total Bilirubin (0.2-1.3) mg/dL AST (17-59) IU/L ALT (<50) IU/L Alkaline Phosphatase (38-126) U/L Total Protein (6.3-8.2) g/dL Albumin (3.5-5.0) g/dL Globulin (1.7-4.1) g/dL Albumin/Globulin Ratio (1.0-2.8) Lipase (23-300) U/L Urine Color Urine Appearance Urine pH (4.5-8.0) Ur Specific [place] (1.000-1.035) Urine Protein (Negative) Urine Glucose (UA) (Negative) g/dL Urine Ketones (NEGATIVE) Urine Occult Blood 3+ H (Negative) Urine Nitrate Positive H Negative (Negative) Urine Bilirubin 1+ H Negative (NEGATIVE) Ur Bilirubin Confirm Negative (Negative) Urine Urobilinogen 1.0 (0.2) E.U./dL Ur Leukocyte Esterase (NEGATIVE) Urine RBC (0-5/HPF) Urine WBC (0-5/HPF) Ur Squamous Epith Cells (0-5/HPF) Urine Bacteria (None) Ur Culture Indicated? Vol Urine Centrifuged 11/30/23 11/30/23 11/30/23 Range/Units 20:35 20:35 20:35 WBC (4.5-11.0) X10^3/uL RBC (4.5-5.9) X10^6/uL Hgb (13.5-17.5) g/dL Hct (41-53) % MCV (80-100) fL MCH (26-34) PG MCHC (30-36) % RDW (11.6-14.8) % Plt Count (150-400) X10^3/uL Neut % (Auto) Lymph % (Auto) [place] % (Auto) Eos % (Auto) Baso % (Auto) Lymph # (Auto) [place] # (Auto) Baso # (Auto) Total Counted Seg Neutrophils % (38-70) % Band Neutrophils % (3-7) % Lymphocytes % (Manual) (25-45) % Atypical Lymphs % ( - 0) % Monocytes % (Manual) (2-11) % Eosinophils % (Manual) (2-4) % Neutrophils # (Manual) (1500-2984) /uL Smudge Cells RBC Morphology Sodium (137-145) mmol/L Potassium (3.4-5.1) mmol/L Chloride (98-107) mmol/L Carbon Dioxide (22-32) mmol/L BUN (9-20) mg/dL Creatinine (0.66-1.25) mg/dL Estimated GFR (>60) mL/min BUN/Creatinine Ratio (6-22) Glucose (80-110) mg/dL Lactate (0.7-2.1) mmol/L Calcium (8.4-10.2) mg/dL Total Bilirubin (0.2-1.3) mg/dL AST (17-59) IU/L ALT (<50) IU/L Alkaline Phosphatase (38-126) U/L Total Protein (6.3-8.2) g/dL Albumin (3.5-5.0) g/dL Globulin (1.7-4.1) g/dL Albumin/Globulin Ratio (1.0-2.8) Lipase (23-300) U/L Urine Color Urine Appearance Urine pH (4.5-8.0) Ur Specific [place] (1.000-1.035) Urine Protein (Negative) Urine Glucose (UA) (Negative) g/dL Urine Ketones (NEGATIVE) Urine Occult Blood (Negative) Urine Nitrate (Negative) Urine Bilirubin (NEGATIVE) Ur Bilirubin Confirm (Negative) Urine Urobilinogen 0.2 (0.2) E.U./dL Ur Leukocyte Esterase 2+ H 3+ H (NEGATIVE) Urine RBC 30-100/hpf H 1-5/hpf D (0-5/HPF) Urine WBC >100/hpf H (0-5/HPF) Ur Squamous Epith Cells (0-5/HPF) Urine Bacteria (None) Ur Culture Indicated? Vol Urine Centrifuged 11/30/23 11/30/23 11/30/23 Range/Units 20:35 20:35 20:35 WBC (4.5-11.0) X10^3/uL RBC (4.5-5.9) X10^6/uL Hgb (13.5-17.5) g/dL Hct (41-53) % MCV (80-100) fL MCH (26-34) PG MCHC (30-36) % RDW (11.6-14.8) % Plt Count (150-400) X10^3/uL Neut % (Auto) Lymph % (Auto) [place] % (Auto) Eos % (Auto) Baso % (Auto) Lymph # (Auto) [place] # (Auto) Baso # (Auto) Total Counted Seg Neutrophils % (38-70) % Band Neutrophils % (3-7) % Lymphocytes % (Manual) (25-45) % Atypical Lymphs % ( - 0) % Monocytes % (Manual) (2-11) % Eosinophils % (Manual) (2-4) % Neutrophils # (Manual) (2326-7389) /uL Smudge Cells RBC Morphology Sodium (137-145) mmol/L Potassium (3.4-5.1) mmol/L Chloride (98-107) mmol/L Carbon Dioxide (22-32) mmol/L BUN (9-20) mg/dL Creatinine (0.66-1.25) mg/dL Estimated GFR (>60) mL/min BUN/Creatinine Ratio (6-22) Glucose (80-110) mg/dL Lactate (0.7-2.1) mmol/L Calcium (8.4-10.2) mg/dL Total Bilirubin (0.2-1.3) mg/dL AST (17-59) IU/L ALT (<50) IU/L Alkaline Phosphatase (38-126) U/L Total Protein (6.3-8.2) g/dL Albumin (3.5-5.0) g/dL Globulin (1.7-4.1) g/dL Albumin/Globulin Ratio (1.0-2.8) Lipase (23-300) U/L Urine Color Urine Appearance Urine pH (4.5-8.0) Ur Specific [place] (1.000-1.035) Urine Protein (Negative) Urine Glucose (UA) (Negative) g/dL Urine Ketones (NEGATIVE) Urine Occult Blood (Negative) Urine Nitrate (Negative) Urine Bilirubin (NEGATIVE) Ur Bilirubin Confirm (Negative) Urine Urobilinogen (0.2) E.U./dL Ur Leukocyte Esterase (NEGATIVE) Urine RBC (0-5/HPF) Urine WBC 30-100/hpf H (0-5/HPF) Ur Squamous Epith Cells 0-1 /hpf 0-1 /hpf (0-5/HPF) Urine Bacteria Many (>30) H Many (>30) H (None) Ur Culture Indicated? Specimen cultured Vol Urine Centrifuged 11/30/23 11/30/23 Range/Units 20:35 20:35 WBC (4.5-11.0) X10^3/uL RBC (4.5-5.9) X10^6/uL Hgb (13.5-17.5) g/dL Hct (41-53) % MCV (80-100) fL MCH (26-34) PG MCHC (30-36) % RDW (11.6-14.8) % Plt Count (150-400) X10^3/uL Neut % (Auto) Lymph % (Auto) [place] % (Auto) Eos % (Auto) Baso % (Auto) Lymph # (Auto) [place] # (Auto) Baso # (Auto) Total Counted Seg Neutrophils % (38-70) % Band Neutrophils % (3-7) % Lymphocytes % (Manual) (25-45) % Atypical Lymphs % ( - 0) % Monocytes % (Manual) (2-11) % Eosinophils % (Manual) (2-4) % Neutrophils # (Manual) (0376-1204) /uL Smudge Cells RBC Morphology Sodium (137-145) mmol/L Potassium (3.4-5.1) mmol/L Chloride (98-107) mmol/L Carbon Dioxide (22-32) mmol/L BUN (9-20) mg/dL Creatinine (0.66-1.25) mg/dL Estimated GFR (>60) mL/min BUN/Creatinine Ratio (6-22) Glucose (80-110) mg/dL Lactate (0.7-2.1) mmol/L Calcium (8.4-10.2) mg/dL Total Bilirubin (0.2-1.3) mg/dL AST (17-59) IU/L ALT (<50) IU/L Alkaline Phosphatase (38-126) U/L Total Protein (6.3-8.2) g/dL Albumin (3.5-5.0) g/dL Globulin (1.7-4.1) g/dL Albumin/Globulin Ratio (1.0-2.8) Lipase (23-300) U/L Urine Color Urine Appearance Urine pH (4.5-8.0) Ur Specific [place] (1.000-1.035) Urine Protein (Negative) Urine Glucose (UA) (Negative) g/dL Urine Ketones (NEGATIVE) Urine Occult Blood (Negative) Urine Nitrate (Negative) Urine Bilirubin (NEGATIVE) Ur Bilirubin Confirm (Negative) Urine Urobilinogen (0.2) E.U./dL Ur Leukocyte Esterase (NEGATIVE) Urine RBC (0-5/HPF) Urine WBC (0-5/HPF) Ur Squamous Epith Cells (0-5/HPF) Urine Bacteria (None) Ur Culture Indicated? Specimen cultured Vol Urine Centrifuged 10ml (spun) 10ml (spun) Imaging Data Chest x-ray: Radiologist's Impression: Close Abdomen/Pelvis CT (Signed) Sunil Flores - 11/30/23 Chest X-Ray (Signed) Sunil Flores - 11/30/23 Launch?Image [address] [address] XRay Report Signed Patient: Artis Veloz MR#: [id number] : 1940 Acct:[id number] Age/Sex: 83 / M Date of Service: 11/30/23 Loc: ED Accession Number: [id number] Procedure: XR chest 2V Ordering Provider: Juanjose Gong MD PROCEDURE: XR CHEST 2V INDICATIONS: cough fever TECHNIQUE: 2 views of the chest were acquired. COMPARISON: [facility], , XR CHEST 2V, 01/17/2023, 13:00. FINDINGS: Surgical changes and devices: None. Lungs and pleura: Lungs are clear. No pleural effusions or pneumothorax. Mediastinum: Mildly tortuous thoracic aorta. Heart size is enlarged. Bones and chest wall: No suspicious bony abnormalities. Soft tissues appear unremarkable. IMPRESSION: No acute cardiopulmonary pathology. Dictated by: Sunil Flores M.D. on 11/30/2023 at 20:34 Approved by: Sunil Flores M.D. on 11/30/2023 at 20:34 CT scan - abdomen/pelvis: Radiologist's Impression: [address] [address] [address] Scan Report Signed Patient: Artis Veloz MR#: [id number] : 1940 Acct:[id number] Age/Sex: 83 / M Date of Service: 11/30/23 Loc: ED Accession Number: [id number] Procedure: CT abdomen pelvis w con Ordering Provider: Juanjose Gong MD PROCEDURE: CT ABDOMEN PELVIS W CON INDICATIONS: fever 103, nephrostomy tubes TECHNIQUE: After the administration of intravenous contrast, axial sections acquired from the lung bases to the pubic symphysis. Coronal and sagittal reformats were performed. For radiation dose reduction, the following was used: automated exposure control, adjustment of mA and/or kV according to patient size. COMPARISON: [facility], MR, MR PELVIS WO/W CON, 11/29/2023, 17:58. [facility], CT, CT KIDNEY URETER BLADDER (KUB), 11/13/2023, 10:10. FINDINGS: Image quality: Diagnostic. Lower Chest: No significant findings. ABDOMEN: Liver: No solid mass. Gallbladder: Gallbladder is absent. Biliary ducts: No biliary dilation. Pancreas: No ductal dilation. Spleen: Size is within normal limits. Adrenal Glands: No adrenal nodules. Kidneys and Ureters: There is interval placement of bilateral percutaneous nephrostomy tubes and interval decrease in the extent of hydronephrosis with mild residual hydronephrosis seen. Mild bilateral perinephric fat stranding is noted. There are suggestion of simple appearing bilateral renal cysts. No solid appearing renal lesions. No hydroureter. Stomach and Bowel: There is no bowel obstruction. Mild fecal stasis in the colon is seen. No abnormal bowel wall thickening. No abscess collection. Peritoneum: No abnormal intraperitoneal fluid. No free air. Ventral Wall: No significant ventral hernia. Abdominal Nodes: No retroperitoneal or mesenteric adenopathy by size criteria. Vessels: Aorta and inferior vena cava are normal in size. PELVIS: Pelvic Organs: Enlarged prostate gland with mass effect on floor of urinary bladder is noted.. Bladder: Marked bladder wall thickening with heterogeneous density within bladder lumen. Extensive perivesical fat stranding is also noted. Abnormal density along anterior aspect of bladder and is deep to the rectus abdominus muscle just above the level of symphysis pubis and is of indeterminate nature. Pelvic Nodes: No enlarged lymph nodes. Miscellaneous: No inguinal hernias are seen. Bones: No aggressive osseous abnormality. IMPRESSION: 1. Diffuse bladder wall thickening which was better evaluated on recent MRI of pelvis study concerning for cystitis. No definite bladder wall mass is seen. Enlarged prostate gland with mass effect on floor of urinary bladder. Ill-defined soft tissue density along anterior aspect of urinary bladder wall deep to the symphysis pubis and may represent inflammatory soft tissues versus very early abscess collection. No drainable abscess collection is noted. 2. Interval placement of bilateral percutaneous nephrostomy with decrease in the extent of hydronephrosis. Mild residual bilateral hydronephrosis without obstructing stones. Bilateral perinephric fat stranding, pyelonephritis cannot be excluded. 3. No bowel obstruction or abnormal bowel wall thickening. No peritoneal free fluid or free air. Dictated by: Sunil Flores M.D. on 11/30/2023 at 22:11 Approved by: Sunil Flores M.D. on 11/30/2023 at 22:17 [facility] Narrative Medical decision making narrative: 83-year-old male with history of bladder cancer, status post bilateral nephrostomy tubes, MRI bladder yesterday suspicious for bladder wall thickening, could be early infection, no antibiotics, no fever at that time, was discharged home, subsequently has felt warm, 100.5 reported fever, spike to 103 here after triage. Blood cultures requested, urinalysis from nephrostomy tube suspicious for infection, IV ceftriaxone. CT abdomen and pelvis imaging to further delineate nephrostomy tube position into look for any abscess formation. Consider admission/transfer CT abdomen and pelvis shows diffuse bladder wall thickening, interval placement of bilateral percutaneous nephrostomy tubes with decreased hydronephrosis, some bilateral perinephric fat stranding, pyelonephrosis not excluded. PCP Indira, we will contact cross covering physician Dr. Desai. Dr. Desai called back, and reported that the patient had actually fired him from care in the past, defers inpatient care to the hospitalist service. Case discussed with hospitalist Dr. Hernandez, accepts patient for admission to inpatient Critical Care Time Critical Care Time Critical Care Time: Yes Total Critical Care Time: 35 Attestation: The high probability of a clinically significant, sudden or life threatening deterioration of the [renal, genitourinary, abdominopelvic, GI] system(s) required my full and direct attention, intervention and personal management. The aggregate critical care time was [35] minutes. This time is in addition to time spent performing reported procedures but includes the following: [x] Data Review and interpretation [x] Patient assessment and monitoring of vital signs [x] Documentation [x] Medication orders and managementx Discharge Plan Departure Patient Disposition: Admitted As Inpatient Clinical Impression: Acute pyelonephritis, Hx of bladder cancer Admit Date/Time: 12/01/23 01:06 Admit Provider: Lalo Hernandez
--- NOTE | 2023-11-30 19:56 | DI.RAD.S_ITS ---
PROCEDURE: XR CHEST 2V INDICATIONS: cough fever TECHNIQUE: 2 views of the chest were acquired. COMPARISON: [facility], CR, XR CHEST 2V, 01/17/2023, 13:00. FINDINGS: Surgical changes and devices: None. Lungs and pleura: Lungs are clear. No pleural effusions or pneumothorax. Mediastinum: Mildly tortuous thoracic aorta. Heart size is enlarged. Bones and chest wall: No suspicious bony abnormalities. Soft tissues appear unremarkable. IMPRESSION: No acute cardiopulmonary pathology. Dictated by: Sunil Flores M.D. on 11/30/2023 at 20:34 Approved by: Sunil Flores M.D. on 11/30/2023 at 20:34
[2023-11-30 20:45] LABS: Hematocrit 33.3 % (41-53); Hemoglobin 11.2 g/dL (13.5-17.5); Mean Corpuscular HGB Conc 33.6 % (30-36); Mean Corpuscular Hemoglobin 31.7 PG (26-34); Mean Corpuscular Volume 94.3 fL (80-100); Platelet Count 250 X10^3/uL (150-400); Red Blood Cell Count 3.53 X10^6/uL (4.5-5.9); Red Cell Distribution Width 14.4 % (11.6-14.8)
[2023-11-30 20:47] LABS: Add Manual Diff / Slide Review YES; White Blood Cell Count 32.1 X10^3/uL (4.5-11.0)
[2023-11-30] MEDS: cefTRIAXone 1,000 MG in SODIUM CHLORIDE 0.9% 100 ML 200 MG IV (20:53)
[2023-11-30 20:54] LABS: Appearance Urine UA CLOUDY; Bilirubin Urine UA 1+ (NEGATIVE); Color Urine UA BROWN; Glucose Urine UA NEGATIVE (Negative); Ketones Urine UA NEGATIVE (NEGATIVE); Leukocyte Esterase Urine UA 2+ (NEGATIVE); Nitrite Urine UA POSITIVE (Negative); Occult Blood Urine UA 3+ (Negative); Protein Urine UA 2+ (Negative); Specific Gravity Urine UA 1.025 (1.000-1.035); pH Urine UA 5.5 (4.5-8.0)
[2023-11-30 20:55] LABS: Alanine Aminotransferase 30 IU/L (<50); Albumin 3.8 g/dL (3.5-5.0); Albumin Globulin Ratio 1.3 (1.0-2.8); Alkaline Phosphatase 99 U/L (38-126); Aspartate Aminotransferase 36 IU/L (17-59); BUN Creatinine Ratio 16.3 (6-22); Bilirubin Total 1.2 mg/dL (0.2-1.3); Blood Urea Nitrogen 25 mg/dL (9-20); Calcium 10.9 mg/dL (8.4-10.2); Carbon Dioxide 25 mmol/L (22-32); Chloride 102 mmol/L (98-107); Estimated Glomerular Filt Rate 44 mL/min (>60); Globulin 2.9 g/dL (1.7-4.1); Glucose 108 mg/dL (80-110); Lactate (Lactic Acid) 1.1 mmol/L (0.7-2.1); Lipase 110 U/L (23-300); Sodium 131 mmol/L (137-145); Total Protein 6.7 g/dL (6.3-8.2)
[2023-11-30 20:56] LABS: Appearance Urine UA SL CLOUDY; Bilirubin Urine UA NEGATIVE (NEGATIVE); Color Urine UA YELLOW; Glucose Urine UA NEGATIVE (Negative); Ketones Urine UA NEGATIVE (NEGATIVE); Leukocyte Esterase Urine UA 3+ (NEGATIVE); Nitrite Urine UA NEGATIVE (Negative); Occult Blood Urine UA 3+ (Negative); Protein Urine UA 2+ (Negative); Urobilinogen Urine UA 0.2 E.U./dL (0.2)
[2023-11-30 20:57] LABS: HEMOLYSIS 86 (0-50); Potassium 4.4 mmol/L (3.4-5.1)
[2023-11-30 21:01] LABS: Neutrophils Absolute Manual 12198 /uL (3000-5900); Total Cells Counted 100
[2023-11-30 21:03] LABS: RBC Morphology Normal Morphology; Smudge Cells 4+
[2023-11-30 21:06] LABS: Urine Volume 10mL (spun)
[2023-11-30 21:07] LABS: Bacteria Urine Many (>30); Culture Indicated Urine Specimen Cultured; RBC Urine 1-5/HPF (0-5/HPF); Squamous Epithelial Cell Urine 0-1 /HPF (0-5/HPF); WBC Urine 30-100/HPF (0-5/HPF)
[2023-11-30 21:09] LABS: Ictotest Urine Negative (Negative); RBC Urine 30-100/HPF (0-5/HPF); Urine Volume 10mL (spun)
[2023-11-30 21:10] LABS: Bacteria Urine Many (>30); Culture Indicated Urine Specimen Cultured; Squamous Epithelial Cell Urine 0-1 /HPF (0-5/HPF); WBC Urine >100/HPF (0-5/HPF)
[2023-11-30] MEDS: ACETAMINOPHEN 325 MG TABLET 975 MG PO (21:21)
[2023-11-30] MEDS: SODIUM CHLORIDE 0.9% 1,000 ML 150 ML IV (21:21)
--- NOTE | 2023-11-30 21:28 | DI.CT.S_ITS ---
PROCEDURE: CT ABDOMEN PELVIS W CON INDICATIONS: fever 103, nephrostomy tubes TECHNIQUE: After the administration of intravenous contrast, axial sections acquired from the lung bases to the pubic symphysis. Coronal and sagittal reformats were performed. For radiation dose reduction, the following was used: automated exposure control, adjustment of mA and/or kV according to patient size. COMPARISON: [facility], MR, MR PELVIS WO/W CON, 11/29/2023, 17:58. [facility], CT, CT KIDNEY URETER BLADDER (KUB), 11/13/2023, 10:10. FINDINGS: Image quality: Diagnostic. Lower Chest: No significant findings. ABDOMEN: Liver: No solid mass. Gallbladder: Gallbladder is absent. Biliary ducts: No biliary dilation. Pancreas: No ductal dilation. Spleen: Size is within normal limits. Adrenal Glands: No adrenal nodules. Kidneys and Ureters: There is interval placement of bilateral percutaneous nephrostomy tubes and interval decrease in the extent of hydronephrosis with mild residual hydronephrosis seen. Mild bilateral perinephric fat stranding is noted. There are suggestion of simple appearing bilateral renal cysts. No solid appearing renal lesions. No hydroureter. Stomach and Bowel: There is no bowel obstruction. Mild fecal stasis in the colon is seen. No abnormal bowel wall thickening. No abscess collection. Peritoneum: No abnormal intraperitoneal fluid. No free air. Ventral Wall: No significant ventral hernia. Abdominal Nodes: No retroperitoneal or mesenteric adenopathy by size criteria. Vessels: Aorta and inferior vena cava are normal in size. PELVIS: Pelvic Organs: Enlarged prostate gland with mass effect on floor of urinary bladder is noted.. Bladder: Marked bladder wall thickening with heterogeneous density within bladder lumen. Extensive perivesical fat stranding is also noted. Abnormal density along anterior aspect of bladder and is deep to the rectus abdominus muscle just above the level of symphysis pubis and is of indeterminate nature. Pelvic Nodes: No enlarged lymph nodes. Miscellaneous: No inguinal hernias are seen. Bones: No aggressive osseous abnormality. IMPRESSION: 1. Diffuse bladder wall thickening which was better evaluated on recent MRI of pelvis study concerning for cystitis. No definite bladder wall mass is seen. Enlarged prostate gland with mass effect on floor of urinary bladder. Ill-defined soft tissue density along anterior aspect of urinary bladder wall deep to the symphysis pubis and may represent inflammatory soft tissues versus very early abscess collection. No drainable abscess collection is noted. 2. Interval placement of bilateral percutaneous nephrostomy with decrease in the extent of hydronephrosis. Mild residual bilateral hydronephrosis without obstructing stones. Bilateral perinephric fat stranding, pyelonephritis cannot be excluded. 3. No bowel obstruction or abnormal bowel wall thickening. No peritoneal free fluid or free air. Dictated by: Sunil Flores M.D. on 11/30/2023 at 22:11 Approved by: Sunil Flores M.D. on 11/30/2023 at 22:17
--- NOTE | 2023-11-30 23:10 | PC.NURSE ---
blood pressure was found to be 85/48, pt was sleeping on his side. repositioned the pt and got 82/52. Dr. Gong was made aware, fluids increased and took pressure on the other arm, new BP is 90/51
[2023-12-01] VITALS (62 sets, daily range): BP systolic 78–144; BP diastolic 46–85; PULSE 55–78; RESP 13–36; TEMP 36.9–38.5; O2SAT 94–99; BMI 23.1
[2023-12-01] MEDS: SODIUM CHLORIDE 0.9% 1,000 ML 1000 ML IV (01:19)
[2023-12-01] MEDS: VANCOMYCIN 1,000 MG/200 ML PIGGYBACK 200 MG IV (01:20)
[2023-12-01] MEDS: SODIUM CHLORIDE 0.45% 1,000 ML 100 ML IV ×2 (05:19→14:40)
[2023-12-01 05:23] LABS: MRSA (Nasal) PCR NOT DETECTED (Not Detect)
--- NOTE | 2023-12-01 05:25 | PM.HP.1 ---
History of Present Illness History of Present Illness Date Patient Seen: 12/01/23 Time Patient Seen: 05:31 Chief complaint: fever, ill, here yesterday Narrative: Artis Gary: 83 years old male with a past medical history of bladder cancer, chronic lymphocytic leukemia, hypertension, dyslipidemia, depression and recent hospitalization for sepsis due to urinary tract infection with acute kidney injury. Urine at that time had grown Enterococcus needing a course of linezolid. Patient has significant bladder outlet obstruction and has had right and left nephrostomy tubes that has been draining. Was due to have scheduled bladder MRI in the near future. Now presented to the emergency room for fever episode with generalized weakness. Denies any flank or abdominal pain. No nausea or vomiting but denies any shortness of breath cough wheezing headache or upper respiratory symptoms. Appears to be very hard of hearing and frustrated with his diagnosis. Has been difficult to get a consistent history from the patient and much of the history has been obtained from the chart. In the ED noted to have a temp of 103.1 with a systolic initially as low as 85. Subsequent blood test showed a white count of 32,000 with a usual baseline around 29,000, hemoglobin of 11.2, BUN of 25 and a creatinine of 1.53. Sodium 131. Urine analysis is positive for leukocyte esterase and WBCs with many bacteria. CT abdomen and pelvis with contrast shows bladder wall thickening and bilateral percutaneous nephrostomy with decrease in the extent of hydronephrosis. Patient was initiated on IV Rocephin/IV vancomycin based on previous cultures and admitted for further evaluation [facility] Medical History Hydronephrosis, right Elevated serum creatinine Prostate mass Bladder mass Microscopic hematuria Nocturnal enuresis Shortness of breath Anesthesia complication Easy bruisability COPD (chronic obstructive pulmonary disease) Right leg weakness RUQ abdominal pain Finger pain, right Right shoulder pain Supraventricular tachycardia Sleep apnea Depression Anxiety Hearing loss Hematuria BPH (benign prostatic hyperplasia) Hypercalcemia 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 Sister No problems noted. Father No problems noted. Mother Pancreatic cancer Social History household members: spouse Smoking Status: Never smoker alcohol intake: current substance use type: does not use Meds Home Medications and Allergies Home Medications Medication Instructions Recorded Confirmed Type atorvastatin 10 mg tablet See Rx Instructions .Route 04/16/23 11/04/23 Rx .COMPLEX #90 tabs bupropion HCl 150 mg tablet,12 hr See Rx Instructions .Route 04/16/23 11/04/23 Rx sustained-release .COMPLEX #180 tabs clopidogrel 75 mg tablet 75 mg PO DAILY #90 tabs 04/23/23 11/04/23 Rx lisinopril 20 mg tablet See Rx Instructions .Route 04/23/23 11/04/23 Rx .COMPLEX #90 tabs tamsulosin 0.4 mg capsule 0.4 mg PO DAILY #30 caps 10/08/23 11/04/23 Rx linezolid 600 mg tablet 600 mg PO BID #14 tabs 11/06/23 Rx Allergies Allergy/AdvReac Type Severity Reaction Status Date / Time No Known Drug Allergies Allergy Verified 11/30/23 19:35 Review of Systems Review of Systems Narrative: 12 point review of system is negative unless otherwise stated in the history of present illness Exam Vital Signs (past 8 hours): - 11/30/23 21:30 11/30/23 21:56 11/30/23 21:56 Temperature Pulse Rate 81 77 Respiratory Rate Blood Pressure 117/56 L Pulse Oximetry 97 99 Oxygen Delivery Method Oxygen Flow Rate 11/30/23 22:00 11/30/23 22:00 11/30/23 22:05 Temperature 101.3 F H Pulse Rate 78 Respiratory Rate Blood Pressure 103/52 L Pulse Oximetry 94 Oxygen Delivery Method Oxygen Flow Rate 11/30/23 22:30 11/30/23 22:30 11/30/23 23:00 Temperature Pulse Rate 75 Respiratory Rate Blood Pressure 97/56 L 85/48 L Pulse Oximetry 92 Oxygen Delivery Method Oxygen Flow Rate 11/30/23 23:00 11/30/23 23:02 11/30/23 23:02 Temperature Pulse Rate 74 74 Respiratory Rate Blood Pressure 82/52 L Pulse Oximetry 95 97 Oxygen Delivery Method Oxygen Flow Rate 11/30/23 23:04 11/30/23 23:07 11/30/23 23:07 Temperature 99.8 F H Pulse Rate 72 72 Respiratory Rate Blood Pressure 101/50 L Pulse Oximetry 96 97 Oxygen Delivery Method Oxygen Flow Rate 11/30/23 23:10 11/30/23 23:10 11/30/23 23:20 Temperature Pulse Rate 67 Respiratory Rate Blood Pressure 90/51 L 99/55 L Pulse Oximetry 97 Oxygen Delivery Method Oxygen Flow Rate 11/30/23 23:20 11/30/23 23:30 11/30/23 23:30 Temperature Pulse Rate 66 68 Respiratory Rate Blood Pressure 101/59 L Pulse Oximetry 94 95 Oxygen Delivery Method Oxygen Flow Rate 11/30/23 23:40 11/30/23 23:40 11/30/23 23:50 Temperature Pulse Rate 70 Respiratory Rate Blood Pressure 102/58 L 101/58 L Pulse Oximetry 95 Oxygen Delivery Method Oxygen Flow Rate 11/30/23 23:50 12/01/23 00:00 12/01/23 00:00 Temperature Pulse Rate 67 65 Respiratory Rate Blood Pressure 101/58 L Pulse Oximetry 95 96 Oxygen Delivery Method Oxygen Flow Rate 12/01/23 00:10 12/01/23 00:10 12/01/23 00:20 Temperature Pulse Rate 66 Respiratory Rate Blood Pressure 99/54 L 101/55 L Pulse Oximetry 96 Oxygen Delivery Method Oxygen Flow Rate 12/01/23 00:20 12/01/23 00:30 12/01/23 00:30 Temperature Pulse Rate 66 66 Respiratory Rate Blood Pressure 98/57 L Pulse Oximetry 97 96 Oxygen Delivery Method Oxygen Flow Rate 12/01/23 00:40 12/01/23 00:40 12/01/23 00:50 Temperature Pulse Rate 62 Respiratory Rate Blood Pressure 102/57 L 96/53 L Pulse Oximetry 96 Oxygen Delivery Method Oxygen Flow Rate 12/01/23 00:50 12/01/23 01:00 12/01/23 01:00 Temperature Pulse Rate 64 63 Respiratory Rate Blood Pressure 100/59 L Pulse Oximetry 97 96 Oxygen Delivery Method Oxygen Flow Rate 12/01/23 01:10 12/01/23 01:10 12/01/23 01:14 Temperature Pulse Rate 70 Respiratory Rate Blood Pressure 93/51 L 92/50 L Pulse Oximetry 98 Oxygen Delivery Method Oxygen Flow Rate 12/01/23 01:14 12/01/23 01:20 12/01/23 01:20 Temperature Pulse Rate 66 62 Respiratory Rate Blood Pressure 93/53 L Pulse Oximetry 97 96 Oxygen Delivery Method Oxygen Flow Rate 12/01/23 01:30 12/01/23 01:30 12/01/23 01:46 Temperature Pulse Rate 63 60 Respiratory Rate Blood Pressure 103/56 L Pulse Oximetry 96 97 Oxygen Delivery Method Oxygen Flow Rate 12/01/23 01:46 12/01/23 01:50 12/01/23 01:50 Temperature Pulse Rate 69 Respiratory Rate Blood Pressure 78/48 L 86/50 L Pulse Oximetry 98 Oxygen Delivery Method Oxygen Flow Rate 12/01/23 01:57 12/01/23 01:57 12/01/23 02:00 Temperature Pulse Rate 65 Respiratory Rate Blood Pressure 108/58 L 112/56 L Pulse Oximetry 97 Oxygen Delivery Method Oxygen Flow Rate 12/01/23 02:00 12/01/23 02:15 12/01/23 02:15 Temperature Pulse Rate 64 66 Respiratory Rate 16 17 Blood Pressure 114/59 L Pulse Oximetry 98 98 Oxygen Delivery Method Oxygen Flow Rate 12/01/23 02:30 12/01/23 02:30 12/01/23 03:57 Temperature Pulse Rate 65 71 Respiratory Rate 20 22 Blood Pressure 104/58 L Pulse Oximetry 95 98 Oxygen Delivery Method Oxygen Flow Rate 12/01/23 04:00 12/01/23 04:00 12/01/23 04:00 Temperature 99.4 F Pulse Rate 75 Respiratory Rate 22 Blood Pressure 129/85 Pulse Oximetry 97 Oxygen Delivery Method Room Air Oxygen Flow Rate 0 Oxygen Delivery Method Room Air Oxygen Flow Rate 0 Narrative Exam Narrative: Patient is awake alert does not appear to be in acute distress. Air entry equal bilaterally Abdomen is soft. Nephrostomy tube in place Objective Labs 11/30/23 20:30 11/30/23 20:30 Labs: Laboratory Results - last 24 hr 11/30/23 11/30/23 11/30/23 20:30 20:35 20:35 WBC 32.1 H* RBC 3.53 L Hgb 11.2 L Hct 33.3 L MCV 94.3 MCH 31.7 MCHC 33.6 RDW 14.4 Plt Count 250 Neut % (Auto) Not Reportable Lymph % (Auto) Not Reportable [place] % (Auto) Not Reportable Eos % (Auto) Not Reportable Baso % (Auto) Not Reportable Lymph # (Auto) Not Reportable [place] # (Auto) Not Reportable Baso # (Auto) Not Reportable Total Counted 100 Seg Neutrophils % 36.0 L Band Neutrophils % 2.0 L Lymphocytes % (Manual) 41.0 Atypical Lymphs % 16.0 H Monocytes % (Manual) 3.0 Eosinophils % (Manual) 2.0 Neutrophils # (Manual) 16425 H Smudge Cells 4+ H D RBC Morphology Normal morphology Sodium 131 L Potassium 4.4 Chloride 102 Carbon Dioxide 25 BUN 25 H Creatinine 1.53 H Estimated GFR 44 L BUN/Creatinine Ratio 16.3 Glucose 108 Lactate 1.1 Calcium 10.9 H Total Bilirubin 1.2 AST 36 ALT 30 Alkaline Phosphatase 99 Total Protein 6.7 Albumin 3.8 Globulin 2.9 Albumin/Globulin Ratio 1.3 Lipase 110 Urine Color Brown Yellow Urine Appearance Cloudy Urine pH Ur Specific [place] Urine Protein Urine Glucose (UA) Urine Ketones Urine Occult Blood Urine Nitrate Urine Bilirubin Ur Bilirubin Confirm Urine Urobilinogen Ur Leukocyte Esterase Urine RBC Urine WBC Ur Squamous Epith Cells Urine Bacteria Ur Culture Indicated? Vol Urine Centrifuged Nasal Screen MRSA (PCR) 11/30/23 11/30/23 11/30/23 20:35 20:35 20:35 WBC RBC Hgb Hct MCV MCH MCHC RDW Plt Count Neut % (Auto) Lymph % (Auto) [place] % (Auto) Eos % (Auto) Baso % (Auto) Lymph # (Auto) [place] # (Auto) Baso # (Auto) Total Counted Seg Neutrophils % Band Neutrophils % Lymphocytes % (Manual) Atypical Lymphs % Monocytes % (Manual) Eosinophils % (Manual) Neutrophils # (Manual) Smudge Cells RBC Morphology Sodium Potassium Chloride Carbon Dioxide BUN Creatinine Estimated GFR BUN/Creatinine Ratio Glucose Lactate Calcium Total Bilirubin AST ALT Alkaline Phosphatase Total Protein Albumin Globulin Albumin/Globulin Ratio Lipase Urine Color Urine Appearance Sl cloudy Urine pH 5.5 6.0 Ur Specific [place] 1.025 1.010 Urine Protein 2+ H Urine Glucose (UA) Urine Ketones Urine Occult Blood Urine Nitrate Urine Bilirubin Ur Bilirubin Confirm Urine Urobilinogen Ur Leukocyte Esterase Urine RBC Urine WBC Ur Squamous Epith Cells Urine Bacteria Ur Culture Indicated? Vol Urine Centrifuged Nasal Screen MRSA (PCR) 11/30/23 11/30/23 11/30/23 20:35 20:35 20:35 WBC RBC Hgb Hct MCV MCH MCHC RDW Plt Count Neut % (Auto) Lymph % (Auto) [place] % (Auto) Eos % (Auto) Baso % (Auto) Lymph # (Auto) [place] # (Auto) Baso # (Auto) Total Counted Seg Neutrophils % Band Neutrophils % Lymphocytes % (Manual) Atypical Lymphs % Monocytes % (Manual) Eosinophils % (Manual) Neutrophils # (Manual) Smudge Cells RBC Morphology Sodium Potassium Chloride Carbon Dioxide BUN Creatinine Estimated GFR BUN/Creatinine Ratio Glucose Lactate Calcium Total Bilirubin AST ALT Alkaline Phosphatase Total Protein Albumin Globulin Albumin/Globulin Ratio Lipase Urine Color Urine Appearance Urine pH Ur Specific [place] Urine Protein 2+ H Urine Glucose (UA) Negative Negative Urine Ketones Negative Negative Urine Occult Blood 3+ H Urine Nitrate Urine Bilirubin Ur Bilirubin Confirm Urine Urobilinogen Ur Leukocyte Esterase Urine RBC Urine WBC Ur Squamous Epith Cells Urine Bacteria Ur Culture Indicated? Vol Urine Centrifuged Nasal Screen MRSA (PCR) 11/30/23 11/30/23 11/30/23 20:35 20:35 20:35 WBC RBC Hgb Hct MCV MCH MCHC RDW Plt Count Neut % (Auto) Lymph % (Auto) [place] % (Auto) Eos % (Auto) Baso % (Auto) Lymph # (Auto) [place] # (Auto) Baso # (Auto) Total Counted Seg Neutrophils % Band Neutrophils % Lymphocytes % (Manual) Atypical Lymphs % Monocytes % (Manual) Eosinophils % (Manual) Neutrophils # (Manual) Smudge Cells RBC Morphology Sodium Potassium Chloride Carbon Dioxide BUN Creatinine Estimated GFR BUN/Creatinine Ratio Glucose Lactate Calcium Total Bilirubin AST ALT Alkaline Phosphatase Total Protein Albumin Globulin Albumin/Globulin Ratio Lipase Urine Color Urine Appearance Urine pH Ur Specific [place] Urine Protein Urine Glucose (UA) Urine Ketones Urine Occult Blood 3+ H Urine Nitrate Positive H Negative Urine Bilirubin 1+ H Negative Ur Bilirubin Confirm Negative Urine Urobilinogen 1.0 Ur Leukocyte Esterase Urine RBC Urine WBC Ur Squamous Epith Cells Urine Bacteria Ur Culture Indicated? Vol Urine Centrifuged Nasal Screen MRSA (PCR) 11/30/23 11/30/23 11/30/23 20:35 20:35 20:35 WBC RBC Hgb Hct MCV MCH MCHC RDW Plt Count Neut % (Auto) Lymph % (Auto) [place] % (Auto) Eos % (Auto) Baso % (Auto) Lymph # (Auto) [place] # (Auto) Baso # (Auto) Total Counted Seg Neutrophils % Band Neutrophils % Lymphocytes % (Manual) Atypical Lymphs % Monocytes % (Manual) Eosinophils % (Manual) Neutrophils # (Manual) Smudge Cells RBC Morphology Sodium Potassium Chloride Carbon Dioxide BUN Creatinine Estimated GFR BUN/Creatinine Ratio Glucose Lactate Calcium Total Bilirubin AST ALT Alkaline Phosphatase Total Protein Albumin Globulin Albumin/Globulin Ratio Lipase Urine Color Urine Appearance Urine pH Ur Specific [place] Urine Protein Urine Glucose (UA) Urine Ketones Urine Occult Blood Urine Nitrate Urine Bilirubin Ur Bilirubin Confirm Urine Urobilinogen 0.2 Ur Leukocyte Esterase 2+ H 3+ H Urine RBC 30-100/hpf H 1-5/hpf D Urine WBC >100/hpf H Ur Squamous Epith Cells Urine Bacteria Ur Culture Indicated? Vol Urine Centrifuged Nasal Screen MRSA (PCR) 11/30/23 11/30/23 11/30/23 20:35 20:35 20:35 WBC RBC Hgb Hct MCV MCH MCHC RDW Plt Count Neut % (Auto) Lymph % (Auto) [place] % (Auto) Eos % (Auto) Baso % (Auto) Lymph # (Auto) [place] # (Auto) Baso # (Auto) Total Counted Seg Neutrophils % Band Neutrophils % Lymphocytes % (Manual) Atypical Lymphs % Monocytes % (Manual) Eosinophils % (Manual) Neutrophils # (Manual) Smudge Cells RBC Morphology Sodium Potassium Chloride Carbon Dioxide BUN Creatinine Estimated GFR BUN/Creatinine Ratio Glucose Lactate Calcium Total Bilirubin AST ALT Alkaline Phosphatase Total Protein Albumin Globulin Albumin/Globulin Ratio Lipase Urine Color Urine Appearance Urine pH Ur Specific [place] Urine Protein Urine Glucose (UA) Urine Ketones Urine Occult Blood Urine Nitrate Urine Bilirubin Ur Bilirubin Confirm Urine Urobilinogen Ur Leukocyte Esterase Urine RBC Urine WBC 30-100/hpf H Ur Squamous Epith Cells 0-1 /hpf 0-1 /hpf Urine Bacteria Many (>30) H Many (>30) H Ur Culture Indicated? Specimen cultured Vol Urine Centrifuged Nasal Screen MRSA (PCR) 11/30/23 11/30/23 12/01/23 20:35 20:35 03:45 WBC RBC Hgb Hct MCV MCH MCHC RDW Plt Count Neut % (Auto) Lymph % (Auto) [place] % (Auto) Eos % (Auto) Baso % (Auto) Lymph # (Auto) [place] # (Auto) Baso # (Auto) Total Counted Seg Neutrophils % Band Neutrophils % Lymphocytes % (Manual) Atypical Lymphs % Monocytes % (Manual) Eosinophils % (Manual) Neutrophils # (Manual) Smudge Cells RBC Morphology Sodium Potassium Chloride Carbon Dioxide BUN Creatinine Estimated GFR BUN/Creatinine Ratio Glucose Lactate Calcium Total Bilirubin AST ALT Alkaline Phosphatase Total Protein Albumin Globulin Albumin/Globulin Ratio Lipase Urine Color Urine Appearance Urine pH Ur Specific [place] Urine Protein Urine Glucose (UA) Urine Ketones Urine Occult Blood Urine Nitrate Urine Bilirubin Ur Bilirubin Confirm Urine Urobilinogen Ur Leukocyte Esterase Urine RBC Urine WBC Ur Squamous Epith Cells Urine Bacteria Ur Culture Indicated? Specimen cultured Vol Urine Centrifuged 10ml (spun) 10ml (spun) Nasal Screen MRSA (PCR) Not detected Assessment & Plan Assessment & Plan narrative: 226 Artis Veloz: 83 years old male with a past medical history of bladder cancer, chronic lymphocytic leukemia, hypertension, dyslipidemia, depression and recent hospitalization for sepsis due to urinary tract infection with acute kidney injury. Urine at that time had grown Enterococcus needing a course of linezolid. Patient has significant bladder outlet obstruction and has had right and left nephrostomy tubes that has been draining. Was due to have scheduled bladder MRI in the near future. Now presented to the emergency room for fever episode with generalized weakness. Denies any flank or abdominal pain. No nausea or vomiting but denies any shortness of breath cough wheezing headache or upper respiratory symptoms. Appears to be very hard of hearing and frustrated with his diagnosis. Has been difficult to get a consistent history from the patient and much of the history has been obtained from the chart. In the ED noted to have a temp of 103.1 with a systolic initially as low as 85. Subsequent blood test showed a white count of 32,000 with a usual baseline around 29,000, hemoglobin of 11.2, BUN of 25 and a creatinine of 1.53. Sodium 131. Urine analysis is positive for leukocyte esterase and WBCs with many bacteria. CT abdomen and pelvis with contrast shows bladder wall thickening and bilateral percutaneous nephrostomy with decrease in the extent of hydronephrosis. Patient was initiated on IV Rocephin/IV vancomycin based on previous cultures and admitted for further evaluation 1 urinary tract infection with concerns of acute pyelonephritis in a patient with a history of bladder cancer status post nephrostomy tube placement. Continue IV fluids/IV Rocephin/vancomycin pending culture results. Monitor for any evidence of sepsis. Trend the lactic acid levels closely 2. Leukocytosis. Does have a history of chronic lymphocytic leukemia but there could be an element of superimposed infection. Continue to trend 3 History of bladder cancer. Will need to review the home medications before resumption of the Flomax, Follows Urology/Oncology in OP setting 4 DVT prophylaxis will be with SCDs 5 GI prophylaxis will be Protonix 6. Hyperlipidemia. resume home statin after verification. 7. Depression resume Wellbutrin after verification. Patient will be admitted under inpatient status given the acute pyelonephritis with concerns for sepsis needing IV fluids/IV antibiotics. Expected length of stay is greater than 2 midnights Patient was examined with help of video communication device. location of [facility] Deep Vein Thrombosis/Pulmonary Embolism Present on Admission: No
--- NOTE | 2023-12-01 06:28 | PC.ADMIT ---
[email or web address] [address] Admission Note: The patient,Artis Veloz,83 y/o, was given written information regarding hospital policies, unit procedures and contact persons. Patient's smoking status: Never smoker. Vital Signs - 8 hr 11/30/23 22:30 11/30/23 22:30 11/30/23 23:00 Temperature Pulse Rate 75 Respiratory Rate Blood Pressure 97/56 L 85/48 L Pulse Oximetry 92 Oxygen Delivery Method Oxygen Flow Rate 11/30/23 23:00 11/30/23 23:02 11/30/23 23:02 Temperature Pulse Rate 74 74 Respiratory Rate Blood Pressure 82/52 L Pulse Oximetry 95 97 Oxygen Delivery Method Oxygen Flow Rate 11/30/23 23:04 11/30/23 23:07 11/30/23 23:07 Temperature 99.8 F H Pulse Rate 72 72 Respiratory Rate Blood Pressure 101/50 L Pulse Oximetry 96 97 Oxygen Delivery Method Oxygen Flow Rate 11/30/23 23:10 11/30/23 23:10 11/30/23 23:20 Temperature Pulse Rate 67 Respiratory Rate Blood Pressure 90/51 L 99/55 L Pulse Oximetry 97 Oxygen Delivery Method Oxygen Flow Rate 11/30/23 23:20 11/30/23 23:30 11/30/23 23:30 Temperature Pulse Rate 66 68 Respiratory Rate Blood Pressure 101/59 L Pulse Oximetry 94 95 Oxygen Delivery Method Oxygen Flow Rate 11/30/23 23:40 11/30/23 23:40 11/30/23 23:50 Temperature Pulse Rate 70 Respiratory Rate Blood Pressure 102/58 L 101/58 L Pulse Oximetry 95 Oxygen Delivery Method Oxygen Flow Rate 11/30/23 23:50 12/01/23 00:00 12/01/23 00:00 Temperature Pulse Rate 67 65 Respiratory Rate Blood Pressure 101/58 L Pulse Oximetry 95 96 Oxygen Delivery Method Oxygen Flow Rate 12/01/23 00:10 12/01/23 00:10 12/01/23 00:20 Temperature Pulse Rate 66 Respiratory Rate Blood Pressure 99/54 L 101/55 L Pulse Oximetry 96 Oxygen Delivery Method Oxygen Flow Rate 12/01/23 00:20 12/01/23 00:30 12/01/23 00:30 Temperature Pulse Rate 66 66 Respiratory Rate Blood Pressure 98/57 L Pulse Oximetry 97 96 Oxygen Delivery Method Oxygen Flow Rate 12/01/23 00:40 12/01/23 00:40 12/01/23 00:50 Temperature Pulse Rate 62 Respiratory Rate Blood Pressure 102/57 L 96/53 L Pulse Oximetry 96 Oxygen Delivery Method Oxygen Flow Rate 12/01/23 00:50 12/01/23 01:00 12/01/23 01:00 Temperature Pulse Rate 64 63 Respiratory Rate Blood Pressure 100/59 L Pulse Oximetry 97 96 Oxygen Delivery Method Oxygen Flow Rate 12/01/23 01:10 12/01/23 01:10 12/01/23 01:14 Temperature Pulse Rate 70 Respiratory Rate Blood Pressure 93/51 L 92/50 L Pulse Oximetry 98 Oxygen Delivery Method Oxygen Flow Rate 12/01/23 01:14 12/01/23 01:20 12/01/23 01:20 Temperature Pulse Rate 66 62 Respiratory Rate Blood Pressure 93/53 L Pulse Oximetry 97 96 Oxygen Delivery Method Oxygen Flow Rate 12/01/23 01:30 12/01/23 01:30 12/01/23 01:46 Temperature Pulse Rate 63 60 Respiratory Rate Blood Pressure 103/56 L Pulse Oximetry 96 97 Oxygen Delivery Method Oxygen Flow Rate 12/01/23 01:46 12/01/23 01:50 12/01/23 01:50 Temperature Pulse Rate 69 Respiratory Rate Blood Pressure 78/48 L 86/50 L Pulse Oximetry 98 Oxygen Delivery Method Oxygen Flow Rate 12/01/23 01:57 12/01/23 01:57 12/01/23 02:00 Temperature Pulse Rate 65 Respiratory Rate Blood Pressure 108/58 L 112/56 L Pulse Oximetry 97 Oxygen Delivery Method Oxygen Flow Rate 12/01/23 02:00 12/01/23 02:15 12/01/23 02:15 Temperature Pulse Rate 64 66 Respiratory Rate 16 17 Blood Pressure 114/59 L Pulse Oximetry 98 98 Oxygen Delivery Method Oxygen Flow Rate 12/01/23 02:30 12/01/23 02:30 12/01/23 03:57 Temperature Pulse Rate 65 71 Respiratory Rate 20 22 Blood Pressure 104/58 L Pulse Oximetry 95 98 Oxygen Delivery Method Oxygen Flow Rate 12/01/23 04:00 12/01/23 04:00 12/01/23 04:00 Temperature 99.4 F Pulse Rate 75 Respiratory Rate 22 Blood Pressure 129/85 Pulse Oximetry 97 Oxygen Delivery Method Room Air Oxygen Flow Rate 0 12/01/23 04:30 12/01/23 04:30 12/01/23 05:00 Temperature Pulse Rate 74 76 Respiratory Rate 21 23 Blood Pressure 144/73 H 129/69 Pulse Oximetry 98 97 Oxygen Delivery Method Oxygen Flow Rate 0 12/01/23 05:30 12/01/23 06:00 12/01/23 06:00 Temperature Pulse Rate 77 78 Respiratory Rate 25 H 25 H Blood Pressure 96/50 L Pulse Oximetry 95 94 Oxygen Delivery Method Oxygen Flow Rate 0 Patient admitted to ICU room 226 at 0330. [place], but A/Ox4. Dr. Hernandez saw patient via TeleHealth monitor. T 99.4, still has chills, SR 70s, BP 129/85, SpO2 97% on RA, RR 20s, denies pain or nausea. Bilateral nephrostomy tubes patent, dressings CDI, total UOP since admit 2375ml.
--- NOTE | 2023-12-01 08:11 | P.HP_ITS ---
History of Present Illness History of Present Illness Date Patient Seen: 12/01/23 Chief complaint: fever, ill, here yesterday Narrative: From H&P: 83 years old male with a past medical history of bladder cancer, chronic lymphocytic leukemia, hypertension, dyslipidemia, depression and recent hospitalization for sepsis due to urinary tract infection with acute kidney injury. Urine at that time had grown Enterococcus needing a course of linezolid. Patient has significant bladder outlet obstruction and has had right and left nephrostomy tubes that has been draining. Was due to have scheduled bladder MRI in the near future. Now presented to the emergency room for fever episode with generalized weakness. Denies any flank or abdominal pain. No nausea or vomiting but denies any shortness of breath cough wheezing headache or upper respiratory symptoms. Appears to be very hard of hearing and frustrated with his diagnosis. Has been difficult to get a consistent history from the patient and much of the history has been obtained from the chart. In the ED noted to have a temp of 103.1 with a systolic initially as low as 85. Subsequent blood test showed a white count of 32,000 with a usual baseline around 29,000, hemoglobin of 11.2, BUN of 25 and a creatinine of 1.53. Sodium 131. Urine analysis is positive for leukocyte esterase and WBCs with many bacteria. CT abdomen and pelvis with contrast shows bladder wall thickening and bilateral percutaneous nephrostomy with decrease in the extent of hydronephrosis. Patient was initiated on IV Rocephin/IV vancomycin based on previous cultures and admitted for further evaluation. S: Patient was feeling better. He was improved his fever overnight in his much more mentally alert. His pain is also improved. He was bilateral percutaneous nephrostomy tubes in place for a an obstructive bladder mass. He was treated for Enterococcus and a previous admission and is responding to vancomycin. His initial urine study indicate a Gram-negative bacillus. Patient has an appointment with Urology and [place] on Sunday at 1:00 p.m.. His blood pressures have been somewhat soft, however his map is over 65. He feels generally much better. He denies any nausea or abdominal pain currently. He lives with his in [place]. [facility] Medical History Hydronephrosis, right Elevated serum creatinine Prostate mass Bladder mass Microscopic hematuria Nocturnal enuresis Shortness of breath Anesthesia complication Easy bruisability COPD (chronic obstructive pulmonary disease) Right leg weakness RUQ abdominal pain Finger pain, right Right shoulder pain Supraventricular tachycardia Sleep apnea Depression Anxiety Hearing loss Hematuria BPH (benign prostatic hyperplasia) Hypercalcemia 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 Sister No problems noted. Father No problems noted. Mother Pancreatic cancer Social History household members: spouse Smoking Status: Never smoker alcohol intake: current substance use type: does not use Meds Home Medications and Allergies Home Medications Medication Instructions Recorded Confirmed Type atorvastatin 10 mg tablet See Rx Instructions .Route 04/16/23 12/01/23 Rx .COMPLEX #90 tabs bupropion HCl 150 mg tablet,12 hr See Rx Instructions .Route 04/16/23 12/01/23 Rx sustained-release .COMPLEX #180 tabs lisinopril 20 mg tablet See Rx Instructions .Route 04/23/23 12/01/23 Rx .COMPLEX #90 tabs tamsulosin 0.4 mg capsule 0.4 mg PO DAILY #30 caps 10/08/23 12/01/23 Rx linezolid 600 mg tablet 600 mg PO BID #14 tabs 11/06/23 12/01/23 Rx clopidogrel 75 mg tablet 75 mg PO QPM 12/01/23 12/01/23 History Allergies Allergy/AdvReac Type Severity Reaction Status Date / Time No Known Drug Allergies Allergy Verified 11/30/23 19:35 Review of Systems Review of Systems Narrative: All else reviewed and otherwise unremarkable except as noted in the history and physical. Exam Vital Signs (past 8 hours): - 12/01/23 00:20 12/01/23 00:20 12/01/23 00:30 Temperature Pulse Rate 66 Respiratory Rate Blood Pressure 101/55 L 98/57 L Pulse Oximetry 97 Oxygen Delivery Method Oxygen Flow Rate 12/01/23 00:30 12/01/23 00:40 12/01/23 00:40 Temperature Pulse Rate 66 62 Respiratory Rate Blood Pressure 102/57 L Pulse Oximetry 96 96 Oxygen Delivery Method Oxygen Flow Rate 12/01/23 00:50 12/01/23 00:50 12/01/23 01:00 Temperature Pulse Rate 64 63 Respiratory Rate Blood Pressure 96/53 L Pulse Oximetry 97 96 Oxygen Delivery Method Oxygen Flow Rate 12/01/23 01:00 12/01/23 01:10 12/01/23 01:10 Temperature Pulse Rate 70 Respiratory Rate Blood Pressure 100/59 L 93/51 L Pulse Oximetry 98 Oxygen Delivery Method Oxygen Flow Rate 12/01/23 01:14 12/01/23 01:14 12/01/23 01:20 Temperature Pulse Rate 66 62 Respiratory Rate Blood Pressure 92/50 L Pulse Oximetry 97 96 Oxygen Delivery Method Oxygen Flow Rate 12/01/23 01:20 12/01/23 01:30 12/01/23 01:30 Temperature Pulse Rate 63 Respiratory Rate Blood Pressure 93/53 L 103/56 L Pulse Oximetry 96 Oxygen Delivery Method Oxygen Flow Rate 12/01/23 01:46 12/01/23 01:46 12/01/23 01:50 Temperature Pulse Rate 60 Respiratory Rate Blood Pressure 78/48 L 86/50 L Pulse Oximetry 97 Oxygen Delivery Method Oxygen Flow Rate 12/01/23 01:50 12/01/23 01:57 12/01/23 01:57 Temperature Pulse Rate 69 65 Respiratory Rate Blood Pressure 108/58 L Pulse Oximetry 98 97 Oxygen Delivery Method Oxygen Flow Rate 12/01/23 02:00 12/01/23 02:00 12/01/23 02:15 Temperature Pulse Rate 64 Respiratory Rate 16 Blood Pressure 112/56 L 114/59 L Pulse Oximetry 98 Oxygen Delivery Method Oxygen Flow Rate 12/01/23 02:15 12/01/23 02:30 12/01/23 02:30 Temperature Pulse Rate 66 65 Respiratory Rate 17 20 Blood Pressure 104/58 L Pulse Oximetry 98 95 Oxygen Delivery Method Oxygen Flow Rate 12/01/23 03:57 12/01/23 04:00 12/01/23 04:00 Temperature 99.4 F Pulse Rate 71 75 Respiratory Rate 22 22 Blood Pressure 129/85 Pulse Oximetry 98 97 Oxygen Delivery Method Oxygen Flow Rate 0 12/01/23 04:00 12/01/23 04:30 12/01/23 04:30 Temperature Pulse Rate 74 Respiratory Rate 21 Blood Pressure 144/73 H Pulse Oximetry 98 Oxygen Delivery Method Room Air Oxygen Flow Rate 12/01/23 05:00 12/01/23 05:30 12/01/23 06:00 Temperature Pulse Rate 76 77 78 Respiratory Rate 23 25 H 25 H Blood Pressure 129/69 Pulse Oximetry 97 95 94 Oxygen Delivery Method Oxygen Flow Rate 0 12/01/23 06:00 12/01/23 06:30 12/01/23 07:00 Temperature Pulse Rate 69 Respiratory Rate 26 H Blood Pressure 96/50 L 85/48 L Pulse Oximetry 95 Oxygen Delivery Method Oxygen Flow Rate 0 12/01/23 07:00 12/01/23 07:30 12/01/23 07:41 Temperature Pulse Rate 66 61 Respiratory Rate 24 26 H Blood Pressure 85/46 L Pulse Oximetry 95 97 Oxygen Delivery Method Oxygen Flow Rate 12/01/23 07:41 12/01/23 07:45 12/01/23 07:45 Temperature Pulse Rate 63 63 Respiratory Rate 25 H 22 Blood Pressure 95/67 Pulse Oximetry 96 98 Oxygen Delivery Method Oxygen Flow Rate 12/01/23 08:00 12/01/23 08:00 12/01/23 08:00 Temperature 98.5 F Pulse Rate 62 Respiratory Rate 22 Blood Pressure 90/50 L Pulse Oximetry 97 Oxygen Delivery Method Oxygen Flow Rate Oxygen Delivery Method Room Air Oxygen Flow Rate 0 Narrative Exam Narrative: NAD, alert and oriented, fluent speech, calm. Normocephalic skull, EOMI, anicteric sclera, symmetric pupils. Oropharynx unremarkable, no droop. Neck supple, midline trachea, no adenopathy. Lungs clear, normal rate and effort. Heart regular, no murmur gallop or rub. Abdomen is soft, non distended and non tender. Extremities are free of edema. Skin is free of rash or lesions. Joints are not swollen or deformed. Judgment appears to be normal. Bilateral nephrostomy tubes, appeared to be draining without difficulty. Urine appears to be fairly clear. Objective Labs 12/01/23 08:30 12/01/23 08:30 Labs: Laboratory Results - last 24 hr 11/30/23 11/30/23 11/30/23 20:30 20:35 20:35 WBC 32.1 H* RBC 3.53 L Hgb 11.2 L Hct 33.3 L MCV 94.3 MCH 31.7 MCHC 33.6 RDW 14.4 Plt Count 250 Neut % (Auto) Not Reportable Lymph % (Auto) Not Reportable [place] % (Auto) Not Reportable Eos % (Auto) Not Reportable Baso % (Auto) Not Reportable Lymph # (Auto) Not Reportable [place] # (Auto) Not Reportable Baso # (Auto) Not Reportable Total Counted 100 Seg Neutrophils % 36.0 L Band Neutrophils % 2.0 L Lymphocytes % (Manual) 41.0 Atypical Lymphs % 16.0 H Monocytes % (Manual) 3.0 Eosinophils % (Manual) 2.0 Neutrophils # (Manual) 33405 H Smudge Cells 4+ H D RBC Morphology Normal morphology Sodium 131 L Potassium 4.4 Chloride 102 Carbon Dioxide 25 BUN 25 H Creatinine 1.53 H Estimated GFR 44 L BUN/Creatinine Ratio 16.3 Glucose 108 Lactate 1.1 Calcium 10.9 H Total Bilirubin 1.2 AST 36 ALT 30 Alkaline Phosphatase 99 Total Protein 6.7 Albumin 3.8 Globulin 2.9 Albumin/Globulin Ratio 1.3 Lipase 110 Urine Color Brown Yellow Urine Appearance Cloudy Urine pH Ur Specific [place] Urine Protein Urine Glucose (UA) Urine Ketones Urine Occult Blood Urine Nitrate Urine Bilirubin Ur Bilirubin Confirm Urine Urobilinogen Ur Leukocyte Esterase Urine RBC Urine WBC Ur Squamous Epith Cells Urine Bacteria Ur Culture Indicated? Vol Urine Centrifuged Nasal Screen MRSA (PCR) 11/30/23 11/30/23 11/30/23 20:35 20:35 20:35 WBC RBC Hgb Hct MCV MCH MCHC RDW Plt Count Neut % (Auto) Lymph % (Auto) [place] % (Auto) Eos % (Auto) Baso % (Auto) Lymph # (Auto) [place] # (Auto) Baso # (Auto) Total Counted Seg Neutrophils % Band Neutrophils % Lymphocytes % (Manual) Atypical Lymphs % Monocytes % (Manual) Eosinophils % (Manual) Neutrophils # (Manual) Smudge Cells RBC Morphology Sodium Potassium Chloride Carbon Dioxide BUN Creatinine Estimated GFR BUN/Creatinine Ratio Glucose Lactate Calcium Total Bilirubin AST ALT Alkaline Phosphatase Total Protein Albumin Globulin Albumin/Globulin Ratio Lipase Urine Color Urine Appearance Sl cloudy Urine pH 5.5 6.0 Ur Specific [place] 1.025 1.010 Urine Protein 2+ H Urine Glucose (UA) Urine Ketones Urine Occult Blood Urine Nitrate Urine Bilirubin Ur Bilirubin Confirm Urine Urobilinogen Ur Leukocyte Esterase Urine RBC Urine WBC Ur Squamous Epith Cells Urine Bacteria Ur Culture Indicated? Vol Urine Centrifuged Nasal Screen MRSA (PCR) 11/30/23 11/30/23 11/30/23 20:35 20:35 20:35 WBC RBC Hgb Hct MCV MCH MCHC RDW Plt Count Neut % (Auto) Lymph % (Auto) [place] % (Auto) Eos % (Auto) Baso % (Auto) Lymph # (Auto) [place] # (Auto) Baso # (Auto) Total Counted Seg Neutrophils % Band Neutrophils % Lymphocytes % (Manual) Atypical Lymphs % Monocytes % (Manual) Eosinophils % (Manual) Neutrophils # (Manual) Smudge Cells RBC Morphology Sodium Potassium Chloride Carbon Dioxide BUN Creatinine Estimated GFR BUN/Creatinine Ratio Glucose Lactate Calcium Total Bilirubin AST ALT Alkaline Phosphatase Total Protein Albumin Globulin Albumin/Globulin Ratio Lipase Urine Color Urine Appearance Urine pH Ur Specific [place] Urine Protein 2+ H Urine Glucose (UA) Negative Negative Urine Ketones Negative Negative Urine Occult Blood 3+ H Urine Nitrate Urine Bilirubin Ur Bilirubin Confirm Urine Urobilinogen Ur Leukocyte Esterase Urine RBC Urine WBC Ur Squamous Epith Cells Urine Bacteria Ur Culture Indicated? Vol Urine Centrifuged Nasal Screen MRSA (PCR) 11/30/23 11/30/23 11/30/23 20:35 20:35 20:35 WBC RBC Hgb Hct MCV MCH MCHC RDW Plt Count Neut % (Auto) Lymph % (Auto) [place] % (Auto) Eos % (Auto) Baso % (Auto) Lymph # (Auto) [place] # (Auto) Baso # (Auto) Total Counted Seg Neutrophils % Band Neutrophils % Lymphocytes % (Manual) Atypical Lymphs % Monocytes % (Manual) Eosinophils % (Manual) Neutrophils # (Manual) Smudge Cells RBC Morphology Sodium Potassium Chloride Carbon Dioxide BUN Creatinine Estimated GFR BUN/Creatinine Ratio Glucose Lactate Calcium Total Bilirubin AST ALT Alkaline Phosphatase Total Protein Albumin Globulin Albumin/Globulin Ratio Lipase Urine Color Urine Appearance Urine pH Ur Specific [place] Urine Protein Urine Glucose (UA) Urine Ketones Urine Occult Blood 3+ H Urine Nitrate Positive H Negative Urine Bilirubin 1+ H Negative Ur Bilirubin Confirm Negative Urine Urobilinogen 1.0 Ur Leukocyte Esterase Urine RBC Urine WBC Ur Squamous Epith Cells Urine Bacteria Ur Culture Indicated? Vol Urine Centrifuged Nasal Screen MRSA (PCR) 11/30/23 11/30/23 11/30/23 20:35 20:35 20:35 WBC RBC Hgb Hct MCV MCH MCHC RDW Plt Count Neut % (Auto) Lymph % (Auto) [place] % (Auto) Eos % (Auto) Baso % (Auto) Lymph # (Auto) [place] # (Auto) Baso # (Auto) Total Counted Seg Neutrophils % Band Neutrophils % Lymphocytes % (Manual) Atypical Lymphs % Monocytes % (Manual) Eosinophils % (Manual) Neutrophils # (Manual) Smudge Cells RBC Morphology Sodium Potassium Chloride Carbon Dioxide BUN Creatinine Estimated GFR BUN/Creatinine Ratio Glucose Lactate Calcium Total Bilirubin AST ALT Alkaline Phosphatase Total Protein Albumin Globulin Albumin/Globulin Ratio Lipase Urine Color Urine Appearance Urine pH Ur Specific [place] Urine Protein Urine Glucose (UA) Urine Ketones Urine Occult Blood Urine Nitrate Urine Bilirubin Ur Bilirubin Confirm Urine Urobilinogen 0.2 Ur Leukocyte Esterase 2+ H 3+ H Urine RBC 30-100/hpf H 1-5/hpf D Urine WBC >100/hpf H Ur Squamous Epith Cells Urine Bacteria Ur Culture Indicated? Vol Urine Centrifuged Nasal Screen MRSA (PCR) 11/30/23 11/30/23 11/30/23 20:35 20:35 20:35 WBC RBC Hgb Hct MCV MCH MCHC RDW Plt Count Neut % (Auto) Lymph % (Auto) [place] % (Auto) Eos % (Auto) Baso % (Auto) Lymph # (Auto) [place] # (Auto) Baso # (Auto) Total Counted Seg Neutrophils % Band Neutrophils % Lymphocytes % (Manual) Atypical Lymphs % Monocytes % (Manual) Eosinophils % (Manual) Neutrophils # (Manual) Smudge Cells RBC Morphology Sodium Potassium Chloride Carbon Dioxide BUN Creatinine Estimated GFR BUN/Creatinine Ratio Glucose Lactate Calcium Total Bilirubin AST ALT Alkaline Phosphatase Total Protein Albumin Globulin Albumin/Globulin Ratio Lipase Urine Color Urine Appearance Urine pH Ur Specific [place] Urine Protein Urine Glucose (UA) Urine Ketones Urine Occult Blood Urine Nitrate Urine Bilirubin Ur Bilirubin Confirm Urine Urobilinogen Ur Leukocyte Esterase Urine RBC Urine WBC 30-100/hpf H Ur Squamous Epith Cells 0-1 /hpf 0-1 /hpf Urine Bacteria Many (>30) H Many (>30) H Ur Culture Indicated? Specimen cultured Vol Urine Centrifuged Nasal Screen MRSA (PCR) 11/30/23 11/30/23 12/01/23 20:35 20:35 03:45 WBC RBC Hgb Hct MCV MCH MCHC RDW Plt Count Neut % (Auto) Lymph % (Auto) [place] % (Auto) Eos % (Auto) Baso % (Auto) Lymph # (Auto) [place] # (Auto) Baso # (Auto) Total Counted Seg Neutrophils % Band Neutrophils % Lymphocytes % (Manual) Atypical Lymphs % Monocytes % (Manual) Eosinophils % (Manual) Neutrophils # (Manual) Smudge Cells RBC Morphology Sodium Potassium Chloride Carbon Dioxide BUN Creatinine Estimated GFR BUN/Creatinine Ratio Glucose Lactate Calcium Total Bilirubin AST ALT Alkaline Phosphatase Total Protein Albumin Globulin Albumin/Globulin Ratio Lipase Urine Color Urine Appearance Urine pH Ur Specific [place] Urine Protein Urine Glucose (UA) Urine Ketones Urine Occult Blood Urine Nitrate Urine Bilirubin Ur Bilirubin Confirm Urine Urobilinogen Ur Leukocyte Esterase Urine RBC Urine WBC Ur Squamous Epith Cells Urine Bacteria Ur Culture Indicated? Specimen cultured Vol Urine Centrifuged 10ml (spun) 10ml (spun) Nasal Screen MRSA (PCR) Not detected Assessment & Plan Assessment & Plan narrative: 1. Acute pyelonephritis in a patient with a history of bladder cancer status post nephrostomy tube placement. Present on admission and active. -Continue IV fluids/IV Rocephin/vancomycin pending culture results. Monitor for any evidence of sepsis. Trend the lactic acid levels closely 2. Leukocytosis. Present on admission and active. -Does have a history of chronic lymphocytic leukemia but there could be an element of superimposed infection. Continue to trend 3. History of bladder cancer. Present on admission and active. -Will need to review the home medications before resumption of the Flomax, Follows Urology/Oncology in OP setting 4. Hyperlipidemia. Present on admission and active. 5. Depression. Present on admission and active. -resume Wellbutrin after verification. 6. CLL, Present on admission and active. DVT prophylaxis will be with SCDs GI prophylaxis will be Protonix WILLIAM: 1-2 days. Patient will be admitted under inpatient status given the acute pyelonephritis with concerns for sepsis needing IV fluids/IV antibiotics. Expected length of stay is greater than 2 midnights. Time Spent With Patient Time with patient: 30 to 49 minutes with 50% spent counseling/coordinating care Quality VTE Deep Vein Thrombosis/Pulmonary Embolism Present on Admission: No MIPS - Admit I confirm the patient?s Advance Care Plan is present, Code status is documented, Surrogate decision maker is in patient?s record [If Yes, STOP here]: Yes MIPS - Meds 'Current medications' to include all prescriptions, [id number] products, herbals, cannabis/cannabidiol products, and vitamin/mineral/dietary (nutritional) supplements. I have utilized all available resources to obtain, update, or review the patient?s current medications. [If Yes, STOP here]: Yes
[2023-12-01 08:44] LABS: Add Manual Diff / Slide Review YES; Hematocrit 30.1 % (41-53); Hemoglobin 10.2 g/dL (13.5-17.5); Mean Corpuscular HGB Conc 33.7 % (30-36); Mean Corpuscular Volume 94.9 fL (80-100); Platelet Count 205 X10^3/uL (150-400); Red Blood Cell Count 3.17 X10^6/uL (4.5-5.9); Red Cell Distribution Width 14.3 % (11.6-14.8); White Blood Cell Count 26.5 X10^3/uL (4.5-11.0)
[2023-12-01 09:01] LABS: Alanine Aminotransferase 23 IU/L (<50); Albumin 2.8 g/dL (3.5-5.0); Albumin Globulin Ratio 1.1 (1.0-2.8); Alkaline Phosphatase 91 U/L (38-126); Aspartate Aminotransferase 27 IU/L (17-59); Bilirubin Total 0.9 mg/dL (0.2-1.3); Blood Urea Nitrogen 20 mg/dL (9-20); Carbon Dioxide 22 mmol/L (22-32); Chloride 111 mmol/L (98-107); Estimated Glomerular Filt Rate 48 mL/min (>60); Globulin 2.6 g/dL (1.7-4.1); Glucose 99 mg/dL (80-110); HEMOLYSIS < 15 (0-50); Phosphorous 2.6 mg/dL (2.3-3.7); Sodium 138 mmol/L (137-145); Total Protein 5.4 g/dL (6.3-8.2)
[2023-12-01 09:03] LABS: Neutrophils Absolute Manual 9010 /uL (3000-5900); RBC Morphology Normal Morphology; Total Cells Counted 100
[2023-12-01 09:04] LABS: Smudge Cells 2+
[2023-12-01 09:10] LABS: NT-proBNP (BNP-Adult 18+) 549 pg/mL (<450)
--- NOTE | 2023-12-01 09:30 | CM.DANOTE ---
DCP: Case received, EMR reviewed and met with patient. Spouse, Chloé, was at bedside. Introduced self and role. Was able to obtain information regarding patient's baseline activity status prior to admission. DCP assessment completed with information currently available. Patient is an 83 year old male who admitted early this morning to the care of the hospitalist team. PCP: Dr. Jacobson. Payer: confirmed: [facility] Ad[employer]age. Patient came to the hospital via ambulance secondary to having fever, weakness. Patient has history of bladder cancer, he currently has post bilateral nephrostomy tubes. He is under the care of Dr. Leija. He does have an upcoming appointment in [place] on Sunday to see urologist specialist, Dr. Hammer. Patient was here early this month for hydronephrosis, and had TURP. Patient was admitted for acute pyelonephritis. Met with patient in his room, he was sitting up in bed, spouse at bedside. Confirmed that they both reside here in [place]. He uses a cane, does not drive, he did not renew his license. He is currently under the care of [facility]. He did confirm that he has Dr. Jacobson as primary provider, but notes indicate that he wanted to be under hospitalist care. P: DCP to continue to follow. Plan is home when stable, will update [facility], and will email update and see if they will just need resumption orders versus new face to face. Kaya Dubois RN/Field Identification Specialist Discharge Planning/Care Management CM Discharge Assessment Start: 12/01/23 09:26 Freq: Status: Active Protocol: Document 12/01/23 09:26 (Rec: 12/01/23 09:30 [id number]) Discharge Planning Assessment Assigned Automotive General Manager Kaya Dubois RN/Field Identification Specialist Advance Directives? Yes: POLST Advance Directives on File Yes History Provided By Patient,Significant Other, Medical Record Prior Living Arrangements House Household Members spouse Type of transporation used prior to Relies on Others admit Independent with ADL's Yes Is patient alert and oriented? Yes Needs Assistance With Meal Prep,Home Chores / Shopping Caregiver for Another No DME Already Rented / Owned Cane Patient/Family Preference Home with Home Health Comment Patient is currently under home health services, [facility] Barriers to Discharge No Discharge Plan Home Transportation Arrangement Spouse Referrals Initiated None needed Additional Comment Patient is currently under [facility] Whiteboard Updated in Patient Room with Yes name and ext. # of Automotive General Manager Review Status In Process Next Review Type Continued Stay Review
[2023-12-01] MEDS: CEFEPIME 2 GM in SODIUM CHLORIDE 0.9% 100 ML IV (14:34)
[2023-12-01] MEDS: ACETAMINOPHEN 325 MG TABLET 650 MG PO (14:35)
--- NOTE | 2023-12-01 17:34 | P.DS_ITS ---
History of Present Illness History of Present Illness Chief complaint: fever, ill, here yesterday Narrative: From H&P: 83 years old male with a past medical history of bladder cancer, chronic lymphocytic leukemia, hypertension, dyslipidemia, depression and recent hospitalization for sepsis due to urinary tract infection with acute kidney injury. Urine at that time had grown Enterococcus needing a course of linezolid. Patient has significant bladder outlet obstruction and has had right and left nephrostomy tubes that has been draining. Was due to have scheduled bladder MRI in the near future. Now presented to the emergency room for fever episode with generalized weakness. Denies any flank or abdominal pain. No nausea or vomiting but denies any shortness of breath cough wheezing headache or upper respiratory symptoms. Appears to be very hard of hearing and frustrated with his diagnosis. Has been difficult to get a consistent history from the patient and much of the history has been obtained from the chart. In the ED noted to have a temp of 103.1 with a systolic initially as low as 85. Subsequent blood test showed a white count of 32,000 with a usual baseline around 29,000, hemoglobin of 11.2, BUN of 25 and a creatinine of 1.53. Sodium 131. Urine analysis is positive for leukocyte esterase and WBCs with many bacteria. CT abdomen and pelvis with contrast shows bladder wall thickening and bilateral percutaneous nephrostomy with decrease in the extent of hydronephrosis. Patient was initiated on IV Rocephin/IV vancomycin based on previous cultures and admitted for further evaluation. S: Patient was feeling better. He was improved his fever overnight in his much more mentally alert. His pain is also improved. He was bilateral percutaneous nephrostomy tubes in place for a an obstructive bladder mass. He was treated for Enterococcus and a previous admission and is responding to vancomycin. His initial urine study indicate a Gram-negative bacillus. Patient has an appointment with Urology and [place] on Sunday at 1:00 p.m.. His blood pressures have been somewhat soft, however his map is over 65. He feels generally much better. He denies any nausea or abdominal pain currently. He lives with his in [place]. Discharge Providers Provider Date of admission: 12/01/23 01:06 Discharge Date: 12/01/23 Primary care physician: Johnny Jacobson MD Consults: None Discharge provider: Raciel Will MD Summary Hospital Course Discharge Diagnosis: 1. Acute pyelonephritis in a patient with a history of bladder cancer status post nephrostomy tube placement. Present on admission and active. -Continue IV fluids/IV Rocephin/vancomycin pending culture results. Monitor for any evidence of sepsis. Trend the lactic acid levels closely 2. Leukocytosis. Present on admission and active. -Does have a history of chronic lymphocytic leukemia but there could be an element of superimposed infection. Continue to trend 3. History of bladder cancer. Present on admission and active. -Will need to review the home medications before resumption of the Flomax, Follows Urology/Oncology in OP setting 4. Hyperlipidemia. Present on admission and active. 5. Depression. Present on admission and active. -resume Wellbutrin after verification. 6. CLL, Present on admission and active. Hospital Course: This patient was admitted with sepsis and recurrent pyelonephritis in context of a known bladder mass with obstructive bilateral hydronephrosis. He was started on empiric antibiotics with Rocephin and vancomycin. He was admitted to [facility] several weeks ago with an infection which was enterococcal. The patient improved clinically over the 1st 12 hours with general trending down of his fever. He did have soft blood pressures but a good map of over 65. Initial urine culture was notable for Gram-positive bacillus. Given his history of recent Enterococcus, we will continue vancomycin. The patient has bilateral percutaneous nephrostomy is in very draining urine without issue. The family had scheduled follow up with Urology at [facility] on Sunday. They requested transfer to [facility] so that he can continue to be treated, seen by Infectious Disease, and seen by Urology to come up with a plan to further address his obstructive uropathy. Status at Discharge Cognitive/behavioral status at discharge: oriented Functional status at discharge: uses cane/walker Overall status at discharge: patient is progressing back to baseline Time Spent with Patient Time spent: Greater than 30 minutes Exam Vital Signs (past 8 hours): - 12/01/23 10:00 12/01/23 10:00 12/01/23 10:30 Temperature Pulse Rate 61 61 Respiratory Rate 13 22 Blood Pressure 99/56 L Pulse Oximetry 97 97 12/01/23 10:57 12/01/23 10:57 12/01/23 11:00 Temperature Pulse Rate 59 L 58 L Respiratory Rate 17 19 Blood Pressure 84/52 L Pulse Oximetry 97 97 12/01/23 11:00 12/01/23 11:30 12/01/23 12:00 Temperature 98.5 F Pulse Rate 57 L Respiratory Rate 24 Blood Pressure 88/53 L Pulse Oximetry 97 12/01/23 12:00 12/01/23 12:00 12/01/23 12:30 Temperature Pulse Rate 55 L 64 Respiratory Rate 25 H 27 H Blood Pressure 98/56 L Pulse Oximetry 97 12/01/23 13:00 12/01/23 13:00 12/01/23 13:30 Temperature Pulse Rate 63 65 Respiratory Rate 17 25 H Blood Pressure 121/59 L Pulse Oximetry 12/01/23 14:07 12/01/23 14:30 12/01/23 14:35 Temperature 101.3 F H Pulse Rate 78 74 Respiratory Rate 22 Blood Pressure Pulse Oximetry 98 99 12/01/23 15:00 12/01/23 15:00 12/01/23 15:05 Temperature 101 F H Pulse Rate 71 Respiratory Rate 28 H Blood Pressure 127/59 L Pulse Oximetry 97 12/01/23 15:30 12/01/23 17:27 Temperature 101 F H 99.5 F Pulse Rate Respiratory Rate Blood Pressure Pulse Oximetry Oxygen Delivery Method Room Air Oxygen Flow Rate 0 Narrative Exam Narrative: NAD, alert and oriented. Fluent speech. Lungs are clear, normal rate and effort. Heart is regular, no murmur gallop or rub. Abdomen is soft, non distended. Extremities are free of edema. Objective Labs 12/01/23 08:30 12/01/23 08:30 Labs: Laboratory Results - last 24 hr 11/30/23 11/30/23 11/30/23 20:30 20:35 20:35 WBC 32.1 H* RBC 3.53 L Hgb 11.2 L Hct 33.3 L MCV 94.3 MCH 31.7 MCHC 33.6 RDW 14.4 Plt Count 250 Neut % (Auto) Not Reportable Lymph % (Auto) Not Reportable [place] % (Auto) Not Reportable Eos % (Auto) Not Reportable Baso % (Auto) Not Reportable Lymph # (Auto) Not Reportable [place] # (Auto) Not Reportable Baso # (Auto) Not Reportable Total Counted 100 Seg Neutrophils % 36.0 L Band Neutrophils % 2.0 L Lymphocytes % (Manual) 41.0 Atypical Lymphs % 16.0 H Monocytes % (Manual) 3.0 Eosinophils % (Manual) 2.0 Neutrophils # (Manual) 37711 H Smudge Cells 4+ H D RBC Morphology Normal morphology Sodium 131 L Potassium 4.4 Chloride 102 Carbon Dioxide 25 BUN 25 H Creatinine 1.53 H Estimated GFR 44 L BUN/Creatinine Ratio 16.3 Glucose 108 Lactate 1.1 Calcium 10.9 H Phosphorus Total Bilirubin 1.2 AST 36 ALT 30 Alkaline Phosphatase 99 NT-Pro-B Natriuret Pep Total Protein 6.7 Albumin 3.8 Globulin 2.9 Albumin/Globulin Ratio 1.3 Lipase 110 Urine Color Brown Yellow Urine Appearance Cloudy Urine pH Ur Specific [place] Urine Protein Urine Glucose (UA) Urine Ketones Urine Occult Blood Urine Nitrate Urine Bilirubin Ur Bilirubin Confirm Urine Urobilinogen Ur Leukocyte Esterase Urine RBC Urine WBC Ur Squamous Epith Cells Urine Bacteria Ur Culture Indicated? Vol Urine Centrifuged Nasal Screen MRSA (PCR) 11/30/23 11/30/23 11/30/23 20:35 20:35 20:35 WBC RBC Hgb Hct MCV MCH MCHC RDW Plt Count Neut % (Auto) Lymph % (Auto) [place] % (Auto) Eos % (Auto) Baso % (Auto) Lymph # (Auto) [place] # (Auto) Baso # (Auto) Total Counted Seg Neutrophils % Band Neutrophils % Lymphocytes % (Manual) Atypical Lymphs % Monocytes % (Manual) Eosinophils % (Manual) Neutrophils # (Manual) Smudge Cells RBC Morphology Sodium Potassium Chloride Carbon Dioxide BUN Creatinine Estimated GFR BUN/Creatinine Ratio Glucose Lactate Calcium Phosphorus Total Bilirubin AST ALT Alkaline Phosphatase NT-Pro-B Natriuret Pep Total Protein Albumin Globulin Albumin/Globulin Ratio Lipase Urine Color Urine Appearance Sl cloudy Urine pH 5.5 6.0 Ur Specific [place] 1.025 1.010 Urine Protein 2+ H Urine Glucose (UA) Urine Ketones Urine Occult Blood Urine Nitrate Urine Bilirubin Ur Bilirubin Confirm Urine Urobilinogen Ur Leukocyte Esterase Urine RBC Urine WBC Ur Squamous Epith Cells Urine Bacteria Ur Culture Indicated? Vol Urine Centrifuged Nasal Screen MRSA (PCR) 11/30/23 11/30/23 11/30/23 20:35 20:35 20:35 WBC RBC Hgb Hct MCV MCH MCHC RDW Plt Count Neut % (Auto) Lymph % (Auto) [place] % (Auto) Eos % (Auto) Baso % (Auto) Lymph # (Auto) [place] # (Auto) Baso # (Auto) Total Counted Seg Neutrophils % Band Neutrophils % Lymphocytes % (Manual) Atypical Lymphs % Monocytes % (Manual) Eosinophils % (Manual) Neutrophils # (Manual) Smudge Cells RBC Morphology Sodium Potassium Chloride Carbon Dioxide BUN Creatinine Estimated GFR BUN/Creatinine Ratio Glucose Lactate Calcium Phosphorus Total Bilirubin AST ALT Alkaline Phosphatase NT-Pro-B Natriuret Pep Total Protein Albumin Globulin Albumin/Globulin Ratio Lipase Urine Color Urine Appearance Urine pH Ur Specific [place] Urine Protein 2+ H Urine Glucose (UA) Negative Negative Urine Ketones Negative Negative Urine Occult Blood 3+ H Urine Nitrate Urine Bilirubin Ur Bilirubin Confirm Urine Urobilinogen Ur Leukocyte Esterase Urine RBC Urine WBC Ur Squamous Epith Cells Urine Bacteria Ur Culture Indicated? Vol Urine Centrifuged Nasal Screen MRSA (PCR) 11/30/23 11/30/23 11/30/23 20:35 20:35 20:35 WBC RBC Hgb Hct MCV MCH MCHC RDW Plt Count Neut % (Auto) Lymph % (Auto) [place] % (Auto) Eos % (Auto) Baso % (Auto) Lymph # (Auto) [place] # (Auto) Baso # (Auto) Total Counted Seg Neutrophils % Band Neutrophils % Lymphocytes % (Manual) Atypical Lymphs % Monocytes % (Manual) Eosinophils % (Manual) Neutrophils # (Manual) Smudge Cells RBC Morphology Sodium Potassium Chloride Carbon Dioxide BUN Creatinine Estimated GFR BUN/Creatinine Ratio Glucose Lactate Calcium Phosphorus Total Bilirubin AST ALT Alkaline Phosphatase NT-Pro-B Natriuret Pep Total Protein Albumin Globulin Albumin/Globulin Ratio Lipase Urine Color Urine Appearance Urine pH Ur Specific [place] Urine Protein Urine Glucose (UA) Urine Ketones Urine Occult Blood 3+ H Urine Nitrate Positive H Negative Urine Bilirubin 1+ H Negative Ur Bilirubin Confirm Negative Urine Urobilinogen 1.0 Ur Leukocyte Esterase Urine RBC Urine WBC Ur Squamous Epith Cells Urine Bacteria Ur Culture Indicated? Vol Urine Centrifuged Nasal Screen MRSA (PCR) 11/30/23 11/30/23 11/30/23 20:35 20:35 20:35 WBC RBC Hgb Hct MCV MCH MCHC RDW Plt Count Neut % (Auto) Lymph % (Auto) [place] % (Auto) Eos % (Auto) Baso % (Auto) Lymph # (Auto) [place] # (Auto) Baso # (Auto) Total Counted Seg Neutrophils % Band Neutrophils % Lymphocytes % (Manual) Atypical Lymphs % Monocytes % (Manual) Eosinophils % (Manual) Neutrophils # (Manual) Smudge Cells RBC Morphology Sodium Potassium Chloride Carbon Dioxide BUN Creatinine Estimated GFR BUN/Creatinine Ratio Glucose Lactate Calcium Phosphorus Total Bilirubin AST ALT Alkaline Phosphatase NT-Pro-B Natriuret Pep Total Protein Albumin Globulin Albumin/Globulin Ratio Lipase Urine Color Urine Appearance Urine pH Ur Specific [place] Urine Protein Urine Glucose (UA) Urine Ketones Urine Occult Blood Urine Nitrate Urine Bilirubin Ur Bilirubin Confirm Urine Urobilinogen 0.2 Ur Leukocyte Esterase 2+ H 3+ H Urine RBC 30-100/hpf H 1-5/hpf D Urine WBC >100/hpf H Ur Squamous Epith Cells Urine Bacteria Ur Culture Indicated? Vol Urine Centrifuged Nasal Screen MRSA (PCR) 11/30/23 11/30/23 11/30/23 20:35 20:35 20:35 WBC RBC Hgb Hct MCV MCH MCHC RDW Plt Count Neut % (Auto) Lymph % (Auto) [place] % (Auto) Eos % (Auto) Baso % (Auto) Lymph # (Auto) [place] # (Auto) Baso # (Auto) Total Counted Seg Neutrophils % Band Neutrophils % Lymphocytes % (Manual) Atypical Lymphs % Monocytes % (Manual) Eosinophils % (Manual) Neutrophils # (Manual) Smudge Cells RBC Morphology Sodium Potassium Chloride Carbon Dioxide BUN Creatinine Estimated GFR BUN/Creatinine Ratio Glucose Lactate Calcium Phosphorus Total Bilirubin AST ALT Alkaline Phosphatase NT-Pro-B Natriuret Pep Total Protein Albumin Globulin Albumin/Globulin Ratio Lipase Urine Color Urine Appearance Urine pH Ur Specific [place] Urine Protein Urine Glucose (UA) Urine Ketones Urine Occult Blood Urine Nitrate Urine Bilirubin Ur Bilirubin Confirm Urine Urobilinogen Ur Leukocyte Esterase Urine RBC Urine WBC 30-100/hpf H Ur Squamous Epith Cells 0-1 /hpf 0-1 /hpf Urine Bacteria Many (>30) H Many (>30) H Ur Culture Indicated? Specimen cultured Vol Urine Centrifuged Nasal Screen MRSA (PCR) 11/30/23 11/30/23 12/01/23 20:35 20:35 03:45 WBC RBC Hgb Hct MCV MCH MCHC RDW Plt Count Neut % (Auto) Lymph % (Auto) [place] % (Auto) Eos % (Auto) Baso % (Auto) Lymph # (Auto) [place] # (Auto) Baso # (Auto) Total Counted Seg Neutrophils % Band Neutrophils % Lymphocytes % (Manual) Atypical Lymphs % Monocytes % (Manual) Eosinophils % (Manual) Neutrophils # (Manual) Smudge Cells RBC Morphology Sodium Potassium Chloride Carbon Dioxide BUN Creatinine Estimated GFR BUN/Creatinine Ratio Glucose Lactate Calcium Phosphorus Total Bilirubin AST ALT Alkaline Phosphatase NT-Pro-B Natriuret Pep Total Protein Albumin Globulin Albumin/Globulin Ratio Lipase Urine Color Urine Appearance Urine pH Ur Specific [place] Urine Protein Urine Glucose (UA) Urine Ketones Urine Occult Blood Urine Nitrate Urine Bilirubin Ur Bilirubin Confirm Urine Urobilinogen Ur Leukocyte Esterase Urine RBC Urine WBC Ur Squamous Epith Cells Urine Bacteria Ur Culture Indicated? Specimen cultured Vol Urine Centrifuged 10ml (spun) 10ml (spun) Nasal Screen MRSA (PCR) Not detected 12/01/23 08:30 WBC 26.5 H RBC 3.17 L Hgb 10.2 L Hct 30.1 L MCV 94.9 MCH 32.0 MCHC 33.7 RDW 14.3 Plt Count 205 Neut % (Auto) Not Reportable Lymph % (Auto) Not Reportable [place] % (Auto) Not Reportable Eos % (Auto) Not Reportable Baso % (Auto) Not Reportable Lymph # (Auto) Not Reportable [place] # (Auto) Not Reportable Baso # (Auto) Not Reportable Total Counted 100 Seg Neutrophils % 34.0 L Band Neutrophils % Lymphocytes % (Manual) 63.0 H Atypical Lymphs % Monocytes % (Manual) 3.0 Eosinophils % (Manual) Neutrophils # (Manual) 9010 H Smudge Cells 2+ H D RBC Morphology Normal morphology Sodium 138 Potassium 4.0 Chloride 111 H Carbon Dioxide 22 BUN 20 Creatinine 1.43 H Estimated GFR 48 L BUN/Creatinine Ratio 14.0 Glucose 99 Lactate Calcium 10.0 Phosphorus 2.6 Total Bilirubin 0.9 AST 27 ALT 23 Alkaline Phosphatase 91 NT-Pro-B Natriuret Pep 549 H Total Protein 5.4 L Albumin 2.8 L Globulin 2.6 Albumin/Globulin Ratio 1.1 Lipase Urine Color Urine Appearance Urine pH Ur Specific [place] Urine Protein Urine Glucose (UA) Urine Ketones Urine Occult Blood Urine Nitrate Urine Bilirubin Ur Bilirubin Confirm Urine Urobilinogen Ur Leukocyte Esterase Urine RBC Urine WBC Ur Squamous Epith Cells Urine Bacteria Ur Culture Indicated? Vol Urine Centrifuged Nasal Screen MRSA (PCR) PFSH Medical History Hydronephrosis, right Elevated serum creatinine Prostate mass Bladder mass Microscopic hematuria Nocturnal enuresis Shortness of breath Anesthesia complication Easy bruisability COPD (chronic obstructive pulmonary disease) Right leg weakness RUQ abdominal pain Finger pain, right Right shoulder pain Supraventricular tachycardia Sleep apnea Depression Anxiety Hearing loss Hematuria BPH (benign prostatic hyperplasia) Hypercalcemia 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 Sister No problems noted. Father No problems noted. Mother Pancreatic cancer Social History household members: spouse Smoking Status: Never smoker alcohol intake: current substance use type: does not use Discharge Assessment & Plan Assessment and Plan Assessment: 1. Acute pyelonephritis in a patient with a history of bladder cancer status post nephrostomy tube placement. Present on admission and active. 2. Leukocytosis. Present on admission and active. 3. Bladder cancer. Present on admission and active. 4. Hyperlipidemia. Present on admission and active. 5. Depression. Present on admission and active. 6. CLL, Present on admission and active. Plan of Treatment: The patient was discussed with the [facility], he will be transferred to [facility] for ongoing treatment of his pyelonephritis, Infectious Disease consultation, Neurology consultation for further management of his obstructive hydronephrosis. Discharge Plan Discharge Plan Patient Disposition: [facility] Other facility: [facility] Provider Discharge Comment: Stable for transfer to [facility] for Infectious Disease consultation and Urology consultation. Discharge orders & Medications Prescriptions: No Action atorvastatin 10 mg tablet See Rx Instructions .ROUTE .COMPLEX Qty: 90 3RF Dose Instruction: Take 1 tablet (10 mg) by mouth at bedtime Rx Instructions: Take 1 tablet (10 mg) by mouth at bedtime bupropion HCl 150 mg tablet sustained-release 12 hr See Rx Instructions .ROUTE .COMPLEX Qty: 180 3RF Dose Instruction: Take 1 tablet (150 mg) by mouth 2 times daily Rx Instructions: Take 1 tablet (150 mg) by mouth 2 times daily lisinopril 20 mg tablet See Rx Instructions .ROUTE .COMPLEX Qty: 90 3RF Dose Instruction: Take 1 tablet (20 mg) by mouth daily Rx Instructions: Take 1 tablet (20 mg) by mouth daily tamsulosin 0.4 mg capsule 0.4 mg PO DAILY Qty: 30 1RF linezolid 600 mg tablet 600 mg PO BID Qty: 14 0RF clopidogrel 75 mg tablet 75 mg PO QPM Medication counseling provided by Pharmacist: No Follow up/Referrals: Johnny Jacobson MD [Primary Care Provider] - Discharge Health Status Multidrug resistant organism: No MDRO Diet/Activity/Treatments Diet: Regular Liquid consistency: Normal/Thin Food texture: Regular Activity: Ad ernesto Discharge Data Primary Care Provider: Johnny Jacobson Quality VTE Deep Vein Thrombosis/Pulmonary Embolism Present on Admission: No MIPS - DC The patient has a history of heart transplant or Left Ventricular Assist Device (LVAD). If yes, STOP here.: No The patient has current or prior documentation of left ventricular ejection fraction (LVEF) less than or equal to 40%, or moderate or severely depressed left ventricular systolic function.: No
[2023-12-01] MEDS: VANCOMYCIN 1,250 MG/250 ML PIGGYBACK 250 MG IV (20:05)
[2023-12-02] VITALS (53 sets, daily range): BP systolic 95–149; BP diastolic 52–76; PULSE 56–75; RESP 13–47; TEMP 36.3–38.3; O2SAT 95–99
[2023-12-02] MEDS: CEFEPIME 2 GM in SODIUM CHLORIDE 0.9% 100 ML IV (02:27)
[2023-12-02] MEDS: SODIUM CHLORIDE 0.45% 1,000 ML 100 ML IV (02:31)
--- NOTE | 2023-12-02 08:19 | P.PN_ITS ---
Subjective Subjective Interval history: Summary:3 years old male with a past medical history of bladder cancer, chronic lymphocytic leukemia, hypertension, dyslipidemia, depression and recent hospitalization for sepsis due to urinary tract infection with acute kidney injury. Urine at that time had grown Enterococcus needing a course of linezolid. Patient has significant bladder outlet obstruction and has had right and left nephrostomy tubes that has been draining. Was due to have scheduled bladder MRI in the near future. Now presented to the emergency room for fever episode with generalized weakness. Denies any flank or abdominal pain. No nausea or vomiting but denies any shortness of breath cough wheezing headache or upper respiratory symptoms. Appears to be very hard of hearing and frustrated with his diagnosis. Has been difficult to get a consistent history from the patient and much of the history has been obtained from the chart. In the ED noted to have a temp of 103.1 with a systolic initially as low as 85. Subsequent blood test showed a white count of 32,000 with a usual baseline around 29,000, hemoglobin of 11.2, BUN of 25 and a creatinine of 1.53. Sodium 131. Urine analysis is positive for leukocyte esterase and WBCs with many bacteria. CT abdomen and pelvis with contrast shows bladder wall thickening and bilateral percutaneous nephrostomy with decrease in the extent of hydronephrosis. Patient was initiated on IV Rocephin/IV vancomycin based on previous cultures and admitted for further evaluation. Family requested transfer to [facility] through [place] yesterday. They have a pending appointment with Urology down there with Dr. Henley and Dr. Caicedo of Urology. I did call the [facility] yesterday to request transfer and we are awaiting at this time for feasibility. S: He is feeling much better today, sitting up in a chair. No fevers overnight. Blood pressure better. Exam Vital Signs (past 8 hours): - 12/02/23 00:23 12/02/23 01:00 12/02/23 05:00 Temperature 98.3 F 98.3 F 98.6 F Pulse Rate 60 60 68 Respiratory Rate 24 24 16 Blood Pressure 101/57 L 101/57 L 122/67 Pulse Oximetry 97 97 98 Oxygen Flow Rate 0 0 Oxygen Delivery Method Room Air Oxygen Flow Rate 0 Narrative Exam Narrative: NAD, alert and oriented. Fluent speech. Lungs are clear, normal rate and effort. Heart is regular, no murmur gallop or rub. Abdomen is soft, non distended. Extremities are free of edema. Objective Labs 12/01/23 08:30 12/01/23 08:30 Labs: Laboratory Results - last 24 hr 11/30/23 11/30/23 11/30/23 20:35 20:35 20:35 WBC RBC Hgb Hct MCV MCH MCHC RDW Plt Count Neut % (Auto) Lymph % (Auto) [place] % (Auto) Eos % (Auto) Baso % (Auto) Lymph # (Auto) [place] # (Auto) Baso # (Auto) Total Counted Seg Neutrophils % Lymphocytes % (Manual) Monocytes % (Manual) Neutrophils # (Manual) Smudge Cells RBC Morphology Sodium Potassium Chloride Carbon Dioxide BUN Creatinine Estimated GFR BUN/Creatinine Ratio Glucose Calcium Phosphorus Total Bilirubin AST ALT Alkaline Phosphatase NT-Pro-B Natriuret Pep Total Protein Albumin Globulin Albumin/Globulin Ratio Urine Color Brown Yellow Urine Appearance Cloudy Sl cloudy Urine pH 5.5 Ur Specific [place] Urine Protein Urine Glucose (UA) Urine Ketones Urine Occult Blood Urine Nitrate Urine Bilirubin Ur Bilirubin Confirm Urine Urobilinogen Ur Leukocyte Esterase Urine RBC Urine WBC Ur Squamous Epith Cells Urine Bacteria Ur Culture Indicated? Vol Urine Centrifuged 11/30/23 11/30/23 11/30/23 20:35 20:35 20:35 WBC RBC Hgb Hct MCV MCH MCHC RDW Plt Count Neut % (Auto) Lymph % (Auto) [place] % (Auto) Eos % (Auto) Baso % (Auto) Lymph # (Auto) [place] # (Auto) Baso # (Auto) Total Counted Seg Neutrophils % Lymphocytes % (Manual) Monocytes % (Manual) Neutrophils # (Manual) Smudge Cells RBC Morphology Sodium Potassium Chloride Carbon Dioxide BUN Creatinine Estimated GFR BUN/Creatinine Ratio Glucose Calcium Phosphorus Total Bilirubin AST ALT Alkaline Phosphatase NT-Pro-B Natriuret Pep Total Protein Albumin Globulin Albumin/Globulin Ratio Urine Color Urine Appearance Urine pH 6.0 Ur Specific [place] 1.025 1.010 Urine Protein 2+ H 2+ H Urine Glucose (UA) Negative Urine Ketones Urine Occult Blood Urine Nitrate Urine Bilirubin Ur Bilirubin Confirm Urine Urobilinogen Ur Leukocyte Esterase Urine RBC Urine WBC Ur Squamous Epith Cells Urine Bacteria Ur Culture Indicated? Vol Urine Centrifuged 11/30/23 11/30/23 11/30/23 20:35 20:35 20:35 WBC RBC Hgb Hct MCV MCH MCHC RDW Plt Count Neut % (Auto) Lymph % (Auto) [place] % (Auto) Eos % (Auto) Baso % (Auto) Lymph # (Auto) [place] # (Auto) Baso # (Auto) Total Counted Seg Neutrophils % Lymphocytes % (Manual) Monocytes % (Manual) Neutrophils # (Manual) Smudge Cells RBC Morphology Sodium Potassium Chloride Carbon Dioxide BUN Creatinine Estimated GFR BUN/Creatinine Ratio Glucose Calcium Phosphorus Total Bilirubin AST ALT Alkaline Phosphatase NT-Pro-B Natriuret Pep Total Protein Albumin Globulin Albumin/Globulin Ratio Urine Color Urine Appearance Urine pH Ur Specific [place] Urine Protein Urine Glucose (UA) Negative Urine Ketones Negative Negative Urine Occult Blood 3+ H 3+ H Urine Nitrate Positive H Urine Bilirubin Ur Bilirubin Confirm Urine Urobilinogen Ur Leukocyte Esterase Urine RBC Urine WBC Ur Squamous Epith Cells Urine Bacteria Ur Culture Indicated? Vol Urine Centrifuged 11/30/23 11/30/23 11/30/23 20:35 20:35 20:35 WBC RBC Hgb Hct MCV MCH MCHC RDW Plt Count Neut % (Auto) Lymph % (Auto) [place] % (Auto) Eos % (Auto) Baso % (Auto) Lymph # (Auto) [place] # (Auto) Baso # (Auto) Total Counted Seg Neutrophils % Lymphocytes % (Manual) Monocytes % (Manual) Neutrophils # (Manual) Smudge Cells RBC Morphology Sodium Potassium Chloride Carbon Dioxide BUN Creatinine Estimated GFR BUN/Creatinine Ratio Glucose Calcium Phosphorus Total Bilirubin AST ALT Alkaline Phosphatase NT-Pro-B Natriuret Pep Total Protein Albumin Globulin Albumin/Globulin Ratio Urine Color Urine Appearance Urine pH Ur Specific [place] Urine Protein Urine Glucose (UA) Urine Ketones Urine Occult Blood Urine Nitrate Negative Urine Bilirubin 1+ H Negative Ur Bilirubin Confirm Negative Urine Urobilinogen 1.0 0.2 Ur Leukocyte Esterase 2+ H Urine RBC Urine WBC Ur Squamous Epith Cells Urine Bacteria Ur Culture Indicated? Vol Urine Centrifuged 11/30/23 11/30/23 11/30/23 20:35 20:35 20:35 WBC RBC Hgb Hct MCV MCH MCHC RDW Plt Count Neut % (Auto) Lymph % (Auto) [place] % (Auto) Eos % (Auto) Baso % (Auto) Lymph # (Auto) [place] # (Auto) Baso # (Auto) Total Counted Seg Neutrophils % Lymphocytes % (Manual) Monocytes % (Manual) Neutrophils # (Manual) Smudge Cells RBC Morphology Sodium Potassium Chloride Carbon Dioxide BUN Creatinine Estimated GFR BUN/Creatinine Ratio Glucose Calcium Phosphorus Total Bilirubin AST ALT Alkaline Phosphatase NT-Pro-B Natriuret Pep Total Protein Albumin Globulin Albumin/Globulin Ratio Urine Color Urine Appearance Urine pH Ur Specific [place] Urine Protein Urine Glucose (UA) Urine Ketones Urine Occult Blood Urine Nitrate Urine Bilirubin Ur Bilirubin Confirm Urine Urobilinogen Ur Leukocyte Esterase 3+ H Urine RBC 30-100/hpf H 1-5/hpf D Urine WBC >100/hpf H 30-100/hpf H Ur Squamous Epith Cells 0-1 /hpf Urine Bacteria Ur Culture Indicated? Vol Urine Centrifuged 11/30/23 11/30/23 11/30/23 20:35 20:35 20:35 WBC RBC Hgb Hct MCV MCH MCHC RDW Plt Count Neut % (Auto) Lymph % (Auto) [place] % (Auto) Eos % (Auto) Baso % (Auto) Lymph # (Auto) [place] # (Auto) Baso # (Auto) Total Counted Seg Neutrophils % Lymphocytes % (Manual) Monocytes % (Manual) Neutrophils # (Manual) Smudge Cells RBC Morphology Sodium Potassium Chloride Carbon Dioxide BUN Creatinine Estimated GFR BUN/Creatinine Ratio Glucose Calcium Phosphorus Total Bilirubin AST ALT Alkaline Phosphatase NT-Pro-B Natriuret Pep Total Protein Albumin Globulin Albumin/Globulin Ratio Urine Color Urine Appearance Urine pH Ur Specific [place] Urine Protein Urine Glucose (UA) Urine Ketones Urine Occult Blood Urine Nitrate Urine Bilirubin Ur Bilirubin Confirm Urine Urobilinogen Ur Leukocyte Esterase Urine RBC Urine WBC Ur Squamous Epith Cells 0-1 /hpf Urine Bacteria Many (>30) H Many (>30) H Ur Culture Indicated? Specimen cultured Specimen cultured Vol Urine Centrifuged 10ml (spun) 11/30/23 12/01/23 20:35 08:30 WBC 26.5 H RBC 3.17 L Hgb 10.2 L Hct 30.1 L MCV 94.9 MCH 32.0 MCHC 33.7 RDW 14.3 Plt Count 205 Neut % (Auto) Not Reportable Lymph % (Auto) Not Reportable [place] % (Auto) Not Reportable Eos % (Auto) Not Reportable Baso % (Auto) Not Reportable Lymph # (Auto) Not Reportable [place] # (Auto) Not Reportable Baso # (Auto) Not Reportable Total Counted 100 Seg Neutrophils % 34.0 L Lymphocytes % (Manual) 63.0 H Monocytes % (Manual) 3.0 Neutrophils # (Manual) 9010 H Smudge Cells 2+ H D RBC Morphology Normal morphology Sodium 138 Potassium 4.0 Chloride 111 H Carbon Dioxide 22 BUN 20 Creatinine 1.43 H Estimated GFR 48 L BUN/Creatinine Ratio 14.0 Glucose 99 Calcium 10.0 Phosphorus 2.6 Total Bilirubin 0.9 AST 27 ALT 23 Alkaline Phosphatase 91 NT-Pro-B Natriuret Pep 549 H Total Protein 5.4 L Albumin 2.8 L Globulin 2.6 Albumin/Globulin Ratio 1.1 Urine Color Urine Appearance Urine pH Ur Specific [place] Urine Protein Urine Glucose (UA) Urine Ketones Urine Occult Blood Urine Nitrate Urine Bilirubin Ur Bilirubin Confirm Urine Urobilinogen Ur Leukocyte Esterase Urine RBC Urine WBC Ur Squamous Epith Cells Urine Bacteria Ur Culture Indicated? Vol Urine Centrifuged 10ml (spun) [facility] Medical History Hydronephrosis, right Elevated serum creatinine Prostate mass Bladder mass Microscopic hematuria Nocturnal enuresis Shortness of breath Anesthesia complication Easy bruisability COPD (chronic obstructive pulmonary disease) Right leg weakness RUQ abdominal pain Finger pain, right Right shoulder pain Supraventricular tachycardia Sleep apnea Depression Anxiety Hearing loss Hematuria BPH (benign prostatic hyperplasia) Hypercalcemia 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 Sister No problems noted. Father No problems noted. Mother Pancreatic cancer Social History household members: spouse Smoking Status: Never smoker alcohol intake: current substance use type: does not use Assessment & Plan Assessment & Plan narrative: 1. Acute pyelonephritis in a patient with a history of bladder cancer status post nephrostomy tube placement. Present on admission and improved. -Continue IV fluids/IV Rocephin/vancomycin pending culture results. Monitor for any evidence of sepsis. Trend the lactic acid levels closely -E.coli sens to Cephalexin and Ceftriaxone. 2. Leukocytosis. Present on admission and active. -Does have a history of chronic lymphocytic leukemia but there could be an element of superimposed infection. Continue to trend 3. History of bladder cancer (obstructing both ureters). Present on admission and active. -Will need to review the home medications before resumption of the Flomax, Follows Urology/Oncology in OP setting 4. Hyperlipidemia. Present on admission and active. 5. Depression. Present on admission and active. -resume Wellbutrin after verification. 6. CLL, Present on admission and active. PLAN: -dc Vanco -start Ceftriaxone. -OOB DVT prophylaxis will be with SCDs GI prophylaxis will be Protonix WILLIAM: 1-2 days. [facility] discharge [facility] PO Abx with OP urology appt as scheduled 12/02 at 13:00. Patient will be admitted under inpatient status given the acute pyelonephritis with concerns for sepsis needing IV fluids/IV antibiotics. Expected length of stay is greater than 2 midnights. Quality VTE Deep Vein Thrombosis/Pulmonary Embolism Present on Admission: No
[2023-12-02] MEDS: ENOXAPARIN 40 MG/0.4 ML SYRINGE SUBCUT (09:01)
[2023-12-02] MEDS: SODIUM CHLORIDE 0.9% FLUSH 10 ML IV ×2 (09:02→21:18)
[2023-12-02] MEDS: cefTRIAXone 2,000 MG in SODIUM CHLORIDE 0.9% 100 ML 200 MG IV (09:46)
[2023-12-02] MEDS: buPROPion SR 150 MG TAB PO (21:17)
[2023-12-02] MEDS: lisinopriL 20 MG TABLET PO (21:17)
[2023-12-02] MEDS: ATORVASTATIN 20 MG TABLET 10 MG PO (21:17)
[2023-12-02] MEDS: CLOPIDOGREL 75 MG TABLET PO (21:20)
[2023-12-02] MEDS: TAMSULOSIN 0.4 MG CAPSULE PO (21:20)
[2023-12-03] VITALS (23 sets, daily range): BP systolic 123–171; BP diastolic 57–84; PULSE 62–79; RESP 14–37; TEMP 36.8–38.3; O2SAT 96–99
[2023-12-03] MEDS: ONDANSETRON 4 MG/2 ML INJ IV (02:55)
--- NOTE | 2023-12-03 08:27 | P.DS_ITS ---
History of Present Illness History of Present Illness Date Patient Seen: 12/03/23 Time Patient Seen: 08:37 Chief complaint: fever, ill, here yesterday Narrative: From H&P: 83 years old male with a past medical history of bladder cancer, chronic lymphocytic leukemia, hypertension, dyslipidemia, depression and recent hospitalization for sepsis due to urinary tract infection with acute kidney injury. Urine at that time had grown Enterococcus needing a course of linezolid. Patient has significant bladder outlet obstruction and has had right and left nephrostomy tubes that has been draining. Was due to have scheduled bladder MRI in the near future. Now presented to the emergency room for fever episode with generalized weakness. Denies any flank or abdominal pain. No nausea or vomiting but denies any shortness of breath cough wheezing headache or upper respiratory symptoms. Appears to be very hard of hearing and frustrated with his diagnosis. Has been difficult to get a consistent history from the patient and much of the history has been obtained from the chart. In the ED noted to have a temp of 103.1 with a systolic initially as low as 85. Subsequent blood test showed a white count of 32,000 with a usual baseline around 29,000, hemoglobin of 11.2, BUN of 25 and a creatinine of 1.53. Sodium 131. Urine analysis is positive for leukocyte esterase and WBCs with many bacteria. CT abdomen and pelvis with contrast shows bladder wall thickening and bilateral percutaneous nephrostomy with decrease in the extent of hydronephrosis. Patient was initiated on IV Rocephin/IV vancomycin based on previous cultures and admitted for further evaluation. S: Patient was feeling better. He was improved his fever overnight in his much more mentally alert. His pain is also improved. He was bilateral percutaneous nephrostomy tubes in place for a an obstructive bladder mass. He was treated for Enterococcus and a previous admission and is responding to vancomycin. His initial urine study indicate a Gram-negative bacillus. Patient has an appointment with Urology and [facility] on Sunday at 1:00 p.m.. His blood pressures have been somewhat soft, however his map is over 65. He feels generally much better. He denies any nausea or abdominal pain currently. He lives with his in [place]. Discharge Providers Provider Date of admission: 12/01/23 01:06 Discharge Date: 12/03/23 Primary care physician: Johnny Jacobson MD Discharge provider: Orion Miles DO Summary Hospital Course Discharge Diagnosis: 1. Acute pyelonephritis in a patient with a history of bladder cancer status post nephrostomy tube placement. Present on admission and improved. 2. Leukocytosis. Present on admission and active. 3. History of bladder cancer (obstructing both ureters). Present on admission and active. 4. Hyperlipidemia. Present on admission and active. 5. Depression. Present on admission and active. 6. CLL, Present on admission and active. Hospital Course: This is an 83 year old male with PMH of bladder cancer with nephrostomy tube admitted with pyelonephritis. Family requested transfer however he improved with antibiotic therapy and has urology follow up planned for the afternoon of the day of discharge. Urine culture grew E. coli with multiple resistances (fluoroquinolones and penicillins) but sensative to all cephalosporins. The patient showed improvement on ceftriaxone and was discharged on oral cephalexin for another week to complete treatment for complex / complicated UTI. He will follow up with urology the afternoon after discharge. No other medication changes were recommended. Time Spent with Patient Time spent: Greater than 30 minutes Exam Vital Signs (past 8 hours): - 12/03/23 00:30 12/03/23 01:00 12/03/23 01:30 Temperature Pulse Rate 71 64 65 Respiratory Rate 16 25 H 24 Blood Pressure Pulse Oximetry 96 96 97 12/03/23 02:00 12/03/23 02:19 12/03/23 02:19 Temperature Pulse Rate 70 63 Respiratory Rate 14 20 Blood Pressure 138/73 Pulse Oximetry 97 96 12/03/23 02:30 12/03/23 03:00 12/03/23 03:14 Temperature Pulse Rate 69 68 Respiratory Rate 30 H 26 H Blood Pressure 123/57 L Pulse Oximetry 96 97 12/03/23 03:14 12/03/23 03:30 Temperature 100.9 F H Pulse Rate 65 66 Respiratory Rate 16 22 Blood Pressure Pulse Oximetry 96 97 Oxygen Delivery Method Room Air Oxygen Flow Rate 0 Narrative Exam Narrative: NAD, alert and oriented. Fluent speech. Lungs are clear, normal rate and effort. Heart is regular, no murmur gallop or rub. Abdomen is soft, non distended. Extremities are free of edema. Objective Labs 12/01/23 08:30 12/01/23 08:30 [facility] Medical History Hydronephrosis, right Elevated serum creatinine Prostate mass Bladder mass Microscopic hematuria Nocturnal enuresis Shortness of breath Anesthesia complication Easy bruisability COPD (chronic obstructive pulmonary disease) Right leg weakness RUQ abdominal pain Finger pain, right Right shoulder pain Supraventricular tachycardia Sleep apnea Depression Anxiety Hearing loss Hematuria BPH (benign prostatic hyperplasia) Hypercalcemia 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 Sister No problems noted. Father No problems noted. Mother Pancreatic cancer Social History household members: spouse Smoking Status: Never smoker alcohol intake: current substance use type: does not use Discharge Assessment & Plan Assessment and Plan Assessment: 1. Acute pyelonephritis in a patient with a history of bladder cancer status post nephrostomy tube placement. Present on admission and active. 2. Leukocytosis. Present on admission and active. 3. Bladder cancer. Present on admission and active. 4. Hyperlipidemia. Present on admission and active. 5. Depression. Present on admission and active. 6. CLL, Present on admission and active. Plan of Treatment: The patient was discussed with the [facility], he will be transferred to [facility] for ongoing treatment of his pyelonephritis, Infectious Disease consultation, Neurology consultation for further management of his obstructive hydronephrosis. Discharge Plan Discharge Plan Patient Disposition: Home Provider Discharge Comment: discharge home, acute cystitis oral antibiotics. Follow up urology today. Cultures with E. coli sensitive to cephalosporins. Discharge orders & Medications Prescriptions: New cephalexin 500 mg tablet 500 mg PO QID 7 Days Qty: 28 0RF Continued atorvastatin 10 mg tablet See Rx Instructions .ROUTE .COMPLEX Qty: 90 3RF Dose Instruction: Take 1 tablet (10 mg) by mouth at bedtime Rx Instructions: Take 1 tablet (10 mg) by mouth at bedtime bupropion HCl 150 mg tablet sustained-release 12 hr See Rx Instructions .ROUTE .COMPLEX Qty: 180 3RF Dose Instruction: Take 1 tablet (150 mg) by mouth 2 times daily Rx Instructions: Take 1 tablet (150 mg) by mouth 2 times daily lisinopril 20 mg tablet See Rx Instructions .ROUTE .COMPLEX Qty: 90 3RF Dose Instruction: Take 1 tablet (20 mg) by mouth daily Rx Instructions: Take 1 tablet (20 mg) by mouth daily tamsulosin 0.4 mg capsule 0.4 mg PO DAILY Qty: 30 1RF clopidogrel 75 mg tablet 75 mg PO QPM Discontinued linezolid 600 mg tablet 600 mg PO BID Qty: 14 0RF Medication counseling provided by Pharmacist: No Follow up/Referrals: Johnny Jacobson MD [Primary Care Provider] - Discharge Health Status Multidrug resistant organism: No MDRO Diet/Activity/Treatments Diet: Regular Activity: As tolerated, no restrictions. Visit Report/Discharge Packet Stand Alone Forms: Patient Portal/API, Stroke Signs & Symptoms Discharge Data Primary Care Provider: Johnny Jacobson Quality VTE Deep Vein Thrombosis/Pulmonary Embolism Present on Admission: No
--- NOTE | 2023-12-03 10:18 | PC.NURSE ---
At start of shift, pt and spouse eager to discharge. Provider at bedside, care team including patient and family agreeable to d/c plan. Pt appt with [facility] at 1PM in [place] today. IV discontinued, telemetry removed. Pt education provided to pt and spouse. Pt wheeled via w/c to private vehicle by [facility] at approximately 0940.
--- NOTE | 2023-12-03 11:03 | CM.DPC ---
DCP Continued Reviewed EMR and team rounds for pt?s medical status. Pt has discharge orders in and is eager to dc per RN. DCP entered resumption orders for [facility] to continue with services, coordinated with [facility] Plan: Pt to discharge home with family, resume services with [facility]. CM Team will continue to follow for coordination of discharge plans. ABDIEL [place]
== END 2023-12-03 09:50 | disposition home health service (06) | DRG 698 ==
LOC: ED 12-01 01:05 → AC 12-01 01:07 → ICU 12-01 02:23
PROVIDERS: Admitting Provider Internal Medicine; Emergency Provider Emergency Medicine; Family Provider Family Medicine; PCP Family Medicine; Referring Provider Emergency Medicine; Visit Provider Internal Medicine
DX: T83.512A Infection and inflammatory reaction due to nephrostomy catheter, initial encounter (principal); A41.9 Sepsis, unspecified organism; C91.10 Chronic lymphocytic leukemia of B-cell type not having achieved remission; N13.6 Pyonephrosis; E78.5 Hyperlipidemia, unspecified; F32.A Depression, unspecified; B96.20 Unspecified Escherichia coli [E. coli] as the cause of diseases classified elsewhere; I10 Essential (primary) hypertension; N40.0 Benign prostatic hyperplasia without lower urinary tract symptoms; Z79.02 Long term (current) use of antithrombotics/antiplatelets; Z85.51 Personal history of malignant neoplasm of bladder; Z93.6 Other artificial openings of urinary tract status; C67.9 Malignant neoplasm of bladder, unspecified; R31.0 Gross hematuria; N32.89 Other specified disorders of bladder; R59.0 Localized enlarged lymph nodes; N40.2 Nodular prostate without lower urinary tract symptoms; R53.83 Other fatigue
CPT/HCPCS: 36415; 71046; 72197; 74177; 80053; 81001; 83605; 83690; 83880; 84100; 85007; 85025; 87040; 87077; 87086; 87186; 87797; 96365; 96367; 99282; 99284; 99291; A9579; J0692; J0696; J1650; J2405; J7050; Q9967

== ENCOUNTER 2023-12-06 20:24 | Emergency (ER) | payer OTHER, SELFPAY ==
[2023-12-01 04:00] VITALS: BMI 23.1
[2023-12-06 20:30] VITALS: BP 143/68; PULSE 73; RESP 18; TEMP 36.7; O2SAT 98; BMI 24.3
--- NOTE | 2023-12-06 20:58 | ED.ABDPAIN ---
HPI - Abdominal Pain General Chief Complaint: Abdominal Pain Stated Complaint: severe constipation Time Seen by Provider: 12/06/23 20:33 Source: patient Mode of arrival: Ambulatory History of Present Illness HPI narrative: Patient is an 83-year-old male history of bladder cancer, CLL, hypertension dyslipidemia recent hospitalization for sepsis due to UTI and VALENCIA, recently had a nephrostomy tube placed. Urine culture ultimately grew E coli with multiple resistances fluoroquinolones sewn and penicillins but sensitive to all cephalosporins. Today he presents with constipation. He is significant pain and pressure in his rectum. He tried multiple things at home including magnesium citrate. He was so does for he went to a walk-in clinic where they gave him some gloves and he tried self disimpaction he is only able to get some out. Denies fever or chills. Overall is feeling better than when he was admitted just last week. He reports that he does have bouts of constipation this feels similar. Patient has also had multiple CTs recently Related Data Home Medications Medication Instructions Recorded Confirmed clopidogrel 75 mg tablet 75 mg PO QPM 12/01/23 12/06/23 cephalexin 500 mg capsule 500 mg PO 4XD 12/06/23 12/06/23 linezolid 600 mg tablet 600 mg PO BID 12/06/23 12/06/23 nitrofurantoin 1 cap PO BID 12/06/23 12/06/23 monohydrate/macrocrystals 100 mg capsule Previous Rx's Medication Instructions Recorded atorvastatin 10 mg tablet See Rx Instructions .Route 04/16/23 .COMPLEX #90 tabs bupropion HCl 150 mg tablet,12 hr See Rx Instructions .Route 04/16/23 sustained-release .COMPLEX #180 tabs lisinopril 20 mg tablet See Rx Instructions .Route 04/23/23 .COMPLEX #90 tabs cephalexin 500 mg tablet 500 mg PO QID 7 days #28 tabs 12/03/23 tamsulosin 0.4 mg capsule 0.4 mg PO DAILY #90 caps 12/04/23 lactulose 10 gram/15 mL (15 mL) 10 g (15 mL) PO BID PRN 12/07/23 oral solution constipation #300 mL lactulose 10 gram/15 mL (15 mL) 10 g (15 mL) PO DAILY PRN 12/07/23 oral solution constipation #200 mL Allergies Allergy/AdvReac Type Severity Reaction Status Date / Time No Known Drug Allergies Allergy Verified 12/06/23 20:38 Patient History Medical History Hydronephrosis, right Elevated serum creatinine Prostate mass Bladder mass Microscopic hematuria Nocturnal enuresis Shortness of breath Anesthesia complication Easy bruisability COPD (chronic obstructive pulmonary disease) Right leg weakness RUQ abdominal pain Finger pain, right Right shoulder pain Supraventricular tachycardia Sleep apnea Depression Anxiety Hearing loss Hematuria BPH (benign prostatic hyperplasia) Hypercalcemia 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 Sister No problems noted. Father No problems noted. Mother Pancreatic cancer Social History household members: spouse Smoking Status: Never smoker alcohol intake: current substance use type: does not use Smoking Status: Never smoker alcohol intake frequency: 0-2 drinks per day Substance Use Type: does not use Exam Initial Vital Signs Initial Vital Signs: Vital Signs Temperature 98.1 F 12/06/23 20:30 Pulse Rate 73 12/06/23 20:30 Respiratory Rate 18 12/06/23 20:30 Blood Pressure 143/68 H 12/06/23 20:30 Pulse Oximetry 98 12/06/23 20:30 Oxygen Delivery Method Room Air 12/06/23 20:30 GENERAL: Alert pleasant 83-year-old male and in [no acute] distress. HEENT: Head atraumatic,EOMI, pupils reactive, face symmetric, [moist] mucous membranes CARDIOVASCULAR: Regular rate and rhythm without murmurs, rubs or gallops. RESPIRATORY: Breath sounds equal bilaterally, no wheezes rales or rhonchi. ABDOMEN: Soft, nontender. Normoactive bowel sounds all 4 quadrants. No guarding or rebound. [RECTAL:] [Hemoccult-positive, no hemorrhoids, nontender] : Indwelling Redman catheter EXTREMITIES: Normal range of motion, no clubbing or edema. Neurovascularly intact NEUROLOGICAL: Alert and oriented x4.Normal gait and speech. SKIN: Warm, dry, no laceration, no petechiae, no rashes or lesions. Course Orders Ordered: ED Orders 12/06/23 23:14 XR abdomen min 2V Stat Discontinued Medications Mineral Oil (Mineral Oil 1 Each Enema) 1 each OH NOW ONE Stop: 12/06/23 21:15 Last Admin: 12/06/23 21:27 Dose: 1 each Documented By: DEIRDRE Vital Signs Vital signs: Vital Signs - 8 hr 12/06/23 20:30 12/06/23 21:32 12/06/23 22:00 Temperature 98.1 F Pulse Rate 73 72 Respiratory Rate 18 Blood Pressure 143/68 H 120/68 Pulse Oximetry 98 98 Oxygen Delivery Method Room Air 12/06/23 22:00 Temperature Pulse Rate 68 Respiratory Rate Blood Pressure Pulse Oximetry 97 Oxygen Delivery Method MDM - Abdominal Pain Imaging Data Abdominal x-ray: Radiologist's Impression: PROCEDURE: XR ABDOMEN MIN 2V INDICATIONS: constipation rectal pain TECHNIQUE: 2 views of the abdomen were acquired. COMPARISON: None. FINDINGS: Surgical changes and devices: Bilateral nephrostomy tubes.. Bowel: No pneumoperitoneum. The bowel gas pattern is abnormal with moderate generalized colonic obstipation prominent involving the rectum. Soft tissues: No masses; visualized solid organ contours appear normal in size. No suspicious abdominal calcifications. Bones: No suspicious bony abnormalities. IMPRESSION: Colonic obstipation discussed most prominent involving rectum. Dictated by: Twin Givens M.D. on 12/07/2023 at 0:01 MDM Narrative Medical decision making narrative: Patient 83-year-old male history of CLL recent bilateral nephrostomy tubes UTI pyelonephritis presenting today with rectal pain and pressure. He has had constipation previously this feels like constipation. We tried multiple enemas here including mineral oil and soapsuds both were very minimally responsive. At that point x-ray was done which does show quite a lot of stool. At this time patient overall appears well vitals are stable symptoms consistent with constipation confirmed by x-ray. We will give patient some lactulose to go Discharge Plan Departure Patient Disposition: Home Clinical Impression: Constipation Instructions: DI for Constipation Activity Restrictions/Additional Instructions: *You have been diagnosed with constipation *What to do: Increase fiber and fluids *Continue to take medications as directed Lactulose 2-3 times daily as needed until bowel movement, then stop *Follow up with your primary care provider in 2-3 days or call [phone] *Return to ER if you should have increased abdominal pain nausea vomiting fever or any new, worsening or concerning symptoms Prescriptions: New lactulose 10 gram/15 mL (15 mL) solution 10 g PO DAILY PRN (Reason: constipation) Qty: 200 0RF lactulose 10 gram/15 mL (15 mL) solution 10 g PO BID PRN (Reason: constipation) Qty: 300 0RF No Action cephalexin 500 mg capsule 500 mg PO 4XD linezolid 600 mg tablet 600 mg PO BID nitrofurantoin monohyd/m-cryst 100 mg capsule 1 cap PO BID atorvastatin 10 mg tablet See Rx Instructions .ROUTE .COMPLEX Qty: 90 3RF Dose Instruction: Take 1 tablet (10 mg) by mouth at bedtime Rx Instructions: Take 1 tablet (10 mg) by mouth at bedtime bupropion HCl 150 mg tablet sustained-release 12 hr See Rx Instructions .ROUTE .COMPLEX Qty: 180 3RF Dose Instruction: Take 1 tablet (150 mg) by mouth 2 times daily Rx Instructions: Take 1 tablet (150 mg) by mouth 2 times daily lisinopril 20 mg tablet See Rx Instructions .ROUTE .COMPLEX Qty: 90 3RF Dose Instruction: Take 1 tablet (20 mg) by mouth daily Rx Instructions: Take 1 tablet (20 mg) by mouth daily tamsulosin 0.4 mg capsule 0.4 mg PO DAILY Qty: 90 3RF clopidogrel 75 mg tablet 75 mg PO QPM cephalexin 500 mg tablet 500 mg PO QID 7 Days Qty: 28 0RF Referrals: Johnny Jacobson MD [Primary Care Provider] - Stand Alone Forms: Patient Portal/API
[2023-12-06] MEDS: MINERAL OIL 1 EACH ENEMA PR (21:27)
[2023-12-06 21:32] VITALS: PULSE 72; O2SAT 98
[2023-12-06 22:00] VITALS: BP 120/68; PULSE 68; O2SAT 97
--- NOTE | 2023-12-06 23:14 | DI.RAD.S_ITS ---
PROCEDURE: XR ABDOMEN MIN 2V INDICATIONS: constipation rectal pain TECHNIQUE: 2 views of the abdomen were acquired. COMPARISON: None. FINDINGS: Surgical changes and devices: Bilateral nephrostomy tubes.. Bowel: No pneumoperitoneum. The bowel gas pattern is abnormal with moderate generalized colonic obstipation prominent involving the rectum. Soft tissues: No masses; visualized solid organ contours appear normal in size. No suspicious abdominal calcifications. Bones: No suspicious bony abnormalities. IMPRESSION: Colonic obstipation discussed most prominent involving rectum. Dictated by: Twin Givens M.D. on 12/07/2023 at 0:01 Approved by: Twin Givens M.D. on 12/07/2023 at 0:02
== END 2023-12-07 00:19 | disposition home or self-care (01) ==
PROVIDERS: Emergency Provider Emergency Medicine; Family Provider Family Medicine; PCP Family Medicine
DX: K59.00 Constipation, unspecified (principal)
CPT/HCPCS: 74019; 99282

== ENCOUNTER → 2023-12-12 17:19 | Outpatient (CLI) | payer OTHER, SELFPAY ==
[2023-12-01 04:00] VITALS: BMI 23.1
[2023-12-12 19:06] LABS: Appearance Urine UA CLEAR; Bilirubin Urine UA NEGATIVE (NEGATIVE); Color Urine UA YELLOW; Glucose Urine UA NEGATIVE (Negative); Ketones Urine UA NEGATIVE (NEGATIVE); Leukocyte Esterase Urine UA 2+ (NEGATIVE); Nitrite Urine UA NEGATIVE (Negative); Occult Blood Urine UA 3+ (Negative); Protein Urine UA 1+ (Negative); Urobilinogen Urine UA 0.2 E.U./dL (0.2)
[2023-12-12 19:22] LABS: Bacteria Urine Many (>30); Culture Indicated Urine Specimen Cultured; RBC Urine 5-10/HPF (0-5/HPF); Squamous Epithelial Cell Urine None Seen (0-5/HPF); Urine Volume 10mL (spun); WBC Urine 5-10/HPF (0-5/HPF)
== END ==
LOC: LAB 17:21
PROVIDERS: Family Provider Family Medicine; PCP Family Medicine; Referring Provider Urology; Visit Provider Urology
DX: Z01.818 Encounter for other preprocedural examination (principal)
CPT/HCPCS: 81001; 87077; 87086

== ENCOUNTER → 2023-12-13 13:30 | Outpatient (CLI) | payer OTHER, SELFPAY ==
[2023-12-01 04:00] VITALS: BMI 23.1
[2023-12-13 14:04] LABS: Appearance Urine UA CLEAR; Bilirubin Urine UA NEGATIVE (NEGATIVE); Color Urine UA YELLOW; Glucose Urine UA NEGATIVE (Negative); Ketones Urine UA NEGATIVE (NEGATIVE); Leukocyte Esterase Urine UA 2+ (NEGATIVE); Nitrite Urine UA NEGATIVE (Negative); Occult Blood Urine UA 2+ (Negative); Protein Urine UA NEGATIVE (Negative); Urobilinogen Urine UA 0.2 E.U./dL (0.2); pH Urine UA 7.5 (4.5-8.0)
[2023-12-13 14:15] LABS: Bacteria Urine Few (2-10); RBC Urine 1-5/HPF (0-5/HPF); Squamous Epithelial Cell Urine 0-1 /HPF (0-5/HPF); Urine Volume 10mL (spun); WBC Urine 1-5/HPF (0-5/HPF)
[2023-12-13 14:18] LABS: Culture Indicated Urine Specimen Cultured
== END ==
PROVIDERS: Family Provider Family Medicine; PCP Family Medicine
DX: N32.89 Other specified disorders of bladder (principal)
CPT/HCPCS: 81001; 87086

== ENCOUNTER → 2023-12-26 13:58 | Outpatient (CLI) | payer OTHER, SELFPAY ==
[2023-12-26 08:07] VITALS: BMI 23.1
== END ==
PROVIDERS: Family Provider Family Medicine; PCP Family Medicine; Referring Provider Family Medicine; Visit Provider Family Medicine
DX: R11.10 Vomiting, unspecified (principal); C67.9 Malignant neoplasm of bladder, unspecified; Z93.6 Other artificial openings of urinary tract status
CPT/HCPCS: 87077; 87086